=== PATIENT | male | born 1965 | race Caucasian/White ===

== ENCOUNTER 2024-06-08 09:42 | Inpatient (IN) | payer OTHER, SELFPAY ==
[2024-06-08] VITALS (12 sets, daily range): BP systolic 146–212; BP diastolic 75–99; BMI 28.8
--- NOTE | 2024-06-08 11:09 | W.CON.NEPH ---
Addendum entered and electronically signed by Roldan Morgan MD 06/08/24 11:19:
Should his creatinine remained stable, he could proceed with surgery.
We discussed the risks of LELAND as well as dialysis. He does understand.
Original Note:
Consultation
-
Date/Time Consultation Requested: 06/08/24 1100
Date/Time Consultation Performed: 06/08/24 1100
Requesting Provider: Dr. Sarabia
Performing Provider: Dr. Morgan
Reason for Consultation: CKD
Medical History
-
Chief Complaint: Transferred from [facility]
History of Present Illness:
This is a 50-year-old Tanzanian-speaking gentleman from [facility]. He has hypertension on a multidrug regimen typically has been well-controlled as well as diabetes on oral medications though this does not appear to have been well-controlled in the
past. He only follows with a family care physician. Dr. Rodriguez [phone]. He says that he gets blood work about every 6 months and the last set was back in October. He does not recall ever being asked for a urine specimen. He says that he
has never been told that he has chronic kidney disease. He went to [facility] on 05 June with hypertensive urgency as well as hyperglycemia. He was not felt to be in DKA based on blood work. His blood pressures were treated and his
sugars controlled. His creatinine at the time of admission was noted to be 1.88. Evaluation at that time because of elevated troponin values showed an otherwise unremarkable echocardiogram, chest x-ray. Renal ultrasound was also unremarkable. He
subsequently underwent cardiac catheterization which showed significant diffuse multivessel disease. He was sent to [facility] for evaluation of bypass grafting. At the time of discharge his creatinine was noted to be 2.05. We are asked
to assist with management of the potential of LELAND on CKD.
Past Medical History
Hypertension, hyperlipidemia, diabetes mellitus type 2
Social History
Tobacco: Non-Smoker
Alcohol: None
Family History
Family History: Not Pertinent
Allergies / Home Medications
Allergy/AdvReac Type Severity Reaction Status Date / Time
No Known Drug Allergies Allergy Unknown Verified 06/08/24 10:05
Review of Systems
-
Currently no chest pain or shortness of breath. No edema. No issues with urine output.
All other systems: Negative unless noted
Physical Exam
Vital Signs
Vital Signs
Pulse BP Pulse Ox
80 174/81 96
06/08/24 11:00 06/08/24 09:46 06/08/24 09:44
Lab Results
On June 08, 2024 WBC 13, hemoglobin 11.5, platelets 201, sodium 137, potassium 3.6, bicarbonate 20, BUN 28, creatinine is 2.05, glucose 93, calcium 8.1, magnesium 2.1, GFR 37
Records from [facility] reviewed
On June 05, 2024 creatinine 1.88, troponin 212, urinalysis with 1+ protein
Physical Exam
Patient is awake alert oriented and in no distress. Mood and affect were pleasant, insight and judgment were good. Pupils are equal round and reactive to light, extraocular movements are intact, sclera were anicteric. Hearing was normal, ears and
nose are intact. Oropharynx was clear. Neck was supple with trachea midline and no thyromegaly. Heart was regular rate and rhythm without rubs. Lower extremities without edema. Lungs were clear to auscultation bilaterally and with normal
excursion. Abdomen was soft, nontender, with normal active bowel sounds, and no hepatosplenomegaly. Skin was without rash and with normal turgor.
Data Reviewed
-
CT Scan: Report Reviewed by me (Chest x-ray on 06/05/2024 shows no acute disease)
Medical Tests (Nuc Med, Echo etc): Image Personally Visualized and interpreted (EKG on 06/05/2024 by reading shows first-degree block Nasiff T wave abnormalities sinus rhythm), Report Reviewed by me (Echocardiogram on 06/06/2024 shows ejection
fraction 55%, no valvular disease noted) and Other (Renal ultrasound on 06/05/2024 shows left kidney 10.3 cm, right kidney 10.9 cm, postvoid residual 15 cc only)
Labs: Other (Cardiac catheterization on 06/07/2024 shows diffuse disease LAD, diagonal, circumflex, right coronary)
Old Records: Requested
Assessment/Plan
-
Assessment
CKD 3B
Possible LELAND
Diabetes mellitus type 2
Hypertension
Hyperlipidemia
Diffuse CAD
Plan
CT surgical evaluation for probable bypass grafting
Follow creatinine and BMP I suspect that he is close to baseline
Will try and obtain old blood tests from either [facility] or his primary office
Check urine protein creatinine ratio
Holding ARB, SGLT2 inhibitors for now
Volume status appears euvolemic
Discussed with patient and family. Patient used [employer] feed[employer] driver on his phone
[2024-06-08 11:33] LABS: Glucose - Point of Care 200 mg/dl (70-99)
[2024-06-08 12:04] LABS: Hemoglobin 12.6 g/dL (13.0-18.0); Mean Corp Hgb Conc. 34.1 g/dL (33.0-37.0); Mean Corpuscular Hgb 28.6 pg (27.0-31.0); Mean Corpuscular Volume 83.9 fL (80.0-94.0); Mean Platelet Volume 11.5 fL (7.4-10.4); Platelet Count 215 10^3/uL (130-400); Red Blood Cell Count 4.41 10^6/uL (4.70-6.10); Red Cell Dist. Width 13.8 % (11.5-14.5); White Blood Cell Count 12.9 10^3/uL (4.8-10.8)
--- NOTE | 2024-06-08 12:07 | CON.CAR ---
Addendum entered and electronically signed by Niles Verdugo MD 06/08/24 14:59:
58 yo male with PMH HTN, DM, CKD3b presented to [facility] with chest pain. He was evaluated for HTN emergency and NSTEMI. Cath showed multivessel CAD and transferred here for CABG evaluation. He is chest pain free. Exam with RRR, no murmurs, no edema.
Cr 1.9. EKG: NSR, nonspecific T wave abnl.
#CAD/NSTEMI
-ASA, heparin drip, coreg, crestor
-CABG eval
# HTN emergency
-current regimen is coreg 6.25mg bid, amlodipine 10mg daily, hydralazine 50mg tid
-avoiding nephrotoxic agents with CKD3b and plans for CABG
Original Note:
Consultation
Consultation Request
Date/Time Consultation Requested: 06/08/2024 10:00
Date/Time Consultation Performed: 06/08/2024 12:00
Requesting Provider: Theron Calderon PA-C
Performing Provider: BEN Mir for Dr. Verdugo
Reason for Consultation: Coronary artery disease
Medical History
-
Chief Complaint: High blood sugar, chest pain, blurry vision
History of Present Illness:
Patient is a 58-year-old Ugandan-speaking male originally from [facility] with hypertension, type 2 diabetes mellitus, and chronic kidney disease who presented to [facility] on 06/05/2024 with hypertensive urgency. His BP on arrival was 174/85. He was
also found of hyperglycemia. He endorsed blurry vision and headache along with left-sided chest discomfort that would come and go. There was no radiation of his chest discomfort. He also endorsed urinary frequency. He was found to have an
elevated troponin. He underwent cardiac catheterization which showed difduse multivessel coronary artery disease. He was transferred to [facility] for CABG evaluation.
Past Medical History
Past Medical History: HTN, Hypercholesterolemia, NIDDM and Renal Failure (CKD)
Social History
Tobacco: Non-Smoker
Alcohol: None
Drug: None
Living: With Family
Family History
Family History: Reviewed & Not Pertinent (Denies premature CAD and SCD)
Allergies / Home Medications
Allergy/AdvReac Type Severity Reaction Status Date / Time
No Known Drug Allergies Allergy Unknown Verified 06/08/24 10:05
Review of Systems
-
History Source: Patient
All other systems: Negative unless noted
Constitutional: No Symptoms
EENT: No Symptoms
Respiratory: No Symptoms
Cardiac: No Symptoms
Abdomen/GI: No Symptoms
: No Symptoms
Musculoskeletal: No Symptoms
Skin: No Symptoms
Neurological: No Symptoms
Endocrine: No Symptoms
Hematologic/Lymphatic: No Symptoms
Physical Exam
Vital Signs
Pulse BP Pulse Ox
80 174/81 96
06/08/24 11:00 06/08/24 09:46 06/08/24 09:44
Lab Results
06/08/24 11:46
Physical Exam
General: Well Developed, Well Nourished, No Apparent Distress and Comfortable
HEENT: Normocephalic, Anicteric and Moist Mucous Membranes
Respiratory: Clear and Non Labored Respirations
Cardiac: S1/S2 and Regular Rhythm; Negative Peripheral Edema
Breast: Deferred by me
GI: Soft, Non Tender, Non Distended and Normal Bowel Sounds
Rectal: Deferred by Provider
Genito-urinary: No Costovertebral Tender
Musculoskeletal: No Clubbing and No Cyanosis
Skin: Warm and Dry
Neuro: AO x 3
Hematologic/Lymphatic: No Lymphadenopathy
Psych: Calm
Impression / Plan
-
NSTEMI
MVCAD
-High-sensitivity troponin peaked at 212 at [facility] (164, 212, 205, 170)
-Continue aspirin 81 mg daily and heparin drip
-CABG evaluation pending
Hypertensive urgency
-He is on amlodipine, carvedilol, and valsartan at home
-Hold ELIDA/ARB in the setting of CABG evaluation
-Resume carvedilol 6.25mg BID, start now & resume amlodipine 10mg, start now
-Hydralazine was added by primary service
Type 2 diabetes mellitus
-Initially, he presented with hypokalemia and hypoglycemia but DKA was not diagnosed
-SGLT2 on hold in the setting of CABG evaluation
-HgbA1c pending, consider diabetic FRAMING CONSULTANT consult
LELAND on CKD
-Presented with a creatinine of 1.89, received dye load 06/06/2024, creatinine 2.08 at [facility] yesterday
-Weight documented at 81.2 kg in ER at [facility]
-Per nephrology
Dyslipidemia
-Lipid panel 06/06/2024: TC 266, HDL 41, LDL 172, TG 267
-He was on atorvastatin 40 mg at home, escalate therapy to rosuvastatin 40 mg daily
Data:
Coronary angiography, 06/07/2004:
Moderate mid and severe distal LAD lesions.
D1 with severe proximal disease.
Severe ostial, proximal, proximal and mid junction and distal circumflex lesions.
Severe ostial and proximal OM 4 lesion.
Severe mid ramus lesions.
RPDA is occluded with collaterals.
RPL 3 with moderate to severe lesion.
Mild to moderate disease in all other areas.
Moderate to severely increased LVEDP.
TTE, 06/07/2024:
LVEF 55 to 60%. Grade II DD.
There is lipomatous hypertrophy of the interatrial septum.
Trace tricuspid regurgitation
Data Reviewed
-
Old Records: Reviewed (Transfer records)
[2024-06-08 12:10] LABS: APTT 48.9 Sec (23.4-35.0)
[2024-06-08 12:16] LABS: ALT (SGPT) 17 U/L (0-50); AST (SGOT) 19 U/L (17-59); Alkaline Phosphatase 98 U/L (38-126); Blood Urea Nitrogen 30 mg/dl (9-20); Calcium 8.5 mg/dl (8.4-10.2); Carbon Dioxide 19 mmol/L (22-30); Chloride 108 mmol/L (98-107); Glucose 206 mg/dl (70-99); Magnesium 2.2 mg/dl (1.6-2.3); NT-proBNP 1300 pg/ml; Sodium 137 mmol/L (135-145); Total Bilirubin 0.5 mg/dl (0.2-1.3); Total Protein 5.9 g/dl (6.3-8.2); eGFR 40.38
[2024-06-08] MEDS: HEPARIN 25000 UNITS/250 ML IV (12:43)
--- NOTE | 2024-06-08 12:45 | HPS.HSE ---
Family Physician
-
Family Physician: Dr. Rodriguez
Chief Complaint
-
NSTEMI
History of Present Illness
Patient is a 58-year-old [place]aguayan-speaking male with a past medical history significant for type 2 diabetes, hypertension, hyperlipidemia who presented to outside hospital with complaints of dyspnea on exertion as well as markedly elevated blood
pressure. His blood pressure on presentation was 214/97. Troponins were elevated and the patient was admitted for subsequent cardiac workup. His initial creatinine was 1.9 and there was some concern for acute kidney injury versus chronic kidney
disease. Given this finding cardiac cath was delayed for one day. The patient remained stable without chest pain. On cardiac cath multivessel coronary artery disease was noted and the patient was subsequently referred for CABG. This prompted
transfer to our facility for further workup and evaluation.
Currently the patient is resting comfortably and without complaints. There is a significant language barrier and the patient is family only speaks Paraguayan. iPad universal grinder tool was utilized.
Medical History
Past Medical History
Past Medical History: Reports HTN, Hypercholesterolemia and NIDDM
Past Surgical History: Reports None
Social History
Tobacco: Non-smoker
Alcohol: None
Drug: None
Personal:
Living: With Family
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
Family History
Family History: Not pertinent
Allergies / Home Medications
Allergies reflects when Allergies were last updated in [facility].
Home Medications with original date entered in [facility]
Allergy/Medication List:
Home medications include the following:
Norvasc 10 mg p.o. daily
Aspirin 81 mg p.o. daily
Coreg 6.25 mg p.o. twice daily
Farxiga 10 mg p.o. daily
Losartan 50 mg p.o. daily
Metformin 1000 mg p.o. twice daily
Crestor 20 mg p.o. nightly
Januvia 100 mg p.o. daily
Valsartan 320 mg p.o. daily
Review of Systems
-
History Source: Patient
A 12 point ROS was completed and negative except as noted: Yes
Physical Exam
Vital Signs
Vital Signs
Pulse BP Pulse Ox
76 196/87 90
06/08/24 12:15 06/08/24 11:48 06/08/24 12:15
Physical Exam
General: Well Developed and Well Nourished
HEENT: NormoCephalic and Anicteric
Respiratory: Clear
Cardiac: S1/S2 and Regular Rhythm
GI: Soft, Non Tender and Non Distended
Rectal: Deferred by Provider
Skin: Warm and Dry
Neuro: Awake, Alert and Oriented
Psych: Calm
Laboratory Results
-
06/08/24 11:46
06/08/24 11:46
Laboratory Results
PT 12.0 Sec (11.4-14.6) 06/08/24 11:46
INR 0.90 06/08/24 11:46
APTT 48.9 Sec (23.4-35.0) H 06/08/24 11:46
APTT Cancelled 06/08/24 11:46
Total Bilirubin 0.5 mg/dl (0.2-1.3) 06/08/24 11:46
AST 19 U/L (17-59) 06/08/24 11:46
ALT 17 U/L (0-50) 06/08/24 11:46
Alkaline Phosphatase 98 U/L (38-126) 06/08/24 11:46
Data Reviewed
-
Lab Data: Labs Reviewed by me
Impression/Plan
-
IMPRESSION:
NSTEMI
Multivessel coronary artery disease
Acute kidney injury (unknown historic baseline)
Hypoxia
Hypertension, uncontrolled
Hyperlipidemia
Type 2 diabetes
PLAN:
Given the patient's age, multivessel coronary artery disease, and diabetes CABG would be the preferred definitive revascularization strategy. I discussed the nature of coronary artery disease as well as CABG surgery with the patient and his family.
I answered their questions to their satisfaction. They are understandably emotional in regard to the diagnosis however they are interested in moving forward with CABG workup and ultimate surgery. I have ordered the typical preop risk
stratification including lab studies, carotid duplex, CT of the chest without contrast. Biventricular function was noted to be normal on echocardiogram. There was trace MR and TR but no aortic valve abnormalities.. The patient brought a disc with
the cardiac cath on it. We will review this as well as uploaded to our system. Dr. Renny Rasheed will evaluate and provide definitive recommendations regarding surgical candidacy/timing in the addendum.
Given his NSTEMI presentation and uncontrolled blood pressure we will consult cardiology to assist with management. Input is appreciated. I did discuss the case with their service. Holding ELIDA/ARB in the setting of LELAND and also preop CABG. ACS
protocol IV heparin and ASA 81. No DAPT in anticipation of surgery.
Given his acute kidney injury on questionable chronic kidney disease we will also consult nephrology given recent contrast exposure and preoperative status. Input is appreciated.
cosmetology educator was consulted. Continue Lantus, sliding scale insulin for now. Home Farxiga/Metformin on hold given LELAND and preop status.
Unknown why the patient's oxygen saturations are low. Nasal cannula as needed to maintain saturations greater than 90%. Will obtain noncontrast CT of the chest to evaluate this as well as to delineate anatomy for surgical planning. Patient does
not appear grossly volume overloaded on exam and his biventricular is normal based on echo report from outside hospital. Will obtain room air arterial blood gas.
UPDATE 1700: O2 sats remain poor on 4 L via NC. Non contrast chest CT shows pulm edema. 40 IV lasix given. 10 mg IV hydralazine given for uncontrolled HTN. RV normal on TTE at [facility]. I think saddle PE unlikely given hypertension and normal RV.
Subsegmental PE possible but danger giving IV contrast to get CTA and already on ACS heparin which would be the treatement for subsegmental PE. Will have pulmonary weigh in. Will hold off on D dimer for now after discussion with pulmonary. Again,
lifelong non smoker. At this point I think this is all related to pulmonary edema.
[2024-06-08] MEDS: COREG 6.25 MG PO ×2 (12:51→19:55)
[2024-06-08] MEDS: NORVASC 10 MG PO (12:52)
--- NOTE | 2024-06-08 13:00 | PTCARENOTE ---
Received pt from [facility] via stretcher. The pt was on a heparin drip at 15 ml/hr, per the lifter/driver. The EMS crew discontinued the heparin drip upon admission. The heparin drip was initiated per MD order at . The pt denies any chest
discomfort or SOB. Will monitor.
[2024-06-08 15:18] LABS: B.E. -1.4 mmol/L; HCO3 21.5 mmol/L (21-28); O2 Saturation % 81.6 % (94-98); PCO2 31 mmHg (35-48); pH 7.45 (7.35-7.45)
[2024-06-08 15:20] LABS: PO2 46 mmHg (83-108)
[2024-06-08] MEDS: NOVOLOG FLEXPEN-MODERATE RESISTANCE SC ×2 (16:22→18:22)
[2024-06-08] MEDS: APRESOLINE 50 MG PO ×2 (16:23→22:44)
[2024-06-08 16:29] LABS: Glucose - Point of Care 183 mg/dl (70-99)
[2024-06-08] MEDS: APRESOLINE 10 MG IV (16:51)
[2024-06-08] MEDS: LASIX 40 MG IV (16:51)
[2024-06-08] MEDS: CRESTOR 40 MG PO (18:19)
--- NOTE | 2024-06-08 18:45 | PTCARENOTE ---
The pt notified the RN of SOB that started 35 minutes prior. Pulse ox 88% on room air. Nasal cannula initiated at 3 liters and eventually titrated to midflow at 10 liters O2 to maintain saturation of >90%. Stat CT scan and lasix given. Pulse ox
96% on 10 liters of midflow. Will monitor.
[2024-06-08] MEDS: TYLENOL 650 MG PO (18:56)
[2024-06-08 20:02] LABS: APTT 47.6 Sec (23.4-35.0)
[2024-06-08 20:05] LABS: Urine Protein 86 mg/dl
[2024-06-08 20:20] LABS: Protein/creatinine Ratio 6.4
--- NOTE | 2024-06-08 22:22 | PTCARENOTE ---
received patient at the change of shift. denies any pain/sob. states doing much better. very appreciative. bedside and staying overnight. reviewed call capone with patient and importance of calling RN. SR 70s. elevated bp 172/90. scheduled coreg
given and bp improvement-151/76. 98% on 10L midflow. weaned patient to 8L-sp02 95%. lungs clear, diminished. urinating in the urinal-clear yellow urine. heparin gtt infusing per protocol. call capone within reach.
[2024-06-08 22:39] LABS: Glucose - Point of Care 192 mg/dl (70-99)
[2024-06-08] MEDS: LANTUS 0.1 UNITS SC (22:44)
[2024-06-09] VITALS (12 sets, daily range): BP systolic 154–187; BP diastolic 74–91; BMI 27.6
--- NOTE | 2024-06-09 00:56 | PTCARENOTE ---
patient rang for RN complaining of feeling hot. temp 98.4. blankets removed. patient appears anxious but states feeling good. more tachypneic-RR 30s. HR 70s. 95% on 8L midflow. elevated bp-171/84; 167/82. updated Hebert Nicholson [employer] MANAGER [employer]ENSIVE [employer]. hydralazine
PRN order for SBP>180 entered-not given at this time. patient made comfortable in bed. refusing a fan at this time. educated to call RN for any changes.
[2024-06-09] MEDS: APRESOLINE 10 MG IV (02:53)
[2024-06-09 02:59] LABS: Hemoglobin 11.5 g/dL (13.0-18.0); Mean Corp Hgb Conc. 34.8 g/dL (33.0-37.0); Mean Corpuscular Hgb 27.9 pg (27.0-31.0); Mean Corpuscular Volume 80.1 fL (80.0-94.0); Mean Platelet Volume 10.5 fL (7.4-10.4); Platelet Count 208 10^3/uL (130-400); Red Blood Cell Count 4.12 10^6/uL (4.70-6.10); White Blood Cell Count 13.2 10^3/uL (4.8-10.8)
--- NOTE | 2024-06-09 02:59 | PTCARENOTE ---
Addendum entered by lBake Chong RN 06/09/24 04:22:
improved BP- 154/79.
Original Note:
bp 187/89. HR 79. PRN IV hydralazine 10 mg given, see mar. no complaints at this time.
[2024-06-09 03:11] LABS: INR 1.06; PT 13.6 Sec (11.4-14.6)
[2024-06-09 03:21] LABS: ALT (SGPT) 16 U/L (0-50); AST (SGOT) 22 U/L (17-59); Albumin 2.8 g/dl (3.5-5.0); Alkaline Phosphatase 93 U/L (38-126); Blood Urea Nitrogen 28 mg/dl (9-20); Calcium 8.5 mg/dl (8.4-10.2); Carbon Dioxide 21 mmol/L (22-30); Chloride 107 mmol/L (98-107); Direct Bilirubin 0.1 mg/dl (0.0-0.4); Glucose 185 mg/dl (70-99); Potassium 4.1 mmol/L (3.5-5.1); Sodium 137 mmol/L (135-145); Total Bilirubin 0.8 mg/dl (0.2-1.3); Total Protein 5.6 g/dl (6.3-8.2); eGFR 40.38
--- NOTE | 2024-06-09 05:21 | W.PN.CT ---
Addendum entered and electronically signed by Renny Rasheed MD 06/09/24 10:02:
I saw and examined the patient.
The PA's note was reviewed and I agree with the note.
Comment:
Patient remains chest pain-free, denies feeling short of breath despite ongoing hypoxemia. In addition, patient with low-grade fever with Tmax of 100.6. In setting of slightly worsening leukocytosis.
Given these O2 requirements and a lifelong non-smoker without any occupational exposure history, coupled with his new fever/worsening leukocytosis I believe his radiographic imaging is more likely secondary to infectious process then pulmonary edema
Start antibiotic therapy, sputum culture, shafer culture, pulmonary consultation
Check echocardiogram
Timing of surgical intervention for his CAD to be determined, but will likely need to be delayed in the setting of current pulmonary status
Management for continued hypertension
Original Note:
Today's Communication / Plan
-
-No overnight events. Currently CP free, denies feeling SOB despite ongoing hypoxia (8L NC)
-CABG workup pending
-ASA/heparin gtt
-holding ELIDA/ARB for CABG
-currently on coreg 6.25 mg, amlodipine 10 mg, hydralazine 50 mg, rosuvastatin 40 mg
-Await A1c, continue lantus and SSI
-cards/nephro/DM educator consulted
Assessment / Plan
-
58-year-old [place] Lankan-speaking male originally from [facility] HTN, DM, CKD3b presented to [facility] on 06/05/2024 with hypertensive urgency and chest pain. Cath showed multivessel CAD and transferred here for CABG evaluation.
MVCAD
HTN Emergency
Acute hypoxic respiratory failure
Pulmonary edema
NSTEMI
HTN
DM2
CKD IIIb
Coronary angiography, 06/07/2004:
Moderate mid and severe distal LAD lesions.
D1 with severe proximal disease.
Severe ostial, proximal, proximal and mid junction and distal circumflex lesions.
Severe ostial and proximal OM 4 lesion.
Severe mid ramus lesions.
RPDA is occluded with collaterals.
RPL 3 with moderate to severe lesion.
Mild to moderate disease in all other areas.
Moderate to severely increased LVEDP.
TTE, 06/07/2024:
LVEF 55 to 60%. Grade II DD.
There is lipomatous hypertrophy of the interatrial septum.
Trace tricuspid regurgitation
Subjective
Procedure
CABG evaluation
-
Date of Service: June 09, 2024
Objective Data
-
Lab Results
06/09/24 02:51
06/09/24 02:51
PT 13.6 Sec (11.4-14.6) 06/09/24 02:51
INR 1.06 06/09/24 02:51
APTT 74.0 Sec (23.4-35.0) H 06/09/24 02:51
APTT Cancelled 06/09/24 02:51
Vital Signs
Vital Signs
Temp Pulse Resp BP Pulse Ox
99.1 F 74 28 154/79 95
06/09/24 02:57 06/09/24 04:15 06/09/24 02:57 06/09/24 04:14 06/09/24 02:57
CT Intake/Output/Weight
06/08/24 06/08/24 06/09/24
06:59 18:59 06:59
Intake Total 315 / 315
Output Total 550 / 1700 1150 / 1700
Balance -235 / -1385 -1150 / -1385
SaO2: 95
Physical Exam
-
General: Awake, Oriented and AOx3
Cardiovascular: Regular rate & rhythm, No Murmurs and No Rub
Respiratory: Clear, Equal and Decreased Breath Sounds
Extremities: No Edema and No Erythema
Data Reviewed
-
Lab Results: Results Reviewed
Medications: Active Meds Reviewed
[2024-06-09] MEDS: HEPARIN 25000 UNITS/250 ML IV ×2 (05:34→22:23)
[2024-06-09 07:14] LABS: Glucose - Point of Care 221 mg/dl (70-99)
--- NOTE | 2024-06-09 07:17 | CON.PUL ---
Consultation
Consultation Request
Date/Time Consultation Requested: 06/09/2024-7 AM
Date/Time Consultation Performed: 06/09/2024-7:30 AM
Requesting Provider: Cardiovascular surgery
Performing Provider: Dr. Chavira
Reason for Consultation: Shortness of breath
Medical History
-
Chief Complaint: Shortness of breath
History of Present Illness:
58-year-old [place] and this [place]ian and Farsi speaking gentleman with a history of hypertension, hyperlipidemia, diabetes who presented with hypertensive emergency with elevated troponins to an outlying hospital and was transferred for CABG
evaluation after multivessel coronary artery disease was noted-pulmonary was consulted for shortness of breath and hypoxemia 06/09/2024. History was obtained through the records but also through multiple family members that spoke more [place] Citizen than
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 Patient feels much improved with diuresis. He does not complain of any shortness of breath, chest pain, chest tightness, pleurisy, chest congestion, productive cough, abdominal pain weakness or swelling.
Past Medical History
Past Medical History: None (Hypertension. Hyperlipidemia. Diabetes.)
Social History
Tobacco: Non-smoker
Alcohol: None
Drug: None
Personal:
Living: With Family
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
Occupational Exposures: No known asbestos exposure
Environmental Exposures: No known tuberculosis exposure
Family History
Family History: Reviewed & Not Pertinent
Allergies / Home Medications
Allergies
Allergy/AdvReac Type Severity Reaction Status Date / Time
No Known Drug Allergies Allergy Unknown Verified 06/08/24 10:05
Home Medications
�Medication �Instructions �Recorded �Confirmed �Last Taken �Type
amlodipine 10 mg tablet 10 mg PO DAILY 06/08/24 06/08/24 Unknown History
aspirin 81 mg tablet 81 mg PO DAILY 06/08/24 06/08/24 Unknown History
carvedilol 6.25 mg tablet 6.25 mg PO Q12H 06/08/24 06/08/24 Unknown History
dapagliflozin propanediol 10 mg 10 mg PO DAILY 06/08/24 06/08/24 Unknown History
tablet
losartan 50 mg tablet 50 mg PO DAILY 06/08/24 06/08/24 Unknown History
metformin 1,000 mg tablet 1,000 mg PO BID 06/08/24 06/08/24 Unknown History
rosuvastatin 20 mg tablet 20 mg PO HS 06/08/24 06/08/24 Unknown History
sitagliptin phosphate 100 mg tablet 100 mg PO DAILY 06/08/24 06/08/24 Unknown History
valsartan 320 mg tablet 320 mg PO DAILY 06/08/24 06/08/24 Unknown History
Review of Systems
-
Unable to Obtain full review of systems at this time due to: Other (Per HPI)
Vitals / Labs / Diagnostic Testing
Vital Signs
Temp Pulse Resp BP Pulse Ox
100.6 F H 74 20 154/79 93
06/09/24 07:09 06/09/24 04:15 06/09/24 07:09 06/09/24 04:14 06/09/24 07:09
Lab Data
06/09/24 02:51
06/09/24 02:51
Laboratory Results
06/08/24 06/08/24 06/08/24
11:46 11:46 15:04
PT 12.0
INR 0.90
APTT 48.9 H Cancelled
pH 7.45
pCO2 31 L
pO2 46 L*
HCO3 21.5
O2 Delivery Level
06/08/24 06/09/24 06/09/24
19:39 02:51 02:51
PT 13.6
INR 1.06
APTT 47.6 H Cancelled 74.0 H
pH
pCO2
pO2
HCO3
O2 Delivery Level
Diagnostic Testing:
Physical Exam
-
Exam:
Well-nourished and well-developed in no apparent distress
HEENT-atraumatic, normocephalic
Neck-supple, no JVD, no bruit
Heart-regular rate and rhythm-no murmurs, rubs or gallops
Chest with rare basilar crackles but no wheezes
Abdomen-soft, nontender, nondistended, no hepatosplenomegaly
Extremities-no cyanosis, clubbing, edema and good peripheral pulses, no calf tenderness, negative Homans' sign
Integument-intact, no rashes, lesions or ecchymosis
Neurology-alert and oriented, nonfocal motor and sensory exam
Assessment
-
58-year-old [place] and this [place]ian and Farsi speaking gentleman with a history of hypertension, hyperlipidemia, diabetes who presented with hypertensive emergency with elevated troponins to an outlying hospital and was transferred for CABG
evaluation after multivessel coronary artery disease was noted-pulmonary was consulted for shortness of breath and hypoxemia 06/09/2024.
CAD/NSTEMI-multivessel CAD for CABG eval
Respiratory [id number] 46 on room air 06/08/2024
CHF-preserved EF
LELAND
Hypertension-recent hypertensive emergency
Mild leukocytosis-WBC 13.2
Mild vcszngmjoe-wknqjrbppx-29.5
Hyperglycemia
Elevated procalcitonin-0.45
Conditions present prior to admission:
Hypertension.
Hyperlipidemia.
Diabetes.
Chronic renal failure-diabetic nephropathy
Plan
Respiratory decompensation consistent with acute CHF with preserved EF and diastolic dysfunction and less likely pneumonia, venous thromboembolic disease, etc.
Supplemental oxygen as needed-have been able to rapidly wean as patient has been diuresed
Incentive spirometry
Nebulizers if needed-currently not bronchospastic
Aspiration precautions
Incentive spirometry/flutter
Follow-up chest x-ray
Very low suspicion for venous thromboembolic disease-suspect D-dimer would be unreliable in with renal failure would not risk CT with dye at this point
Will consider workup if patient remains hypoxemic or clinical picture dictates after appropriate diuresis-on heparin drip for now for ACS
Cardiology evaluation noted-correspondence reviewed
Diuresis as tolerated
Monitor renal function, electrolytes, intake/output, lower extremity edema and weight
Replace electrolytes as needed
Cardiac catheterization results reviewed
Echocardiogram results reviewed
Repeat echocardiogram
Cardiovascular surgery following-correspondence reviewed-reviewed personally with them over the phone-evaluating for potential CABG
Heparin drip continues
Continue aspirin
ELIDA/ARB on hold with acute renal failure
Resume carvedilol and resume amlodipine
Monitor renal function
Nephrology following-correspondence reviewed
Check cultures
Sputum culture if able to produce
Incentive's spirometry with basilar atelectasis versus pneumonia-suspect the former
Zosyn initiated empirically
Note procalcitonin elevated-patient does have renal failure
Follow leukocytosis and temperature curve
Monitor blood sugar
Insulin supplementation as needed
DVT prophylaxis-on heparin drip
Nutrition
Mobilization per cardiology
Reviewed with multiple family members, cardiovascular surgery, and nursing at the bedside
Diagnostic data:
Chest x-ray 06/08/2024-mild interstitial pulmonary edema
Chest x-ray 06/09/2024-interval improvement in bilateral interstitial pulm edema, focal area of hazy opacification inferior aspect right upper lobe, possible atelectasis both lower lungs
CT chest 06/08/2024-bilateral pulmonary opacifications consistent with CHF and small bilateral pleural effusions
Coronary angiography, 06/07/2004:
Moderate mid and severe distal LAD lesions.D1 with severe proximal disease.Severe ostial, proximal, proximal and mid junction and distal circumflex lesions. Severe ostial and proximal OM 4 lesion.Severe mid ramus lesions.RPDA is occluded with
collaterals.RPL 3 with moderate to severe lesion.Mild to moderate disease in all other areas.Moderate to severely increased LVEDP.
TTE, 06/07/2024:LVEF 55 to 60%. Grade II DD.There is lipomatous hypertrophy of the interatrial septum.Trace tricuspid regurgitation
Data Reviewed
-
EKG: Report reviewed by me
Radiology: Report reviewed by me
CT Scan: Report reviewed by me
Medical Tests (Nuc Med, Echo etc): Report reviewed by me
Labs: Labs reviewed by me
Old Records: Reviewed
Critical Care Time (in minutes): 55
--- NOTE | 2024-06-09 08:42 | W.PN.NEPH.PH ---
Today's Communication / Plan
-
lasix
Assessment/Plan
-
Assessment
CKD 3B
Possible LELAND
Diabetes mellitus type 2
Hypertension
Hyperlipidemia
Diffuse CAD
subnephrotic proteinuria
Plan
check cx
lasix again today
follow BMP
await OP lab records
no ARB/SGLT2i for now
he has subnephrotic range proteinuria likely on the basis of diabetic nephropathy. I suspect that his creatinine is near baseline.
-
-
Date of Service: June 09, 2024
CC / HPI / ROS
-
Chief Complaint:
LELAND/CKD
History of Present Illness:
Cr stable at 1.9
remains on supplemental O2
BP stable
WBC up to 13.2
Review of Systems:
low grade temp this am
no CP
Labs
-
Labs:
WBC 13.2 10^3/uL (4.8-10.8) H 06/09/24 02:51
RBC 4.12 10^6/uL (4.70-6.10) L 06/09/24 02:51
Hgb 11.5 g/dL (13.0-18.0) L 06/09/24 02:51
Hct 33.0 % (39.0-52.0) L 06/09/24 02:51
Plt Count 208 10^3/uL (130-400) 06/09/24 02:51
Sodium 137 mmol/L (135-145) 06/09/24 02:51
Potassium 4.1 mmol/L (3.5-5.1) 06/09/24 02:51
Chloride 107 mmol/L (98-107) 06/09/24 02:51
Carbon Dioxide 21 mmol/L (22-30) L 06/09/24 02:51
BUN 28 mg/dl (9-20) H 06/09/24 02:51
Creatinine 1.9 mg/dL (0.7-1.3) H 06/09/24 02:51
eGFR 40.38 06/09/24 02:51
Glucose 185 mg/dl (70-99) H 06/09/24 02:51
Calcium 8.5 mg/dl (8.4-10.2) 06/09/24 02:51
Uwr-W-Qqtywkonpbt Pept 1300 pg/ml 06/08/24 11:46
Albumin 2.8 g/dl (3.5-5.0) L 06/09/24 02:51
Physical Exam
-
Vital Signs:
Vital Signs
Temp Pulse Resp BP Pulse Ox
100.6 F H 74 20 154/79 93
06/09/24 07:09 06/09/24 04:15 06/09/24 07:09 06/09/24 04:14 06/09/24 07:09
Cardiovascular:: Regular rate and rhythm
Respiratory:: Bilateral: Coarse
Lung Excursion:: Normal
Abdomen:: Nontender and Soft
Bowel Sounds:: Normal
Extremity Edema:: +1: Bilateral:
[2024-06-09 09:06] LABS: Lactic Acid 0.9 mmol/L (0.7-2.0)
[2024-06-09 09:16] LABS: APTT 54.8 Sec (23.4-35.0)
[2024-06-09] MEDS: NOVOLOG FLEXPEN-MODERATE RESISTANCE 3 UNITS SC ×2 (09:20→12:10)
[2024-06-09] MEDS: APRESOLINE 50 MG PO (09:23)
[2024-06-09] MEDS: NORVASC 10 MG PO (09:23)
[2024-06-09] MEDS: COREG 12.5 MG PO ×2 (09:24→20:24)
[2024-06-09] MEDS: LOW STRENGTH ASPIRIN 81 MG PO (09:24)
[2024-06-09 09:29] LABS: Procalcitonin 0.45 ng/ml (0.0-0.25)
[2024-06-09] MEDS: LASIX 40 MG IV (09:38)
[2024-06-09] MEDS: ZOSYN 50 IV ×3 (10:35→22:34)
--- NOTE | 2024-06-09 11:30 | W.PN.CD ---
Today's Communication / Plan
-
ASA, heparin drip
empiric Abx
s/p IV lasix this AM
Impression / Plan
-
58 yo male with PMH HTN, DM, CKD3b presented to [facility] with chest pain. He was evaluated for HTN emergency and NSTEMI. Cath showed multivessel CAD and transferred here for CABG evaluation.
# Low grade fever, elevated WBC, abnl CXR
-CXR with pulm edema vs PNA: empiric Abx started
-concern for acute HFPEF: IV lasix given by nephrology in setting of CKD3b
-echo 06/07 reported as normal LVEF; will repeat echo here
# NSTEMI, MVCAD
-Continue aspirin 81 mg daily and heparin drip
-CABG evaluation
# Hypertensive emergency
-improved BP
-current regimen is coreg 12. 5mg bid, amlodipine 10mg daily, hydralazine 50mg tid
-avoiding nephrotoxic agents with CKD3b and plans for CABG
-can titrate hydralazine if BP remains elevated.
# Type 2 diabetes mellitus
-SGLT2 on hold in the setting of CABG evaluation
# CKD3b
-nephrology consulted and suspected to be at baseline
# Dyslipidemia
-Lipid panel 06/06/2024: TC 266, HDL 41, LDL 172, TG 267
-He was on atorvastatin 40 mg at home; escalated therapy to rosuvastatin 40 mg daily
Data:
Coronary angiography, 06/07/2004:
Moderate mid and severe distal LAD lesions.
D1 with severe proximal disease.
Severe ostial, proximal, proximal and mid junction and distal circumflex lesions.
Severe ostial and proximal OM 4 lesion.
Severe mid ramus lesions.
RPDA is occluded with collaterals.
RPL 3 with moderate to severe lesion.
Mild to moderate disease in all other areas.
Moderate to severely increased LVEDP.
TTE, 06/07/2024:
LVEF 55 to 60%. Grade II DD.
There is lipomatous hypertrophy of the interatrial septum.
Trace tricuspid regurgitation
Physical Exam
Vital Signs/Labs
Vital Signs
Temp Pulse Resp BP Pulse Ox
98.4 F 83 22 183/91 92
06/09/24 10:33 06/09/24 09:38 06/09/24 10:33 06/09/24 09:38 06/09/24 10:33
06/08/24 06/09/24 06/10/24
06:59 06:59 06:59
Actual Weight 83.1 kg 79.8 kg
06/09/24 02:51
06/09/24 02:51
PT 13.6 Sec (11.4-14.6) 06/09/24 02:51
INR 1.06 06/09/24 02:51
APTT 54.8 Sec (23.4-35.0) H 06/09/24 08:36
Magnesium 2.2 mg/dl (1.6-2.3) 06/08/24 11:46
06/08/24
11:46
Icp-Z-Oxmcrbvmlip Pept 1300
Physical Exam
Constitutional: No acute distress
EENT: Moist mucous membranes
Cardiovascular: Rhythm & rate is regular, Pedal edema is absent, JVD pressure is normal and Systolic murmur absent
Respiratory: Respiratory effort normal and Lungs clear to auscul.
Neuro/Psych: AO x 3
Data Reviewed
-
Date of Service: June 09, 2024
EKG: Other (Tele: SR 70s)
Labs: Labs Reviewed by me
[2024-06-09 12:09] LABS: Glucose - Point of Care 235 mg/dl (70-99)
[2024-06-09 12:59] LABS: Glycohemoglobin (HgbA1c) 11.5 % (4.0-5.6)
[2024-06-09 15:23] LABS: Urine Albumin 2+ (Neg - Trace); Urine Bilirubin Negative (Negative); Urine Character Clear (Clear); Urine Color Straw; Urine Glucose 3+ (Negative); Urine Ketone Negative (Negative); Urine Leukocyte Negative (Negative); Urine Nitrite Negative (Negative); Urine Occult Blood Negative (Negative); Urine Urobilinogen Negative (Neg - 1+)
[2024-06-09 15:37] LABS: Urine Granular Cast 0-2 /LPF (0); Urine Hyaline Cast 0-2 /LPF (0-2); Urine Red Blood Cell 0-2 /HPF (0-2); Urine White Cell 0-2 /HPF (0-5)
[2024-06-09 16:17] LABS: APTT 73.6 Sec (23.4-35.0)
[2024-06-09] MEDS: APRESOLINE 100 MG PO ×2 (16:29→22:32)
[2024-06-09] MEDS: TYLENOL 650 MG PO (16:58)
[2024-06-09] MEDS: CRESTOR 40 MG PO (17:41)
[2024-06-09] MEDS: NOVOLOG FLEXPEN-MODERATE RESISTANCE SC (17:41)
[2024-06-09 17:46] LABS: Glucose - Point of Care 200 mg/dl (70-99)
[2024-06-09 20:48] LABS: APTT 98.7 Sec (23.4-35.0)
[2024-06-09 21:28] LABS: Glucose - Point of Care 240 mg/dl (70-99)
--- NOTE | 2024-06-09 21:44 | PTCARENOTE ---
received patient at the change of shift. family at the bedside. patient states feeling 'good.' denies any pain/sob. 93% on 6L NC. tachypneic at times. SR on tele 70s-80s. bp elevated-179/81. scheduled coreg given, see mar. heparin gtt infusing per
protocol at 16.5 ml/hr. IV sites patent. urinating in the BSU-yellow urine. call capone within reach. makes needs known.
[2024-06-09] MEDS: LANTUS 0.15 UNITS SC (22:33)
--- NOTE | 2024-06-09 22:41 | PTCARENOTE ---
sp02 88-89% on 6L NC. switched patient to mid flow-10L to obtain 93%. patient denies any sob. appears comfortable. updated respiratory and [place] [employer].
[2024-06-10] VITALS (8 sets, daily range): BP systolic 140–186; BP diastolic 73–89; BMI 27.5
[2024-06-10 03:04] LABS: Hematocrit 31.7 % (39.0-52.0); Hemoglobin 10.8 g/dL (13.0-18.0); Mean Corp Hgb Conc. 34.1 g/dL (33.0-37.0); Mean Corpuscular Hgb 27.5 pg (27.0-31.0); Mean Corpuscular Volume 80.7 fL (80.0-94.0); Mean Platelet Volume 10.9 fL (7.4-10.4); Platelet Count 195 10^3/uL (130-400); Red Blood Cell Count 3.93 10^6/uL (4.70-6.10); Red Cell Dist. Width 13.6 % (11.5-14.5); White Blood Cell Count 12.5 10^3/uL (4.8-10.8)
[2024-06-10 03:11] LABS: APTT 115.7 Sec (23.4-35.0)
[2024-06-10 03:30] LABS: Blood Urea Nitrogen 32 mg/dl (9-20); Calcium 8.2 mg/dl (8.4-10.2); Carbon Dioxide 17 mmol/L (22-30); Chloride 108 mmol/L (98-107); Estimated Creatinine Clearance 30 ml/min; Glucose 178 mg/dl (70-99); Potassium 3.9 mmol/L (3.5-5.1); Sodium 138 mmol/L (135-145); eGFR 29.05
--- NOTE | 2024-06-10 04:59 | W.PN.CT ---
Today's Communication / Plan
-
-No overnight events. Currently CP free, denies feeling SOB despite ongoing hypoxia (midflow NC)
-Concern for PNA, Tmax 101*F in 24 hrs, now zosyn day 2.
-s/p 40 mg lasix x1 yesterday, Cr 1.9->2.5
-CABG workup pending
-ASA/heparin gtt
-holding ELIDA/ARB for CABG
-currently on coreg 12.5 mg, amlodipine 10 mg, hydralazine 100 mg, rosuvastatin 40 mg
-continue lantus and SSI
-cards/nephro/pulm/DM educator consulted
Assessment / Plan
-
58-year-old [place]-speaking male originally from [facility] HTN, DM, CKD3b presented to [facility] on 06/05/2024 with hypertensive urgency and chest pain. Cath showed multivessel CAD and transferred here for CABG evaluation 06/08/24.
MVCAD
HTN Emergency
Acute hypoxic respiratory failure
Pulmonary edema
NSTEMI
Multifocal PNA
HTN
DM2
CKD IIIb
Coronary angiography, 06/07/2004:
Moderate mid and severe distal LAD lesions.
D1 with severe proximal disease.
Severe ostial, proximal, proximal and mid junction and distal circumflex lesions.
Severe ostial and proximal OM 4 lesion.
Severe mid ramus lesions.
RPDA is occluded with collaterals.
RPL 3 with moderate to severe lesion.
Mild to moderate disease in all other areas.
Moderate to severely increased LVEDP.
TTE, 06/07/2024:
LVEF 55 to 60%. Grade II DD.
There is lipomatous hypertrophy of the interatrial septum.
Trace tricuspid regurgitation
Subjective
Procedure
CABG evaluation
-
Date of Service: June 10, 2024
Objective Data
-
Lab Results
06/10/24 02:42
06/10/24 02:42
PT 13.6 Sec (11.4-14.6) 06/09/24 02:51
INR 1.06 06/09/24 02:51
APTT 115.7 Sec (23.4-35.0) H 06/10/24 02:42
Vital Signs
Vital Signs
Temp Pulse Resp BP Pulse Ox
99.1 F 75 20 163/86 93
06/10/24 02:52 06/10/24 02:45 06/10/24 02:52 06/10/24 02:41 06/10/24 02:52
CT Intake/Output/Weight
06/09/24 06/09/24 06/10/24
06:59 18:59 06:59
Intake Total 1004 / 1254 250 / 1254
Output Total 1525 / 2075 1950 / 2550 600 / 2550
Balance -1525 / -1760 -946 / -1296 -350 / -1296
SaO2: 93
Physical Exam
-
General: Awake and Oriented
Cardiovascular: Regular rate & rhythm, No Murmurs and No Rub
Respiratory: Clear, Equal and Decreased Breath Sounds
Extremities: No Edema and No Erythema
Data Reviewed
-
Lab Results: Results Reviewed
Medications: Active Meds Reviewed
Chest X-Ray: Report Reviewed and Image Reviewed
ECG: Report Reviewed
[2024-06-10] MEDS: ZOSYN 50 IV ×4 (05:18→21:54)
--- NOTE | 2024-06-10 07:09 | W.PN.CD ---
Today's Communication / Plan
-
Continue ABX
Check COVID today
ASA/UFH
Impression / Plan
-
58 yo male with PMH HTN, DM, CKD3b presented to [facility] with chest pain. He was evaluated for HTN emergency and NSTEMI. Cath showed multivessel CAD and transferred here for CABG evaluation.
# Low grade fever, elevated WBC, abnl CXR
-CXR with pulm edema vs PNA: empiric Abx started-today is DAY 2 of ABX
-Tm 101.1, Tnow 99.1
- COVID test to be done
-concern for acute HFPEF: IV lasix given by nephrology in setting of CKD3b
-echo 06/07 reported as normal LVEF; will repeat echo here. Has short diastolic murmur LUSB (?AI)
# NSTEMI, MVCAD
-Continue aspirin 81 mg daily and heparin drip
-CABG evaluation
- I reviewed angiogram from -: clearly 3v CAD with suboptimal targets (distal LAD, ramus, OM3, small RPDA (appears to be culprit for nonSTEMI with appearance recent occlusion) are all less that ideal targets. CTS to evaluate. He is not
candidate for CABG now with active PNA likely. There is no appropriate target for PCI other than the occluded RPDA and no clear benefit to PCI here. CABG vs med Rx pending CTS evaluation
-If CTS does not feel he is an acceptable CABG candidate will stop UFH and treat with ASA/PLAVIX (nonSTEMI indication)
# Hypertensive emergency
-improved BP
-current regimen is coreg 12. 5mg bid, amlodipine 10mg daily, hydralazine 50mg tid
-avoiding nephrotoxic agents with CKD3b and plans for CABG
-Will titrate hydralazine to 75 tid today
- If SBP remains above goal we will change amlodipine 10mg to Nifedipine XL 90 for more pop
# Type 2 diabetes mellitus
-SGLT2 on hold in the setting of CABG evaluation
# CKD3b
-nephrology consulted- Cr rising now 2.5
# Dyslipidemia
-Lipid panel 06/06/2024: TC 266, HDL 41, LDL 172, TG 267
-He was on atorvastatin 40 mg at home; escalated therapy to rosuvastatin 40 mg daily
Data:
Coronary angiography, 06/07/2004:
Moderate mid and severe distal LAD lesions.
D1 with severe proximal disease.
Severe ostial, proximal, proximal and mid junction and distal circumflex lesions.
Severe ostial and proximal OM 4 lesion.
Severe mid ramus lesions.
RPDA is occluded with collaterals.
RPL 3 with moderate to severe lesion.
Mild to moderate disease in all other areas.
Moderate to severely increased LVEDP.
TTE, 06/07/2024:
LVEF 55 to 60%. Grade II DD.
There is lipomatous hypertrophy of the interatrial septum.
Trace tricuspid regurgitation
Physical Exam
Vital Signs/Labs
Vital Signs
Temp Pulse Resp BP Pulse Ox
99.1 F 75 20 163/86 93
06/10/24 02:52 06/10/24 02:45 06/10/24 02:52 06/10/24 02:41 06/10/24 05:02
06/09/24 06/10/24 06/11/24
06:59 06:59 06:59
Actual Weight 183 lb 3.266 oz 175 lb 14.862 oz
06/10/24 02:42
06/10/24 02:42
PT 13.6 Sec (11.4-14.6) 06/09/24 02:51
INR 1.06 06/09/24 02:51
APTT 115.7 Sec (23.4-35.0) H 06/10/24 02:42
Magnesium 2.2 mg/dl (1.6-2.3) 06/08/24 11:46
06/08/24
11:46
Tdj-K-Gkabdrbgbpc Pept 1300
Physical Exam
Constitutional: No acute distress and Comfortable
EENT: Anicteric
Cardiovascular: Rhythm & rate is regular, Systolic murmur absent and S1S2 is normal
Respiratory: Respiratory effort normal and Rhonchi Present (L base>R base)
GI: Soft and Non tender
Neuro/Psych: Alert and Motor deficits absent
Data Reviewed
-
Date of Service: June 10, 2024
[2024-06-10 07:46] LABS: COVID-19 Antigen Negative (Negative)
[2024-06-10 07:58] LABS: Glucose - Point of Care 156 mg/dl (70-99)
--- NOTE | 2024-06-10 09:03 | PTCARENOTE ---
Received patient this morning resting in bed, resting on sofa. Remains on 8L midflow with pulse ox 94%. Temp 100.1, covid swab sent to the lab which was negative. Patient sent via stretcher for ultrasound.
[2024-06-10] MEDS: NORVASC 10 MG PO (09:35)
[2024-06-10] MEDS: APRESOLINE 100 MG PO ×3 (09:35→21:53)
[2024-06-10] MEDS: LOW STRENGTH ASPIRIN 81 MG PO (09:35)
[2024-06-10] MEDS: COREG 12.5 MG PO ×2 (09:35→19:27)
[2024-06-10] MEDS: NOVOLOG FLEXPEN-MODERATE RESISTANCE 1 UNITS SC ×2 (09:36→11:27)
--- NOTE | 2024-06-10 09:37 | W.PN.UPDATE ---
Update Note
Progress Note Update
Cath reviewed
Suboptimal for cabg, unless angina unresponsive to medical therapy
Clearly needs aggressive medical therapy for pneumonia and progressive renal failure
At this point, following IV therapy for pneumonia, would discharge to home with outpt followup
Would not offer cabg on this admission
--- NOTE | 2024-06-10 09:37 | W.PN.PUL3 ---
Today's Communication / Plan
-
Nausea this AM, remains on supplemental o2
LELAND worsening, with met acidosis, bladder scan/rodriguez if needed, renal to see
Medical mngmt of ACS due to LELAND/PNA
On empiric abx, sputum culture unable to obtain
Eventual home o2 eval
Further management per team
Assessment
-
58-year-old Surinamese and this [place]ian and Farsi speaking gentleman with a history of hypertension, hyperlipidemia, diabetes who presented with hypertensive emergency with elevated troponins to an outlying hospital and was transferred for CABG
evaluation after multivessel coronary artery disease was noted-pulmonary was consulted for shortness of breath and hypoxemia 06/09/2024.
CAD/NSTEMI-multivessel CAD for CABG eval
Respiratory twftxrm-niblslphf-hO3 46 on room air 06/08/2024
CHF-preserved EF, acute on chronic, proBNP 1300
LELAND
Metabolic acidosis
Hypertension-recent hypertensive emergency
Mild leukocytosis-WBC 13.2
Mild sxvyhdhpee-ybgmadaqiy-14.5
Hyperglycemia
Elevated procalcitonin-0.45
Conditions present prior to admission:
Hypertension.
Hyperlipidemia.
Diabetes.
Chronic renal failure-diabetic nephropathy
Plan
Respiratory decompensation consistent with acute CHF with preserved EF and diastolic dysfunction and less likely pneumonia, venous thromboembolic disease, etc.
Supplemental oxygen as needed-slowly weaning as patient not able to be diuresed
Remains on 5L NC
Eventual home o2 eval
Incentive spirometry, OOB encouraged
Nebulizers if needed-currently not bronchospastic
Aspiration precautions
Incentive spirometry/flutter
Follow-up chest x-ray
Very low suspicion for venous thromboembolic disease-suspect D-dimer would be unreliable in with renal failure would not risk CT with dye at this point
Will consider workup if patient remains hypoxemic or clinical picture dictates after appropriate diuresis-on heparin drip for now for ACS
Cardiology evaluation noted-correspondence reviewed
Cath results/plan- 3v CAD noted with suboptimal targets; CTS to evaluate.
He is not candidate for CABG now with active PNA/LELAND
Diuresis as tolerated
Monitor renal function, electrolytes, intake/output, lower extremity edema and weight
Replace electrolytes as needed
Cardiac catheterization results reviewed
Echocardiogram pending
Heparin drip continues
Continue aspirin
ELIDA/ARB on hold with acute renal failure
Resume carvedilol and resume amlodipine
Monitor renal function, LELAND worsening
Now with new metabolic acidosis developing
Nephrology following-correspondence reviewed
Bladder scan, rodriguez if needed, follow I/Os
Possible PNA, procal 0.45 in setting of LELAND
On Zosyn IV
Check cultures
Blood negative
Sputum culture ordered, but not able to produce
Incentive's spirometry with basilar atelectasis versus pneumonia-suspect the former
Follow leukocytosis and temperature curve
Monitor blood sugar
Insulin supplementation as needed
DVT prophylaxis-on heparin drip
Nutrition
Mobilization per cardiology
Reviewed with multiple family members, cardiovascular surgery, and nursing at the bedside
Diagnostic data:
Chest x-ray 06/08/2024-mild interstitial pulmonary edema
Chest x-ray 06/09/2024-interval improvement in bilateral interstitial pulm edema, focal area of hazy opacification inferior aspect right upper lobe, possible atelectasis both lower lungs
CT chest 06/08/2024-bilateral pulmonary opacifications consistent with CHF and small bilateral pleural effusions
Coronary angiography, 06/07/2004: Moderate mid and severe distal LAD lesions.D1 with severe proximal disease.Severe ostial, proximal, proximal and mid junction and distal circumflex lesions. Severe ostial and proximal OM 4 lesion.Severe mid ramus
lesions.RPDA is occluded with collaterals.RPL 3 with moderate to severe lesion.Mild to moderate disease in all other areas.Moderate to severely increased LVEDP.
TTE, 06/07/2024:LVEF 55 to 60%. Grade II DD.There is lipomatous hypertrophy of the interatrial septum.Trace tricuspid regurgitation
Total time spent on this encounter __50__ includes review of history, physical exam, medications, laboratory data, personal review of imaging, extensive review of outpatient records, discussion with care team and respiratory therapy.
Subjective Data
-
Date of Service:
Date of Service: June 10, 2024
Chief Complaint: Pulmonary Follow Up
Subjective:
No new events ON, family at bedside
SOB improving
Remains on supplemental o2
Nausea this AM, but no vomiting
Objective Data
Data Reviewed
Vital Signs / I&O / Oxygen:
Vital Signs
Temp Pulse Resp BP Pulse Ox
100.1 F 70 20 168/81 94
06/10/24 08:01 06/10/24 08:00 06/10/24 08:01 06/10/24 07:54 06/10/24 08:01
Intake and Output
06/09/24 06/10/24 06/11/24
06:59 06:59 06:59
Intake Total 315 / 315 1504 / 1504
Output Total 5 / 5 2950 / 2950
Balance -1760 / -1760 -1446 / -1446
SaO2 94
Nasal Cannula flow liters per 8
minute
Physical Exam
General: Comfortable and Other (NAD)
HEENT: Normocephalic, Anicteric and Moist Mucous Membranes
Cardiovascular: S1-S2 and Regular Rhythm
Respiratory: Clear and Non-Labored Respirations
GI: Soft, Non Distended and Non Tender
Neurology: Awake, Alert, Oriented, AO x 3 and No Motor Deficits
Skin: Warm, Dry and Good Color
Labs/Micro/Reports
Lab Data
06/10/24 02:42
06/10/24 02:42
Laboratory Results
06/09/24 06/09/24 06/09/24
15:10 15:51 20:30
APTT Cancelled 73.6 H 98.7 H
06/10/24
02:42
APTT 115.7 H
Microbiology
06/09/24 08:36 Blood/Venous Blood Culture - Preliminary
No Growth in 24 hours- Final report to follow
--- NOTE | 2024-06-10 09:59 | W.PN.HOSP.TC ---
Today's Communication/Plan
-
Attempt to wean off oxygen.
Antibiotics
Diuresis
Monitor renal function.
Adjust insulin regimen with addition of Premeal NovoLog. Continue basal bolus
Assessment / Plan
Assessment / Plan
Impression:
58 years old male with past medical history of hypertension, diabetes, chronic kidney disease stage IIIb presents to [facility] with chest pain. Patient was evaluated for hypertensive emergency and non-STEMI. Urgent cardiac catheterization showed
multivessel CAD. Patient transferred to for CABG evaluation..
Acute hypoxic respiratory failure
Acute CHF preserved EF.
Multifocal infiltrate with fever, presumed pneumonia.
CAD, acute coronary syndrome non-STEMI.
Hypertensive emergency.
Acute kidney injury
Increased anion gap metabolic acidosis
Conditions prior to admission:
CKD stage IIIb.
Type 2 diabetes poorly controlled with hemoglobin A1c 11.5.
Dyslipidemia.
Plan:
Acute hypoxic respiratory failure.
Acute pulmonary edema
Remains with higher oxygen requirements, currently on 8 L mid flow.
Reported preserved LV function by outside echo on 06/07
Echocardiogram is pending.
Would continue IV diuresis with Lasix monitoring renal function closely.
Low-grade fever
COVID-[address] scan, follow-up chest x-ray with multifocal infiltrate.
? If nosocomial versus community-acquired pneumonia
Hypoxic, although with minimal cough and expectoration.
Continue antibiotics initiated on Zosyn. Add oral doxycycline.
Non-STEMI
Status post cath with multivessel CAD.
Transferred for CABG evaluation.
Continue aspirin
Remains on heparin drip
Hypertensive urgency
Improved blood pressure.
Continue current regimen including Coreg 12.5 mg twice daily, amlodipine 10 mg daily, hydralazine 50 mg 3 times daily. Adjust accordingly
Acute kidney injury
Acute metabolic acidosis.
CKD stage IIIb
Rising creatinine 2.5.
? If cardiorenal state, recent contrast exposure
Bladder scan
Hold nephrotoxic agents including ARB, metformin, SGLT2
Nephrology consulted
Poorly controlled diabetes.
Hemoglobin A1c 11.5.
Off metformin and SGLT2 given LELAND with metabolic acidosis.
Continue insulin basal bolus with serial Accu-Cheks. Currently on moderate dose
Initiated on Lantus 15 units at bedtime. Add AC NovoLog 3 units.
Dyslipidemia
Most current LDL 05/1900 and 7012
Continue escalated dose of rosuvastatin 40 mg daily.
Anticipated Discharge: > 48 hours
Subjective/Interval History
-
Date of Service: June 10, 2024
Objective Data
-
Labs:
Laboratory Results
06/10/24 06/10/24
02:42 09:55
WBC 12.5 H
Hgb 10.8 L
Hct 31.7 L
Plt Count 195
APTT 115.7 H Pending
Sodium 138
Potassium 3.9
Chloride 108 H
Carbon Dioxide 17 L
BUN 32 H
Creatinine 2.5 H
Glucose 178 H
Calcium 8.2 L
Vital Signs:
Vital Signs
Temp Pulse Resp BP Pulse Ox
100.1 F 70 20 168/81 94
06/10/24 08:01 06/10/24 08:00 06/10/24 08:01 06/10/24 07:54 06/10/24 08:01
I&O
06/09/24 06/10/24 06/11/24
06:59 06:59 06:59
Intake Total 315 / 315 1504 / 1504
Output Total 2074 2950 / 2950
Balance -1760 / -1760 -1446 / -1446
Physical Exam
-
General: Well Developed and No Apparent Distress
HEENT: Normocephalic, Atraumatic and Moist Mucous Membranes
Respiratory: Clear to Auscultation
Cardiac: Regular Rhythm and S1/S2; Negative Murmur, Rub or Gallop
GI: Soft, Nontender, Nondistended and Normal Bowel Sounds; Negative Organomegaly
Rectal: Deferred by Provider
Musculoskeletal: No Clubbing, No Cyanosis and No Edema
Skin: Negative Rash
Neuro: Nonfocal/Grossly Intact
--- NOTE | 2024-06-10 10:13 | PTCARENOTE ---
Dr. Morrison assuming care of the patient and was able to speak with him in his [place] language. Reinforced importance of using urinal for accurate output measurement and need to accept ordered novolog dosages. States he will comply. Patient having
echo done now at the bedside, family members present.
[2024-06-10 10:22] LABS: APTT 78.2 Sec (23.4-35.0)
[2024-06-10] MEDS: FLUSH (NSS) 2 FLUSH IV ×2 (10:35→11:24)
--- NOTE | 2024-06-10 10:46 | PN.DE ---
Diabetes Education
- -
06/10/2024: Diabetes Education Consult
58 year old male admitted for chest pain-->Urgent cardiac cath--> MVCAD.
PMH includes T2DM, current A1C 11.5%. Diabetes education requested for periop CABG.
Attempted to see pt this morning to review his overall diabetes care but he not available at the time. Pt was off the floor for procedure.
Chart review indicates pt was taking Farxiga 10mg daily, Metformin 1000mg BID and Januvia 100mg daily. Unclear if he was regularly testing his blood sugars at home. Will try again tomorrow.
[2024-06-10] MEDS: LASIX 40 MG IV (11:24)
[2024-06-10 11:28] LABS: Glucose - Point of Care 170 mg/dl (70-99)
[2024-06-10] MEDS: NOVOLOG FLEXPEN 3 UNITS SC ×2 (11:28→17:55)
--- NOTE | 2024-06-10 11:55 | PTCARENOTE ---
Patient complaining of a headache and concerned about his BP. BP 140/73, offered tylenol PO but became nauseated and declined tylenol. Bladder scanned as requested by Dr. Morrison, scan was 190ml. TT to Dr. Morrison re: scan and nausea. Prn zofran
ordered but patient is feeling better now and eating food his family brought in, states he no longer has a headache.
--- NOTE | 2024-06-10 11:57 | CM ---
spoke with pt, and son in room, his son translated. pt is prev indep, lives with his , son and daughter in an apt with 4 steps to enter. he denies any dme's or dc planning needs. plan is for dc to home when medically stable.
--- NOTE | 2024-06-10 12:13 | W.PN.NEPH.PH ---
Today's Communication / Plan
-
ok for lasix
Assessment/Plan
-
Assessment
CKD 3B
Possible LELAND
Diabetes mellitus type 2
Hypertension
Hyperlipidemia
Diffuse CAD
nephrotic proteinuria 6.4gm/gm of cr
Plan
LELAND-likely LAMIN, contrast 06/07
UA bland and nephrotic proteinuria highly suspect from DM , send serologies
noted resp status with PNA and concern of CHF too
ok to give lasix and wean O2 as possible
monitor met acidosis, follow bladder scan 190cc
await OP lab records
no ARB/SGLT2i for now
avoid nephrotoxins
BP improving, meds adjusted
we reviewed with pt and family in detail about severity of LELAND and high risk of HD needs if no improvement seen in renal function in 1-2days
no immediate surgical plan per surg
d/w nursing
d/w primary
-
-
Date of Service: June 10, 2024
CC / HPI / ROS
-
Chief Complaint:
LELAND/CKD
History of Present Illness:
Cr up at 2.5, non oliguric but UOP decreasing today
BP stable
WBC up 12.5
on mid flow O2 8lit
Review of Systems:
febrile last night
no CP or sob
no n/v
Labs
-
Labs:
WBC 12.5 10^3/uL (4.8-10.8) H 06/10/24 02:42
RBC 3.93 10^6/uL (4.70-6.10) L 06/10/24 02:42
Hgb 10.8 g/dL (13.0-18.0) L 06/10/24 02:42
Hct 31.7 % (39.0-52.0) L 06/10/24 02:42
Plt Count 195 10^3/uL (130-400) 06/10/24 02:42
Sodium 138 mmol/L (135-145) 06/10/24 02:42
Potassium 3.9 mmol/L (3.5-5.1) 06/10/24 02:42
Chloride 108 mmol/L (98-107) H 06/10/24 02:42
Carbon Dioxide 17 mmol/L (22-30) L 06/10/24 02:42
BUN 32 mg/dl (9-20) H 06/10/24 02:42
Creatinine 2.5 mg/dL (0.7-1.3) H 06/10/24 02:42
eGFR 29.05 06/10/24 02:42
Glucose 178 mg/dl (70-99) H 06/10/24 02:42
Calcium 8.2 mg/dl (8.4-10.2) L 06/10/24 02:42
Cvn-A-Ryszghsczvt Pept 1300 pg/ml 06/08/24 11:46
Albumin 2.8 g/dl (3.5-5.0) L 06/09/24 02:51
Physical Exam
-
Vital Signs:
Vital Signs
Temp Pulse Resp BP Pulse Ox
97.9 F 67 20 140/73 94
06/10/24 10:42 06/10/24 11:00 06/10/24 10:42 06/10/24 10:42 06/10/24 10:42
Cardiovascular:: Regular rate and rhythm
Respiratory:: Bilateral: Rales (at bases, decreased)
Lung Excursion:: Normal
Abdomen:: Nontender and Soft
Extremity Edema:: None: Bilateral:
Benedict Catheter: No
[2024-06-10] MEDS: HEPARIN 25000 UNITS/250 ML IV (14:17)
[2024-06-10] MEDS: CRESTOR 40 MG PO (16:48)
[2024-06-10 17:04] LABS: APTT 61.6 Sec (23.4-35.0)
[2024-06-10] MEDS: NOVOLOG FLEXPEN-MODERATE RESISTANCE 3 UNITS SC (17:54)
[2024-06-10 17:55] LABS: Glucose - Point of Care 235 mg/dl (70-99)
[2024-06-10 21:47] LABS: Glucose - Point of Care 198 mg/dl (70-99)
[2024-06-10] MEDS: LANTUS 0.15 UNITS SC (21:52)
[2024-06-10] MEDS: TYLENOL 650 MG PO (21:53)
--- NOTE | 2024-06-10 22:40 | PTCARENOTE ---
Heparin gtt infusing at 17.5 ml/hr. Temp 100.6 F. Tylenol administered as ordered and some blankets removed. Rechecked temp- 98.0 F. Pt currently on 9L midflow nasal cannula sating at 91%. Pt is currently in bed w/ call liborio w/in reach.
[2024-06-10 23:29] LABS: APTT 94.8 Sec (23.4-35.0)
[2024-06-11] VITALS (7 sets, daily range): BP systolic 147–170; BP diastolic 71–84; BMI 27.7
[2024-06-11] MEDS: HEPARIN 25000 UNITS/250 ML IV (03:39)
[2024-06-11] MEDS: ZOSYN 50 IV ×4 (03:46→22:33)
[2024-06-11 04:36] LABS: Hemoglobin 11.8 g/dL (13.0-18.0); Mean Corp Hgb Conc. 34.7 g/dL (33.0-37.0); Mean Corpuscular Hgb 28.9 pg (27.0-31.0); Mean Corpuscular Volume 83.1 fL (80.0-94.0); Platelet Count 219 10^3/uL (130-400); Red Blood Cell Count 4.09 10^6/uL (4.70-6.10); Red Cell Dist. Width 13.4 % (11.5-14.5); White Blood Cell Count 13.8 10^3/uL (4.8-10.8)
[2024-06-11 04:45] LABS: APTT 91.8 Sec (23.4-35.0)
[2024-06-11 05:02] LABS: Blood Urea Nitrogen 30 mg/dl (9-20); Calcium 8.3 mg/dl (8.4-10.2); Carbon Dioxide 23 mmol/L (22-30); Chloride 105 mmol/L (98-107); Estimated Creatinine Clearance 31 ml/min; Glucose 168 mg/dl (70-99); Potassium 3.7 mmol/L (3.5-5.1); Sodium 138 mmol/L (135-145); eGFR 30.51
[2024-06-11 05:09] LABS: Complement C3 123 mg/dl (88-165)
[2024-06-11 06:59] LABS: Glucose - Point of Care 158 mg/dl (70-99)
[2024-06-11] MEDS: LOW STRENGTH ASPIRIN 81 MG PO (08:16)
[2024-06-11] MEDS: APRESOLINE 100 MG PO ×3 (08:16→22:33)
[2024-06-11] MEDS: NORVASC 10 MG PO (08:16)
[2024-06-11] MEDS: COREG 12.5 MG PO ×2 (08:17→20:02)
[2024-06-11] MEDS: NOVOLOG FLEXPEN-MODERATE RESISTANCE 1 UNITS SC (08:23)
--- NOTE | 2024-06-11 09:37 | W.PN.CD ---
Addendum entered and electronically signed by Marlon Linder MD 06/11/24 13:43:
Surgery does not plan on offering CABG this admit.
I stopped Heparin.
I ordered Plavix with a loading dose.
Original Note:
Today's Communication / Plan
-
IV Diuresis, Lasix 60 mg IV BID
Follow BMP
High risk
Impression / Plan
-
58 yo male with PMH HTN, DM, CKD3b presented to [facility] with chest pain. He was evaluated for HTN emergency and NSTEMI. Cath showed multivessel CAD and transferred here for CABG evaluation.
Respiratory insuf
- Likely acute heart failure
- May have component of pneumonemia
Acute heart failure (HFpEF)
- Note we have invasive data confirming heart failure
- At cath 'Moderate to severely increased LVEDP'
- IV diuresis
- Later SGLT -I, MRA (may need Lokelma to permit), loop diuretic, ARB
Possible pneumonia
- Covid 19 negative
- WBC up, no cough
- Last fever was 06/10/2024 at 21:47 hrs at 100.6
NSTEMI, MV CAD
- Continue aspirin 81 mg daily and heparin drip
- If no CABG then stop heparin and go to Plavix (NSTEMI)
- CABG evaluation
- Dr. Camargo reviewed angiogram from 06/07/2024. His comments:
- clearly 3v CAD with suboptimal targets (distal LAD, ramus, OM3, small RPDA => are all less that ideal targets.
- rPDA appears to be culprit for nonSTEMI with appearance recent occlusion
- There is no appropriate target for PCI other than the occluded RPDA and no clear benefit to PCI here
- CABG vs med Rx pending CTS evaluation
HTN, improving
DM, type II
-SGLT2 on hold in the setting of CABG evaluation
LELAND on CKD3b
- Contrast nephropathy on top of likely diabetic/HTN kidney disease seems likely
- nephrology on board
Dyslipidemia
-Lipid panel 06/06/2024: TC 266, HDL 41, LDL 172, TG 267
-He was on atorvastatin 40 mg at home; escalated therapy to rosuvastatin 40 mg daily
Subjective:
No CP. Breathing OK
Data:
Coronary angiography, 06/07/2004:
Moderate mid and severe distal LAD lesions.
D1 with severe proximal disease.
Severe ostial, proximal, proximal and mid junction and distal circumflex lesions.
Severe ostial and proximal OM 4 lesion.
Severe mid ramus lesions.
RPDA is occluded with collaterals.
RPL 3 with moderate to severe lesion.
Mild to moderate disease in all other areas.
Moderate to severely increased LVEDP.
TTE, 06/07/2024:
LVEF 55 to 60%. Grade II DD.
There is lipomatous hypertrophy of the interatrial septum.
Trace tricuspid regurgitation
Physical Exam
Vital Signs/Labs
Vital Signs
Temp Pulse Resp BP Pulse Ox
99.4 F 73 18 163/84 90
06/11/24 06:51 06/11/24 04:15 06/11/24 06:51 06/11/24 03:44 06/11/24 06:51
06/10/24 06/11/24 06/12/24
06:59 06:59 06:59
Actual Weight 79.8 kg 79.6 kg
06/11/24 04:22
06/11/24 04:22
PT 13.6 Sec (11.4-14.6) 06/09/24 02:51
INR 1.06 06/09/24 02:51
APTT 91.8 Sec (23.4-35.0) H 06/11/24 04:22
Magnesium 2.2 mg/dl (1.6-2.3) 09/21/24 11:46
06/08/24
11:46
Dgg-Q-Qbafsexmvwa Pept 1300
Physical Exam
Constitutional: No acute distress
EENT: Anicteric
Cardiovascular: Rhythm & rate is regular and Pedal edema is absent
Respiratory: Respiratory effort normal and Lungs clear to auscul.
GI: Soft and Distention absent
Neuro/Psych: AO x 3
Data Reviewed
-
Date of Service: June 11, 2024
[2024-06-11] MEDS: NOVOLOG FLEXPEN 3 UNITS SC ×2 (09:41→13:23)
--- NOTE | 2024-06-11 10:02 | PN.DE ---
Diabetes Education
- -
06/11/2024 Diabetes Education follow up
Patient here [facility], elevated BP, n-STEMI, PMH HTN, HLD diabetes. Patient is Wallisian speaking, family at bedside who prefer to translate.
Patient is awake alert and oriented. States he does have a glucose monitor at home and tests his glucose. He is followed by his primary doctor for diabetes management. A1C on admission 11.5%.
Instructed patient on steps for self injection using prefilled pen. Provided printed instructions with pictures. Patient able to return demonstrate with verbal cues and did self inject. Nursing to reinforce and have patient self administer all
insulin. Will reinforce as needed.
[2024-06-11] MEDS: TYLENOL 650 MG PO (11:10)
[2024-06-11] MEDS: LASIX 60 MG PO ×2 (11:12→16:07)
[2024-06-11 12:03] LABS: Glucose - Point of Care 232 mg/dl (70-99)
--- NOTE | 2024-06-11 12:21 | W.PN.PUL3 ---
Today's Communication / Plan
-
Unclear cause for hypoxemia, which has worsened despite abx and lasix
Will add VQ scan and duplex to r/o VTE
Trial of PO prednisone as well, less likely vasculitis (no hemoptysis/cough)
Can repeat imaging in next 24-48 hours if not improving
Assessment
-
58-year-old [place] and this [place] and Farsi speaking gentleman with a history of hypertension, hyperlipidemia, diabetes who [facility]
evaluation after multivessel coronary artery disease was noted-pulmonary was consulted for shortness of breath and hypoxemia 06/09/2024.
CAD/NSTEMI-multivessel CAD for CABG eval
Respiratory hwxpwch-zrsecrcya-tF9 46 on room air 06/08/2024
CHF-preserved EF, acute on chronic, proBNP 1300
LELAND
Metabolic acidosis
Hypertension-recent hypertensive emergency
Mild leukocytosis-WBC 13.2
Mild movutpvesy-hraoopkpof-63.5
Hyperglycemia
Elevated procalcitonin-0.45
Conditions present prior to admission:
Hypertension.
Hyperlipidemia.
Diabetes.
Chronic renal failure-diabetic nephropathy
Plan
Respiratory decompensation consistent with acute CHF with preserved EF and diastolic dysfunction and less likely pneumonia, venous thromboembolic disease, etc.
Supplemental oxygen as needed-slowly weaning as patient not able to be diuresed
Initially on 5L NC, but this has been increasing to 8-9L
Eventual home o2 eval
Incentive spirometry, OOB encouraged
Nebulizers if needed-currently not bronchospastic
Aspiration precautions
Incentive spirometry/flutter
Follow-up chest x-ray
Cardiology evaluation noted-correspondence reviewed
Cath results/plan- 3v CAD noted with suboptimal targets; CTS to evaluate.
He is not candidate for CABG now with active PNA/LELAND
Diuresis as tolerated
Monitor renal function, electrolytes, intake/output, lower extremity edema and weight
Replace electrolytes as needed
Cardiac catheterization results reviewed
Echocardiogram reviewed with stable findings, no significant PH
Heparin drip continues
Continue aspirin
ELIDA/ARB on hold with acute renal failure
Resume carvedilol and resume amlodipine
Monitor renal function, LELAND worsening
Now with new metabolic acidosis developing
Nephrology following-correspondence reviewed
Bladder scan, rodriguez if needed, follow I/Os
If no contraindication to steroids, will add
Possible PNA, procal 0.45 in setting of LELAND
On Zosyn IV
Check cultures
Blood negative
Sputum culture ordered, but not able to produce
Incentive's spirometry with basilar atelectasis versus pneumonia-suspect the former
Follow leukocytosis and temperature curve
Monitor blood sugar
Insulin supplementation as needed
DVT prophylaxis-on heparin drip
Nutrition
Mobilization per cardiology
Reviewed with multiple family members, cardiovascular surgery, and nursing at the bedside
Diagnostic data:
Chest x-ray 06/08/2024-mild interstitial pulmonary edema
Chest x-ray 06/09/2024-interval improvement in bilateral interstitial pulm edema, focal area of hazy opacification inferior aspect right upper lobe, possible atelectasis both lower lungs
CT chest 06/08/2024-bilateral pulmonary opacifications consistent with CHF and small bilateral pleural effusions
Coronary angiography, 06/07/2004: Moderate mid and severe distal LAD lesions.D1 with severe proximal disease.Severe ostial, proximal, proximal and mid junction and distal circumflex lesions. Severe ostial and proximal OM 4 lesion.Severe mid ramus
lesions.RPDA is occluded with collaterals.RPL 3 with moderate to severe lesion.Mild to moderate disease in all other areas.Moderate to severely increased LVEDP.
TTE, 06/07/2024:LVEF 55 to 60%. Grade II DD.There is lipomatous hypertrophy of the interatrial septum.Trace tricuspid regurgitation
ECHO 06/10/24- Normal LV size and function with no regional wall motion abnormalities. LVEF is 55-60% by visual estimation. Moderate concentric LVH. Normal right ventricular size and function.
No significant valvular disease. Estimated pulmonary artery pressure of 38 mmHg. Assuming a right atrial pressure of 3 mmHg. No prior study available for comparison.
-----
Total time spent on this encounter __50__ includes review of history, physical exam, medications, laboratory data, personal review of imaging, extensive review of outpatient records, discussion with care team and respiratory therapy.
Subjective Data
-
Date of Service:
Date of Service: June 11, 2024
Chief Complaint: Pulmonary Follow Up
Subjective:
Doing well today, no new complaints of cough/SOB
He is now on 8-9L NC
No other complaints
Family at bedside
Objective Data
Data Reviewed
Vital Signs / I&O / Oxygen:
Vital Signs
Temp Pulse Resp BP Pulse Ox
98.7 F 78 16 163/84 92
06/11/24 11:25 06/11/24 11:25 06/11/24 11:25 06/11/24 03:44 06/11/24 11:25
Intake and Output
06/10/24 06/11/24 06/12/24
06:59 06:59 06:59
Intake Total 1504 / 1504 435 / 435
Output Total 2950 / 2950 1700 / 1700
Balance -1446 / -1446 -1265 / -1265
SaO2 92
Nasal Cannula flow liters per 9
minute
Physical Exam
General: Comfortable and Other (NAD)
HEENT: Normocephalic, Anicteric and Moist Mucous Membranes
Cardiovascular: S1-S2 and Regular Rhythm
Respiratory: Crackles (minimal bases) and Non-Labored Respirations
GI: Soft, Non Distended and Non Tender
Neurology: Awake, Alert, Oriented, AO x 3 and No Motor Deficits
Skin: Warm, Dry and Good Color
Labs/Micro/Reports
Lab Data
06/11/24 04:22
06/11/24 04:22
Laboratory Results
06/10/24 06/10/24 06/11/24
16:39 23:11 04:22
APTT 61.6 H 94.8 H 91.8 H
Microbiology
06/09/24 10:21 Blood/Venous Blood Culture - Preliminary
No Growth in 48 hours- Final report to follow
06/09/24 08:36 Blood/Venous Blood Culture - Preliminary
No Growth in 48 hours- Final report to follow
06/09/24 08:25 Nose MRSA Screen - Final
No Methicillin Resistant Staphylococcus aureus isolated.
[2024-06-11] MEDS: NOVOLOG FLEXPEN-MODERATE RESISTANCE 3 UNITS SC ×2 (13:23→18:07)
--- NOTE | 2024-06-11 14:43 | W.PN.NEPH.PH ---
Today's Communication / Plan
-
uptitrate diuresis
follow lab s
Assessment/Plan
-
Assessment
CKD 3B
LELAND
Diabetes mellitus type 2
Hypertension
Hyperlipidemia
Diffuse CAD
nephrotic proteinuria 6.4gm/gm of cr
Plan
LELAND-likely LAMIN, contrast 06/07
UA bland and nephrotic proteinuria highly suspect from DM , sent serologies, no hydro on US
suspect resp failure majority from CHF , echo noted
recent cath shows mod to severely increased LVEDP
increased lasix per cards, wean O2 as tolerated
abx per primary for PNA, febrile last night
await OP lab records
no ARB/SGLT2i for now
avoid nephrotoxins
BP improving
we reviewed with pt and family in detail about severity of LELAND and risk of HD needs if worsening renal function
no immediate surgical plan for CAD, off heparin and started plavix
d/w nursing
d/w primary
-
-
Date of Service: June 11, 2024
CC / HPI / ROS
-
Chief Complaint:
LELAND/CKD
History of Present Illness:
Cr no Change at 2.4, non oliguric but UOP decreasing today
BP stable
WBC up 13.8
on mid flow O2 9lit
Review of Systems:
febrile last night
no CP or sob at rest
no n/v
Labs
-
Labs:
WBC 13.8 10^3/uL (4.8-10.8) H 06/11/24 04:22
RBC 4.09 10^6/uL (4.70-6.10) L 06/11/24 04:22
Hgb 11.8 g/dL (13.0-18.0) L 06/11/24 04:22
Hct 34.0 % (39.0-52.0) L 06/11/24 04:22
Plt Count 219 10^3/uL (130-400) 06/11/24 04:22
Sodium 138 mmol/L (135-145) 06/11/24 04:22
Potassium 3.7 mmol/L (3.5-5.1) 06/11/24 04:22
Chloride 105 mmol/L (98-107) 06/11/24 04:22
Carbon Dioxide 23 mmol/L (22-30) 06/11/24 04:22
BUN 30 mg/dl (9-20) H 06/11/24 04:22
Creatinine 2.4 mg/dL (0.7-1.3) H 06/11/24 04:22
eGFR 30.51 06/11/24 04:22
Glucose 168 mg/dl (70-99) H 06/11/24 04:22
Calcium 8.3 mg/dl (8.4-10.2) L 06/11/24 04:22
Ulm-U-Xtmfwmjotkv Pept 1300 pg/ml 06/08/24 11:46
Albumin 2.8 g/dl (3.5-5.0) L 06/09/24 02:51
Physical Exam
-
Vital Signs:
Vital Signs
Temp Pulse Resp BP Pulse Ox
98.7 F 68 16 148/76 92
06/11/24 11:25 06/11/24 12:15 06/11/24 11:25 06/11/24 11:26 06/11/24 11:26
Cardiovascular:: Regular rate and rhythm
Respiratory:: Bilateral: Rales (at bases)
Lung Excursion:: Normal
Abdomen:: Nontender and Soft
Extremity Edema:: None: Bilateral:
Benedict Catheter: No
[2024-06-11] MEDS: PLAVIX 600 MG PO (14:47)
--- NOTE | 2024-06-11 15:33 | PN.CDI ---
Addendum entered and electronically signed by Alan Morrison MD 06/27/24 17:29:
Sepsis was never clinical concern. Question is relevant.
Original Note:
CDI
- -
CDI:
Physician Documentation Request
Admit Date: 06/08/24 09:42
Dear Doctor Hema,
Please review the following and provide your response in the progress notes.
Clinical Indicators:
Pt admitted with NSTEMI/CAD/ LELAND on CKD 3b/ Acute Hypoxic Respiratory failure with presumed PNA
Progress note 06/10, ' Low-grade fever...? If nosocomial versus community-acquired pneumonia Hypoxic, although with minimal cough and expectoration..Continue antibiotics initiated on Zosyn. Add oral doxycycline....'
On admission WBC 12.9 , WBC ( 06/11) - 13.8, Tmax 101.1 ( 06/09 @ 1536), HR 101, Respirations 24
Please clarify which of the following most accurately describes the status of the patient's infection:
Sepsis _POA
- Systemic manifestations of infection, with 2 or more SIRS criteria which include:
- Fever >100.4 degrees F or hypothermia < 96.8 degrees F
- Leukocytosis - WBC > 12,000 or leukopenia - WBC < 4,000 or > 10% bands
- Tachycardia > 90 beats per minute
- Tachypnea - RR > 20 breaths per minute or PaCO2 , 32mmHg
Source: Merck Manual 2012
Sepsis- Evolved during hospitalization
Pneumonia only, Without Systemic Illness
Other
Use of terms such as suspected, likely, concern for, or probable (associated with a specific diagnosis that is being evaluated, monitored, or treated as if it exists) are acceptable and can be coded in the inpatient setting, when documented at the
time of discharge.
Thank you,
Janice Lo RN
CDI Specialist
[place] [facility]
Please use your independent medical judgment in providing your response.
--- NOTE | 2024-06-11 15:40 | PN.CDI ---
CDI
- -
CDI:
Physician Documentation Request
Admit Date: 06/08/24 09:42
Dear Doctor Tamiko,
Please review the following and provide your response in the progress notes.
Clinical Indicators:
Pt admitted with NSTEMI/CAD/ LELAND on CKD 3b/ Acute Hypoxic Respiratory failure with presumed PNA
CT surgery notes 06/09 &06/10 ,' HTN Emergency ...'
Cardiology notes 06/09 & 06/10, ' Hypertensive emergency improved BP current regimen is coreg 12. 5mg bid, amlodipine 10mg daily, hydralazine 50mg tid... -can titrate hydralazine if BP remains elevated.....'
Progress note 06/10, ' Hypertensive emergency.....Hypertensive urgency Improved blood pressure.Continue current regimen including Coreg 12.5 mg twice daily, amlodipine 10 mg daily, hydralazine 50 mg 3 times daily. Adjust accordingly....'
Clarify which, if any of the following, is a more accurate diagnosis reflecting the type and acuity of the documented hypertension:
Hypertensive Emergency - B/P is severely elevated (systolic > or = to 180 or diastolic > or = to 110) but can occur at lower levels especially in patients who did not previously have high B/P. There is usually associated organ damage. Symptoms may
include: memory loss, LOC, CVA, VT, angina, renal failure, pulmonary edema. Generally requires more aggressive treatment and a hospitalization.
Hypertensive Urgency - B/P is severely elevated (systolic > or = to 180 or diastolic > or = to 110) but there is no associated organ damage. Symptoms may include: headache, shortness of breath, nosebleeds, severe anxiety. Treatment usually consists
of addition to or adjusting of oral medications and does not generally necessitate hospitalization.
Other (please specify)
Use of terms such as suspected, likely, concern for, or probable (associated with a specific diagnosis that is being evaluated, monitored, or treated as if it exists) are acceptable and can be coded in the inpatient setting, when documented at the
time of discharge.
Thank you,
Janice Lo RN
CDI Specialist
[place] [facility]
Please use your independent medical judgment in providing your response.
--- NOTE | 2024-06-11 16:14 | W.PN.HOSP.TC ---
Today's Communication/Plan
-
Antibiotics
Prednisone taper
IV diuresis monitor renal function.
Adjust insulin dose with initiation of steroids
Assessment / Plan
Assessment / Plan
Impression:
58 years old male with past medical history of hypertension, diabetes, chronic kidney disease stage IIIb presents to [facility] with chest pain. Patient was evaluated for hypertensive emergency and non-STEMI. Urgent cardiac catheterization showed
multivessel CAD. Patient transferred to for CABG evaluation..
Acute hypoxic respiratory failure
Acute CHF preserved EF.
Multifocal infiltrate with fever, presumed pneumonia.
CAD, acute coronary syndrome non-STEMI.
Hypertensive emergency.
Acute kidney injury
Increased anion gap metabolic acidosis
Conditions prior to admission:
CKD stage IIIb.
Type 2 diabetes poorly controlled with hemoglobin A1c 11.5.
Dyslipidemia.
Plan:
Acute hypoxic respiratory failure.
Acute pulmonary edema
Remains with higher oxygen requirements, currently on 8 L mid flow.
Reported preserved LV function by outside echo on 06/07
Echocardiogram 06/10: Normal LV size and function with LVEF 55 to 60%. Regional wall motion abnormalities./LVH PAP 38 mmHg.
Recent cath with evidence of volume overload
Would continue IV diuresis with Lasix monitoring renal function closely.
Low-grade fever
COVID-[address] scan, follow-up chest x-ray with multifocal infiltrate.
? If nosocomial versus community-acquired pneumonia
Hypoxic, although with minimal cough and expectoration.
Continue antibiotics initiated on Zosyn. Add oral doxycycline.
Initiated on prednisone taper.
Lower extremity Doppler
Non-STEMI
Status post cath with multivessel CAD.
Transferred for CABG evaluation. Currently on hold given fever, pneumonia, LELAND.
Continue aspirin
Transition off heparin drip to Plavix.
Coreg/statin
Hypertensive urgency
Improved blood pressure.
Continue current regimen including Coreg 12.5 mg twice daily, amlodipine 10 mg daily, hydralazine 50 mg 3 times daily. Adjust accordingly
Acute kidney injury
Acute metabolic acidosis.
CKD stage IIIb
Rising creatinine 2.5.
? If cardiorenal state, recent contrast exposure
No evidence for retention
Renal sonogram with no abnormalities.
Hold nephrotoxic agents including ARB, metformin, SGLT2
Poorly controlled diabetes.
Hemoglobin A1c 11.5.
Off metformin and SGLT2 given LELAND with metabolic acidosis.
Continue insulin basal bolus with serial Accu-Cheks. Currently on moderate dose
Initiated on Lantus/NovoLog AC/basal bolus protocol. Adjust dosing with expected steroid-induced hyperglycemia.
Dyslipidemia
Most current LDL 05/1900 and 7012
Continue escalated dose of rosuvastatin 40 mg daily.
Anticipated Discharge: > 48 hours
Subjective/Interval History
-
Date of Service: June 11, 2024
Objective Data
-
Labs:
Laboratory Results
06/11/24
04:22
WBC 13.8 H
Hgb 11.8 L
Hct 34.0 L
Plt Count 219
APTT 91.8 H
Sodium 138
Potassium 3.7
Chloride 105
Carbon Dioxide 23
BUN 30 H
Creatinine 2.4 H
Glucose 168 H
Calcium 8.3 L
Vital Signs:
Vital Signs
Temp Pulse Resp BP Pulse Ox
97.5 F 69 16 148/76 90
06/11/24 16:01 06/11/24 16:01 06/11/24 16:01 06/11/24 11:26 06/11/24 16:01
I&O
06/10/24 06/11/24 06/12/24
06:59 06:59 06:59
Intake Total 1504 / 1504 435 / 435
Output Total 2950 / 2950 1700 / 1700 1510 / 1510
Balance -1446 / -1446 -1265 / -1265 -1510 / -1510
Physical Exam
-
General: Well Developed and No Apparent Distress
HEENT: Normocephalic, Atraumatic and Moist Mucous Membranes
Respiratory: Clear to Auscultation
Cardiac: Regular Rhythm and S1/S2; Negative Murmur, Rub or Gallop
GI: Soft, Nontender, Nondistended and Normal Bowel Sounds; Negative Organomegaly
Rectal: Deferred by Provider
Musculoskeletal: No Clubbing, No Cyanosis and No Edema
Skin: Negative Rash
Neuro: Nonfocal/Grossly Intact
[2024-06-11] MEDS: DELTASONE 50 MG PO (16:28)
[2024-06-11] MEDS: CRESTOR 40 MG PO (17:09)
[2024-06-11 18:06] LABS: Glucose - Point of Care 206 mg/dl (70-99)
[2024-06-11] MEDS: NOVOLOG FLEXPEN 5 UNITS SC (18:08)
--- NOTE | 2024-06-11 20:50 | PTCARENOTE ---
Pt OOB in chair. Pt states feeling much better today. Tele- SR. HR 70s. No c/o pain/discomfort at this time. Pt remains on 9L midflow NC at 91%. Currently in bed; call liborio w/in reach.
[2024-06-11 22:11] LABS: Glucose - Point of Care 237 mg/dl (70-99)
[2024-06-11] MEDS: LANTUS 0.17 UNITS SC (22:32)
[2024-06-12] VITALS (7 sets, daily range): BP systolic 151–163; BP diastolic 70–81; BMI 27.6
[2024-06-12] MEDS: ZOSYN 50 IV ×4 (03:31→22:21)
[2024-06-12 04:22] LABS: Blood Urea Nitrogen 37 mg/dl (9-20); Calcium 8.6 mg/dl (8.4-10.2); Carbon Dioxide 21 mmol/L (22-30); Chloride 102 mmol/L (98-107); Estimated Creatinine Clearance 30 ml/min; Glucose 382 mg/dl (70-99); Potassium 4.5 mmol/L (3.5-5.1); Sodium 137 mmol/L (135-145); eGFR 29.05
[2024-06-12 04:34] LABS: Hematocrit 31.8 % (39.0-52.0); Hemoglobin 11.2 g/dL (13.0-18.0); Mean Corp Hgb Conc. 35.2 g/dL (33.0-37.0); Mean Corpuscular Hgb 28.1 pg (27.0-31.0); Mean Corpuscular Volume 79.7 fL (80.0-94.0); Mean Platelet Volume 11.1 fL (7.4-10.4); Platelet Count 282 10^3/uL (130-400); Red Blood Cell Count 3.99 10^6/uL (4.70-6.10); Red Cell Dist. Width 13.2 % (11.5-14.5); White Blood Cell Count 7.9 10^3/uL (4.8-10.8)
[2024-06-12 05:28] LABS: Glucose - Point of Care 346 mg/dl (70-99)
[2024-06-12] MEDS: NOVOLOG FLEXPEN 7 UNITS SC ×3 (05:52→18:13)
--- NOTE | 2024-06-12 05:54 | PTCARENOTE ---
AM labs obtained. Glucose - 382. Accu-check performed- 346. Clarice STEVEN notified and orders placed. 7 units Novolog administered as ordered. See MAR.
[2024-06-12 08:15] LABS: Glucose - Point of Care 270 mg/dl (70-99)
[2024-06-12] MEDS: NOVOLOG FLEXPEN 5 UNITS SC ×2 (08:47→23:04)
[2024-06-12] MEDS: NORVASC 10 MG PO (08:51)
[2024-06-12] MEDS: COREG 12.5 MG PO (08:52)
[2024-06-12] MEDS: LASIX 60 MG PO (08:52)
[2024-06-12] MEDS: DELTASONE 50 MG PO (08:52)
[2024-06-12] MEDS: PLAVIX 75 MG PO (08:52)
[2024-06-12] MEDS: LOW STRENGTH ASPIRIN 81 MG PO (08:53)
[2024-06-12] MEDS: APRESOLINE 100 MG PO ×3 (08:54→22:20)
[2024-06-12] MEDS: NOVOLOG FLEXPEN-MODERATE RESISTANCE 5 UNITS SC ×2 (08:54→14:21)
--- NOTE | 2024-06-12 09:27 | W.PN.NEPH.PH ---
Today's Communication / Plan
-
follow BMP
Assessment/Plan
-
Assessment
CKD 3B
LELAND
Diabetes mellitus type 2
Hypertension
Hyperlipidemia
Diffuse CAD
nephrotic proteinuria 6.4gm/gm of cr
Plan
LELAND-likely CN, contrast 06/07
lasix prn
await OP lab records, also asked pt to call
no ARB/SGLT2i for now
on abx for PNA
wean prednisone
increase carvedilol
-
-
Date of Service: June 12, 2024
CC / HPI / ROS
-
Chief Complaint:
LELAND/CKD
History of Present Illness:
LELAND/Cr stable at 2.5
BP stable
WBC down to 7.9
on minimal supplemental O2
Review of Systems:
no fevers
c/o right sided headache, thinks it's related to drops in BP
no CP or sob at rest
no n/v
Labs
-
Labs:
WBC 7.9 10^3/uL (4.8-10.8) 06/12/24 03:46
RBC 3.99 10^6/uL (4.70-6.10) L 06/12/24 03:46
Hgb 11.2 g/dL (13.0-18.0) L 06/12/24 03:46
Hct 31.8 % (39.0-52.0) L 06/12/24 03:46
Plt Count 282 10^3/uL (130-400) D 06/12/24 03:46
Sodium 137 mmol/L (135-145) 06/12/24 03:46
Potassium 4.5 mmol/L (3.5-5.1) 06/12/24 03:46
Chloride 102 mmol/L (98-107) 06/12/24 03:46
Carbon Dioxide 21 mmol/L (22-30) L 06/12/24 03:46
BUN 37 mg/dl (9-20) H 06/12/24 03:46
Creatinine 2.5 mg/dL (0.7-1.3) H 06/12/24 03:46
eGFR 29.05 06/12/24 03:46
Glucose 382 mg/dl (70-99) H 06/12/24 03:46
Calcium 8.6 mg/dl (8.4-10.2) 06/12/24 03:46
Mci-H-Wvoetcgtfgg Pept 1300 pg/ml 06/08/24 11:46
Albumin 2.8 g/dl (3.5-5.0) L 06/09/24 02:51
Physical Exam
-
Vital Signs:
Vital Signs
Temp Pulse Resp BP Pulse Ox
98.2 F 71 18 155/81 95
06/12/24 07:12 06/12/24 08:30 06/12/24 07:12 06/12/24 07:15 06/12/24 08:30
Cardiovascular:: Regular rate and rhythm
Respiratory:: Bilateral: CTA
Lung Excursion:: Normal
Abdomen:: Nontender and Soft
Bowel Sounds:: Normal
Extremity Edema:: None: Bilateral:
[2024-06-12] MEDS: TYLENOL 650 MG PO (09:33)
--- NOTE | 2024-06-12 10:42 | W.PN.CD ---
Today's Communication / Plan
-
Severe Heart Failure
Has not diuresed yet. Reviewed with nephrology will hold on Zaroxolyn and will increase Lasix 60 => 80 IV BID
Impression / Plan
-
58 yo male with PMH HTN, DM, CKD3b presented to [facility] with chest pain. He was evaluated for HTN emergency and NSTEMI. Cath showed multivessel CAD and transferred here for CABG evaluation.
Respiratory insuf
- Likely acute heart failure => has not diuresed yet. Reviewed with nephrology will hold on Zaroxolyn and will increase Lasix 60 => 80 IV BID
- May have component of pneumonemia
Acute heart failure (HFpEF)
- Note we have invasive data confirming heart failure
- At cath 'Moderate to severely increased LVEDP'
- has not diuresed yet. Reviewed with nephrology will hold on Zaroxolyn and will increase Lasix 60 => 80 IV BID
- IV diuresis
- Later SGLT -I, MRA (may need Lokelma to permit), loop diuretic, ARB
Possible pneumonia
- Covid 19 negative
- WBC up, no cough
- Last fever was 06/10/2024 at 21:47 hrs at 100.6
NSTEMI, MV CAD
- Continue aspirin 81 mg daily and heparin drip
- If no CABG then stop heparin and go to Plavix (NSTEMI)
- CABG evaluation
- Dr. Camargo reviewed angiogram from 06/07/2024. His comments:
- clearly 3v CAD with suboptimal targets (distal LAD, ramus, OM3, small RPDA => are all less that ideal targets.
- rPDA appears to be culprit for nonSTEMI with appearance recent occlusion
- There is no appropriate target for PCI other than the occluded RPDA and no clear benefit to PCI here
- CABG vs med Rx pending CTS evaluation
HTN, improving
DM, type II
-SGLT2 on hold in the setting of CABG evaluation
LELAND on CKD3b
- Contrast nephropathy on top of likely diabetic/HTN kidney disease seems likely
- nephrology on board
Dyslipidemia
-Lipid panel 06/06/2024: TC 266, HDL 41, LDL 172, TG 267
-He was on atorvastatin 40 mg at home; escalated therapy to rosuvastatin 40 mg daily
Subjective:
No CP. Breathing OK but not much different than yesterday.
Weight is not lower
Data:
Coronary angiography, 06/07/2004:
Moderate mid and severe distal LAD lesions.
D1 with severe proximal disease.
Severe ostial, proximal, proximal and mid junction and distal circumflex lesions.
Severe ostial and proximal OM 4 lesion.
Severe mid ramus lesions.
RPDA is occluded with collaterals.
RPL 3 with moderate to severe lesion.
Mild to moderate disease in all other areas.
Moderate to severely increased LVEDP.
TTE, 06/07/2024:
LVEF 55 to 60%. Grade II DD.
There is lipomatous hypertrophy of the interatrial septum.
Trace tricuspid regurgitation
Physical Exam
Vital Signs/Labs
Vital Signs
Temp Pulse Resp BP Pulse Ox
98.2 F 71 18 155/81 95
06/12/24 07:12 06/12/24 08:30 06/12/24 07:12 06/12/24 07:15 06/12/24 08:30
06/11/24 06/12/24 06/13/24
06:59 06:59 06:59
Actual Weight 79.6 kg 80 kg 79.7 kg
06/12/24 03:46
06/12/24 03:46
PT 13.6 Sec (11.4-14.6) 06/09/24 02:51
INR 1.06 06/09/24 02:51
APTT 91.8 Sec (23.4-35.0) H 06/11/24 04:22
Magnesium 2.2 mg/dl (1.6-2.3) 06/08/24 11:46
06/08/24
11:46
Xhb-U-Ifodjfaxxsh Pept 1300
Physical Exam
Constitutional: No acute distress
Cardiovascular: Rhythm & rate is regular, Pedal edema is absent and JVD present
Respiratory: Respiratory effort normal and Crackles Present
GI: Soft, Distention absent and Normal bowel sounds
Neuro/Psych: AO x 3
Data Reviewed
-
Date of Service: June 12, 2024
[2024-06-12] MEDS: COREG 25 MG PO ×2 (11:02→19:40)
--- NOTE | 2024-06-12 11:46 | W.PN.PUL3 ---
Today's Communication / Plan
-
Doing well with added diuresis, O2 weaned down to 2L NC
Eventual home O2 eval
Stop prednisone now
Stop date added to IV abx for 5 days
Encouraged OOB/PT
Further management per cards team
We will sign off at this time, please call with questions
Assessment
-
58-year-old [place] and this [place] and Farsi speaking gentleman with a history of hypertension, hyperlipidemia, diabetes who presented with hypertensive emergency with elevated troponins to an outlying hospital and was transferred for CABG
evaluation after multivessel coronary artery disease was noted-pulmonary was consulted for shortness of breath and hypoxemia 06/09/2024.
CAD/NSTEMI-multivessel CAD for CABG eval
Respiratory tujhdqx-fyqrvgwmd-[id number] 46 on room air 06/08/2024
CHF-preserved EF, acute on chronic, proBNP 1300
LELAND
Metabolic acidosis
Hypertension-recent hypertensive emergency
Mild leukocytosis-WBC 13.2
Mild lzpuxwfhdy-troemuzpnw-19.5
Hyperglycemia
Elevated procalcitonin-0.45
Conditions present prior to admission:
Hypertension.
Hyperlipidemia.
Diabetes.
Chronic renal failure-diabetic nephropathy
Plan
Respiratory decompensation consistent with acute CHF with preserved EF and diastolic dysfunction and less likely pneumonia, venous thromboembolic disease, etc.
Supplemental oxygen as needed-slowly weaning as patient not able to be diuresed
Weaning down, now on 2L NC
Eventual home o2 eval
Incentive spirometry, OOB encouraged
Nebulizers if needed-currently not bronchospastic
Aspiration precautions
Incentive spirometry/flutter
Follow-up chest x-ray
Cardiology evaluation noted-correspondence reviewed
Cath results/plan- 3v CAD noted with suboptimal targets; CTS to evaluate.
He is not candidate for CABG now with active PNA/LELAND
Diuresis as tolerated
Monitor renal function, electrolytes, intake/output, lower extremity edema and weight
Replace electrolytes as needed
Cardiac catheterization results reviewed
Echocardiogram reviewed with stable findings, no significant PH
Heparin drip continues
Continue aspirin
ELIDA/ARB on hold with acute renal failure
Resume carvedilol and resume amlodipine
Monitor renal function, LELAND worsening
Now with new metabolic acidosis developing
Nephrology following-correspondence reviewed
Bladder scan, rodriguez if needed, follow I/Os
Possible PNA, procal 0.45 in setting of LELAND
On Zosyn IV, stop date added for 5 days
Check cultures
Blood negative
Sputum culture ordered, but not able to produce
Incentive's spirometry with basilar atelectasis versus pneumonia-suspect the former
Follow leukocytosis and temperature curve
Monitor blood sugar
Insulin supplementation as needed
DVT prophylaxis-on heparin drip
Nutrition
Mobilization per cardiology
Reviewed with multiple family members, cardiovascular surgery, and nursing at the bedside
Diagnostic data:
Chest x-ray 06/08/2024-mild interstitial pulmonary edema
Chest x-ray 06/09/2024-interval improvement in bilateral interstitial pulm edema, focal area of hazy opacification inferior aspect right upper lobe, possible atelectasis both lower lungs
CT chest 06/08/2024-bilateral pulmonary opacifications consistent with CHF and small bilateral pleural effusions
Coronary angiography, 06/07/2004: Moderate mid and severe distal LAD lesions.D1 with severe proximal disease.Severe ostial, proximal, proximal and mid junction and distal circumflex lesions. Severe ostial and proximal OM 4 lesion.Severe mid ramus
lesions.RPDA is occluded with collaterals.RPL 3 with moderate to severe lesion.Mild to moderate disease in all other areas.Moderate to severely increased LVEDP.
TTE, 06/07/2024:LVEF 55 to 60%. Grade II DD.There is lipomatous hypertrophy of the interatrial septum.Trace tricuspid regurgitation
ECHO 06/10/24- Normal LV size and function with no regional wall motion abnormalities. LVEF is 55-60% by visual estimation. Moderate concentric LVH. Normal right ventricular size and function.
No significant valvular disease. Estimated pulmonary artery pressure of 38 mmHg. Assuming a right atrial pressure of 3 mmHg. No prior study available for comparison.
-----
Total time spent on this encounter __50__ includes review of history, physical exam, medications, laboratory data, personal review of imaging, extensive review of outpatient records, discussion with care team and respiratory therapy.
Subjective Data
-
Date of Service:
Date of Service: June 12, 2024
Chief Complaint: Pulmonary Follow Up
Subjective:
No acute events ON, stable on O2
Weaning down, now on 2L
SOB better
Objective Data
Data Reviewed
Vital Signs / I&O / Oxygen:
Vital Signs
Temp Pulse Resp BP Pulse Ox
98.2 F 71 18 155/81 95
06/12/24 07:12 06/12/24 08:30 06/12/24 07:12 06/12/24 07:15 06/12/24 08:30
Intake and Output
06/11/24 06/12/24 06/13/24
06:59 06:59 06:59
Intake Total 435 / 435
Output Total 1700 / 1700 2110 / 2110 800 / 800
Balance -1265 / -1265 -2110 / -2110 -800 / -800
SaO2 95
Nasal Cannula flow liters per 9
minute
Physical Exam
General: Comfortable and Other (NAD)
HEENT: Normocephalic, Anicteric and Moist Mucous Membranes
Cardiovascular: S1-S2 and Regular Rhythm
Respiratory: Crackles (minimal bases) and Non-Labored Respirations
GI: Soft, Non Distended and Non Tender
Neurology: Awake, Alert, Oriented, AO x 3 and No Motor Deficits
Skin: Warm, Dry and Good Color
Labs/Micro/Reports
Lab Data
06/12/24 03:46
06/12/24 03:46
Microbiology
06/09/24 10:21 Blood/Venous Blood Culture - Preliminary
No Growth in 72 hours- Final report to follow
06/09/24 08:36 Blood/Venous Blood Culture - Preliminary
No Growth in 72 hours- Final report to follow
06/09/24 08:25 Nose MRSA Screen - Final
No Methicillin Resistant Staphylococcus aureus isolated.
--- NOTE | 2024-06-12 13:10 | PN.DE ---
Diabetes Education
- -
06/12/2024 Diabetes Education follow up
Patient here [facility], CHF, elevated BP, n-STEMI, PMH HTN, HLD diabetes. Patient is [place] speaking, family at bedside who prefer to translate.
Patient is awake alert and oriented. States he does have a glucose monitor at home and tests his glucose. He is followed by his primary doctor for diabetes management. A1C on admission 11.5%.
Instructed patient on steps for self injection using prefilled pen. Provided printed instructions with pictures. Patient able to return demonstrate with verbal cues and did self inject. Nursing has reinforced and supervised patient self injecting
and reports patient did well with injections.
Will follow
[2024-06-12 14:05] LABS: Glucose - Point of Care 283 mg/dl (70-99)
--- NOTE | 2024-06-12 14:48 | CM ---
Reviewed chart. Met with Mr. Johnson to review discharge plans. He states he is feeling okay. He states prior to admission he resides with his spouse, son and daughter in an apartment with four steps to enter. Prior to admission he was independent
with ambulation and adls. He does not have any DME. Will continue to follow to see if she will have nay home 02 needs. He may benefit from [facility] Services. Medical work-up in progress. The discharge plan is to return home with his family and VNA
Services if indicated.
[2024-06-12] MEDS: LASIX 80 MG PO (16:14)
--- NOTE | 2024-06-12 17:29 | W.PN.HOSP.TC ---
Today's Communication/Plan
-
Intensify diuresis per
Continue antibiotics
Wean off steroids per
Adjust insulin regimen for hyperglycemia
Mobilize out of the bed
Assessment / Plan
Assessment / Plan
Impression:
58 years old male with past medical history of hypertension, diabetes, chronic kidney disease stage IIIb presents to [facility] with chest pain. Patient was evaluated for hypertensive emergency and non-STEMI. Urgent cardiac catheterization showed
multivessel CAD. Patient transferred to for CABG evaluation..
Acute hypoxic respiratory failure
Acute CHF preserved EF.
Multifocal infiltrate with fever, presumed pneumonia.
CAD, acute coronary syndrome non-STEMI.
Hypertensive emergency.
Acute kidney injury
Increased anion gap metabolic acidosis
Conditions prior to admission:
CKD stage IIIb.
Type 2 diabetes poorly controlled with hemoglobin A1c 11.5.
Dyslipidemia.
Plan:
Acute hypoxic respiratory failure likely multifactorial with pulmonary edema and right lower lobe pneumonia.
Acute pulmonary edema
Oxygen requirements improved with IV diuresis and while on antibiotics and corticosteroids. Oxygen titrated from 8 L mid flow to 2 L nasal cannula.
Reported preserved LV function by outside echo on 06/07
Echocardiogram 06/10: Normal LV size and function with LVEF 55 to 60%. Regional wall motion abnormalities./LVH PAP 38 mmHg.
Recent cath with evidence of volume overload
Would continue IV diuresis with Lasix monitoring renal function closely.
Low-grade fever
COVID-[address] scan, follow-up chest x-ray with multifocal infiltrate.
? If nosocomial versus community-acquired pneumonia
Hypoxic, although with minimal cough and expectoration.
Continue antibiotics initiated on Zosyn. Add oral doxycycline. Plan is to complete 5-day course
Initiated on prednisone, discontinued after 24 hours on 06/12
Lower extremity Doppler negative for DVT
VQ scan low probability
Non-STEMI
Status post cath with multivessel CAD.
Transferred for CABG evaluation. Currently on hold given fever, pneumonia, LELAND.
Continue aspirin
Transition off heparin drip to Plavix.
Coreg/statin
Hypertensive urgency
Improved blood pressure.
Continue current regimen including Coreg 12.5 mg twice daily, amlodipine 10 mg daily, hydralazine 50 mg 3 times daily. Adjust accordingly
Acute kidney injury
Acute metabolic acidosis.
CKD stage IIIb
Rising creatinine 2.5.
? If cardiorenal state, recent contrast exposure
No evidence for retention
Renal sonogram with no abnormalities.
Hold nephrotoxic agents including ARB, metformin, SGLT2
Poorly controlled diabetes.
Hemoglobin A1c 11.5.
Off metformin and SGLT2 given LELAND with metabolic acidosis.
Continue insulin basal bolus with serial Accu-Cheks. Currently on moderate dose
Initiated on Lantus/NovoLog AC/basal bolus protocol. Adjust dosing with expected steroid-induced hyperglycemia.
Dyslipidemia
Most current LDL 05/1900 and 7012
Continue escalated dose of rosuvastatin 40 mg daily.
Anticipated Discharge: 24 - 48 hours
Subjective/Interval History
-
Date of Service: June 12, 2024
Objective Data
-
Vital Signs:
Vital Signs
Temp Pulse Resp BP Pulse Ox
97.7 F 73 16 159/75 94
06/12/24 15:36 06/12/24 16:15 06/12/24 15:36 06/12/24 16:10 06/12/24 15:36
I&O
06/11/24 06/12/24 06/13/24
06:59 06:59 06:59
Intake Total 435 / 435
Output Total 1700 / 1700 2109 / 2109 1225 / 1225
Balance -1265 / -1265 -2109 / -2109 -1225 / -1225
Physical Exam
-
General: Well Developed and No Apparent Distress
HEENT: Normocephalic, Atraumatic and Moist Mucous Membranes
Respiratory: Clear to Auscultation
Cardiac: Regular Rhythm and S1/S2; Negative Murmur, Rub or Gallop
GI: Soft, Nontender, Nondistended and Normal Bowel Sounds; Negative Organomegaly
Rectal: Deferred by Provider
Musculoskeletal: No Clubbing, No Cyanosis and No Edema
Skin: Negative Rash
Neuro: Nonfocal/Grossly Intact
[2024-06-12 17:32] LABS: Glucose - Point of Care 495 mg/dl (70-99)
[2024-06-12 18:07] LABS: Glucose 420 mg/dl (70-99)
[2024-06-12] MEDS: NOVOLOG FLEXPEN-MODERATE RESISTANCE 11 UNITS SC (18:12)
[2024-06-12] MEDS: CRESTOR 40 MG PO (18:15)
[2024-06-12 20:08] LABS: Glucose - Point of Care 401 mg/dl (70-99)
[2024-06-12 20:55] LABS: Glucose 394 mg/dl (70-99)
[2024-06-12] MEDS: NOVOLOG FLEXPEN 9 UNITS SC (21:08)
--- NOTE | 2024-06-12 21:11 | PTCARENOTE ---
Addendum entered by Ana Rene RN 06/13/24 01:02:
rechecked pt accucheck 2 hours post treatment- 270. Clarice STEVEN notified and no new orders.
Addendum entered by Ana Rene RN 06/12/24 23:08:
Rechecked accucheck- 301. 20 units Lantus administered as ordered. Clarice STEVEN notified and orders placed. 5 units Novolog ordered and administered. See MAR.
Original Note:
Accucheck RR high. Stat venous glucose obtained- 394. Clarice STEVEN notified and orders placed. 9 units Novolog ordered and administered. See MAR.
[2024-06-12] MEDS: LANTUS 0.2 UNITS SC (22:54)
[2024-06-12 22:56] LABS: Glucose - Point of Care 301 mg/dl (70-99)
[2024-06-13] VITALS (15 sets, daily range): BP systolic 138–175; BP diastolic 68–90; BMI 27.8
[2024-06-13 00:51] LABS: Glucose - Point of Care 270 mg/dl (70-99)
[2024-06-13] MEDS: ZOSYN 50 IV ×2 (03:24→10:25)
[2024-06-13 04:05] LABS: Hematocrit 32.6 % (39.0-52.0); Hemoglobin 11.3 g/dL (13.0-18.0); Mean Corp Hgb Conc. 34.7 g/dL (33.0-37.0); Mean Corpuscular Hgb 28.5 pg (27.0-31.0); Mean Corpuscular Volume 82.3 fL (80.0-94.0); Mean Platelet Volume 10.5 fL (7.4-10.4); Platelet Count 359 10^3/uL (130-400); Red Blood Cell Count 3.96 10^6/uL (4.70-6.10); White Blood Cell Count 14.2 10^3/uL (4.8-10.8)
[2024-06-13 04:31] LABS: Blood Urea Nitrogen 47 mg/dl (9-20); Calcium 8.9 mg/dl (8.4-10.2); Carbon Dioxide 22 mmol/L (22-30); Chloride 103 mmol/L (98-107); Estimated Creatinine Clearance 27 ml/min; Glucose 263 mg/dl (70-99); Potassium 4.1 mmol/L (3.5-5.1); Sodium 137 mmol/L (135-145); eGFR 25.36
--- NOTE | 2024-06-13 07:41 | W.PN.UPDATE ---
Update Note
Progress Note Update
Patient is currently not a surgical candidate until he recovers from his LELAND and PNA. He has an outpatient follow up with Dr. Rasheed 07/09 @ [id number]. Plan was reviewed with family.
--- NOTE | 2024-06-13 08:34 | W.PN.CD ---
Today's Communication / Plan
-
RHC to assess volume.
Await nephropathy workup.
No role for percutaneous or inpatient surgical revascularization.
Impression / Plan
-
Impression/Plan: 58 yo male with PMH HTN, DM, CKD3b admitted to [facility] with hypertensive emergency and NSTEMI, subsequently transferred for CABG evaluation after cath revealed severe multivessel disease. The patient has also developed respiratory
insufficiency likely a combination of HFpEF, possible PNA (given low grade fever, leukocytosis), less likely vasculitis in the setting of nephrotic range proteinuria.
#Hypoxic respiratory failure
-DDx includes volume overload, likely acute HFpEF vs. pneumonemia vs. vasculitis. Pulmonology is following.
-Continue ABX for possible PNA, steroids for potential vasculitis.
-PE less likely given negative VQ.
-RHC for volume assessment.
#HFpEF
-Acute.
-Invasive data suggested heart failure: At cath 'Moderate to severely increased LVEDP'.
-Likely due to a combination of CAD, long standing hypertension compounded by hypertensive emergency and renal failure.
-Weight has not really changed in spite of diuretics (escalating doses of furosemide).
-GDMT with carvedilol, hydralazine/isosorbide mononitrate (in place of ACEI/ARB/ARNi). Renal function prohibits SGLT2i/MRA use at this time.
-Furosemide held this morning. The patient's weight is up but so is creatinine. It is difficult to assess volume status.
-RHC for definitive volume assessment to guide diuretic therapy.
#Possible pneumonia
-Covid 19 negative.
-Leukocytosis + mildly elevated procalcitonin (0.45).
-Last fever was 06/10/2024 at 21:47 hrs at 38.1.
-Empiric antibiotics.
#NSTEMI/MV CAD
-Acute on chronic.
-I have personally reviewed the coronary angiograms. The culprit RPDA appears small. There are tandem ostial/proximal LCx lesions as well as proximal Ramus lesions that are approachable, but there is concern about outflow (particularly in the
LCx). The LAD is free from proximal disease. There is some distal LAD disease.
-No role for percutaneous intervention.
-The patient is scheduled for outpatient CABG evaluation. In the mean time, we will manage this disease medically.
-Continue carvedilol, aspirin, clopidogrel and rosuvastatin.
#LELAND
-Acute on Chronic (stage 3b).
-Nephrology following.
-Urine protein/creatinine ratio 6.4 (nephrotic range).
-UA otherwise bland, no evidence of UTI or nephritis.
-UOP is adequate.
-DDx includes minimal change disease, FSGS, membranous/membranoproliferative, diabetic nephropathy, amyloidosis, SLE.
-GILBERTO negative. C3 normal, C4 elevated.
-HbA1c = 11.3% making diabetic nephropathy very likely. Renal failure + LVH does raise the possibility of amyloid (AL, AA ATTR).
-SPEP/UPEP immunofixation, globulins pending. Low suspicion for Hep B/C.
-RHC as above.
#HTN
-Acute on chronic but improving.
-Continue carvedilol, amlodipine, hydralazine, isosorbide mononitrate.
#IDDM, type II
-Chronic, uncontrolled.
-HbA1c = 11.3%.
-SGLT2 on hold in the setting of LELAND.
#Dyslipidemia
-Chronic.
-Lipid panel 06/06/2024: TC 266, HDL 41, LDL 172, TG 267.
-He was on atorvastatin 40 mg at home; escalated therapy to rosuvastatin 40 mg daily.
Subjective/Interval History:
Weight is up 0.5 kg from yesterday (80.2 kg <-- 79.7 kg).
Afebrile.
BP still mild to moderately elevated.
SaO2 93% on 2 LNC.
LE Duplex r/o DVT.
VQ scan low probability for PE.
BCx show NGTD.
Furosemide held in light of creatinine rising.
Data:
VQ Scan, 06/12/2024:
CONCLUSION:
Normal perfusion and ventilation. Very low probability for pulmonary embolism.
LE Duplex, 06/12/2024:
IMPRESSION: No evidence of deep venous thrombosis of the lower extremities bilaterally
Renal US, 06/11/2024:
IMPRESSION: No evidence of renal collecting system dilatation bilaterally.
TTE, 06/10/2024:
CONCLUSIONS
Normal LV size and function with no regional wall motion abnormalities.
LVEF is 55-60% by visual estimation.
Moderate concentric LVH.
Normal right ventricular size and function.
No significant valvular disease.
Estimated pulmonary artery pressure of 38 mmHg. Assuming a right atrial
pressure of 3 mmHg.
No prior study available for comparison.
Coronary angiography, 06/07/2004:
Moderate mid and severe distal LAD lesions.
D1 with severe proximal disease.
Severe ostial, proximal, proximal and mid junction and distal circumflex lesions.
Severe ostial and proximal OM 4 lesion.
Severe mid ramus lesions.
RPDA is occluded with collaterals.
RPL 3 with moderate to severe lesion.
Mild to moderate disease in all other areas.
Moderate to severely increased LVEDP.
TTE, 06/07/2024:
LVEF 55 to 60%. Grade II DD.
There is lipomatous hypertrophy of the interatrial septum.
Trace tricuspid regurgitation.
Physical Exam
Vital Signs/Labs
Vital Signs
Temp Pulse Resp BP Pulse Ox
36.6 C 66 16 138/68 93
06/13/24 03:17 06/13/24 03:45 06/13/24 03:17 06/13/24 03:17 06/13/24 03:17
06/11/24 06/12/24 06/13/24
11:59 11:59 11:59
Actual Weight 79.7 kg 80.2 kg
06/13/24 03:35
06/13/24 03:35
PT 13.6 Sec (11.4-14.6) 06/09/24 02:51
INR 1.06 06/09/24 02:51
APTT 91.8 Sec (23.4-35.0) H 06/11/24 04:22
Magnesium 2.2 mg/dl (1.6-2.3) 06/08/24 11:46
06/08/24
11:46
Kzj-B-Simlavpyqow Pept 1300
Physical Exam
Constitutional: No acute distress and Comfortable
EENT: Anicteric and Moist mucous membranes
Cardiovascular: Rhythm & rate is regular, Pedal edema is absent, JVD pressure is normal, S1S2 is normal and Murmur/rub/gallop absent
Respiratory: Respiratory effort normal, Lungs clear to auscul., Wheeze Absent, Crackles Absent and Rhonchi Absent
GI: Soft, Distention absent, Flat, Non tender and Normal bowel sounds
Neuro/Psych: AO x 3
Data Reviewed
-
Date of Service: June 13, 2024
Medical Decision Making: Reviewed Test Results, Independent Historian Assessment and Test Interpretation
EKG: Tracing Personally Visualized and interpreted and Report Reviewed by me
Echo: Tracing Personally Visualized and interpreted and Report Reviewed by me
X-Ray/CT/US/MRI/NUC/PET: Image Personally Visualized and interpreted and Report Reviewed by me
Medical Tests (PFT, Pathology etc): Image Personally Visualized and interpreted and Report Reviewed by me
Labs: Labs Reviewed by me
Old Records: Reviewed
[2024-06-13] MEDS: APRESOLINE 100 MG PO ×3 (08:49→22:33)
[2024-06-13] MEDS: COREG 25 MG PO ×2 (08:49→19:56)
[2024-06-13] MEDS: NORVASC 10 MG PO (08:49)
[2024-06-13] MEDS: PLAVIX 75 MG PO (08:49)
[2024-06-13] MEDS: LOW STRENGTH ASPIRIN 81 MG PO (08:49)
[2024-06-13 08:55] LABS: Glucose - Point of Care 353 mg/dl (70-99)
[2024-06-13] MEDS: NOVOLOG FLEXPEN-MODERATE RESISTANCE 9 UNITS SC (08:57)
[2024-06-13] MEDS: NOVOLOG FLEXPEN 7 UNITS SC (08:58)
[2024-06-13 09:02] LABS: ANA, IgG Reflex to HEp-2 None Detected (None Detected)
[2024-06-13 10:54] LABS: Glucose - Point of Care 204 mg/dl (70-99)
[2024-06-13 12:05] LABS: Glucose - Point of Care 139 mg/dl (70-99)
[2024-06-13] MEDS: NOVOLOG FLEXPEN SC (12:05)
[2024-06-13] MEDS: NOVOLOG FLEXPEN-MODERATE RESISTANCE SC (12:06)
[2024-06-13] MEDS: LASIX PO (12:06)
--- NOTE | 2024-06-13 12:17 | W.PN.NEPH.PH ---
Today's Communication / Plan
-
Follow BMP
Assessment/Plan
-
Assessment
CKD 3B (.December 2023)
LELAND
Diabetes mellitus type 2
Hypertension
Hyperlipidemia
Diffuse CAD
nephrotic proteinuria 6.4gm/gm of cr
Plan
LELAND-likely CN, contrast 06/07
Check additional serologies for nephrotic range proteinuria
no ARB/SGLT2i for now
on abx for PNA
wean prednisone
Discussed with patient and family at length. Has a hard time believing that he has cardiac disease. This has been reiterated to him every day.
Hold additional Lasix. He is on 2 L and laying supine
Total time 40 minutes
-
-
Date of Service: June 13, 2024
CC / HPI / ROS
-
Chief Complaint:
LELAND/CKD
History of Present Illness:
LELAND/Cr up to 2.8
BP high
WBC up at 14.2
on minimal supplemental O2 2 L
Review of Systems:
no fevers
no CP or sob at rest
no n/v
Labs
-
Labs:
WBC 14.2 10^3/uL (4.8-10.8) H 06/13/24 03:35
RBC 3.96 10^6/uL (4.70-6.10) L 06/13/24 03:35
Hgb 11.3 g/dL (13.0-18.0) L 06/13/24 03:35
Hct 32.6 % (39.0-52.0) L 06/13/24 03:35
Plt Count 359 10^3/uL (130-400) D 06/13/24 03:35
Sodium 137 mmol/L (135-145) 06/13/24 03:35
Potassium 4.1 mmol/L (3.5-5.1) 06/13/24 03:35
Chloride 103 mmol/L (98-107) 06/13/24 03:35
Carbon Dioxide 22 mmol/L (22-30) 06/13/24 03:35
BUN 47 mg/dl (9-20) H 06/13/24 03:35
Creatinine 2.8 mg/dL (0.7-1.3) H 06/13/24 03:35
eGFR 25.36 06/13/24 03:35
Glucose 263 mg/dl (70-99) H 06/13/24 03:35
Calcium 8.9 mg/dl (8.4-10.2) 06/13/24 03:35
Inh-Q-Cntejbdkrwg Pept 1300 pg/ml 06/08/24 11:46
Albumin 2.8 g/dl (3.5-5.0) L 06/09/24 02:51
Physical Exam
-
Vital Signs:
Vital Signs
Temp Pulse Resp BP Pulse Ox
97.8 F 63 20 169/83 93
06/13/24 10:58 06/13/24 09:00 06/13/24 10:58 06/13/24 08:49 06/13/24 10:58
Cardiovascular:: Regular rate and rhythm
Respiratory:: Bilateral: Coarse
Lung Excursion:: Normal
Abdomen:: Nontender and Soft
Bowel Sounds:: Normal
Extremity Edema:: None: Bilateral:
--- NOTE | 2024-06-13 12:49 | PN.DE.MGMTRT ---
Insulin Management
- -
06/13/2024 Diabetes Management Consult
Patient admitted 06/08 from [facility] with c/o MORENO, elevated BP, n-stemi. PMH HTN, HLD, diabetes, CKD 3b. Prior to admission was taking Januvia 100 mg daily, Jardiance 10 mg daily and metformin 1000 BID A1C on admission 11.5%, cr 2.4, eGFR
30.51.
Patient has been seen daily since 06/10 for diabetes education for insulin instruction and has done well with self injection with nursing supervision.
Today patient is awake alert and oriented, now NPO for cardiac cath.
Oral meds being held due to elevated cr, 2.8. Lantus 15 units started 06/10, glucose fasting 158 to 346, now increased to 25 units tonight AC novolog started at 3 units, pre meal glucose range 283 to 495, novolog has been increased to 12 units.
Will follow increased doses and make further adjustments as needed.
Diabetes History
- -
Type of Diabetes: 2 requiring insulin
Pre-Admission Diabetes Regimen
06/13/24
03:35
Creatinine 2.8 H
Lab Results
Hemoglobin A1c 11.5 % (4.0-5.6) H 06/09/24 02:51
Insulin Pump Settings
IP Diabetes Regimen
06/12/24 06/12/24 06/12/24
14:04 17:30 17:43
Glucose 420 H
POC Glucose 283 H 495 H*
06/12/24 06/12/24 06/12/24
20:06 20:13 22:53
Glucose 394 H
POC Glucose 401 H 301 H
06/13/24 06/13/24 06/13/24
00:49 03:35 08:54
Glucose 263 H
POC Glucose 270 H 353 H
06/13/24 06/13/24
10:53 12:03
Glucose
POC Glucose 204 H 139 H
Meal type: Lunch
Amount consumed: 0
Patient Education
--- NOTE | 2024-06-13 13:54 | ITS.CL.CATH ---
Soil Technologist - Catheterization
Cardiac Catheterization
Procedure Report:
RIGHT HEART CATHETERIZATION
Date of Procedure: 06/13/2024
Referring: Alexandro Busch D.O.
INDICATION: Acute on chronic kidney failure, assessment of volume status.
ACCESS:
5 [place] right antecubital fossa.
CATHETERS:
5 [place] balloon wedge.
PROCEDURE:
An IV was placed by the nursing staff in the right antecubital fossa. The patient was prepped and draped in standard sterile fashion, including copious cleansing of the IV and IV site. The area around the IV was anesthetized with 1% lidocaine. A 5
[place] sheath was inserted into the basilic vein. A 5 [place] balloon wedge catheter was advanced through the sheath into the superior vena cava. An SVC oxygen saturation was drawn. The balloon wedge catheter was advanced into the pulmonary artery
and a pulmonary artery oxygen saturation was drawn. Arterial oxygen saturation was assumed from pulse oximetry. Cardiac output was calculated using the Magen equation. The PA, wedge, RV and RA pressures were measured on pullback. The balloon wedge
catheter was removed. The 5 [place] sheath was removed and manual pressure was held for hemostasis.
Weight (kg): 79.8
PA (s/d/x mmHg): 63/27/39
PCWP (a/v/x mmHg): 33/30/25
RV (s/x mmHg): 63/12
RA (a/v/x mmHg): 17//12
SVC SvO2 (%): 69.5
IVC SvO2 (%): Not obtained.
RA SvO2 (%): Not obtained.
RV SvO2 (%): Not obtained.
PA SvO2 (%): 65.1
SaO2 (%): 92.0 (assumed)
Hbg (g/dL): 12.2
Magen
CO (liters/minute): 5.13
CI (liters/minute/m2): 2.68
Thermodilution
CO (liters/minute): Not obtained.
CI (liters/minute/m2): Not obtained.
TPG (mmHg): 14
PVR (Connolly Units): 2.73
AVO2 Difference (Volume %): 4.46
Radiation (mGy): 5.26
DAP (cm2.Gy): 0.7265
Fluoroscopy time (minutes): 0.4
CONCLUSION:
1. Severely elevated filling pressures (PCWP = 25 mmHg at 79.8 kg).
2. Moderate postcapillary pulmonary hypertension (mean PA = 39 mmHg, PCWP = 25 mmHg, PVR = 2.73 Connolly units), WHO group 2.
3. Preserved cardiac function (cardiac index = 2.68 L/min/m�).
4. Renal dysfunction is not due to hypovolemia or due to poor forward flow.
RECOMMENDATIONS:
1. Expectant management after right heart catheterization via right antecubital approach.
2. Continue diuresis for severely elevated filling pressures.
Copy to: Alexandro Busch D.O.
Alexandro Busch D.O., FACC, FACP
--- NOTE | 2024-06-13 14:25 | PTCARENOTE ---
Rec'd pt at change of shift. Pt AAO*3 with VSS, and denied any pain or discomfort. Pt with elevated creatinine this morning at 2.8. Dr Morgan notified and ordered to hold Lasix. Pt evaluated for R heart cath by dr Busch and kept NPO since 1100 for
upcoming procedure. Pt Dominican speaking and used hospital cardiac technologist to communicate with hospital staff. Pt resting in bed with call capone in reach.
--- NOTE | 2024-06-13 15:06 | W.PN.HOSP.TC ---
Today's Communication/Plan
-
Attempt to wean off oxygen to room air.
Right heart cath with elevated filling pressure, although with bump in creatinine at 2.8.
With relatively stable respiratory status we will try to hold diuretics today reassessing renal function and volume status over the next 24 hours.
Completing course of antibiotics.
Remains hyperglycemic. Adjust insulin dose.
Assessment / Plan
Assessment / Plan
Impression:
58 years old male with past medical history of hypertension, diabetes, chronic kidney disease stage IIIb presents to [facility] with chest pain. Patient was evaluated for hypertensive emergency and non-STEMI. Urgent cardiac catheterization showed
multivessel CAD. Patient transferred to for CABG evaluation..
Acute hypoxic respiratory failure
Acute CHF preserved EF.
Multifocal infiltrate with fever, presumed pneumonia.
CAD, acute coronary syndrome non-STEMI.
Hypertensive emergency.
Acute kidney injury
Increased anion gap metabolic acidosis
Conditions prior to admission:
CKD stage IIIb.
Type 2 diabetes poorly controlled with hemoglobin A1c 11.5.
Dyslipidemia.
Plan:
Acute hypoxic respiratory failure likely multifactorial with CHF/pulmonary edema and right lower lobe pneumonia.
Acute pulmonary edema
Respiratory status is improving we will try to wean off supplemental oxygen on 06/13
Reported preserved LV function by outside echo on 06/07
Echocardiogram 06/10: Normal LV size and function with LVEF 55 to 60%. Regional wall motion abnormalities./LVH PAP 38 mmHg.
Recent cath with evidence of volume overload
RHC with severely elevated filling pressures (PCWP 25 mmHg).
Low-grade fever
COVID-[address] scan, follow-up chest x-ray with multifocal infiltrate.
? If nosocomial versus community-acquired pneumonia
Hypoxic, although with minimal cough and expectoration.
Completed total 5-day course of Zosyn 06/13
Initiated on prednisone, discontinued after 24 hours on 06/12
Lower extremity Doppler negative for DVT
VQ scan low probability
Non-STEMI
Status post cath with multivessel CAD.
Transferred for CABG evaluation. Currently on hold given fever, pneumonia, LELAND.
Continue aspirin
Transition off heparin drip to Plavix.
Coreg/statin
Hypertensive urgency
Improved blood pressure.
Continue current regimen including Coreg 12.5 mg twice daily, amlodipine 10 mg daily, hydralazine 50 mg 3 times daily. Adjust accordingly
Acute kidney injury
Acute metabolic acidosis.
CKD stage IIIb
Rising creatinine 2.5.
? If cardiorenal state, recent contrast exposure
No evidence for retention
Renal sonogram with no abnormalities.
Hold nephrotoxic agents including ARB, metformin, SGLT2
Poorly controlled diabetes.
Hemoglobin A1c 11.5.
Off metformin and SGLT2 given LELAND with metabolic acidosis.
Continue insulin basal bolus with serial Accu-Cheks. Currently on moderate dose
Initiated on Lantus/NovoLog AC/basal bolus protocol. Adjust dosing with expected steroid-induced hyperglycemia.
Dyslipidemia
Most current LDL 05/1900 and 7012
Continue escalated dose of rosuvastatin 40 mg daily.
Anticipated Discharge: > 48 hours
Subjective/Interval History
-
Date of Service: June 13, 2024
Objective Data
-
Labs:
Laboratory Results
06/13/24
03:35
WBC 14.2 H
Hgb 11.3 L
Hct 32.6 L
Plt Count 359 D
Sodium 137
Potassium 4.1
Chloride 103
Carbon Dioxide 22
BUN 47 H
Creatinine 2.8 H
Glucose 263 H
Calcium 8.9
Vital Signs:
Vital Signs
Temp Pulse Resp BP Pulse Ox
98 F 63 18 169/83 94
06/13/24 14:58 06/13/24 09:00 06/13/24 14:58 06/13/24 08:49 06/13/24 14:58
I&O
06/12/24 06/13/24 06/14/24
06:59 06:59 06:59
Intake Total 240 / 240
Output Total 2109 1225 / 1225
Balance -2109 / -2109 -985 / -985
Physical Exam
-
General: Well Developed and No Apparent Distress
HEENT: Normocephalic, Atraumatic and Moist Mucous Membranes
Respiratory: Clear to Auscultation
Cardiac: Regular Rhythm and S1/S2; Negative Murmur, Rub or Gallop
GI: Soft, Nontender, Nondistended and Normal Bowel Sounds; Negative Organomegaly
Rectal: Deferred by Provider
Musculoskeletal: No Clubbing, No Cyanosis and No Edema
Skin: Negative Rash
Neuro: Nonfocal/Grossly Intact
--- NOTE | 2024-06-13 15:26 | PTCARENOTE ---
Rec'd pt back from photo lab manager with right brachial site. Pt denies any pain or discomfort. Pt educated on limb restriction and verbalized understanding. Dressing CDI. Neovascular assessment in flowchart. Pt resting with call capone in reach with
family at bedside.
[2024-06-13 16:54] LABS: Glucose - Point of Care 263 mg/dl (70-99)
[2024-06-13] MEDS: NOVOLOG FLEXPEN-MODERATE RESISTANCE 5 UNITS SC (17:01)
[2024-06-13] MEDS: NOVOLOG FLEXPEN 12 UNITS SC (17:01)
[2024-06-13] MEDS: CRESTOR 40 MG PO (17:47)
--- NOTE | 2024-06-13 21:54 | PTCARENOTE ---
Pt rec'd at change of shift in bed with family at bedside. Pt reports no cp. Sinus on telemetry. Right brachial site with DDI.
[2024-06-13 22:07] LABS: 24 Hour Urine Total Volume Random mL; Urine Collection Length Random hr; Urine Free Kappa Light Chains 324.48 mg/L (0.00-32.90); Urine Free Lambda Light Chains 33.44 mg/L (0.00-3.79)
[2024-06-13 22:14] LABS: Glucose - Point of Care 389 mg/dl (70-99)
[2024-06-13] MEDS: LANTUS 0.25 UNITS SC (22:33)
[2024-06-14] VITALS (9 sets, daily range): BP systolic 146–177; BP diastolic 75–87; BMI 28.5
[2024-06-14 05:54] LABS: % Basophils 0.3 % (0-2); % Eosinophils 1.9 % (0-6); % Immature Granulocytes 0.9 % (0-0.5); % Lymphocytes 26.5 % (20.5-51.1); % Monocytes 9.8 % (1.7-9.3); % Neutrophils 60.6 % (42.2-75.2); Absolute Eosinophils 0.3 10^3/uL (0-0.7); Absolute Immature Granulocytes 0.1 10^3/uL (0-0.05); Absolute Lymphocytes 3.4 10^3/uL (1.2-3.4); Absolute Monocytes 1.3 10^3/uL (0.1-0.6); Absolute Neutrophils 7.8 10^3/uL (1.4-6.5); Hematocrit 31.9 % (39.0-52.0); Mean Corp Hgb Conc. 34.5 g/dL (33.0-37.0); Mean Corpuscular Volume 81.2 fL (80.0-94.0); Nucleated Red Blood Cells % 0 % (-); Platelet Count 375 10^3/uL (130-400); Red Blood Cell Count 3.93 10^6/uL (4.70-6.10); Red Cell Dist. Width 13.3 % (11.5-14.5); White Blood Cell Count 12.9 10^3/uL (4.8-10.8)
[2024-06-14 06:14] LABS: Blood Urea Nitrogen 48 mg/dl (9-20); Calcium 8.4 mg/dl (8.4-10.2); Carbon Dioxide 21 mmol/L (22-30); Chloride 104 mmol/L (98-107); Estimated Creatinine Clearance 28 ml/min; Glucose 297 mg/dl (70-99); Potassium 4.1 mmol/L (3.5-5.1); Sodium 137 mmol/L (135-145); eGFR 26.49
--- NOTE | 2024-06-14 07:30 | PN.DE.MGMTRT ---
Insulin Management
- -
06/14/2024 Diabetes Management Consult Follow up
Patient admitted 06/08 from [facility] with c/o MORENO, elevated BP, n-stemi. PMH HTN, HLD, diabetes, CKD 3b. Prior to admission was taking Januvia 100 mg daily, Jardiance 10 mg daily and metformin 1000 BID A1C on admission 11.5%, cr 2.4, eGFR
30.51.
Patient has been seen daily since 06/10 for diabetes education for insulin instruction and has done well with self injection with nursing supervision.
Today patient is awake alert and oriented, family at bedside.
Oral meds being held due to elevated cr, 2.7. Lantus 15 units started 06/10, glucose fasting 158 to 346, now increased to 25 units 06/13. AC novolog started at 3 units, pre meal glucose range 283 to 495, novolog has been increased to 12 units.
Glucose range 06/13, 263 to 389. Received 25 units lantus @ HS, fasting glucose 297. Will increase hs lantus to 30 units. Will increase AC novolog to 18 units and continue moderate corrective insulin.
Will follow pre lunch glucose to determine if addition insulin adjustments are needed.
Diabetes History
- -
Type of Diabetes: 2 requiring insulin
Pre-Admission Diabetes Regimen
06/14/24
05:29
Creatinine 2.7 H
Lab Results
Hemoglobin A1c 11.5 % (4.0-5.6) H 06/09/24 02:51
Insulin Pump Settings
IP Diabetes Regimen
06/13/24 06/13/24 06/13/24
08:54 10:53 12:03
Glucose
POC Glucose 353 H 204 H 139 H
06/13/24 06/13/24 06/14/24
16:53 22:12 05:29
Glucose 297 H
POC Glucose 263 H 389 H
Meal type: Dinner
Meal type: Lunch
Amount consumed: 65%
Amount consumed: 0
Patient Education
--- NOTE | 2024-06-14 07:41 | W.PN.CD ---
Today's Communication / Plan
-
Bumetanide 1 mg IV this morning and monitor.
Try doxazosin 1 mg PO this morning for BP control.
Impression / Plan
-
Impression/Plan: 58 yo male with PMH HTN, DM, CKD3b admitted to [facility] with hypertensive emergency and NSTEMI, subsequently transferred for CABG evaluation after cath revealed severe multivessel disease. The patient has also developed respiratory
insufficiency likely a combination of HFpEF, possible PNA (given low grade fever, leukocytosis), less likely vasculitis in the setting of nephrotic range proteinuria.
#Hypoxic respiratory failure
-DDx includes volume overload, likely acute HFpEF vs. pneumonemia vs. vasculitis. Pulmonology is following.
-Continue ABX for possible PNA, steroids for potential vasculitis.
-PE less likely given negative VQ.
-RHC shows severely elevated filling pressures.
-We will diurese while completing the ABX and steroids.
#HFpEF
-Acute.
-Invasive data suggested heart failure: At cath 'Moderate to severely increased LVEDP'.
-Likely due to a combination of CAD, long standing hypertension compounded by hypertensive emergency and renal failure.
-Weight has not really changed in spite of diuretics (escalating doses of furosemide).
-GDMT with carvedilol, hydralazine/isosorbide mononitrate (in place of ACEI/ARB/ARNi). Renal function prohibits SGLT2i/MRA use at this time.
-Start bumetanide 1 mg IV this morning and monitor response.
#Possible pneumonia
-Covid 19 negative.
-Leukocytosis + mildly elevated procalcitonin (0.45).
-Last fever was 06/10/2024 at 21:47 hrs at 38.1.
-Empiric antibiotics.
#NSTEMI/MV CAD
-Acute on chronic.
-I have personally reviewed the coronary angiograms. The culprit RPDA appears small. There are tandem ostial/proximal LCx lesions as well as proximal Ramus lesions that are approachable, but there is concern about outflow (particularly in the
LCx). The LAD is free from proximal disease. There is some distal LAD disease.
-No role for percutaneous intervention.
-The patient is scheduled for outpatient CABG evaluation. In the mean time, we will manage this disease medically.
-Continue carvedilol, aspirin, clopidogrel and rosuvastatin.
#LELAND
-Acute on Chronic (stage 3b).
-RHC shows that this is not hypovolemia and forward flow is adequate.
-Nephrology following.
-Urine protein/creatinine ratio 6.4 (nephrotic range).
-UA otherwise bland, no evidence of UTI or nephritis.
-UOP is adequate.
-DDx includes minimal change disease, FSGS, membranous/membranoproliferative, diabetic nephropathy, amyloidosis, SLE.
-GILBERTO negative. C3 normal, C4 elevated.
-HbA1c = 11.3% making diabetic nephropathy very likely. Renal failure + LVH does raise the possibility of amyloid (AL, AA ATTR).
-SPEP/UPEP immunofixation, globulins pending. Low suspicion for Hep B/C.
#HTN
-Acute on chronic but improving.
-Continue carvedilol, amlodipine, hydralazine, isosorbide mononitrate.
-She would benefit from MRA (spironolactone) bur renal function will not allow for it.
-We will try doxazosin 1 mg daily.
#IDDM, type II
-Chronic, uncontrolled.
-HbA1c = 11.3%.
-SGLT2 on hold in the setting of LELAND.
#Dyslipidemia
-Chronic.
-Lipid panel 06/06/2024: TC 266, HDL 41, LDL 172, TG 267.
-He was on atorvastatin 40 mg at home; escalated therapy to rosuvastatin 40 mg daily.
Subjective/Interval History:
Weight up 0.5 kg.
RHC shows severely elevated filling pressures (PCWP = 25 mmHg) and preserved cardiac index (2.2 L/min/m2).
Remains hypertensive.
SaO2 91% on 1LNC.
Renal function stable is 2.7.
Data:
Cardiac Catheterization, 06/13/2024:
CONCLUSION:
1. Severely elevated filling pressures (PCWP = 25 mmHg at 79.8 kg).
2. Moderate postcapillary pulmonary hypertension (mean PA = 39 mmHg, PCWP = 25 mmHg, PVR = 2.73 Connolly units), WHO group 2.
3. Preserved cardiac function (cardiac index = 2.68 L/min/m�).
4. Renal dysfunction is not due to hypovolemia or due to poor forward flow.
VQ Scan, 06/12/2024:
CONCLUSION:
Normal perfusion and ventilation. Very low probability for pulmonary embolism.
LE Duplex, 06/12/2024:
IMPRESSION: No evidence of deep venous thrombosis of the lower extremities bilaterally
Renal US, 06/11/2024:
IMPRESSION: No evidence of renal collecting system dilatation bilaterally.
TTE, 06/10/2024:
CONCLUSIONS
Normal LV size and function with no regional wall motion abnormalities.
LVEF is 55-60% by visual estimation.
Moderate concentric LVH.
Normal right ventricular size and function.
No significant valvular disease.
Estimated pulmonary artery pressure of 38 mmHg. Assuming a right atrial
pressure of 3 mmHg.
No prior study available for comparison.
Coronary angiography, 06/07/2004:
Moderate mid and severe distal LAD lesions.
D1 with severe proximal disease.
Severe ostial, proximal, proximal and mid junction and distal circumflex lesions.
Severe ostial and proximal OM 4 lesion.
Severe mid ramus lesions.
RPDA is occluded with collaterals.
RPL 3 with moderate to severe lesion.
Mild to moderate disease in all other areas.
Moderate to severely increased LVEDP.
TTE, 06/07/2024:
LVEF 55 to 60%. Grade II DD.
There is lipomatous hypertrophy of the interatrial septum.
Trace tricuspid regurgitation.
Physical Exam
Vital Signs/Labs
Vital Signs
Temp Pulse Resp BP Pulse Ox
36.8 C 68 20 175/86 91
06/13/24 22:31 06/13/24 22:31 06/13/24 22:31 06/13/24 22:31 06/13/24 22:31
06/12/24 06/13/24 06/14/24
11:59 11:59 11:59
Actual Weight 79.7 kg 80.2 kg
06/14/24 05:29
06/14/24 05:29
PT 13.6 Sec (11.4-14.6) 06/09/24 02:51
INR 1.06 06/09/24 02:51
APTT 91.8 Sec (23.4-35.0) H 06/11/24 04:22
Magnesium 2.2 mg/dl (1.6-2.3) 06/08/24 11:46
06/08/24
11:46
Ccp-P-Vpbhmftdvvw Pept 1300
Physical Exam
Constitutional: No acute distress and Comfortable
EENT: Anicteric and Moist mucous membranes
Cardiovascular: Rhythm & rate is regular, Pedal edema is absent, JVD pressure is normal, S1S2 is normal and Murmur/rub/gallop absent
Respiratory: Respiratory effort normal, Lungs clear to auscul., Wheeze Absent, Crackles Absent and Rhonchi Absent
GI: Soft, Distention absent, Flat, Non tender and Normal bowel sounds
Neuro/Psych: AO x 3
Other: Cath Site (Right antecubital access site is C/D/I.)
Data Reviewed
-
Date of Service: June 14, 2024
Medical Decision Making: Reviewed Test Results, Independent Historian Assessment and Test Interpretation
EKG: Tracing Personally Visualized and interpreted and Report Reviewed by me
Echo: Tracing Personally Visualized and interpreted and Report Reviewed by me
X-Ray/CT/US/MRI/NUC/PET: Image Personally Visualized and interpreted and Report Reviewed by me
Medical Tests (PFT, Pathology etc): Image Personally Visualized and interpreted and Report Reviewed by me
Labs: Labs Reviewed by me
[2024-06-14 07:53] LABS: Glucose - Point of Care 219 mg/dl (70-99)
[2024-06-14] MEDS: NOVOLOG FLEXPEN-MODERATE RESISTANCE 3 UNITS SC (08:01)
[2024-06-14] MEDS: NOVOLOG FLEXPEN 18 UNITS SC (08:01)
[2024-06-14] MEDS: COREG 25 MG PO ×2 (08:31→20:27)
[2024-06-14] MEDS: NORVASC 10 MG PO (08:31)
[2024-06-14] MEDS: LOW STRENGTH ASPIRIN 81 MG PO (08:31)
[2024-06-14] MEDS: APRESOLINE 100 MG PO ×3 (08:31→22:25)
[2024-06-14] MEDS: PLAVIX 75 MG PO (08:31)
[2024-06-14] MEDS: BUMEX 1 MG IV (09:31)
[2024-06-14] MEDS: CARDURA 1 MG PO (09:32)
--- NOTE | 2024-06-14 09:48 | W.PN.NEPH.PH ---
Today's Communication / Plan
-
observe
Assessment/Plan
-
Assessment
CKD 3B (.December 2023)
LELAND
Diabetes mellitus type 2
Hypertension
Hyperlipidemia
Diffuse CAD
nephrotic proteinuria 6.4gm/gm of cr
Plan
Creatinine down to 2.7 from 2.8 yesterday subjectively nonoliguric but of course no one's collecting the urine
Hopefully creatinine has plateaued from contrast mediated kidney injury
LELAND-likely CN, contrast 06/07
Checked additional serologies for nephrotic range proteinuria
no ARB/SGLT2i for now
on abx for PNA
wean prednisone
Previously Discussed with patient and family at length. Has a hard time believing that he has cardiac disease. This has been reiterated to him every day.
cardiology gave lasix today
-
-
Date of Service: June 14, 2024
CC / HPI / ROS
-
Chief Complaint:
LELAND/CKD
History of Present Illness:
LELAND/Cr down to 2.7
BP high
WBC up at 14.2
on minimal supplemental O2 2 L
Review of Systems:
no fevers
no CP or sob at rest
no n/v
Labs
-
Labs:
WBC 12.9 10^3/uL (4.8-10.8) H 06/14/24 05:29
RBC 3.93 10^6/uL (4.70-6.10) L 06/14/24 05:29
Hgb 11.0 g/dL (13.0-18.0) L 06/14/24 05:29
Hct 31.9 % (39.0-52.0) L 06/14/24 05:29
Plt Count 375 10^3/uL (130-400) 06/14/24 05:29
Sodium 137 mmol/L (135-145) 06/14/24 05:29
Potassium 4.1 mmol/L (3.5-5.1) 06/14/24 05:29
Chloride 104 mmol/L (98-107) 06/14/24 05:29
Carbon Dioxide 21 mmol/L (22-30) L 06/14/24 05:29
BUN 48 mg/dl (9-20) H 06/14/24 05:29
Creatinine 2.7 mg/dL (0.7-1.3) H 06/14/24 05:29
eGFR 26.49 06/14/24 05:29
Glucose 297 mg/dl (70-99) H 06/14/24 05:29
Calcium 8.4 mg/dl (8.4-10.2) 06/14/24 05:29
Xxq-B-Blknzfwrlhg Pept 1300 pg/ml 06/08/24 11:46
Albumin 2.8 g/dl (3.5-5.0) L 06/09/24 02:51
Physical Exam
-
Vital Signs:
Vital Signs
Temp Pulse Resp BP Pulse Ox
98.2 F 59 20 146/76 94
06/13/24 22:31 06/14/24 09:34 06/13/24 22:31 06/14/24 09:34 06/14/24 08:53
Cardiovascular:: Regular rate and rhythm
Respiratory:: Bilateral: Coarse
Lung Excursion:: Normal
Abdomen:: Nontender and Soft
Bowel Sounds:: Normal
Extremity Edema:: None: Bilateral:
--- NOTE | 2024-06-14 10:24 | PTCARENOTE ---
Rec'd pt at change of shift. Pt AAO*3, with VSS, and pt in NRS with bradycardic periods. Pt Ivorian speaking and using hospital finishing lab technician service to communicate with hospital staff. Pt with R brachial site CDI. Pt with elevated blood pressure
at 170/86. Rec'd order for bumex IV push and Cardura PO rec'd and administered. Pt denies any pain or discomfort. Pt provided with hospital education in Ivorian from [facility] patient education. Pt resting in bed with call capone in reach and
family at bedside.
[2024-06-14 11:55] LABS: Glucose - Point of Care 97 mg/dl (70-99)
[2024-06-14 11:57] LABS: Glucose - Point of Care 96 mg/dl (70-99)
[2024-06-14] MEDS: NOVOLOG FLEXPEN-MODERATE RESISTANCE SC ×2 (13:31→16:51)
[2024-06-14 13:37] LABS: Glucose - Point of Care 251 mg/dl (70-99)
[2024-06-14] MEDS: NOVOLOG FLEXPEN 15 UNITS SC ×2 (13:39→16:51)
[2024-06-14] MEDS: NOVOLOG FLEXPEN SC (13:40)
--- NOTE | 2024-06-14 14:59 | CM ---
Reviewed chart. Met with Mr. Johnson and his family to review discharge plans. Reviewed [facility] and he is agreeable to [facility]. Telephone call to [facility] to make the referral. Sent the referral. Prior to admission he resides
with his spouse, son and daughter in an apartment with four steps to enter. Prior to admission he was independent with ambulation and adls. He does not have any DME in the home. Medical work-up in progress. The discharge plan is to return home
with his family and [facility] when medically stable.
[2024-06-14 16:55] LABS: Glucose - Point of Care 148 mg/dl (70-99)
--- NOTE | 2024-06-14 17:06 | PN.DIAED10 ---
Update Note
- Diabetes Education Update Note
Notes:
Glucose improving, 96 @ lunch, reduced AC novolog from 18 to 15 units. Pre dinner glucose in range, 148.
--- NOTE | 2024-06-14 17:06 | W.PN.HOSP.TC ---
Today's Communication/Plan
-
Diuresis monitor renal function with Bumex
Attempt to wean off O2.
Off antibiotics per
Adjust insulin for hyperglycemia
Assessment / Plan
Assessment / Plan
Impression:
58 years old male with past medical history of hypertension, diabetes, chronic kidney disease stage IIIb presents to [facility] with chest pain. Patient was evaluated for hypertensive emergency and non-STEMI. Urgent cardiac catheterization showed
multivessel CAD. Patient transferred to for CABG evaluation..
Acute hypoxic respiratory failure
Acute CHF preserved EF.
Multifocal infiltrate with fever, presumed pneumonia.
CAD, acute coronary syndrome non-STEMI.
Hypertensive emergency.
Acute kidney injury
Increased anion gap metabolic acidosis
Conditions prior to admission:
CKD stage IIIb.
Type 2 diabetes poorly controlled with hemoglobin A1c 11.5.
Dyslipidemia.
Plan:
Acute hypoxic respiratory failure likely multifactorial with CHF/pulmonary edema and right lower lobe pneumonia.
Acute pulmonary edema
Respiratory status is improving we will try to wean off supplemental oxygen on 06/13
Reported preserved LV function by outside echo on 06/07
Echocardiogram 06/10: Normal LV size and function with LVEF 55 to 60%. Regional wall motion abnormalities./LVH PAP 38 mmHg.
Recent cath with evidence of volume overload
RHC with severely elevated filling pressures (PCWP 25 mmHg).
Gentle diuresis transition off Lasix with first dose of Bumex on 06/14
Low-grade fever
COVID-[address] scan, follow-up chest x-ray with multifocal infiltrate.
? If nosocomial versus community-acquired pneumonia
Hypoxic, although with minimal cough and expectoration.
Completed total 5-day course of Zosyn 06/13
Initiated on prednisone, discontinued after 24 hours on 06/12
Lower extremity Doppler negative for DVT
VQ scan low probability
Non-STEMI
Status post cath with multivessel CAD.
Transferred for CABG evaluation. Currently on hold given fever, pneumonia, LELAND.
Continue aspirin
Transition off heparin drip to Plavix.
Coreg/statin
Hypertensive urgency
Improved blood pressure.
Continue current regimen including Coreg 12.5 mg twice daily, amlodipine 10 mg daily, hydralazine 50 mg 3 times daily. Adjust accordingly
Acute kidney injury. Suspect contrast-induced nephropathy
Acute metabolic acidosis.
CKD stage IIIb?
Rising creatinine at 2.8 down to 2.7 hopefully plateau
? If cardiorenal state, recent contrast exposure
No evidence for retention
Renal sonogram with no abnormalities.
Hold nephrotoxic agents including ARB, metformin, SGLT2
Poorly controlled diabetes.
Hemoglobin A1c 11.5.
Off metformin and SGLT2 given LELAND with metabolic acidosis.
Continue insulin basal bolus with serial Accu-Cheks. Currently on moderate dose
Initiated on Lantus/NovoLog AC/basal bolus protocol. Adjust dosing with expected steroid-induced hyperglycemia.
Dyslipidemia
Most current LDL 05/1900 and 7012
Continue escalated dose of rosuvastatin 40 mg daily.
Anticipated Discharge: 24 - 48 hours
Subjective/Interval History
-
Date of Service: June 14, 2024
Objective Data
-
Labs:
Laboratory Results
06/14/24
05:29
WBC 12.9 H
Hgb 11.0 L
Hct 31.9 L
Plt Count 375
Sodium 137
Potassium 4.1
Chloride 104
Carbon Dioxide 21 L
BUN 48 H
Creatinine 2.7 H
Glucose 297 H
Calcium 8.4
Vital Signs:
Vital Signs
Temp Pulse Resp BP Pulse Ox
97.6 F 67 16 146/76 93
06/14/24 12:21 06/14/24 12:21 06/14/24 12:21 06/14/24 09:34 06/14/24 12:21
I&O
06/13/24 06/14/24 06/15/24
06:59 06:59 06:59
Intake Total 240 / 240 290 / 290 240 / 240
Output Total 1225 / 1225
Balance -985 / -985 290 / 290 240 / 240
Physical Exam
-
General: Well Developed and No Apparent Distress
HEENT: Normocephalic, Atraumatic and Moist Mucous Membranes
Respiratory: Clear to Auscultation
Cardiac: Regular Rhythm and S1/S2; Negative Murmur, Rub or Gallop
GI: Soft, Nontender, Nondistended and Normal Bowel Sounds; Negative Organomegaly
Rectal: Deferred by Provider
Musculoskeletal: No Clubbing, No Cyanosis and No Edema
Skin: Negative Rash
Neuro: Nonfocal/Grossly Intact
[2024-06-14] MEDS: CRESTOR 40 MG PO (17:09)
[2024-06-14 21:20] LABS: Glucose - Point of Care 259 mg/dl (70-99)
--- NOTE | 2024-06-14 21:45 | PTCARENOTE ---
Pt rec'd at change of shift resting in bed with spouse at bedside. right brachial drsg removed,area cleansed with nss and left rotary kiln operator. sinus on telemetry.
HS accu check 259.
[2024-06-14] MEDS: LANTUS 0.3 UNITS SC (22:25)
[2024-06-15] VITALS (29 sets, daily range): BP systolic 151–193; BP diastolic 60–91; BMI 28.5
[2024-06-15 01:35] LABS: Albumin 2.23 g/dL (3.75-5.01); Alpha 2 Globulin 1.22 g/dL (0.48-1.05); SPEP IFE Reflex Not Done; Total Protein-Electrophoresis 5.8 g/dL (6.3-8.2)
--- NOTE | 2024-06-15 04:19 | PTCARENOTE ---
Pt and reminded that we want pt to void in urinal so accurate I@O can be maintained
[2024-06-15 04:29] LABS: % Basophils 0.4 % (0-2); % Eosinophils 2.6 % (0-6); % Immature Granulocytes 1.1 % (0-0.5); % Lymphocytes 23.2 % (20.5-51.1); % Monocytes 11.5 % (1.7-9.3); % Neutrophils 61.2 % (42.2-75.2); Absolute Basophils 0.1 10^3/uL (0-0.2); Absolute Eosinophils 0.4 10^3/uL (0-0.7); Absolute Immature Granulocytes 0.2 10^3/uL (0-0.05); Absolute Lymphocytes 3.6 10^3/uL (1.2-3.4); Absolute Monocytes 1.8 10^3/uL (0.1-0.6); Absolute Neutrophils 9.4 10^3/uL (1.4-6.5); Hematocrit 32.4 % (39.0-52.0); Hemoglobin 11.1 g/dL (13.0-18.0); Mean Corp Hgb Conc. 34.3 g/dL (33.0-37.0); Mean Corpuscular Hgb 28.8 pg (27.0-31.0); Mean Corpuscular Volume 84.2 fL (80.0-94.0); Mean Platelet Volume 10.1 fL (7.4-10.4); Nucleated Red Blood Cells % 0 % (-); Platelet Count 369 10^3/uL (130-400); Red Blood Cell Count 3.85 10^6/uL (4.70-6.10); Red Cell Dist. Width 13.3 % (11.5-14.5); White Blood Cell Count 15.3 10^3/uL (4.8-10.8)
[2024-06-15 04:51] LABS: Blood Urea Nitrogen 38 mg/dl (9-20); Calcium 8.7 mg/dl (8.4-10.2); Carbon Dioxide 25 mmol/L (22-30); Chloride 105 mmol/L (98-107); Estimated Creatinine Clearance 34 ml/min; Glucose 261 mg/dl (70-99); Sodium 140 mmol/L (135-145); eGFR 33.87
[2024-06-15 07:06] LABS: Glucose - Point of Care 179 mg/dl (70-99)
--- NOTE | 2024-06-15 08:00 | PTCARENOTE ---
Resumed care of patient from previous RN. Walking rounds done. patient in bed at time of assessment. asking to take shower. SR on monitor. BP 180s sys. AM medications given. weaned to RA. pulse ox 92-93%. tylenol given for headache. at bedside.
will continue to monitor.
[2024-06-15] MEDS: NOVOLOG FLEXPEN 15 UNITS SC ×2 (09:32→18:51)
[2024-06-15] MEDS: COREG 25 MG PO ×2 (09:33→19:50)
[2024-06-15] MEDS: LOW STRENGTH ASPIRIN 81 MG PO (09:33)
[2024-06-15] MEDS: NOVOLOG FLEXPEN-MODERATE RESISTANCE 1 UNITS SC (09:33)
[2024-06-15] MEDS: APRESOLINE 100 MG PO ×3 (09:33→22:25)
[2024-06-15] MEDS: NORVASC 10 MG PO (09:34)
[2024-06-15] MEDS: CARDURA 1 MG PO (09:34)
[2024-06-15] MEDS: PLAVIX 75 MG PO (09:34)
[2024-06-15] MEDS: APRESOLINE 10 MG IV ×2 (11:17→16:28)
[2024-06-15] MEDS: TYLENOL 650 MG PO (11:17)
--- NOTE | 2024-06-15 11:29 | W.PN.CD ---
Addendum entered and electronically signed by Randall Diane MD 06/15/24 13:13:
Patient seen and evaluated personally. I agree with the note documentation and plan of care as below.
Briefly, 58-year-old gentleman with severe coronary disease, CKD 3B, with recent NSTEMI s/p CABG eval with severe multivessel disease identified with no role for percutaneous intervention due to small culprit vessels. Patient was also noted to have
low-grade fever and leukocytosis consistent with possible pneumonia. Patient is hypoxic respiratory failure has improved with steroids. Given his coronary disease, plan is to work it up as an outpatient for possible CABG at a later date.
On oxygen and renal failure being worked up. Corbin added.
Original Note:
Today's Communication / Plan
-
Tylenol for headache
Needs further antihypertensives
corbin was added 06/14
OP CAB work up.
Impression / Plan
-
Impression/Plan: 58 yo male with PMH HTN, DM, CKD3b admitted to [facility] with hypertensive emergency and NSTEMI, subsequently transferred for CABG evaluation after cath revealed severe multivessel disease. The patient has also developed respiratory
insufficiency likely a combination of HFpEF, possible PNA (given low grade fever, leukocytosis), less likely vasculitis in the setting of nephrotic range proteinuria.
#Hypoxic respiratory failure
-improved off steroids,
#HFpEF
-Acute.
-Invasive data suggested heart failure: At cath 'Moderate to severely increased LVEDP'.
-Likely due to a combination of CAD, long standing hypertension compounded by hypertensive emergency and renal failure.
-weights unchanged with lasix
-GDMT with carvedilol, hydralazine/isosorbide mononitrate (in place of ACEI/ARB/ARNi). Renal function prohibits SGLT2i/MRA use at this time.
#NSTEMI/MV CAD
-Acute on chronic.
- LHC: The culprit RPDA appears small. There are tandem ostial/proximal LCx lesions as well as proximal Ramus lesions that are approachable, but there is concern about outflow (particularly in the LCx). The LAD is free from proximal disease.
There is some distal LAD disease.
-No role for percutaneous intervention.
-The patient is scheduled for outpatient CABG evaluation. In the mean time, we will manage this disease medically.
-Continue carvedilol, aspirin, clopidogrel and rosuvastatin.
#LELAND
-Acute on Chronic (stage 3b).
-RHC shows that this is not hypovolemia and forward flow is adequate.
-Nephrology following. creat trending down
#HTN
- sub opt control
-cardura added yesterday
#IDDM, type II
-Chronic, uncontrolled.
-HbA1c = 11.3%.
-SGLT2 on hold in the setting of LELAND.
#Dyslipidemia
-Chronic.
-Lipid panel 06/06/2024: TC 266, HDL 41, LDL 172, TG 267.
-He was on atorvastatin 40 mg at home; escalated therapy to rosuvastatin 40 mg daily.
Subjective/Interval History:
Pt did not feel well this am, he became warm and anxious per nursing. He had just gone to the bathroom. BP hypertensive when he returned. Pt c/o headace as well this am.
Data:
Cardiac Catheterization, 06/13/2024:
CONCLUSION:
1. Severely elevated filling pressures (PCWP = 25 mmHg at 79.8 kg).
2. Moderate postcapillary pulmonary hypertension (mean PA = 39 mmHg, PCWP = 25 mmHg, PVR = 2.73 Connolly units), WHO group 2.
3. Preserved cardiac function (cardiac index = 2.68 L/min/m�).
4. Renal dysfunction is not due to hypovolemia or due to poor forward flow.
VQ Scan, 06/12/2024:
CONCLUSION:
Normal perfusion and ventilation. Very low probability for pulmonary embolism.
LE Duplex, 06/12/2024:
IMPRESSION: No evidence of deep venous thrombosis of the lower extremities bilaterally
Renal US, 06/11/2024:
IMPRESSION: No evidence of renal collecting system dilatation bilaterally.
TTE, 06/10/2024:
CONCLUSIONS
Normal LV size and function with no regional wall motion abnormalities.
LVEF is 55-60% by visual estimation.
Moderate concentric LVH.
Normal right ventricular size and function.
No significant valvular disease.
Estimated pulmonary artery pressure of 38 mmHg. Assuming a right atrial
pressure of 3 mmHg.
No prior study available for comparison.
Coronary angiography, 06/07/2004:
Moderate mid and severe distal LAD lesions.
D1 with severe proximal disease.
Severe ostial, proximal, proximal and mid junction and distal circumflex lesions.
Severe ostial and proximal OM 4 lesion.
Severe mid ramus lesions.
RPDA is occluded with collaterals.
RPL 3 with moderate to severe lesion.
Mild to moderate disease in all other areas.
Moderate to severely increased LVEDP.
TTE, 06/07/2024:
LVEF 55 to 60%. Grade II DD.
There is lipomatous hypertrophy of the interatrial septum.
Trace tricuspid regurgitation.
Physical Exam
Vital Signs/Labs
Vital Signs
Temp Pulse Resp BP Pulse Ox
98.8 F 67 20 190/88 93
06/15/24 07:00 06/15/24 11:17 06/15/24 07:00 06/15/24 11:17 06/15/24 11:00
06/14/24 06/15/24 06/16/24
06:59 06:59 06:59
Actual Weight 82.3 kg
06/15/24 04:13
06/15/24 04:13
PT 13.6 Sec (11.4-14.6) 06/09/24 02:51
INR 1.06 06/09/24 02:51
APTT 91.8 Sec (23.4-35.0) H 06/11/24 04:22
Magnesium 2.2 mg/dl (1.6-2.3) 06/08/24 11:46
06/08/24
11:46
Xab-A-Aaekbxojqnu Pept 1300
Physical Exam
Constitutional: No acute distress
Cardiovascular: Rhythm & rate is regular and Pedal edema is absent
Respiratory: Respiratory effort normal and Lungs clear to auscul.
Neuro/Psych: AO x 3
Data Reviewed
-
Date of Service: June 15, 2024
Medical Tests (PFT, Pathology etc): Other (tele : NSR )
Labs: Labs Reviewed by me
--- NOTE | 2024-06-15 11:37 | W.PN.NEPH.PH ---
Today's Communication / Plan
-
Follow BMP
Lasix 40 mg IV
Assessment/Plan
-
Assessment
CKD 3B (.December 2023)
LELAND
Diabetes mellitus type 2
Hypertension
Hyperlipidemia
Diffuse CAD
nephrotic proteinuria 6.4gm/gm of cr
Plan
Creatinine down to 2.2 from 27 yesterday subjectively nonoliguric , weights unchanged
Appears creatinine has plateaued from contrast mediated kidney injury
LELAND-likely CN, contrast 06/07
Checked additional serologies for nephrotic range proteinuria
no ARB/SGLT2i for now
on abx for PNA
wean prednisone
Previously Discussed with patient and family at length. Has a hard time believing that he has cardiac disease. This has been reiterated to him every day.
Weights up will provide 40 mg of IV Lasix as creatinine now improving
-
-
Date of Service: June 15, 2024
CC / HPI / ROS
-
Chief Complaint:
LELAND/CKD
History of Present Illness:
LELAND/Cr down to 2.2
BP high
on minimal supplemental O2 2 L
Review of Systems:
no fevers
no CP
Does note some shortness of breath
no n/v
Weights unchanged
Labs
-
Labs:
WBC 15.3 10^3/uL (4.8-10.8) H 06/15/24 04:13
RBC 3.85 10^6/uL (4.70-6.10) L 06/15/24 04:13
Hgb 11.1 g/dL (13.0-18.0) L 06/15/24 04:13
Hct 32.4 % (39.0-52.0) L 06/15/24 04:13
Plt Count 369 10^3/uL (130-400) 06/15/24 04:13
Sodium 140 mmol/L (135-145) 06/15/24 04:13
Potassium 4.0 mmol/L (3.5-5.1) 06/15/24 04:13
Chloride 105 mmol/L (98-107) 06/15/24 04:13
Carbon Dioxide 25 mmol/L (22-30) 06/15/24 04:13
BUN 38 mg/dl (9-20) H 06/15/24 04:13
Creatinine 2.2 mg/dL (0.7-1.3) H 06/15/24 04:13
eGFR 33.87 06/15/24 04:13
Glucose 261 mg/dl (70-99) H 06/15/24 04:13
Calcium 8.7 mg/dl (8.4-10.2) 06/15/24 04:13
Qak-M-Mepjjjumuhe Pept 1300 pg/ml 06/08/24 11:46
Albumin 2.8 g/dl (3.5-5.0) L 06/09/24 02:51
Physical Exam
-
Vital Signs:
Vital Signs
Temp Pulse Resp BP Pulse Ox
98.8 F 67 20 190/88 93
06/15/24 07:00 06/15/24 11:17 06/15/24 07:00 06/15/24 11:17 06/15/24 11:00
Cardiovascular:: Regular rate and rhythm
Respiratory:: Bilateral: Coarse
Lung Excursion:: Normal
Abdomen:: Nontender and Soft
Bowel Sounds:: Normal
Extremity Edema:: None: Bilateral:
--- NOTE | 2024-06-15 12:47 | W.PN.HOSP.TC ---
Today's Communication/Plan
-
monitor vitals
see plan
Increase Lantus
Continue with BP meds
Lasix today
Monitor volume status
Wean oxygen as tolerated
Assessment / Plan
Assessment / Plan
Impression:
58 years old male with past medical history of hypertension, diabetes, chronic kidney disease stage IIIb presents to [facility] with chest pain. Patient was evaluated for hypertensive emergency and non-STEMI. Urgent cardiac catheterization showed
multivessel CAD. Patient transferred to for CABG evaluation..
Acute hypoxic respiratory failure
Acute CHF preserved EF.
Multifocal infiltrate with fever, presumed pneumonia.
CAD, acute coronary syndrome non-STEMI.
Hypertensive emergency.
Acute kidney injury
Increased anion gap metabolic acidosis
Conditions prior to admission:
CKD stage IIIb.
Type 2 diabetes poorly controlled with hemoglobin A1c 11.5.
Dyslipidemia.
Plan:
Acute hypoxic respiratory failure likely multifactorial with CHF/pulmonary edema and right lower lobe pneumonia.
Acute pulmonary edema
Respiratory status is improving we will try to wean off supplemental oxygen on 06/13
Reported preserved LV function by outside echo on 06/07
Echocardiogram 06/10: Normal LV size and function with LVEF 55 to 60%. Regional wall motion abnormalities./LVH PAP 38 mmHg.
Recent cath with evidence of volume overload
RHC with severely elevated filling pressures (PCWP 25 mmHg).
Gentle diuresis; 1 dose IV lasix 06/15
Low-grade fever
COVID-[address] scan, follow-up chest x-ray with multifocal infiltrate.
? If nosocomial versus community-acquired pneumonia
Hypoxic, although with minimal cough and expectoration.
Completed total 5-day course of Zosyn 06/13
Initiated on prednisone, discontinued after 24 hours on 06/12
Lower extremity Doppler negative for DVT
VQ scan low probability
Non-STEMI
Status post cath with multivessel CAD.
Transferred for CABG evaluation. Currently on hold given fever, pneumonia, LELAND. OP CABG eval
Continue aspirin
Transition off heparin drip to Plavix.
Coreg/statin
Hypertensive urgency
Improved blood pressure.
Continue current regimen including Coreg 12.5 mg twice daily, amlodipine 10 mg daily, hydralazine 50 mg 3 times daily. Adjust accordingly. cw cadura
Acute kidney injury. Suspect contrast-induced nephropathy
Acute metabolic acidosis.
CKD stage IIIb?
Rising creatinine at 2.8 down to 2.7 hopefully plateau
? If cardiorenal state, recent contrast exposure
No evidence for retention
Renal sonogram with no abnormalities.
Hold nephrotoxic agents including ARB, metformin, SGLT2
cw now 2.2
Poorly controlled diabetes.
Hemoglobin A1c 11.5.
Off metformin and SGLT2 given LELAND with metabolic acidosis.
Continue insulin basal bolus with serial Accu-Cheks. Currently on moderate dose
Initiated on Lantus/NovoLog AC/basal bolus protocol. Adjust dosing with expected steroid-induced hyperglycemia. increase lantus to 32 units
Dyslipidemia
Most current LDL 05/1900 and 7012
Continue escalated dose of rosuvastatin 40 mg daily.
General: Well Developed and No Apparent Distress
HEENT: Normocephalic, Atraumatic and Moist Mucous Membranes
Respiratory: Clear to Auscultation
Cardiac: Regular Rhythm and S1/S2
GI: Soft, Nontender, Nondistended and Normal Bowel Sounds
Musculoskeletal: No Edema
Skin: Negative Rash
Neuro: Nonfocal/Grossly Intact
Anticipated Discharge: > 48 hours
Subjective/Interval History
-
Date of Service: June 15, 2024
denies nausea
Objective Data
-
Labs:
Laboratory Results
06/15/24
04:13
WBC 15.3 H
Hgb 11.1 L
Hct 32.4 L
Plt Count 369
Sodium 140
Potassium 4.0
Chloride 105
Carbon Dioxide 25
BUN 38 H
Creatinine 2.2 H
Glucose 261 H
Calcium 8.7
Vital Signs:
Vital Signs
Temp Pulse Resp BP Pulse Ox
98.8 F 67 20 190/88 93
06/15/24 07:00 06/15/24 11:17 06/15/24 07:00 06/15/24 11:17 06/15/24 11:00
I&O
06/14/24 06/15/24 06/16/24
06:59 06:59 06:59
Intake Total 290 / 290 340 / 340
Output Total 1250 / 1250
Balance 290 / 290 340 / 340 -1250 / -1250
[2024-06-15] MEDS: ROXICODONE 5 MG PO (13:22)
[2024-06-15] MEDS: LASIX 40 MG IV (13:23)
[2024-06-15] MEDS: NOVOLOG FLEXPEN-MODERATE RESISTANCE SC ×3 (15:27→18:53)
--- NOTE | 2024-06-15 16:00 | PTCARENOTE ---
required 2 doses hydralazine. BP increased systolic most of afternoon despite multiple medications given. MD aware. orders received.
[2024-06-15] MEDS: NOVOLOG FLEXPEN SC (16:30)
[2024-06-15] MEDS: CRESTOR 40 MG PO (18:46)
[2024-06-15 18:51] LABS: Glucose - Point of Care 372 mg/dl (70-99)
[2024-06-15 21:00] LABS: Glucose - Point of Care 302 mg/dl (70-99)
[2024-06-15] MEDS: LANTUS 0.32 UNITS SC (22:25)
--- NOTE | 2024-06-15 22:35 | PTCARENOTE ---
Spoke to pt and through young family member regarding pt's need to eat if given meal time insulin. Also accurate I@o's , aware to not dump urine without nursing accounting for amount. B/P remains high 175 systolic. PM Hydralazine given
[2024-06-16] VITALS (8 sets, daily range): BP systolic 148–187; BP diastolic 72–90; BMI 28.2
[2024-06-16 05:29] LABS: Blood Urea Nitrogen 30 mg/dl (9-20); Calcium 8.6 mg/dl (8.4-10.2); Carbon Dioxide 26 mmol/L (22-30); Chloride 102 mmol/L (98-107); Estimated Creatinine Clearance 36 ml/min; Glucose 259 mg/dl (70-99); Potassium 4.2 mmol/L (3.5-5.1); Sodium 137 mmol/L (135-145); eGFR 35.81
--- NOTE | 2024-06-16 08:53 | W.PN.NEPH.PH ---
Today's Communication / Plan
-
observe
Assessment/Plan
-
Assessment
CKD 3B (.December 2023)
LELAND
Diabetes mellitus type 2
Hypertension
Hyperlipidemia
Diffuse CAD
nephrotic proteinuria 6.4gm/gm of cr
Plan
Creatinine down to 2.1 , nonoliguric ~1.5liters with lasix
Appears creatinine has plateaued from contrast mediated kidney injury
LELAND-likely CN, contrast 06/07
Checked additional serologies for nephrotic range proteinuria
no ARB/SGLT2i for now
patient appears euvolemic on exam, will hold lasix today unless cardiology feels strongly otherwise
Previously Discussed with patient and family at length. Had a hard time believing that he has cardiac disease.
-
-
Date of Service: June 16, 2024
CC / HPI / ROS
-
Chief Complaint:
LELAND/CKD
History of Present Illness:
LELAND/Cr down to 2.1
BP high
on minimal supplemental O2 2 L
Review of Systems:
no fevers
no CP
grossly nonoliguric
no n/v
Weights unchanged
Labs
-
Labs:
WBC 15.3 10^3/uL (4.8-10.8) H 06/15/24 04:13
RBC 3.85 10^6/uL (4.70-6.10) L 06/15/24 04:13
Hgb 11.1 g/dL (13.0-18.0) L 06/15/24 04:13
Hct 32.4 % (39.0-52.0) L 06/15/24 04:13
Plt Count 369 10^3/uL (130-400) 06/15/24 04:13
Sodium 137 mmol/L (135-145) 06/16/24 04:38
Potassium 4.2 mmol/L (3.5-5.1) 06/16/24 04:38
Chloride 102 mmol/L (98-107) 06/16/24 04:38
Carbon Dioxide 26 mmol/L (22-30) 06/16/24 04:38
BUN 30 mg/dl (9-20) H 06/16/24 04:38
Creatinine 2.1 mg/dL (0.7-1.3) H 06/16/24 04:38
eGFR 35.81 06/16/24 04:38
Glucose 259 mg/dl (70-99) H 06/16/24 04:38
Calcium 8.6 mg/dl (8.4-10.2) 06/16/24 04:38
Jak-P-Lfqsretpkgl Pept 1300 pg/ml 06/08/24 11:46
Albumin 2.8 g/dl (3.5-5.0) L 06/09/24 02:51
Physical Exam
-
Vital Signs:
Vital Signs
Temp Pulse Resp BP Pulse Ox
98.6 F 87 18 167/83 91
06/16/24 04:45 06/16/24 08:00 06/16/24 04:45 06/16/24 04:36 06/16/24 04:45
Cardiovascular:: Regular rate and rhythm
Respiratory:: Bilateral: CTA
Lung Excursion:: Normal
Abdomen:: Nontender
Extremity Edema:: None: Bilateral:
Benedict Catheter: No
--- NOTE | 2024-06-16 08:58 | W.PN.CD ---
Today's Communication / Plan
-
-Continue aspirin, Plavix, Coreg, amlodipine, Crestor, Cardura and hydralazine
-Continue diuresis with Lasix 80 mg twice a day for now.
Impression / Plan
-
Impression/Plan: 58 yo male with PMH HTN, DM, CKD3b admitted to [facility] with hypertensive emergency and NSTEMI, subsequently transferred for CABG evaluation after cath revealed severe multivessel disease. The patient has also developed respiratory
insufficiency likely a combination of HFpEF, possible PNA (given low grade fever, leukocytosis), less likely vasculitis in the setting of nephrotic range proteinuria.
#Hypoxic respiratory failure
-improved off steroids,
-Breathing much better now.
#HFpEF
-Acute. -Improved
-Invasive data suggested heart failure: At cath 'Moderate to severely increased LVEDP'.
-Likely due to a combination of CAD, long standing hypertension compounded by hypertensive emergency and renal failure.
-weights unchanged with lasix
-GDMT with carvedilol, hydralazine/isosorbide mononitrate (in place of ACEI/ARB/ARNi). Renal function prohibits SGLT2i/MRA use at this time.
#NSTEMI/MV CAD
-Acute on chronic.
- LHC: The culprit RPDA appears small. There are tandem ostial/proximal LCx lesions as well as proximal Ramus lesions that are approachable, but there is concern about outflow (particularly in the LCx). The LAD is free from proximal disease.
There is some distal LAD disease.
-No role for percutaneous intervention.
-The patient is scheduled for outpatient CABG evaluation. In the mean time, we will manage this disease medically.
-Continue carvedilol, aspirin, clopidogrel and rosuvastatin.
#LELAND
-Acute on Chronic (stage 3b).
-RHC shows that this is not hypovolemia and forward flow is adequate.
-Nephrology following. creat trending down
#HTN
-sub opt control
-cardura added 06/14
#IDDM, type II
-Chronic, uncontrolled.
-HbA1c = 11.3%.
-SGLT2 on hold in the setting of LELAND.
#Dyslipidemia
-Chronic.
-Lipid panel 06/06/2024: TC 266, HDL 41, LDL 172, TG 267.
-He was on atorvastatin 40 mg at home; escalated therapy to rosuvastatin 40 mg daily.
Subjective/Interval History:
Patient feeling much better today. Pain is resolved. In good spirits.
Data:
Cardiac Catheterization, 06/13/2024:
CONCLUSION:
1. Severely elevated filling pressures (PCWP = 25 mmHg at 79.8 kg).
2. Moderate postcapillary pulmonary hypertension (mean PA = 39 mmHg, PCWP = 25 mmHg, PVR = 2.73 Connolly units), WHO group 2.
3. Preserved cardiac function (cardiac index = 2.68 L/min/m�).
4. Renal dysfunction is not due to hypovolemia or due to poor forward flow.
VQ Scan, 06/12/2024:
CONCLUSION:
Normal perfusion and ventilation. Very low probability for pulmonary embolism.
LE Duplex, 06/12/2024:
IMPRESSION: No evidence of deep venous thrombosis of the lower extremities bilaterally
Renal US, 06/11/2024:
IMPRESSION: No evidence of renal collecting system dilatation bilaterally.
TTE, 06/10/2024:
CONCLUSIONS
Normal LV size and function with no regional wall motion abnormalities.
LVEF is 55-60% by visual estimation.
Moderate concentric LVH.
Normal right ventricular size and function.
No significant valvular disease.
Estimated pulmonary artery pressure of 38 mmHg. Assuming a right atrial
pressure of 3 mmHg.
No prior study available for comparison.
Coronary angiography, 06/07/2004:
Moderate mid and severe distal LAD lesions.
D1 with severe proximal disease.
Severe ostial, proximal, proximal and mid junction and distal circumflex lesions.
Severe ostial and proximal OM 4 lesion.
Severe mid ramus lesions.
RPDA is occluded with collaterals.
RPL 3 with moderate to severe lesion.
Mild to moderate disease in all other areas.
Moderate to severely increased LVEDP.
TTE, 06/07/2024:
LVEF 55 to 60%. Grade II DD.
There is lipomatous hypertrophy of the interatrial septum.
Trace tricuspid regurgitation.
Physical Exam
Vital Signs/Labs
Vital Signs
Temp Pulse Resp BP Pulse Ox
98.6 F 87 18 167/83 91
06/16/24 04:45 06/16/24 08:00 06/16/24 04:45 06/16/24 04:36 06/16/24 04:45
06/15/24 06/16/24 06/17/24
06:59 06:59 06:59
Actual Weight 82.3 kg
06/15/24 04:13
06/16/24 04:38
PT 13.6 Sec (11.4-14.6) 06/09/24 02:51
INR 1.06 06/09/24 02:51
APTT 91.8 Sec (23.4-35.0) H 06/11/24 04:22
Magnesium 2.2 mg/dl (1.6-2.3) 06/08/24 11:46
06/08/24
11:46
Ewq-G-Kukagbgzgiy Pept 1300
Physical Exam
Constitutional: No acute distress and Comfortable
EENT: Anicteric and Moist mucous membranes
Cardiovascular: Rhythm & rate is regular, Pedal edema is absent, JVD pressure is normal and Systolic murmur absent
Respiratory: Respiratory effort normal, Lungs clear to auscul., Wheeze Absent and Crackles Absent
GI: Soft, Non tender and Normal bowel sounds
Neuro/Psych: Oriented and AO x 3
Other: Skin and Cath Site
Data Reviewed
-
Date of Service: June 16, 2024
Medical Decision Making: Reviewed Test Results, Independent Historian Assessment, Test Interpretation and Review of Case with other Provider
EKG: Tracing Personally Visualized and interpreted
Echo: Report Reviewed by me
Labs: Labs Reviewed by me
Old Records: Reviewed
[2024-06-16] MEDS: PLAVIX 75 MG PO (09:05)
[2024-06-16] MEDS: COREG 25 MG PO ×2 (09:06→19:54)
[2024-06-16] MEDS: LOW STRENGTH ASPIRIN 81 MG PO (09:06)
[2024-06-16] MEDS: CARDURA 1 MG PO (09:06)
[2024-06-16] MEDS: APRESOLINE 100 MG PO ×3 (09:06→22:05)
[2024-06-16] MEDS: NORVASC 10 MG PO (09:06)
[2024-06-16 09:13] LABS: Glucose - Point of Care 292 mg/dl (70-99)
[2024-06-16] MEDS: NOVOLOG FLEXPEN 15 UNITS SC (09:13)
[2024-06-16] MEDS: NOVOLOG FLEXPEN-MODERATE RESISTANCE 5 UNITS SC (09:13)
[2024-06-16 10:42] LABS: Glucose - Point of Care 225 mg/dl (70-99)
[2024-06-16 13:07] LABS: Glucose - Point of Care 190 mg/dl (70-99)
[2024-06-16] MEDS: NOVOLOG FLEXPEN-MODERATE RESISTANCE 1 UNITS SC ×2 (13:07→18:16)
[2024-06-16] MEDS: NOVOLOG FLEXPEN 17 UNITS SC ×2 (13:07→18:17)
--- NOTE | 2024-06-16 13:53 | PTCARENOTE ---
Pt instructed, using trap operator, to please call me prior to eating a meal so that we can check his blood glucose before he eats. Pt also encouraged to get OOB and sit in chair and ambuate in room
--- NOTE | 2024-06-16 13:59 | W.PN.HOSP.TC ---
Today's Communication/Plan
-
Monitor vital signs see plan
Increase insulin
Continue with aspirin and Plavix
Assessment / Plan
Assessment / Plan
Impression:
58 years old male with past medical history of hypertension, diabetes, chronic kidney disease stage IIIb presents to [facility] with chest pain. Patient was evaluated for hypertensive emergency and non-STEMI. Urgent cardiac catheterization showed
multivessel CAD. Patient transferred to for CABG evaluation..
Acute hypoxic respiratory failure
Acute CHF preserved EF.
Multifocal infiltrate with fever, presumed pneumonia.
CAD, acute coronary syndrome non-STEMI.
Hypertensive emergency.
Acute kidney injury
Increased anion gap metabolic acidosis
Conditions prior to admission:
CKD stage IIIb.
Type 2 diabetes poorly controlled with hemoglobin A1c 11.5.
Dyslipidemia.
Plan:
Acute hypoxic respiratory failure likely multifactorial with CHF/pulmonary edema and right lower lobe pneumonia.
Acute pulmonary edema
Respiratory status is improving we will try to wean off supplemental oxygen on 06/13
Reported preserved LV function by outside echo on 06/07
Echocardiogram 06/10: Normal LV size and function with LVEF 55 to 60%. Regional wall motion abnormalities./LVH PAP 38 mmHg.
Recent cath with evidence of volume overload
RHC with severely elevated filling pressures (PCWP 25 mmHg).
Gentle diuresis; 1 dose IV lasix 06/15
Low-grade fever
COVID-[address] scan, follow-up chest x-ray with multifocal infiltrate.
? If nosocomial versus community-acquired pneumonia
Hypoxic, although with minimal cough and expectoration.
Completed total 5-day course of Zosyn 06/13
Initiated on prednisone, discontinued after 24 hours on 06/12
Lower extremity Doppler negative for DVT
VQ scan low probability
Non-STEMI
Status post cath with multivessel CAD.
Transferred for CABG evaluation. Currently on hold given fever, pneumonia, LELAND. OP CABG eval
Continue aspirin
Transition off heparin drip to Plavix.
Coreg/statin
Hypertensive urgency
Improved blood pressure.
Continue current regimen including Coreg 12.5 mg twice daily, amlodipine 10 mg daily, hydralazine 50 mg 3 times daily. Adjust accordingly. cw cadura
Acute kidney injury. Suspect contrast-induced nephropathy
Acute metabolic acidosis.
CKD stage IIIb?
Rising creatinine at 2.8 down to 2.7 hopefully plateau
? If cardiorenal state, recent contrast exposure
No evidence for retention
Renal sonogram with no abnormalities.
Hold nephrotoxic agents including ARB, metformin, SGLT2
cw now 2.2
Poorly controlled diabetes.
Hemoglobin A1c 11.5.
Off metformin and SGLT2 given LELAND with metabolic acidosis.
Continue insulin basal bolus with serial Accu-Cheks. Currently on moderate dose
Initiated on Lantus/NovoLog AC/basal bolus protocol. Adjust dosing with expected steroid-induced hyperglycemia. increase lantus to 35 units, aspart 17 units AC
Dyslipidemia
Most current LDL 05/1900 and 7012
Continue escalated dose of rosuvastatin 40 mg daily.
General: Well Developed and No Apparent Distress
HEENT: Normocephalic, Atraumatic and Moist Mucous Membranes
Respiratory: Clear to Auscultation
Cardiac: Regular Rhythm and S1/S2
GI: Soft, Nontender, Nondistended and Normal Bowel Sounds
Musculoskeletal: No Edema
Skin: Negative Rash
Neuro: Nonfocal/Grossly Intact
Anticipated Discharge: 24 - 48 hours
Subjective/Interval History
-
Date of Service: June 16, 2024
denies pain
Objective Data
-
Labs:
Laboratory Results
06/16/24
04:38
Sodium 137
Potassium 4.2
Chloride 102
Carbon Dioxide 26
BUN 30 H
Creatinine 2.1 H
Glucose 259 H
Calcium 8.6
Vital Signs:
Vital Signs
Temp Pulse Resp BP Pulse Ox
99 F 72 20 148/80 92
06/16/24 11:23 06/16/24 13:00 06/16/24 11:23 06/16/24 11:24 06/16/24 11:24
I&O
06/15/24 06/16/24 06/17/24
06:59 06:59 06:59
Intake Total 340 / 340 240 / 240
Output Total 2750 / 2750
Balance 340 / 340 -2510 / -2510
[2024-06-16 17:22] LABS: Glucose - Point of Care 159 mg/dl (70-99)
[2024-06-16] MEDS: CRESTOR 40 MG PO (17:36)
--- NOTE | 2024-06-16 20:17 | PTCARENOTE ---
Pt. received at change of shift. Pt. seen and assessed in room. at the bedside. Pt. showing no signs of distress. BP elevated in the 170s, 8pm coreg dose given. Supplemental O2 placed back on patient at 2L satting at 90%, previously satting at
86% on RA. Pt. nods in understanding of plan of care. Call capone within reach. Continuing to monitor at this time.
[2024-06-16 21:03] LABS: Glucose - Point of Care 170 mg/dl (70-99)
[2024-06-16] MEDS: LANTUS 0.35 UNITS SC (22:05)
[2024-06-17] VITALS (8 sets, daily range): BP systolic 125–179; BP diastolic 61–90; BMI 28.7
[2024-06-17 03:37] LABS: Blood Urea Nitrogen 31 mg/dl (9-20); Calcium 8.4 mg/dl (8.4-10.2); Carbon Dioxide 27 mmol/L (22-30); Chloride 106 mmol/L (98-107); Estimated Creatinine Clearance 38 ml/min; Glucose 93 mg/dl (70-99); Sodium 139 mmol/L (135-145); eGFR 37.97
[2024-06-17 07:07] LABS: Glucose - Point of Care 207 mg/dl (70-99)
[2024-06-17] MEDS: COREG 25 MG PO ×2 (07:56→20:27)
[2024-06-17] MEDS: CARDURA 1 MG PO (07:56)
[2024-06-17] MEDS: APRESOLINE 100 MG PO ×3 (07:56→23:20)
[2024-06-17] MEDS: LOW STRENGTH ASPIRIN 81 MG PO (07:57)
[2024-06-17] MEDS: NORVASC 10 MG PO (07:57)
[2024-06-17] MEDS: PLAVIX 75 MG PO (07:57)
[2024-06-17] MEDS: NOVOLOG FLEXPEN-MODERATE RESISTANCE 3 UNITS SC (07:58)
[2024-06-17] MEDS: NOVOLOG FLEXPEN 17 UNITS SC (07:59)
--- NOTE | 2024-06-17 09:29 | PN.DE.MGMTRT ---
Insulin Management
- -
06/17/2024: Diabetes Management f/u:
58 year old male admitted 06/08 from [facility] with c/o MORENO, elevated BP, NSTEMI.
PMH: HTN, HLD, T2DM, CKD 3b. Prior to admission was taking Januvia 100 mg daily, Jardiance 10 mg daily and metformin 1000 BID A1C on admission 11.5%, cr 2.4, eGFR 30.51. Patient has been seen daily since 06/10 for diabetes education for insulin
instruction and has done well with self injection with nursing supervision.
Pt awake, A/O x3, sitting up in chair, family at bedside, able to discuss diabetes management.
Oral meds being held due to elevated cr, 2.7-->2.0 today. Lantus and AC NovoLog started 06/10.
06/16 Glucose range 159 to 225, requiring additional corrective insulin, fasting 93 this AM.
Will reduce Lantus to 33 units and increase AC NovoLog to 20 units and continue moderate corrective insulin.
Will make further insulin adjustments if needed.
Diabetes History
- -
Type of Diabetes: 2 requiring insulin
Pre-Admission Diabetes Regimen
06/17/24
03:16
Creatinine 2.0 H
Lab Results
Hemoglobin A1c 11.5 % (4.0-5.6) H 06/09/24 02:51
Insulin Pump Settings
IP Diabetes Regimen
06/16/24 06/16/24 06/16/24
10:40 13:05 17:20
Glucose
POC Glucose 225 H 190 H 159 H
06/16/24 06/17/24 06/17/24
21:01 03:16 07:06
Glucose 93
POC Glucose 170 H 207 H
Meal type: Breakfast
Patient Education
[2024-06-17] MEDS: TYLENOL 650 MG PO (10:25)
[2024-06-17] MEDS: MIRALAX 17 GRAMS PO (10:58)
--- NOTE | 2024-06-17 11:16 | PTCARENOTE ---
Pt c/o headache and dizziness, med with Tylenol 650 mg po as ordered. Dr Real aware. CT scan of the head done.
--- NOTE | 2024-06-17 11:59 | W.PN.CD ---
Today's Communication / Plan
-
Renal artery duplex.
Increase doxazosin to 2 mg daily.
Bumetanide 2 mg IV x1 and monitor response.
Impression / Plan
-
Impression/Plan: 58 yo male with PMH HTN, DM, CKD3b admitted to [facility] with hypertensive emergency and NSTEMI, subsequently transferred for CABG evaluation after cath revealed severe multivessel disease. The patient has also developed respiratory
insufficiency likely a combination of HFpEF, possible PNA (given low grade fever, leukocytosis), less likely vasculitis in the setting of nephrotic range proteinuria.
#Hypoxic respiratory failure
-Still requiring supplemental oxygen.
-Weight is rising.
-Has not received diuretics since 06/15/2024.
-Start bumetanide 2mg IV today.
#HFpEF
-Acute.
-Invasive data suggested heart failure: At cath 'Moderate to severely increased LVEDP'.
-Likely due to a combination of CAD, long standing hypertension compounded by hypertensive emergency and renal failure.
-GDMT with carvedilol, hydralazine/isosorbide mononitrate (in place of ACEI/ARB/ARNi). Renal function prohibits SGLT2i/MRA use at this time.
-Weight is now up 1.4 kg from yesterday, 3.4 kg from patric of 79.6 kg.
#NSTEMI/MV CAD
-Acute on chronic.
-LHC: The culprit RPDA appears small. There are tandem ostial/proximal LCx lesions as well as proximal Ramus lesions that are approachable, but there is concern about outflow (particularly in the LCx). The LAD is free from proximal disease.
There is some distal LAD disease.
-No role for percutaneous intervention.
-The patient is scheduled for outpatient CABG evaluation. In the mean time, we will manage this disease medically.
-Continue carvedilol, aspirin, clopidogrel and rosuvastatin.
#LELAND
-Acute on Chronic (stage 3b).
-RHC shows that this is not hypovolemia and forward flow is adequate.
-Nephrology following.
-Creatinine trending down, now 2.0.
-Check renal artery duplex to r/o renal artery stenosis.
#HTN
-Acute, uncontrolled.
-Currently on carvedilol 25 mg BID, hydralazine + isosorbide mononitrate and doxazosin.
-Increase doxazosin to 2 mg daily.
#IDDM, type II
-Chronic, uncontrolled.
-HbA1c = 11.3%.
-SGLT2 on hold in the setting of LELAND.
#Dyslipidemia
-Chronic.
-Lipid panel 06/06/2024: TC 266, HDL 41, LDL 172, TG 267.
-He was on atorvastatin 40 mg at home; escalated therapy to rosuvastatin 40 mg daily.
Subjective/Interval History:
Weight is up 1.4 kg from yesterday.
Creatinine trending down to 2.0.
Patient is sleeping when I arrived. I opted not to wake him given recent history of vomiting.
I spoke with the patient's family. They report he has been complaining of increasing shortness in breath.
Data:
Cardiac Catheterization, 06/13/2024:
CONCLUSION:
1. Severely elevated filling pressures (PCWP = 25 mmHg at 79.8 kg).
2. Moderate postcapillary pulmonary hypertension (mean PA = 39 mmHg, PCWP = 25 mmHg, PVR = 2.73 Connolly units), WHO group 2.
3. Preserved cardiac function (cardiac index = 2.68 L/min/m�).
4. Renal dysfunction is not due to hypovolemia or due to poor forward flow.
VQ Scan, 06/12/2024:
CONCLUSION:
Normal perfusion and ventilation. Very low probability for pulmonary embolism.
LE Duplex, 06/12/2024:
IMPRESSION: No evidence of deep venous thrombosis of the lower extremities bilaterally
Renal US, 06/11/2024:
IMPRESSION: No evidence of renal collecting system dilatation bilaterally.
TTE, 06/10/2024:
CONCLUSIONS
Normal LV size and function with no regional wall motion abnormalities.
LVEF is 55-60% by visual estimation.
Moderate concentric LVH.
Normal right ventricular size and function.
No significant valvular disease.
Estimated pulmonary artery pressure of 38 mmHg. Assuming a right atrial
pressure of 3 mmHg.
No prior study available for comparison.
Coronary angiography, 06/07/2004:
Moderate mid and severe distal LAD lesions.
D1 with severe proximal disease.
Severe ostial, proximal, proximal and mid junction and distal circumflex lesions.
Severe ostial and proximal OM 4 lesion.
Severe mid ramus lesions.
RPDA is occluded with collaterals.
RPL 3 with moderate to severe lesion.
Mild to moderate disease in all other areas.
Moderate to severely increased LVEDP.
TTE, 06/07/2024:
LVEF 55 to 60%. Grade II DD.
There is lipomatous hypertrophy of the interatrial septum.
Trace tricuspid regurgitation.
Physical Exam
Vital Signs/Labs
Vital Signs
Temp Pulse Resp BP Pulse Ox
36.6 C 73 18 160/77 91
06/17/24 11:34 06/17/24 07:00 06/17/24 11:34 06/17/24 06:59 06/17/24 11:34
06/15/24 06/16/24 06/17/24
11:59 11:59 11:59
Actual Weight 82.3 kg 81.6 kg 83 kg
06/15/24 04:13
06/17/24 03:16
PT 13.6 Sec (11.4-14.6) 06/09/24 02:51
INR 1.06 06/09/24 02:51
APTT 91.8 Sec (23.4-35.0) H 06/11/24 04:22
Magnesium 2.2 mg/dl (1.6-2.3) 06/08/24 11:46
06/08/24
11:46
Dep-X-Mgumbirfjnj Pept 1300
Physical Exam
Constitutional: No acute distress and Comfortable
EENT: Anicteric and Moist mucous membranes
Respiratory: Respiratory effort normal
Neuro/Psych: Other (Asleep, resting comfortably.)
Data Reviewed
-
Date of Service: June 17, 2024
Medical Decision Making: Reviewed Test Results, Independent Historian Assessment and Test Interpretation
EKG: Tracing Personally Visualized and interpreted and Report Reviewed by me
Echo: Report Reviewed by me
X-Ray/CT/US/MRI/NUC/PET: Image Personally Visualized and interpreted and Report Reviewed by me
Medical Tests (PFT, Pathology etc): Image Personally Visualized and interpreted and Report Reviewed by me
Labs: Labs Reviewed by me and Labs Ordered by me
Old Records: Reviewed
--- NOTE | 2024-06-17 12:54 | PTCARENOTE ---
Addendum entered by Yeny Baca RN 06/17/24 12:57:
He also said he was nauseous and dizzy but those feelings are now gone.
Original Note:
Pt is feeling better, his headache is gone. He did say thru [place] county court judge that he does not want to take all of that blood pressure medication tomorrow morning.
--- NOTE | 2024-06-17 13:09 | CM ---
Reviewed chart. Met with Mr. Johnson and his family to review discharge plans. using the language line. He states he has a headache today. Not feeling well. Reviewed with him if he had a PCP. PCP is Alison Rai. BEN. Telephone call to
[facility] to check on status of referral. [facility] checking on his insurance. Awaiting call back to see if they can accept. Prior to admission he resides with his spouse, son and daughter in an apartment. He has four steps to
enter. Prior to admission he was independent with ambulation and adls. He does not have any DME in the home. Medical work-up in progress. The discharge plan is to return home with his family and [facility] if approved by [facility] insurance
when medically stable.
[2024-06-17 13:48] LABS: Glucose - Point of Care 275 mg/dl (70-99)
[2024-06-17] MEDS: NOVOLOG FLEXPEN-MODERATE RESISTANCE 5 UNITS SC ×2 (13:48→17:40)
[2024-06-17] MEDS: NOVOLOG FLEXPEN 20 UNITS SC ×2 (13:49→17:41)
--- NOTE | 2024-06-17 14:03 | W.PN.NEPH.PH ---
Today's Communication / Plan
-
meds adjusted per cards
monitor labs
Assessment/Plan
-
Assessment
CKD 3B (.December 2023)
LELAND
Diabetes mellitus type 2
Hypertension
Hyperlipidemia
Diffuse CAD
nephrotic proteinuria 6.4gm/gm of cr
Plan
Creatinine down to 2 , nonoliguric ~1.7liters off lasix
Appears creatinine has plateaued from contrast mediated kidney injury
Checked additional serologies for nephrotic range proteinuria
no ARB/SGLT2i for now
net neg fluid balance but wt is up not sure, he is constipated too
diuretics adjusted per cards
BP are high, cardura added per cards, renal duplex ordered
labs in am
d/w primary and nusring
-
-
Date of Service: June 17, 2024
CC / HPI / ROS
-
Chief Complaint:
LELAND/CKD
History of Present Illness:
LELAND/Cr down to 2. wt is up today but net neg balance
BP high
on RA
Review of Systems:
no fevers
no CP
grossly nonoliguric
no n/v
c/o dizzy and AGUILAR specially after morning meds
Labs
-
Labs:
WBC 15.3 10^3/uL (4.8-10.8) H 06/15/24 04:13
RBC 3.85 10^6/uL (4.70-6.10) L 06/15/24 04:13
Hgb 11.1 g/dL (13.0-18.0) L 06/15/24 04:13
Hct 32.4 % (39.0-52.0) L 06/15/24 04:13
Plt Count 369 10^3/uL (130-400) 06/15/24 04:13
Sodium 139 mmol/L (135-145) 06/17/24 03:16
Potassium 4.0 mmol/L (3.5-5.1) 06/17/24 03:16
Chloride 106 mmol/L (98-107) 06/17/24 03:16
Carbon Dioxide 27 mmol/L (22-30) 06/17/24 03:16
BUN 31 mg/dl (9-20) H 06/17/24 03:16
Creatinine 2.0 mg/dL (0.7-1.3) H 06/17/24 03:16
eGFR 37.97 06/17/24 03:16
Glucose 93 mg/dl (70-99) 06/17/24 03:16
Calcium 8.4 mg/dl (8.4-10.2) 06/17/24 03:16
Crn-Y-Fiobbihuzus Pept 1300 pg/ml 06/08/24 11:46
Albumin 2.8 g/dl (3.5-5.0) L 06/09/24 02:51
Physical Exam
-
Vital Signs:
Vital Signs
Temp Pulse Resp BP Pulse Ox
97.9 F 73 18 160/77 91
06/17/24 11:34 06/17/24 07:00 06/17/24 11:34 06/17/24 06:59 06/17/24 11:34
Cardiovascular:: Regular rate and rhythm
Respiratory:: Bilateral: CTA
Lung Excursion:: Normal
Abdomen:: Nontender and Soft
Extremity Edema:: None: Bilateral:
Benedict Catheter: No
--- NOTE | 2024-06-17 14:37 | W.PN.HOSP.TC ---
Today's Communication/Plan
-
Attempt of further diuresis with monitor renal function
Adjusting antihypertensive regimen.
Renal artery duplex.
Adjust insulin dose for hyperglycemia.
Attempt to wean off oxygen.
Home O2 assessment
Assessment / Plan
Assessment / Plan
Impression:
58 years old male with past medical history of hypertension, diabetes, chronic kidney disease stage IIIb presents to [facility] with chest pain. Patient was evaluated for hypertensive emergency and non-STEMI. Urgent cardiac catheterization showed
multivessel CAD. Patient transferred to for CABG evaluation..
Acute hypoxic respiratory failure
Acute CHF preserved EF.
Multifocal infiltrate with fever, presumed pneumonia.
CAD, acute coronary syndrome non-STEMI.
Hypertensive emergency.
Acute kidney injury
Increased anion gap metabolic acidosis
Conditions prior to admission:
CKD stage IIIb.
Type 2 diabetes poorly controlled with hemoglobin A1c 11.5.
Dyslipidemia.
Plan:
Acute hypoxic respiratory failure likely multifactorial with CHF/pulmonary edema and right lower lobe pneumonia.
Acute pulmonary edema
Respiratory status is improving we will try to wean off supplemental oxygen on 06/13
Reported preserved LV function by outside echo on 06/07
Echocardiogram 06/10: Normal LV size and function with LVEF 55 to 60%. Regional wall motion abnormalities./LVH PAP 38 mmHg.
Recent cath with evidence of volume overload
RHC with severely elevated filling pressures (PCWP 25 mmHg).
Diuresis as per cardiology monitor renal function
Low-grade fever
COVID-[address] scan, follow-up chest x-ray with multifocal infiltrate.
? If nosocomial versus community-acquired pneumonia
Hypoxic, although with minimal cough and expectoration.
Completed total 5-day course of Zosyn 06/13
Initiated on prednisone, discontinued after 24 hours on 06/12
Lower extremity Doppler negative for DVT
VQ scan low probability
Non-STEMI
Status post cath with multivessel CAD.
Transferred for CABG evaluation. Currently on hold given fever, pneumonia, LELAND. OP CABG eval
Continue aspirin
Transition off heparin drip to Plavix.
Coreg/statin
Hypertensive urgency
Untreated hypertension
Remains with suboptimal blood pressure control
Continue current regimen including Coreg 25 mg twice daily, amlodipine 10 mg daily, hydralazine 100 mg 3 times daily, Cardura dose increased to 2 mg daily.
Agree with RA duplex. Could be a moot point with current renal function, will add renin/ARR activity
Acute kidney injury. Suspect contrast-induced nephropathy
Acute metabolic acidosis.
CKD stage IIIb?
Nephrotic range proteinuria
Rising creatinine at 2.8 improved down to 1.9
? If cardiorenal state, recent contrast exposure
No evidence for retention
Renal sonogram with no abnormalities.
Hold nephrotoxic agents including ARB, metformin, SGLT2
Poorly controlled diabetes.
Hemoglobin A1c 11.5.
Off metformin and SGLT2 given LELAND with metabolic acidosis.
Continue insulin basal bolus with serial Accu-Cheks. Currently on moderate dose
Initiated on Lantus/NovoLog AC/basal bolus protocol. Adjust dosing with expected steroid-induced hyperglycemia. increase lantus to 33 units, aspart 20 units AC
Dyslipidemia
Most current LDL 05/1900 and 7012
Continue escalated dose of rosuvastatin 40 mg daily.
Persistent headache.
Describes right-sided headache mostly shortly after taking blood pressure medications in the morning resolving with Tylenol
No focal findings on neurologic exam
CT scan of the head with no acute abnormalities
Recent carotid ultrasound with no hemodynamically significant stenosis
Anticipated Discharge: 24 - 48 hours
Subjective/Interval History
-
Date of Service: June 17, 2024
Objective Data
-
Labs:
Laboratory Results
06/17/24
03:16
Sodium 139
Potassium 4.0
Chloride 106
Carbon Dioxide 27
BUN 31 H
Creatinine 2.0 H
Glucose 93
Calcium 8.4
Vital Signs:
Vital Signs
Temp Pulse Resp BP Pulse Ox
97.9 F 75 18 155/77 91
06/17/24 11:34 06/17/24 14:00 06/17/24 11:34 06/17/24 12:42 06/17/24 11:34
I&O
06/16/24 06/17/24 06/18/24
06:59 06:59 06:59
Intake Total 240 / 240 630 / 630
Output Total 2750 / 2750 1100 / 1100 600 / 600
Balance -2510 / -2510 -470 / -470 -600 / -600
Physical Exam
-
General: Well Developed and No Apparent Distress
HEENT: Normocephalic, Atraumatic and Moist Mucous Membranes
Respiratory: Clear to Auscultation
Cardiac: Regular Rhythm and S1/S2; Negative Murmur, Rub or Gallop
GI: Soft, Nontender, Nondistended and Normal Bowel Sounds; Negative Organomegaly
Rectal: Deferred by Provider
Musculoskeletal: No Clubbing, No Cyanosis and No Edema
Skin: Negative Rash
Neuro: Nonfocal/Grossly Intact
[2024-06-17] MEDS: BUMEX 2 MG IV (14:57)
[2024-06-17 17:39] LABS: Glucose - Point of Care 292 mg/dl (70-99)
[2024-06-17] MEDS: CRESTOR 40 MG PO (17:39)
[2024-06-17 22:11] LABS: Glucose - Point of Care 320 mg/dl (70-99)
[2024-06-17] MEDS: LANTUS 0.33 UNITS SC (23:19)
[2024-06-18] VITALS (7 sets, daily range): BP systolic 140–188; BP diastolic 67–79; BMI 29.1
--- NOTE | 2024-06-18 00:30 | PTCARENOTE ---
Pt received at change of shift sitting up in chair. BP elevated at 179/90. Pt received BP medications and repeat pressure 162/72. BPs at pts. baseline, MDs aware and adjusting med regimen. NSR on tele with HR 70s-80s. [place] womens health nurse practitioner utilized
for assessment of pt. No complaints of CP or headache at this time. Plan of care discussed and pt. does not have any questions or concerns according to womens health nurse practitioner. At 2300, pts O2 saturation noted to be 84% on 2L. O2 gradually increased,
saturations still remained 88% on 5L. When increased to 6L O2 via NC, saturations up to 91%. Pt remained on 6L through the night while sleeping. Can make needs known. Call capone within reach.
--- NOTE | 2024-06-18 04:00 | PTCARENOTE ---
Pt weaned back down to 4L NC satting 94%. No complaints of SOB at this time.
[2024-06-18 05:31] LABS: Blood Urea Nitrogen 31 mg/dl (9-20); Calcium 8.3 mg/dl (8.4-10.2); Carbon Dioxide 26 mmol/L (22-30); Chloride 102 mmol/L (98-107); Estimated Creatinine Clearance 38 ml/min; Glucose 164 mg/dl (70-99); Potassium 4.2 mmol/L (3.5-5.1); Sodium 139 mmol/L (135-145); eGFR 37.97
[2024-06-18 07:22] LABS: Glucose - Point of Care 119 mg/dl (70-99)
[2024-06-18] MEDS: NORVASC 10 MG PO (08:11)
[2024-06-18] MEDS: PLAVIX 75 MG PO (08:11)
[2024-06-18] MEDS: NOVOLOG FLEXPEN-MODERATE RESISTANCE SC ×2 (08:11→13:42)
[2024-06-18] MEDS: APRESOLINE 100 MG PO ×3 (08:12→22:46)
[2024-06-18] MEDS: LOW STRENGTH ASPIRIN 81 MG PO (08:13)
[2024-06-18] MEDS: COREG 25 MG PO ×2 (08:13→20:00)
[2024-06-18] MEDS: MIRALAX 17 GRAMS PO (08:14)
[2024-06-18] MEDS: NOVOLOG FLEXPEN 20 UNITS SC ×3 (08:22→18:08)
--- NOTE | 2024-06-18 08:54 | PN.DE.MGMTRT ---
Insulin Management
- -
06/18/2024: Diabetes Management Follow up:
Patient admitted 06/08 from [facility] with c/o MORENO, elevated BP, NSTEMI.
PMH: HTN, HLD, T2DM, CKD 3b. Prior to admission was taking Januvia 100 mg daily, Jardiance 10 mg daily and metformin 1000 BID A1C on admission 11.5%, cr 2.4, eGFR 30.51. Patient has been seen daily since 06/10 for diabetes education for insulin
instruction and has done well with self injection with nursing supervision.
Pt awake, A/O x3, sitting up in chair, family at bedside, able to discuss diabetes management.
Oral meds being held due to elevated cr, 2.7-->2.0, eGFR 37.97 today. Lantus and AC NovoLog started 06/10.
06/17 Novolog increased to 20 units AC, first dose with lunch. Glucose range 207 to 320, requiring additional corrective insulin, fasting 164 venous, 119 POC this AM.
Will continue Lantus to 33 units with AC NovoLog 20 units and continue moderate corrective insulin.
In addition to meals ordered from [employer] food laboratory assistant Patient does have additional foods which he consumes making glucose control difficult. I did speak with his daughter and asked that from home food be limited, she stated he doesn't like the hospital
food.
Will make further insulin adjustments if needed.
Diabetes History
- -
Type of Diabetes: 2 requiring insulin
Pre-Admission Diabetes Regimen
06/18/24
04:59
Creatinine 2.0 H
Lab Results
Hemoglobin A1c 11.5 % (4.0-5.6) H 06/09/24 02:51
Insulin Pump Settings
IP Diabetes Regimen
06/17/24 06/17/24 06/17/24
13:47 17:38 22:10
Glucose
POC Glucose 275 H 292 H 320 H
06/18/24 06/18/24
04:59 07:20
Glucose 164 H
POC Glucose 119 H
Meal type: Lunch
Amount consumed: 100%
Patient Education
--- NOTE | 2024-06-18 09:48 | W.PN.CD ---
Today's Communication / Plan
-
-
-
One time dose of Bumex 2 mg IV today.
home diuretic regimen not determined
Dry weight not determined
Impression / Plan
-
Impression/Plan: 58 yo male with PMH HTN, DM, CKD3b (Cr 1.5, December 2023) admitted to [facility] with hypertensive emergency and NSTEMI, subsequently transferred for CABG evaluation after cath revealed severe multivessel disease. The patient has also
developed respiratory insufficiency likely a combination of HFpEF, possible PNA (given low grade fever, leukocytosis), less likely vasculitis in the setting of nephrotic range proteinuria.
HFpEF, dry weight not determined, home diuretic regimen not determined
- Acute
- Invasive and radiology studies most c/w heart failure:
- At cath Raji Metzmeghna 'Moderate to severely increased LVEDP'.
- Right heart cath here 06/13/2024: RA 12, PA 63/27, PCWP 25
- Likely due to a combination of CAD, long standing hypertension compounded by hypertensive emergency and LELAND on CKD
- GDMT with carvedilol, hydralazine/isosorbide mononitrate (in place of ACEI/ARB/ARNi).
- Later when renal function at baseline add SGLT2i/MRA
- Bumex one time 06/07/2024 and one time today 06/18/2024
Abnormal CXR
- Likely heart failure
- Has been treated as if also pneumonia
LELAND on CKD 3B
- Peak Cr 2.8 (06/13/2024)
- Acute on Chronic (stage 3b). CKD 3B (Cr 1.5, December 2023)
- Nephrology suspects contrast nephropathy
NSTEMI/Multivessel CAD
- Acute on chronic.
- LHC: The culprit RPDA appears small. There are tandem ostial/proximal LCx lesions as well as proximal Ramus lesions that are approachable, but there is concern about outflow (particularly in the LCx). The LAD is free from proximal disease.
There is some distal LAD disease.
- No role for percutaneous intervention.
- The patient is scheduled for outpatient CABG evaluation. In the mean time, we will manage this disease medically.
- Continue carvedilol, aspirin, clopidogrel and rosuvastatin
- CT Surgery eval as outpatient
HTN
-Acute, getting better
-Currently on carvedilol 25 mg BID, hydralazine + isosorbide mononitrate and doxazosin.
-Increase doxazosin to 2 mg daily.
- He felt poorly after all meds yesterday with SBP 120s. Will hold AM Cardura today (06/18/2024
DM, Probably type II, insulin requiring
-Chronic, uncontrolled.
-HbA1c = 11.3%.
-SGLT2 on hold in the setting of LELAND.
Mixed hyperlipidemia, Chronic
-Lipid panel 06/06/2024: TC 266, HDL 41, LDL 172, TG 267.
- atorvastatin 40 mg => rosuvastatin 40 mg daily.
Subjective/Interval History:
No CP, feeling better, better breathing
Data:
Right Heart Catheterization, 06/13/2024:
1. Severely elevated filling pressures (PCWP = 25 mmHg at 79.8 kg).
2. Moderate postcapillary pulmonary hypertension (mean PA = 39 mmHg, PCWP = 25 mmHg, PVR = 2.73 Connolly units), WHO group 2.
3. Preserved cardiac function (cardiac index = 2.68 L/min/m�).
VQ Scan, 06/12/2024: Normal perfusion and ventilation. Very low probability for pulmonary embolism.
LE Duplex, 06/12/2024: No evidence of deep venous thrombosis of the lower extremities bilaterally
Renal US, 06/11/2024: No evidence of renal collecting system dilatation bilaterally.
TTE, 06/10/2024:
Normal LV size and function with no regional wall motion abnormalities.
LVEF is 55-60% by visual estimation.
Moderate concentric LVH.
Normal right ventricular size and function.
No significant valvular disease.
Estimated pulmonary artery pressure of 38 mmHg. Assuming a right atrial
pressure of 3 mmHg.
No prior study available for comparison.
Coronary angiography, 06/07/2024:
Moderate mid and severe distal LAD lesions.
D1 with severe proximal disease.
Severe ostial, proximal, proximal and mid junction and distal circumflex lesions.
Severe ostial and proximal OM 4 lesion.
Severe mid ramus lesions.
RPDA is occluded with collaterals.
RPL 3 with moderate to severe lesion.
Mild to moderate disease in all other areas.
Moderate to severely increased LVEDP.
TTE, 06/07/2024:
LVEF 55 to 60%. Grade II DD.
There is lipomatous hypertrophy of the interatrial septum.
Trace tricuspid regurgitation.
Physical Exam
Vital Signs/Labs
Vital Signs
Temp Pulse Resp BP Pulse Ox
98.2 F 72 18 158/69 92
06/18/24 07:16 06/18/24 09:00 06/18/24 07:16 06/18/24 07:19 06/18/24 07:16
06/17/24 06/18/24 06/19/24
06:59 06:59 06:59
Actual Weight 83 kg 84.1 kg 84 kg
06/15/24 04:13
06/18/24 04:59
PT 13.6 Sec (11.4-14.6) 06/09/24 02:51
INR 1.06 06/09/24 02:51
APTT 91.8 Sec (23.4-35.0) H 06/11/24 04:22
Magnesium 2.2 mg/dl (1.6-2.3) 06/08/24 11:46
06/08/24
11:46
Xtz-I-Ceoijppspby Pept 1300
Physical Exam
Constitutional: No acute distress
EENT: Anicteric
Cardiovascular: Rhythm & rate is regular and Pedal edema is absent
Respiratory: Respiratory effort normal and Crackles Present (at bases)
GI: Soft and Distention absent
Neuro/Psych: AO x 3
Data Reviewed
-
Date of Service: June 18, 2024
[2024-06-18] MEDS: BUMEX 2 MG IV (11:07)
--- NOTE | 2024-06-18 11:43 | PTCARENOTE ---
Pt refused Andrew this AM. Yesterday after taking all his AM meds he felt dizzy, lightheaded and nauseous and also had a R sided headache. He was reluctant to take his am meds today but agreed to take all but Dr Kailash Morales aware.
--- NOTE | 2024-06-18 13:15 | W.PN.NEPH.PH ---
Today's Communication / Plan
-
cotn bumex
Assessment/Plan
-
Assessment
CKD 3B (December 2023)
LELAND
Diabetes mellitus type 2
Hypertension
Hyperlipidemia
Diffuse CAD
nephrotic proteinuria 6.4gm/gm of cr
Plan
Creatinine stable at 2 , nonoliguric
Appears creatinine has plateaued from contrast mediated kidney injury
Checked additional serologies for nephrotic range proteinuria
no ARB/SGLT2i for now
diuretics adjusted per cards , on bumex
BP are stable on current meds, off cardura for dizziness
labs in am
d/w nursing
d/w pt, family regarding CKD and need to control DM and HTN, cardiac
need nephro f/u out pt
-
-
Date of Service: June 18, 2024
CC / HPI / ROS
-
Chief Complaint:
LELAND/CKD
History of Present Illness:
LELAND/Cr stable at 2. wt no cahnge
BP stable
Review of Systems:
no fevers
no CP
grossly nonoliguric
no n/v
Labs
-
Labs:
WBC 15.3 10^3/uL (4.8-10.8) H 06/15/24 04:13
RBC 3.85 10^6/uL (4.70-6.10) L 06/15/24 04:13
Hgb 11.1 g/dL (13.0-18.0) L 06/15/24 04:13
Hct 32.4 % (39.0-52.0) L 06/15/24 04:13
Plt Count 369 10^3/uL (130-400) 06/15/24 04:13
Sodium 139 mmol/L (135-145) 06/18/24 04:59
Potassium 4.2 mmol/L (3.5-5.1) 06/18/24 04:59
Chloride 102 mmol/L (98-107) 06/18/24 04:59
Carbon Dioxide 26 mmol/L (22-30) 06/18/24 04:59
BUN 31 mg/dl (9-20) H 06/18/24 04:59
Creatinine 2.0 mg/dL (0.7-1.3) H 06/18/24 04:59
eGFR 37.97 06/18/24 04:59
Glucose 164 mg/dl (70-99) H 06/18/24 04:59
Calcium 8.3 mg/dl (8.4-10.2) L 06/18/24 04:59
Jyh-G-Yhskjrnfqoi Pept 1300 pg/ml 06/08/24 11:46
Albumin 2.8 g/dl (3.5-5.0) L 06/09/24 02:51
Physical Exam
-
Vital Signs:
Vital Signs
Temp Pulse Resp BP Pulse Ox
98.2 F 63 18 140/67 90
06/18/24 10:53 06/18/24 12:00 06/18/24 10:53 06/18/24 10:55 06/18/24 11:00
Cardiovascular:: Regular rate and rhythm
Respiratory:: Bilateral: CTA
Lung Excursion:: Normal
Abdomen:: Nontender and Soft
Extremity Edema:: None: Bilateral:
Benedict Catheter: No
[2024-06-18 13:30] LABS: Glucose - Point of Care 147 mg/dl (70-99)
--- NOTE | 2024-06-18 13:52 | PTCARENOTE ---
Pt denies dizziness, nausea and headache. He feels better today. He reported having BM's x3 yesterday.
--- NOTE | 2024-06-18 15:39 | PTCARENOTE ---
Pt's O2 sats are low when he is lying down, 80's %. When he is sitting up o2 sats 93-95% on RA. He denies SOB when his O2 sats are low. Pt walked in halls a few times today, vivek well. He denies dizziness with ambulation.
--- NOTE | 2024-06-18 15:43 | W.PN.HOSP.TC ---
Today's Communication/Plan
-
IV Bumex.
Follow creatinine.
Follow daily weights
No changes to insulin regimen today as fasting blood glucose improved down 08/18/1947
Attempt to wean off oxygen as tolerates.
Home O2 assessment within 24 hours to discharge
Assessment / Plan
Assessment / Plan
Impression:
58 years old male with past medical history of hypertension, diabetes, chronic kidney disease stage IIIb presents to [facility] with chest pain. Patient was evaluated for hypertensive emergency and non-STEMI. Urgent cardiac catheterization showed
multivessel CAD. Patient transferred to for CABG evaluation..
Acute hypoxic respiratory failure
Acute CHF preserved EF.
Multifocal infiltrate with fever, presumed pneumonia.
CAD, acute coronary syndrome non-STEMI.
Hypertensive emergency.
Acute kidney injury
Increased anion gap metabolic acidosis
Conditions prior to admission:
CKD stage IIIb.
Type 2 diabetes poorly controlled with hemoglobin A1c 11.5.
Dyslipidemia.
Plan:
Acute hypoxic respiratory failure likely multifactorial with CHF/pulmonary edema and right lower lobe pneumonia.
Acute pulmonary edema
Respiratory status is improving we will try to wean off supplemental oxygen on 06/13
Reported preserved LV function by outside echo on 06/07
Echocardiogram 06/10: Normal LV size and function with LVEF 55 to 60%. Regional wall motion abnormalities./LVH PAP 38 mmHg.
Recent cath with evidence of volume overload
RHC with severely elevated filling pressures (PCWP 25 mmHg).
Diuresis as per cardiology monitor renal function
Low-grade fever
COVID-[address] scan, follow-up chest x-ray with multifocal infiltrate.
? If nosocomial versus community-acquired pneumonia
Hypoxic, although with minimal cough and expectoration.
Completed total 5-day course of Zosyn 06/13
Initiated on prednisone, discontinued after 24 hours on 06/12
Lower extremity Doppler negative for DVT
VQ scan low probability
Non-STEMI
Status post cath with multivessel CAD.
Transferred for CABG evaluation. Currently on hold given fever, pneumonia, LELAND. OP CABG eval
Continue aspirin
Transition off heparin drip to Plavix.
Coreg/statin
Hypertensive urgency
Untreated hypertension
Remains with suboptimal blood pressure control
Continue current regimen including Coreg 25 mg twice daily, amlodipine 10 mg daily, hydralazine 100 mg 3 times daily, Cardura dose increased to 2 mg daily.
Agree with RA duplex. Could be a moot point with current renal function, will add renin/ARR activity
Acute kidney injury. Suspect contrast-induced nephropathy
Acute metabolic acidosis.
CKD stage IIIb?
Nephrotic range proteinuria
Rising creatinine at 2.8 improved down to 1.9-2.0
? If cardiorenal state, recent contrast exposure
No evidence for retention
Renal sonogram with no abnormalities.
Hold nephrotoxic agents including ARB, metformin, SGLT2
Poorly controlled diabetes.
Hemoglobin A1c 11.5.
Off metformin and SGLT2 given LELAND with metabolic acidosis.
Continue insulin basal bolus with serial Accu-Cheks. Currently on moderate dose
Initiated on Lantus/NovoLog AC/basal bolus protocol. Adjust dosing with expected steroid-induced hyperglycemia. increase lantus to 33 units, aspart 20 units AC
Dyslipidemia
Most current LDL 05/1900 and 7012
Continue escalated dose of rosuvastatin 40 mg daily.
Persistent headache. Improved with better blood pressure control.
Describes right-sided headache mostly shortly after taking blood pressure medications in the morning resolving with Tylenol
No focal findings on neurologic exam
CT scan of the head with no acute abnormalities
Recent carotid ultrasound with no hemodynamically significant stenosis
Anticipated Discharge: 24 - 48 hours
Subjective/Interval History
-
Date of Service: June 18, 2024
Objective Data
-
Labs:
Laboratory Results
06/18/24
04:59
Sodium 139
Potassium 4.2
Chloride 102
Carbon Dioxide 26
BUN 31 H
Creatinine 2.0 H
Glucose 164 H
Calcium 8.3 L
Vital Signs:
Vital Signs
Temp Pulse Resp BP Pulse Ox
98.4 F 63 18 140/67 92
06/18/24 15:01 06/18/24 12:00 06/18/24 15:01 06/18/24 10:55 06/18/24 15:01
I&O
06/17/24 06/18/24 06/19/24
06:59 06:59 06:59
Intake Total 630 / 630
Output Total 1100 / 1100 1999 / 1999 750 / 750
Balance -470 / -470 -2000 / -2000 -750 / -750
Physical Exam
-
General: Well Developed and No Apparent Distress
HEENT: Normocephalic, Atraumatic and Moist Mucous Membranes
Respiratory: Clear to Auscultation
Cardiac: Regular Rhythm and S1/S2; Negative Murmur, Rub or Gallop
GI: Soft, Nontender, Nondistended and Normal Bowel Sounds; Negative Organomegaly
Rectal: Deferred by Provider
Musculoskeletal: No Clubbing, No Cyanosis and No Edema
Skin: Negative Rash
Neuro: Nonfocal/Grossly Intact
[2024-06-18] MEDS: CRESTOR 40 MG PO (16:53)
[2024-06-18 17:33] LABS: Glucose - Point of Care 220 mg/dl (70-99)
[2024-06-18] MEDS: NOVOLOG FLEXPEN-MODERATE RESISTANCE 3 UNITS SC (18:08)
[2024-06-18 21:46] LABS: Glucose - Point of Care 182 mg/dl (70-99)
[2024-06-18] MEDS: LANTUS 0.33 UNITS SC (22:46)
[2024-06-19] VITALS (9 sets, daily range): BP systolic 147–183; BP diastolic 72–85; BMI 29.5
--- NOTE | 2024-06-19 01:12 | PTCARENOTE ---
Pt received change of shift, HR SR. At change of shift, pt O2 sat in 80s while pt sitting up in chair. 4L NC placed on pt, 94-96%. Pt denies any CP or SOB. Updated pt and pt's on plan of care, verbalizes understanding.
[2024-06-19 05:40] LABS: Blood Urea Nitrogen 34 mg/dl (9-20); Calcium 8.1 mg/dl (8.4-10.2); Carbon Dioxide 27 mmol/L (22-30); Chloride 101 mmol/L (98-107); Estimated Creatinine Clearance 38 ml/min; Glucose 307 mg/dl (70-99); Potassium 4.3 mmol/L (3.5-5.1); Sodium 138 mmol/L (135-145); eGFR 37.97
[2024-06-19 07:07] LABS: Glucose - Point of Care 373 mg/dl (70-99)
[2024-06-19] MEDS: NOVOLOG FLEXPEN-MODERATE RESISTANCE 9 UNITS SC (08:09)
[2024-06-19] MEDS: APRESOLINE 100 MG PO ×3 (08:10→22:26)
[2024-06-19] MEDS: NOVOLOG FLEXPEN 20 UNITS SC ×3 (08:10→17:10)
[2024-06-19] MEDS: NORVASC 10 MG PO (08:11)
[2024-06-19] MEDS: LOW STRENGTH ASPIRIN 81 MG PO (08:11)
[2024-06-19] MEDS: COREG 25 MG PO ×2 (08:11→19:54)
[2024-06-19] MEDS: PLAVIX 75 MG PO (08:11)
--- NOTE | 2024-06-19 08:22 | PN.DE.MGMTRT ---
Insulin Management
- -
06/19/2024: Diabetes Management Follow up:
Patient admitted 06/08 from [facility] with c/o MORENO, elevated BP, NSTEMI.
PMH: HTN, HLD, T2DM, CKD 3b. Prior to admission was taking Januvia 100 mg daily, Jardiance 10 mg daily and metformin 1000 BID A1C on admission 11.5%, cr 2.4, eGFR 30.51. Patient has been seen daily since 06/10 for diabetes education for insulin
instruction and has done well with self injection with nursing supervision.
Pt awake, A/O x3, sitting up in chair, family at bedside, able to discuss diabetes management.
Oral meds being held due to elevated cr, 2.7-->2.0, eGFR 37.97 today. Lantus and AC NovoLog started 06/10.
06/17 Novolog increased to 20 units AC. 06/18 Glucose range 19 to 220, requiring additional corrective insulin. HS glucose 182, per family patient ate two slices of bread with honey and a full large pear, fasting 307 venous, 373 POC this AM.
Advised family again to please limit home foods.
Will increase HS Lantus to 35 units with AC NovoLog 20 units and continue moderate corrective insulin.
Will make further insulin adjustments if needed.
Diabetes History
- -
Type of Diabetes: 2 requiring insulin
Pre-Admission Diabetes Regimen
06/19/24
05:00
Creatinine 2.0 H
Lab Results
Hemoglobin A1c 11.5 % (4.0-5.6) H 06/09/24 02:51
Insulin Pump Settings
IP Diabetes Regimen
06/18/24 06/18/24 06/18/24
13:28 17:31 21:45
Glucose
POC Glucose 147 H 220 H 182 H
06/19/24 06/19/24
05:00 07:07
Glucose 307 H
POC Glucose 373 H
Meal type: Dinner
Meal type: Dinner
Amount consumed: 100%
Amount consumed: 100%
Patient Education
[2024-06-19] MEDS: MIRALAX 17 GRAMS PO (08:23)
--- NOTE | 2024-06-19 08:33 | W.PN.HOSP.TC ---
Today's Communication/Plan
-
held cardura again
XR chest
follow WBC and fever curve
DIuresis as per Cardio
Assessment / Plan
Assessment / Plan
58yo M with PMHx of HTN, DM transferred from [facility] for hypertensive emergency and NSTEMI with cardiac cath done showing multivessel disease. He was planned for CABG eval. FOund CHF exacerbation and pneumonia with mild COPD, completed ABx and
Prednisone on 06/13/24, continued on diuresis. Also Initially had LELAND with subsequent Cr leveled at 2.0
A/P:
#CAD with recent NSTEMI
#Acute HFpEF
#Essential HTN, poorly controlled
Cardio follows: cont diuresis, CABG electively with CTS upon d/c
cont BB, DAPT, statin
Did not tolerate doxazosin, titrate meds to target normotension - avoid abrupt changes
#Recent multifocal pneumonia
#Recurrent leukocytosis
completed steroids and Zosyn on 06/13/24
Repeat XR on 06/19/24
Watch fever curve, currently no clear indication to restart Abx
#HLD
statin
#New DM, most likely type 2
Started insulin
Provide insulin teaching
SGLT2 started
Diabetic education consult placed on 06/08/24
Accuchecks, Insulin SS
Outpatient ophthalm, podiatry upon d/c
HgbA1c 11.5%
#LELAND on CKD stage 3b
05/11 - Cr 1.5
Avoid ARB as per Nephrology
DM and HTN control advised
Outpatient nephro follow up
#Acute hypoxic failure
multifactorial
Wean araceli O2
suspect KELSI - can have nocturnal O2 at hospital, advised outpatient sleep study
V/Q scan - low suspiscion for VTE
LE DVT neg
#HEadaches
Head CT WNL
Carotid US without significant stenosis
DVT ppx hep (BID since already on DAPT)
Full code
I have spent at least 57min reviewing chart, test results, communication with consultants and direct patient care
Anticipated Discharge: 24 - 48 hours
Subjective/Interval History
-
Date of Service: June 19, 2024
Objective Data
-
Labs:
Laboratory Results
06/19/24
05:00
Sodium 138
Potassium 4.3
Chloride 101
Carbon Dioxide 27
BUN 34 H
Creatinine 2.0 H
Glucose 307 H
Calcium 8.1 L
Vital Signs:
Vital Signs
Temp Pulse Resp BP Pulse Ox
99.2 F 63 20 169/83 97
06/19/24 07:03 06/19/24 08:10 06/19/24 07:03 06/19/24 08:10 06/19/24 08:30
I&O
06/18/24 06/19/24 06/20/24
06:59 06:59 06:59
Intake Total 240 / 240
Output Total 1999 750 / 750
Balance -1999 / 2000 -510 / -510
Review of Systems
-
History Source: Patient
All other systems: Reviewed and negative
Respiratory: Reports Trouble Breathing (when laying down)
Physical Exam
-
General: No Apparent Distress and Comfortable
HEENT: Normocephalic, Atraumatic and Moist Mucous Membranes
Respiratory: Clear to Auscultation
Cardiac: Regular Rhythm and S1/S2
GI: Soft, Nontender and Nondistended
Genito-urinary: No Costovertebral Tender
Musculoskeletal: No Clubbing, No Cyanosis, Edema, Right Lower Extrem and Edema, Left Lower Extrem
Skin: Warm; Negative Dry or Rash
Neuro: Awake, Alert, Oriented and AO x 3
Psych: Calm
--- NOTE | 2024-06-19 08:49 | PTCARENOTE ---
Addendum entered by Panfilo Milligan RN 06/19/24 18:34:
Assumed care. Patient in chair, Emirati speaking gentleman. Blood sugar 373, 29 units of NovoLog given. Weaned to room air, POX 97%, obtain POX on right ear, diminished breath sounds at his bases. Trace lower extremity edema BP 169/83, meds given
per MAR. Refusing Cardura this am, says it made him feel lightheaded, discussed with susan Chun to hold this morning. Low grade fever 99.2, WBC's 15.3, CXR ordered. Will continue to monitor, family at bedside
Original Note:
Assumed care. Patient in chair, Emirati speaking gentleman. Blood sugar 373, 29 units of NovoLog given. Weaned to room air, POX 97%, obtain POX on right ear, diminished breath sounds at his bases. Trace lower extremity edema BP 169/83, meds given
per MAR. Refusing Cardura this am, says it made him feel lightheaded, discussed with susan Sawyer to hold this morning. Low grade fever 99.2, WBC's 15.3, CXR ordered. Will continue to monitor, family at bedside
--- NOTE | 2024-06-19 08:59 | W.PN.CD ---
Today's Communication / Plan
-
-
I will give Bumex 2 mg IV BID today and tomorrow
Monitor BUN/Cr
Agree with checking CXR
Home diuretic regimen not determined
Dry weight not determined
-
-
Impression / Plan
-
Impression/Plan: 58 yo male with PMH HTN, DM, CKD3b (Cr 1.5, December 2023) admitted to [facility] with hypertensive emergency and NSTEMI, subsequently transferred for CABG evaluation after cath revealed severe multivessel disease. The patient has also
developed respiratory insufficiency likely a combination of HFpEF, possible PNA (given low grade fever, leukocytosis), less likely vasculitis in the setting of nephrotic range proteinuria.
HFpEF, dry weight not determined, home diuretic regimen not determined
- Acute
- Invasive and radiology studies most c/w heart failure:
- At cath Raji Askew 'Moderate to severely increased LVEDP'.
- Right heart cath here 06/13/2024: RA 12, PA 63/27, PCWP 25
- Likely due to a combination of CAD, long standing hypertension compounded by hypertensive emergency and LELAND on CKD
- GDMT with carvedilol, hydralazine/isosorbide mononitrate (in place of ACEI/ARB/ARNi).
- Later when renal function at baseline add SGLT2i/MRA
- Bumex BID for 48 hrs
- his current weight is his highest weight 80.1/80 Kg and we know PCWp at 80 kg was 25!!
Abnormal CXR
- Likely heart failure
- Has been treated as if also pneumonia
LELAND on CKD 3B
- Peak Cr 2.8 (06/13/2024)
- Acute on Chronic (stage 3b). CKD 3B (Cr 1.5, December 2023)
- Nephrology suspects contrast nephropathy
NSTEMI/Multivessel CAD
- Acute on chronic.
- LHC: The culprit RPDA appears small. There are tandem ostial/proximal LCx lesions as well as proximal Ramus lesions that are approachable, but there is concern about outflow (particularly in the LCx). The LAD is free from proximal disease.
There is some distal LAD disease.
- No role for percutaneous intervention.
- The patient is scheduled for outpatient CABG evaluation. In the mean time, we will manage this disease medically.
- Continue carvedilol, aspirin, clopidogrel and rosuvastatin
- CT Surgery eval as outpatient
HTN
-Acute, getting better
-Currently on carvedilol 25 mg BID, hydralazine + isosorbide mononitrate and doxazosin.
-Increase doxazosin to 2 mg daily.
- He felt poorly after all meds yesterday with SBP 120s. Will hold AM Cardura today (06/18/2024
DM, Probably type II, insulin requiring
-Chronic, uncontrolled.
-HbA1c = 11.3%.
-SGLT2 on hold in the setting of LELAND.
Mixed hyperlipidemia, Chronic
-Lipid panel 06/06/2024: TC 266, HDL 41, LDL 172, TG 267.
- atorvastatin 40 mg => rosuvastatin 40 mg daily.
Subjective/Interval History:
Did not have a good night last night
Data:
Right Heart Catheterization, 06/13/2024:
1. Severely elevated filling pressures (PCWP = 25 mmHg at 79.8 kg).
2. Moderate postcapillary pulmonary hypertension (mean PA = 39 mmHg, PCWP = 25 mmHg, PVR = 2.73 Connolly units), WHO group 2.
3. Preserved cardiac function (cardiac index = 2.68 L/min/m�).
VQ Scan, 06/12/2024: Normal perfusion and ventilation. Very low probability for pulmonary embolism.
LE Duplex, 06/12/2024: No evidence of deep venous thrombosis of the lower extremities bilaterally
Renal US, 06/11/2024: No evidence of renal collecting system dilatation bilaterally.
TTE, 06/10/2024:
Normal LV size and function with no regional wall motion abnormalities.
LVEF is 55-60% by visual estimation.
Moderate concentric LVH.
Normal right ventricular size and function.
No significant valvular disease.
Estimated pulmonary artery pressure of 38 mmHg. Assuming a right atrial
pressure of 3 mmHg.
No prior study available for comparison.
Coronary angiography, 06/07/2024:
Moderate mid and severe distal LAD lesions.
D1 with severe proximal disease.
Severe ostial, proximal, proximal and mid junction and distal circumflex lesions.
Severe ostial and proximal OM 4 lesion.
Severe mid ramus lesions.
RPDA is occluded with collaterals.
RPL 3 with moderate to severe lesion.
Mild to moderate disease in all other areas.
Moderate to severely increased LVEDP.
TTE, 06/07/2024:
LVEF 55 to 60%. Grade II DD.
There is lipomatous hypertrophy of the interatrial septum.
Trace tricuspid regurgitation.
Physical Exam
Vital Signs/Labs
Vital Signs
Temp Pulse Resp BP Pulse Ox
99.2 F 63 20 169/83 97
06/19/24 07:03 06/19/24 08:10 06/19/24 07:03 06/19/24 08:10 06/19/24 08:30
06/18/24 06/19/24 06/20/24
06:59 06:59 06:59
Actual Weight 84.1 kg 84 kg
06/15/24 04:13
06/19/24 05:00
PT 13.6 Sec (11.4-14.6) 06/09/24 02:51
INR 1.06 06/09/24 02:51
APTT 91.8 Sec (23.4-35.0) H 06/11/24 04:22
Magnesium 2.2 mg/dl (1.6-2.3) 06/08/24 11:46
06/08/24
11:46
Yps-A-Swhnammkmyi Pept 1300
Physical Exam
Constitutional: No acute distress
Cardiovascular: Rhythm & rate is regular and Pedal edema is absent (perhaps tr at ankle level at most)
Respiratory: Respiratory effort normal and Crackles Present (at bases)
GI: Soft and Distention absent
Neuro/Psych: Alert
Data Reviewed
-
Date of Service: June 19, 2024
[2024-06-19] MEDS: BUMEX 2 MG IV ×2 (09:36→19:53)
--- NOTE | 2024-06-19 10:55 | W.PN.NEPH.PH ---
Today's Communication / Plan
-
Maintain IV diuretic
Follow-up BMP
Assessment/Plan
-
Assessment
CKD 3B (.December 2023)
LELAND
Diabetes mellitus type 2
Hypertension
Hyperlipidemia
Diffuse CAD
nephrotic proteinuria 6.4gm/gm of cr
Plan
Creatinine stable at 2 , nonoliguric but weights unchanged
Appears creatinine has plateaued from contrast mediated kidney injury
Checked additional serologies for nephrotic range proteinuria
no ARB/SGLT2i for now
agree with cardiology to advance diuresis (bumex 2mg IV BID)
BP are elevated despite escalating antihypertensive regimen
labs in am
Previous d/w pt, family regarding CKD and need to control DM and HTN, cardiac
need nephro f/u out pt
-
-
Date of Service: June 19, 2024
CC / HPI / ROS
-
Chief Complaint:
LELAND/CKD
History of Present Illness:
LELAND/Cr stable at 2.
BP stable
Review of Systems:
no fevers
no CP
nonoliguric but weights unchanged
no n/v
Labs
-
Labs:
WBC 15.3 10^3/uL (4.8-10.8) H 06/15/24 04:13
RBC 3.85 10^6/uL (4.70-6.10) L 06/15/24 04:13
Hgb 11.1 g/dL (13.0-18.0) L 06/15/24 04:13
Hct 32.4 % (39.0-52.0) L 06/15/24 04:13
Plt Count 369 10^3/uL (130-400) 06/15/24 04:13
Sodium 138 mmol/L (135-145) 06/19/24 05:00
Potassium 4.3 mmol/L (3.5-5.1) 06/19/24 05:00
Chloride 101 mmol/L (98-107) 06/19/24 05:00
Carbon Dioxide 27 mmol/L (22-30) 06/19/24 05:00
BUN 34 mg/dl (9-20) H 06/19/24 05:00
Creatinine 2.0 mg/dL (0.7-1.3) H 06/19/24 05:00
eGFR 37.97 06/19/24 05:00
Glucose 307 mg/dl (70-99) H 06/19/24 05:00
Calcium 8.1 mg/dl (8.4-10.2) L 06/19/24 05:00
Bsh-L-Jvmzgkfvcig Pept 1300 pg/ml 06/08/24 11:46
Albumin 2.8 g/dl (3.5-5.0) L 06/09/24 02:51
Physical Exam
-
Vital Signs:
Vital Signs
Temp Pulse Resp BP Pulse Ox
99.2 F 63 20 169/83 97
06/19/24 07:03 06/19/24 08:10 06/19/24 07:03 06/19/24 08:10 06/19/24 08:30
Cardiovascular:: Regular rate and rhythm
Respiratory:: Bilateral: CTA
Lung Excursion:: Normal
Abdomen:: Nontender and Soft
Extremity Edema:: None: Bilateral:
Benedict Catheter: No
--- NOTE | 2024-06-19 11:48 | W.PN.UPDATE ---
Update Note
Progress Note Update
COncern for persistent multifocal pneumonia with effusions. Will order CT chest to eval if parapneumonic.
Sputum Cx, legionella and S.pneumonia urinary Ag ordered
[2024-06-19 12:47] LABS: Glucose - Point of Care 117 mg/dl (70-99)
--- NOTE | 2024-06-19 12:58 | CM ---
Chart reviewed. Patient is Bahraini speaking, lives with , son and daughter in a apartment, 4 ARASH, 0 DME. Plan is for the patient to return home with [facility]. CM to follow
[2024-06-19] MEDS: NOVOLOG FLEXPEN-MODERATE RESISTANCE SC ×2 (13:01→17:12)
--- NOTE | 2024-06-19 14:12 | PTCARENOTE ---
Patient discharge to [place]. Instructions explained to patient and daughter, they verbalized understanding. Report called to [place] earlier. Flu shot given upon discharge. Discharge papers sent with patient
--- NOTE | 2024-06-19 15:39 | PTCARENOTE ---
Call recvieved from the CT department. Patient unable to tolerated the CT and removeing the velcro strap during the scan. Dr. Hansen notified
[2024-06-19] MEDS: CRESTOR 40 MG PO (17:07)
[2024-06-19 17:15] LABS: Glucose - Point of Care 139 mg/dl (70-99)
--- NOTE | 2024-06-19 17:17 | PTCARENOTE ---
Patient up ambulating in hallway on room air with . Denies shortness of breath. Afebrile, in the chair. SR, BP elevated 183/85 PO hydralazine given as scheduled, +1 ankle and pedal edema, Blood sugar 139. Insulin per MAR
[2024-06-19] MEDS: HEPARIN 5000 UNITS SC (19:53)
[2024-06-19 22:24] LABS: Glucose - Point of Care 212 mg/dl (70-99)
[2024-06-19] MEDS: LANTUS 0.35 UNITS SC (22:26)
--- NOTE | 2024-06-19 23:27 | PTCARENOTE ---
Pt received start of shift, HR SR. On RA 92%. Pt states current bed is too uncomfortable to continue to sleep in, stated he would be sleeping in chair. Updated pt and on plan of care and need for sputum sample with assistance from bowling or skating front desk clerk
line. Pt and verbalize understanding. On return to room, sputum cup filled with urine. Reiterated need for sputum, not urine. Pt verbalizes understanding. Pt denies any SOB or CP, informed to notify RN if any changes. Call capone within reach.
[2024-06-20] VITALS (8 sets, daily range): BP systolic 128–178; BP diastolic 62–88; BMI 29.2
[2024-06-20 05:13] LABS: % Basophils 0.4 % (0-2); % Eosinophils 2.1 % (0-6); % Immature Granulocytes 0.7 % (0-0.5); % Lymphocytes 23.8 % (20.5-51.1); % Monocytes 11.5 % (1.7-9.3); % Neutrophils 61.5 % (42.2-75.2); Absolute Basophils 0.1 10^3/uL (0-0.2); Absolute Eosinophils 0.3 10^3/uL (0-0.7); Absolute Immature Granulocytes 0.1 10^3/uL (0-0.05); Absolute Lymphocytes 3.5 10^3/uL (1.2-3.4); Absolute Monocytes 1.7 10^3/uL (0.1-0.6); Absolute Neutrophils 9.1 10^3/uL (1.4-6.5); Hematocrit 31.1 % (39.0-52.0); Hemoglobin 10.4 g/dL (13.0-18.0); Mean Corp Hgb Conc. 33.4 g/dL (33.0-37.0); Mean Corpuscular Hgb 27.1 pg (27.0-31.0); Mean Platelet Volume 9.6 fL (7.4-10.4); Nucleated Red Blood Cells % 0 % (-); Platelet Count 461 10^3/uL (130-400); Red Blood Cell Count 3.84 10^6/uL (4.70-6.10); Red Cell Dist. Width 13.2 % (11.5-14.5); White Blood Cell Count 14.8 10^3/uL (4.8-10.8)
[2024-06-20 05:22] LABS: ALT (SGPT) 39 U/L (0-50); AST (SGOT) 27 U/L (17-59); Albumin 2.9 g/dl (3.5-5.0); Alkaline Phosphatase 71 U/L (38-126); Blood Urea Nitrogen 41 mg/dl (9-20); Calcium 8.7 mg/dl (8.4-10.2); Carbon Dioxide 27 mmol/L (22-30); Chloride 103 mmol/L (98-107); Estimated Creatinine Clearance 42 ml/min; Glucose 83 mg/dl (70-99); Magnesium 2.2 mg/dl (1.6-2.3); Potassium 3.7 mmol/L (3.5-5.1); Sodium 140 mmol/L (135-145); Total Bilirubin 0.5 mg/dl (0.2-1.3); eGFR 43.09
[2024-06-20 06:56] LABS: Glucose - Point of Care 160 mg/dl (70-99)
[2024-06-20] MEDS: PLAVIX 75 MG PO (07:35)
[2024-06-20] MEDS: COREG 25 MG PO ×2 (07:36→20:52)
[2024-06-20] MEDS: BUMEX 2 MG IV ×2 (07:36→20:52)
[2024-06-20] MEDS: NORVASC 10 MG PO (07:36)
[2024-06-20] MEDS: APRESOLINE 100 MG PO ×3 (07:36→21:44)
[2024-06-20] MEDS: HEPARIN 5000 UNITS SC ×2 (07:36→20:53)
[2024-06-20] MEDS: LOW STRENGTH ASPIRIN 81 MG PO (07:36)
[2024-06-20] MEDS: UNASYN IV ×3 (07:37→20:53)
[2024-06-20] MEDS: MIRALAX 17 GRAMS PO (07:37)
--- NOTE | 2024-06-20 07:54 | W.PN.CD ---
Today's Communication / Plan
-
- PCWP at 80 kg was elevated at 25; weight today is 84.5 kg, down from 85.2 EKG yesterday.
- Continue Bumex 2 mg IV BID.
- Peak Cr 2.8 (06/13/2024); 1.8 today, down from 2.8 yesterday.
- Blood pressure has been suboptimally controlled.
- Will add isosorbide mononitrate ER 30 mg daily.
Impression / Plan
-
Impression/Plan: 58 yo male with PMH HTN, DM, CKD3b (Cr 1.5, December 2023) admitted to [facility] with hypertensive emergency and NSTEMI, subsequently transferred for CABG evaluation after cath revealed severe multivessel disease. The patient has also
developed respiratory insufficiency likely a combination of HFpEF, possible PNA (given low grade fever, leukocytosis), less likely vasculitis in the setting of nephrotic range proteinuria.
HFpEF, dry weight not determined, home diuretic regimen not determined
- Acute
- Invasive and radiology studies most c/w heart failure:
- At cath Raji Ramosmaverick 'Moderate to severely increased LVEDP'.
- Right heart cath here 06/13/2024: RA 12, PA 63/27, PCWP 25
- Likely due to a combination of CAD, long standing hypertension compounded by hypertensive emergency and LELAND on CKD
- GDMT with carvedilol, hydralazine/isosorbide mononitrate (in place of ACEI/ARB/ARNi).
- Later when renal function at baseline add SGLT2i/MRA
- PCWP at 80 kg was elevated at 25; weight today is 84.5 kg, down from 85.2 EKG yesterday.
- Continue Bumex 2 mg IV BID.
Abnormal CXR
- Likely heart failure and possible pneumonia.
-Diuresis as above.
-Antibiotics as per primary team.
LELAND on CKD 3B
- Peak Cr 2.8 (06/13/2024); 1.8 today, down from 2.8 yesterday.
- Acute on Chronic (stage 3b). CKD 3B (Cr 1.5, December 2023)
- Nephrology suspects contrast nephropathy
NSTEMI/Multivessel CAD
- Acute on chronic.
- LHC: The culprit RPDA appears small. There are tandem ostial/proximal LCx lesions as well as proximal Ramus lesions that are approachable, but there is concern about outflow (particularly in the LCx). The LAD is free from proximal disease.
There is some distal LAD disease.
- No role for percutaneous intervention.
- The patient is scheduled for outpatient CABG evaluation. In the mean time, we will manage this disease medically.
- Continue carvedilol, aspirin, clopidogrel and rosuvastatin
- CT Surgery eval as outpatient
HTN
-Blood pressure has been suboptimally controlled.
-Currently on carvedilol 25 mg BID, hydralazine, and doxazosin.
-Will add isosorbide mononitrate ER 30 mg daily.
DM, Probably type II, insulin requiring
-Chronic, uncontrolled.
-HbA1c = 11.3%.
-SGLT2 on hold in the setting of LELAND.
Mixed hyperlipidemia, Chronic
-Lipid panel 06/06/2024: TC 266, HDL 41, LDL 172, TG 267.
- atorvastatin 40 mg => rosuvastatin 40 mg daily.
Subjective/Interval History:
No major events overnight. Shortness of breath improving.
Data:
Right Heart Catheterization, 06/13/2024:
1. Severely elevated filling pressures (PCWP = 25 mmHg at 79.8 kg).
2. Moderate postcapillary pulmonary hypertension (mean PA = 39 mmHg, PCWP = 25 mmHg, PVR = 2.73 Connolly units), WHO group 2.
3. Preserved cardiac function (cardiac index = 2.68 L/min/m�).
VQ Scan, 06/12/2024: Normal perfusion and ventilation. Very low probability for pulmonary embolism.
LE Duplex, 06/12/2024: No evidence of deep venous thrombosis of the lower extremities bilaterally
Renal US, 06/11/2024: No evidence of renal collecting system dilatation bilaterally.
TTE, 06/10/2024:
Normal LV size and function with no regional wall motion abnormalities.
LVEF is 55-60% by visual estimation.
Moderate concentric LVH.
Normal right ventricular size and function.
No significant valvular disease.
Estimated pulmonary artery pressure of 38 mmHg. Assuming a right atrial
pressure of 3 mmHg.
No prior study available for comparison.
Coronary angiography, 06/07/2024:
Moderate mid and severe distal LAD lesions.
D1 with severe proximal disease.
Severe ostial, proximal, proximal and mid junction and distal circumflex lesions.
Severe ostial and proximal OM 4 lesion.
Severe mid ramus lesions.
RPDA is occluded with collaterals.
RPL 3 with moderate to severe lesion.
Mild to moderate disease in all other areas.
Moderate to severely increased LVEDP.
TTE, 06/07/2024:
LVEF 55 to 60%. Grade II DD.
There is lipomatous hypertrophy of the interatrial septum.
Trace tricuspid regurgitation.
Physical Exam
Vital Signs/Labs
Vital Signs
Temp Pulse Resp BP Pulse Ox
99.5 F 71 20 176/85 94
06/20/24 06:49 06/20/24 05:00 06/20/24 06:49 06/20/24 04:33 06/20/24 04:33
06/19/24 06/20/24 06/21/24
06:59 06:59 06:59
Actual Weight 84 kg 84.5 kg
06/20/24 04:48
06/20/24 04:48
PT 13.6 Sec (11.4-14.6) 06/09/24 02:51
INR 1.06 06/09/24 02:51
APTT 91.8 Sec (23.4-35.0) H 06/11/24 04:22
Magnesium 2.2 mg/dl (1.6-2.3) 06/20/24 04:48
06/08/24
11:46
Rzq-W-Fambabukrdh Pept 1300
Physical Exam
Constitutional: No acute distress and Comfortable
EENT: Anicteric
Cardiovascular: Rhythm & rate is regular, Systolic murmur absent, Pedal edema present (trace to 1+) and S1S2 is normal
Respiratory: Respiratory effort normal and Rhonchi Present (Mild bibasilar)
GI: Soft
Neuro/Psych: AO x 3
Other: Skin (Warm, dry, intact)
Data Reviewed
-
Date of Service: June 20, 2024
EKG: Tracing Personally Visualized and interpreted (Telemetry: Sinus rhythm)
Labs: Labs Reviewed by me
[2024-06-20] MEDS: NOVOLOG FLEXPEN-MODERATE RESISTANCE 1 UNITS SC ×2 (08:02→11:31)
[2024-06-20 08:03] LABS: Glucose - Point of Care 172 mg/dl (70-99)
[2024-06-20] MEDS: NOVOLOG FLEXPEN 20 UNITS SC ×3 (08:03→17:00)
--- NOTE | 2024-06-20 08:17 | PN.DE.MGMTRT ---
Insulin Management
- -
06/20/2024: Diabetes Management Follow up:
Patient admitted 06/08 from [facility] with c/o MORENO, elevated BP, NSTEMI.
PMH: HTN, HLD, T2DM, CKD 3b. Prior to admission was taking Januvia 100 mg daily, Jardiance 10 mg daily and metformin 1000 BID A1C on admission 11.5%, cr 2.4, eGFR 30.51. Patient has been seen daily since 06/10 for diabetes education for insulin
instruction and has done well with self injection with nursing supervision.
Pt awake, A/O x3, sitting up in chair, family at bedside, able to discuss diabetes management.
Oral meds being held due to elevated cr, 1.8, eGFR 43.09 today. Lantus and AC NovoLog started 06/10. 06/18 per family patient ate two slices of bread with honey and a full large pear, fasting 307 venous, 373 06/19. Advised family again to please
limit home foods.
06/19 Glucose improved after breakfast range 117 to 212, requiring additional corrective insulin. HS glucose 212, received 35 units lantus, fasting this AM 83 venous, POC 172. Will make no change to HS Lantus 35 units with AC NovoLog 20 units and
continue moderate corrective insulin.
Will make further insulin adjustments if needed.
Diabetes History
- -
Type of Diabetes: 2 requiring insulin
Pre-Admission Diabetes Regimen
06/20/24
04:48
Creatinine 1.8 H
Lab Results
Hemoglobin A1c 11.5 % (4.0-5.6) H 06/09/24 02:51
Insulin Pump Settings
IP Diabetes Regimen
06/19/24 06/19/24 06/19/24
12:46 17:09 22:22
Glucose
POC Glucose 117 H 139 H 212 H
06/20/24 06/20/24 06/20/24
04:48 06:54 08:01
Glucose 83
POC Glucose 160 H 172 H
Meal type: Dinner
Meal type: Breakfast
Amount consumed: 100%
Amount consumed: 90%
Patient Education
[2024-06-20] MEDS: ATIVAN 0.5 MG IV (08:34)
[2024-06-20] MEDS: NSS (PRESERVATIVE FREE) 0.25 ML IV (08:35)
--- NOTE | 2024-06-20 08:54 | PTCARENOTE ---
Patient sent to CT scan on a stretcher. Ativan IV given
--- NOTE | 2024-06-20 09:56 | W.PN.HOSP.TC ---
Today's Communication/Plan
-
COntinue diuresis
lost 1kg overnight
neg balance 2L over 24h
start Unasyn, follow CBC
Assessment / Plan
Assessment / Plan
58yo M with PMHx of HTN, DM transferred from [facility] for hypertensive emergency and NSTEMI with cardiac cath done showing multivessel disease. He was planned for CABG eval. FOund CHF exacerbation and pneumonia with mild COPD, completed ABx and
Prednisone on 06/13/24, continued on diuresis. Also Initially had LELAND with subsequent Cr leveled at 2.0
A/P:
#CAD with recent NSTEMI
#Acute HFpEF
#Essential HTN, poorly controlled
#Moderate b/l pleural effusions
Not hypoxic
Cardio follows: cont diuresis, CABG electively with CTS upon d/c
cont BB, DAPT, statin
Did not tolerate doxazosin in AM 2/2 significant BP drop. Reatrt with lower dose @PM so separate in time from Norvasc. Titrate meds to target normotension - avoid abrupt changes
#multifocal pneumonia
#Recurrent leukocytosis
CT showed b/l Upper lobe pneumonia
Legionella and S.pneumonia neg, reasonable to reatrt Unasyn and monitor
Not producing any sputum
completed steroids and Zosyn on 06/13/24
#HLD
statin
#New DM, most likely type 2
Started insulin
Provide insulin teaching
SGLT2 started
Diabetic education consult placed on 06/08/24
Accuchecks, Insulin SS
Outpatient ophthalm, podiatry upon d/c
HgbA1c 11.5%
#LELAND on CKD stage 3b
05/11 - Cr 1.5
Avoid ARB as per Nephrology
DM and HTN control advised
Outpatient nephro follow up
#Acute hypoxic failure
multifactorial
Wean araceli O2
suspect KELSI - can have nocturnal O2 at hospital, advised outpatient sleep study
V/Q scan - low suspiscion for VTE
LE DVT neg
#HEadaches
Head CT WNL
Carotid US without significant stenosis
DVT ppx hep (BID since already on DAPT)
Full code
I have spent at least 57min reviewing chart, test results, communication with consultants and direct patient care
Anticipated Discharge: > 48 hours
Subjective/Interval History
-
Date of Service: June 20, 2024
Objective Data
-
Labs:
Laboratory Results
06/20/24
04:48
WBC 14.8 H
Hgb 10.4 L
Hct 31.1 L
Plt Count 461 H D
Sodium 140
Potassium 3.7
Chloride 103
Carbon Dioxide 27
BUN 41 H
Creatinine 1.8 H
Glucose 83
Calcium 8.7
Total Bilirubin 0.5
AST 27
ALT 39
Alkaline Phosphatase 71
Vital Signs:
Vital Signs
Temp Pulse Resp BP Pulse Ox
99.5 F 73 20 161/69 86
06/20/24 06:49 06/20/24 08:00 06/20/24 06:49 06/20/24 06:50 06/20/24 06:50
I&O
06/19/24 06/20/24 06/21/24
06:59 06:59 06:59
Intake Total 240 / 240
Output Total 750 / 750 5 / 2275
Balance -510 / -510 -2275 / -2275
Review of Systems
-
History Source: Patient
All other systems: Reviewed and negative
Physical Exam
-
General: No Apparent Distress
HEENT: Normocephalic
Respiratory: Clear to Auscultation
Cardiac: Regular Rhythm
GI: Soft, Nontender and Nondistended
Musculoskeletal: No Clubbing, No Cyanosis, Edema, Right Lower Extrem and Edema, Left Lower Extrem
Neuro: Awake, Alert, Oriented and AO x 3
Psych: Calm
--- NOTE | 2024-06-20 09:59 | W.PN.NEPH.PH ---
Today's Communication / Plan
-
Creatinine approaching baseline
Blood pressure elevating, we will add back ARB once creatinine reaches baseline
Maintain current diuretics for decompensated congestive heart
Assessment/Plan
-
Assessment
CKD 3B (.December 2023)
LELAND
Diabetes mellitus type 2
Hypertension
Hyperlipidemia
Diffuse CAD
nephrotic proteinuria 6.4gm/gm of cr
Plan
Creatinine stable at 1.8 (baseline) , nonoliguric but weights down
Appears creatinine has reocovered from contrast mediated kidney injury
Checked additional serologies for nephrotic range proteinuria
no ARB/SGLT2i for now
Can reattempt to add back ARB once creatinine reaches baseline as blood pressures escalate
agree with cardiology to advance diuresis (bumex 2mg IV BID): uop ~ 2liters
BP are elevated despite escalating antihypertensive regimen
labs in am
Previous d/w pt, family regarding CKD and need to control DM and HTN, cardiac
need nephro f/u out pt
-
-
Date of Service: June 20, 2024
CC / HPI / ROS
-
Chief Complaint:
LELAND/CKD
History of Present Illness:
LELAND/Cr stable at 1.8
BP stable
Review of Systems:
no fevers
no CP
nonoliguric and weights down
no n/v
patient remains sob and orthoneic
Labs
-
Labs:
WBC 14.8 10^3/uL (4.8-10.8) H 06/20/24 04:48
RBC 3.84 10^6/uL (4.70-6.10) L 06/20/24 04:48
Hgb 10.4 g/dL (13.0-18.0) L 06/20/24 04:48
Hct 31.1 % (39.0-52.0) L 06/20/24 04:48
Plt Count 461 10^3/uL (130-400) H D 06/20/24 04:48
Sodium 140 mmol/L (135-145) 06/20/24 04:48
Potassium 3.7 mmol/L (3.5-5.1) 06/20/24 04:48
Chloride 103 mmol/L (98-107) 06/20/24 04:48
Carbon Dioxide 27 mmol/L (22-30) 06/20/24 04:48
BUN 41 mg/dl (9-20) H 06/20/24 04:48
Creatinine 1.8 mg/dL (0.7-1.3) H 06/20/24 04:48
eGFR 43.09 06/20/24 04:48
Glucose 83 mg/dl (70-99) 06/20/24 04:48
Calcium 8.7 mg/dl (8.4-10.2) 06/20/24 04:48
Qit-U-Yhfxicvlmha Pept 1300 pg/ml 06/08/24 11:46
Albumin 2.9 g/dl (3.5-5.0) L 06/20/24 04:48
Physical Exam
-
Vital Signs:
Vital Signs
Temp Pulse Resp BP Pulse Ox
99.5 F 73 20 161/69 86
06/20/24 06:49 06/20/24 08:00 06/20/24 06:49 06/20/24 06:50 06/20/24 06:50
Cardiovascular:: Regular rate and rhythm
Respiratory:: Bilateral: CTA
Lung Excursion:: Normal
Abdomen:: Nontender and Soft
Extremity Edema:: None: Bilateral:
Benedict Catheter: No
[2024-06-20] MEDS: IMDUR (EXTENDED RELEASE) 30 MG PO (10:09)
[2024-06-20 11:07] LABS: Glucose - Point of Care 177 mg/dl (70-99)
--- NOTE | 2024-06-20 11:07 | CM ---
Chart reviewed. Patient's at bedside. Patient and Indian speaking. 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 Patient is independent of ADLS, lives with his , son and daughter in a apartment, 4 ARASH, 0 DME. Plan is for the
patient to return home with [facility]. CM to follow
[2024-06-20 16:41] LABS: Glucose - Point of Care 356 mg/dl (70-99)
[2024-06-20] MEDS: NOVOLOG FLEXPEN-MODERATE RESISTANCE 9 UNITS SC (16:43)
[2024-06-20] MEDS: CRESTOR 40 MG PO (16:45)
--- NOTE | 2024-06-20 17:26 | PTCARENOTE ---
Patient up walking in the hallway today with . Afebrile, POX 98% on room air. Blood sugar 356 this evening, insulin given per MAR
[2024-06-20] MEDS: MELATONIN 5 MG PO (21:42)
[2024-06-20] MEDS: LANTUS 0.35 UNITS SC (21:43)
[2024-06-20] MEDS: CARDURA 1 MG PO (21:44)
[2024-06-20 21:51] LABS: Glucose - Point of Care 215 mg/dl (70-99)
[2024-06-21] VITALS (7 sets, daily range): BP systolic 127–170; BP diastolic 59–86; BMI 29.8
[2024-06-21] MEDS: UNASYN IV ×4 (02:48→19:37)
[2024-06-21 03:47] LABS: % Basophils 0.3 % (0-2); % Eosinophils 1.6 % (0-6); % Immature Granulocytes 0.9 % (0-0.5); % Lymphocytes 20.7 % (20.5-51.1); % Monocytes 10.1 % (1.7-9.3); % Neutrophils 66.4 % (42.2-75.2); Absolute Eosinophils 0.2 10^3/uL (0-0.7); Absolute Immature Granulocytes 0.1 10^3/uL (0-0.05); Absolute Lymphocytes 2.9 10^3/uL (1.2-3.4); Absolute Monocytes 1.4 10^3/uL (0.1-0.6); Absolute Neutrophils 9.3 10^3/uL (1.4-6.5); Hematocrit 29.7 % (39.0-52.0); Hemoglobin 9.9 g/dL (13.0-18.0); Mean Corp Hgb Conc. 33.3 g/dL (33.0-37.0); Mean Corpuscular Hgb 27.2 pg (27.0-31.0); Mean Corpuscular Volume 81.6 fL (80.0-94.0); Mean Platelet Volume 9.6 fL (7.4-10.4); Nucleated Red Blood Cells % 0 % (-); Platelet Count 428 10^3/uL (130-400); Red Blood Cell Count 3.64 10^6/uL (4.70-6.10); Red Cell Dist. Width 13.2 % (11.5-14.5); White Blood Cell Count 13.9 10^3/uL (4.8-10.8)
[2024-06-21 04:19] LABS: Blood Urea Nitrogen 42 mg/dl (9-20); Calcium 8.6 mg/dl (8.4-10.2); Carbon Dioxide 28 mmol/L (22-30); Chloride 102 mmol/L (98-107); Estimated Creatinine Clearance 36 ml/min; Glucose 136 mg/dl (70-99); Magnesium 2.3 mg/dl (1.6-2.3); Potassium 3.8 mmol/L (3.5-5.1); Sodium 140 mmol/L (135-145); eGFR 35.81
[2024-06-21 07:55] LABS: Glucose - Point of Care 112 mg/dl (70-99)
[2024-06-21] MEDS: NOVOLOG FLEXPEN-MODERATE RESISTANCE SC (08:25)
[2024-06-21] MEDS: NOVOLOG FLEXPEN 20 UNITS SC ×3 (08:25→17:08)
--- NOTE | 2024-06-21 08:29 | PN.DE.MGMTRT ---
Insulin Management
- -
06/21/2024: Diabetes Management F/U:
Patient admitted 06/08 from [facility] with c/o MORENO, elevated BP, NSTEMI.
PMH: HTN, HLD, T2DM, CKD 3b. Prior to admission was taking Januvia 100 mg daily, Jardiance 10 mg daily and metformin 1000 BID A1C on admission 11.5%, cr 2.4, eGFR 30.51. Patient has been seen daily since 06/10 for diabetes education for insulin
instruction and has done well with self injection with nursing supervision.
Pt awake, A/O x3, sitting up in chair, at bedside, able to discuss diabetes management.
Oral meds being held due to elevated cr, 2.1, eGFR 35.81 today.
Lantus and AC NovoLog started 06/10. Pt was noted to consume food from outside, brought in by family which was contributing to his hyperglycemia.
Advised family again to please limit home foods. 06/19 Glucose improved to range of 117 to 212, requiring additional corrective insulin.
06/20 HS glucose 215, received 35 units Lantus, fasting this AM 136 (V), POC 112.
Will make no changes to current regimen. Cont HS Lantus 35 units with AC NovoLog 20 units and moderate corrective insulin with meals
Will make further insulin adjustments if needed.
Diabetes History
- -
Type of Diabetes: 2 requiring insulin
Pre-Admission Diabetes Regimen
06/21/24
03:25
Creatinine 2.1 H
Lab Results
Hemoglobin A1c 11.5 % (4.0-5.6) H 06/09/24 02:51
Insulin Pump Settings
IP Diabetes Regimen
06/20/24 06/20/24 06/20/24
11:06 16:40 21:40
Glucose
POC Glucose 177 H 356 H 215 H
06/21/24 06/21/24
03:25 07:54
Glucose 136 H
POC Glucose 112 H
Meal type: Dinner
Amount consumed: 100%
Patient Education
[2024-06-21] MEDS: FLUSH (NSS) 3 FLUSH IV (08:40)
[2024-06-21] MEDS: LOW STRENGTH ASPIRIN 81 MG PO (08:41)
[2024-06-21] MEDS: COREG 25 MG PO ×2 (08:41→19:37)
[2024-06-21] MEDS: HEPARIN 5000 UNITS SC ×2 (08:41→19:37)
[2024-06-21] MEDS: BUMEX 2 MG IV ×2 (08:41→19:37)
[2024-06-21] MEDS: IMDUR (EXTENDED RELEASE) 30 MG PO (08:42)
[2024-06-21] MEDS: NORVASC 10 MG PO (08:42)
[2024-06-21] MEDS: PLAVIX 75 MG PO (08:42)
[2024-06-21] MEDS: APRESOLINE 100 MG PO ×3 (08:42→21:54)
[2024-06-21] MEDS: MIRALAX 17 GRAMS PO (08:42)
[2024-06-21] MEDS: ZAROXOLYN 5 MG PO (08:44)
--- NOTE | 2024-06-21 09:39 | PTCARENOTE ---
The patient is aaox3, however Panamanian speaking. NSR is noted on the monitor. He has no complaints of pain or sob. His weight is up by 4lbs since yesterday. His lungs were diminished throughout. I reviewed the incentive spirometer usage with him and
it purpose. I had a long discussion with him and his on the importance on adhering to his fluid restriction for HF. They both stated that they understood. I asked him to use the urinal so we can track his output. He agreed. I went over all His
medications with him.
--- NOTE | 2024-06-21 10:00 | W.PN.CD ---
Today's Communication / Plan
-
- PCWP at 80 kg was elevated at 25; weight today is up from 84.5 kg to 86 kg today.
- Will place orders for a standing dose of Bumex 2 mg IV BID.
- Will add metolazone 5 mg daily.
- Must push aggressive diuresis; trend creatinine (will likely go up transiently)--Nephrology following.
- Peak Cr 2.8 (06/13/2024); 1.8 yesterday, 2.1 today.
- Blood pressure elevated today, but did improve some yesterday with the addition of isosorbide mononitrate.
- Continue current dose of isosorbide mononitrate ER 30 mg daily for now; increase to 60 mg daily (or 30 mg BID) if needed.
Impression / Plan
-
Impression/Plan: 58 yo male with PMH HTN, DM, CKD3b (Cr 1.5, December 2023) admitted to [facility] with hypertensive emergency and NSTEMI, subsequently transferred for CABG evaluation after cath revealed severe multivessel disease. The patient has also
developed respiratory insufficiency likely a combination of HFpEF, possible PNA (given low grade fever, leukocytosis), less likely vasculitis in the setting of nephrotic range proteinuria.
HFpEF, dry weight not determined, home diuretic regimen not determined
- Acute
- Invasive and radiology studies most c/w heart failure:
- At cath Raji Askew 'Moderate to severely increased LVEDP'.
- Right heart cath here 06/13/2024: RA 12, PA 63/27, PCWP 25
- Likely due to a combination of CAD, long standing hypertension compounded by hypertensive emergency and LELAND on CKD
- GDMT with carvedilol, hydralazine/isosorbide mononitrate (in place of ACEI/ARB/ARNi).
- Later when renal function at baseline add SGLT2i/MRA
- PCWP at 80 kg was elevated at 25; weight today is up from 84.5 kg to 86 kg today.
- Will place orders for a standing dose of Bumex 2 mg IV BID.
- Will add metolazone 5 mg daily.
- Must push aggressive diuresis; trend creatinine (will likely go up transiently)--Nephrology following.
Abnormal CXR
- Likely heart failure and possible pneumonia.
-Diuresis as above.
-Antibiotics as per primary team.
LELAND on CKD 3B
- Peak Cr 2.8 (06/13/2024); 1.8 yesterday, 2.1 today.
- Acute on Chronic (stage 3b). CKD 3B (Cr 1.5, December 2023)
- Nephrology suspects contrast nephropathy
NSTEMI/Multivessel CAD
- Acute on chronic.
- LHC: The culprit RPDA appears small. There are tandem ostial/proximal LCx lesions as well as proximal Ramus lesions that are approachable, but there is concern about outflow (particularly in the LCx). The LAD is free from proximal disease.
There is some distal LAD disease.
- No role for percutaneous intervention.
- The patient is scheduled for outpatient CABG evaluation. In the mean time, we will manage this disease medically.
- Continue carvedilol, aspirin, clopidogrel and rosuvastatin
- CT Surgery eval as outpatient
HTN
-Blood pressure elevated today, but did improve some yesterday with the addition of isosorbide mononitrate.
-Currently on carvedilol 25 mg BID, hydralazine, and doxazosin.
-Continue current dose of isosorbide mononitrate ER 30 mg daily for now; increase to 60 mg daily (or 30 mg BID) if needed.
DM, Probably type II, insulin requiring
-Chronic, uncontrolled.
-HbA1c = 11.3%.
-SGLT2 on hold in the setting of LELAND.
Mixed hyperlipidemia, Chronic
-Lipid panel 06/06/2024: TC 266, HDL 41, LDL 172, TG 267.
- atorvastatin 40 mg => rosuvastatin 40 mg daily.
Subjective/Interval History:
No major cardiac events overnight. Denies any shortness of breath this morning.
Data:
Right Heart Catheterization, 06/13/2024:
1. Severely elevated filling pressures (PCWP = 25 mmHg at 79.8 kg).
2. Moderate postcapillary pulmonary hypertension (mean PA = 39 mmHg, PCWP = 25 mmHg, PVR = 2.73 Connolly units), WHO group 2.
3. Preserved cardiac function (cardiac index = 2.68 L/min/m�).
VQ Scan, 06/12/2024: Normal perfusion and ventilation. Very low probability for pulmonary embolism.
LE Duplex, 06/12/2024: No evidence of deep venous thrombosis of the lower extremities bilaterally
Renal US, 06/11/2024: No evidence of renal collecting system dilatation bilaterally.
TTE, 06/10/2024:
Normal LV size and function with no regional wall motion abnormalities.
LVEF is 55-60% by visual estimation.
Moderate concentric LVH.
Normal right ventricular size and function.
No significant valvular disease.
Estimated pulmonary artery pressure of 38 mmHg. Assuming a right atrial
pressure of 3 mmHg.
No prior study available for comparison.
Coronary angiography, 06/07/2024:
Moderate mid and severe distal LAD lesions.
D1 with severe proximal disease.
Severe ostial, proximal, proximal and mid junction and distal circumflex lesions.
Severe ostial and proximal OM 4 lesion.
Severe mid ramus lesions.
RPDA is occluded with collaterals.
RPL 3 with moderate to severe lesion.
Mild to moderate disease in all other areas.
Moderate to severely increased LVEDP.
TTE, 06/07/2024:
LVEF 55 to 60%. Grade II DD.
There is lipomatous hypertrophy of the interatrial septum.
Trace tricuspid regurgitation.
Physical Exam
Vital Signs/Labs
Vital Signs
Temp Pulse Resp BP Pulse Ox
98.8 F 79 18 169/86 88
06/21/24 07:11 06/21/24 07:14 06/21/24 07:11 06/21/24 07:14 06/21/24 07:14
06/20/24 06/21/24 06/22/24
06:59 06:59 06:59
Actual Weight 84.5 kg 86 kg
06/21/24 03:25
06/21/24 03:25
PT 13.6 Sec (11.4-14.6) 06/09/24 02:51
INR 1.06 06/09/24 02:51
APTT 91.8 Sec (23.4-35.0) H 06/11/24 04:22
Magnesium 2.3 mg/dl (1.6-2.3) 06/21/24 03:25
06/08/24
11:46
Rdv-B-Nfoepdgvcge Pept 1300
Physical Exam
Constitutional: No acute distress and Comfortable
EENT: Anicteric
Cardiovascular: Rhythm & rate is regular, Systolic murmur absent, Pedal edema present (1+) and S1S2 is normal
Respiratory: Respiratory effort normal and Rhonchi Present (Bibasilar)
GI: Soft
Neuro/Psych: AO x 3
Other: Skin (Warm, dry, intact)
Data Reviewed
-
Date of Service: June 21, 2024
EKG: Tracing Personally Visualized and interpreted (Telemetry: Sinus rhythm)
Labs: Labs Reviewed by me
--- NOTE | 2024-06-21 10:32 | W.PN.PUL3 ---
Today's Communication / Plan
-
Continue IV diuretics
Continue antibiotics, low threshold to discontinue
Check proBNP
Incentive spirometer
Oxygen supplementation to maintain pulse ox above 90%
Sputum culture if able
Assessment
-
58-year-old [place] and this [place]bek[place]ian and Farsi speaking gentleman with a history of hypertension, hyperlipidemia, diabetes who presented with hypertensive emergency with elevated troponins to an outlying hospital and was transferred for CABG
evaluation after multivessel coronary artery disease was noted-pulmonary was consulted for shortness of breath and hypoxemia 06/09/2024.
Hypoxemic respiratory sufficiency
Abnormal CT chest 06/20/2024-bilateral effusions/groundglass opacity/compressive atelectasis-suspect mostly related to decompensated heart failure.
Persistent
CAD/NSTEMI-multivessel CAD for CABG eval
Respiratory [id number] 46 on room air 06/08/2024
CHF-preserved EF, acute on chronic, proBNP 1300
LELAND
Hypertension-recent hypertensive emergency
DM type 2
Conditions present prior to admission:
Hypertension.
Hyperlipidemia.
Diabetes.
Chronic renal failure-diabetic nephropathy
Plan:
Pulmonary reconsulted 06/21/2024 for abnormal CAT scan and persistent leukocytosis.
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
-
Hypoxemic respiratory failure: Currently 90% room air.
Chest x-ray 05/21/2024: Demonstrated mild bibasilar pleural effusion with patchy subtle infiltrates.
CT chest 06/20/2024: Reviewed, showed small to moderate bilateral pleural effusions with associated compressive atelectasis. Patchy groundglass densities bilaterally in the upper lobes. Scattered mildly prominent mid mediastinal lymph nodes.
Likely reactive. No pericardial effusion.
Afebrile but persistent leukocytosis.
Completed antibiotic with Zosyn and also a course of steroids on 06/13/2024.
Suspect findings are more consistent with heart failure given bilateral pleural effusions.
Hypoalbuminemia also contributing to bilateral effusions.
Patient appears nontoxic, afebrile. Not producing phlegm.
Empirically started on antibiotic Unasyn on 06/20/2024-low threshold please continue antibiotic X.
Try to obtain a sputum culture if possible
Trend leukocytosis, follow fever curve.
Obtain proBNP
-
Incentive spirometry, OOB encouraged
Nebulizers if needed-currently not bronchospastic
Aspiration precautions
-
Continue with cardiac management:
Cardiology evaluation noted-correspondence reviewed
Difficult to control hypertension.
Cath results/plan- 3v CAD noted with suboptimal targets;
Recent right heart cath consistent with volume overload.
Outpatient CT surgery evaluation for CAB
Patient nonoliguric but weight has not declined despite diuresis.
Creatinine IV diuretics- Bumetanide.
Follow creatinine
Nephrology following as well. Creatinine has plateaued
Continue with cardiac management.
-
?s/p PNA on admission, status post Zosyn IV, stop date added for 5 days 06/13/2024
Completed also course of the steroids.
Cultures negative.Legionella antibody negative.
Blood negative
Sputum culture ordered, but not able to produce
Follow leukocytosis and temperature curve
Restart antibiotics, Unasyn 06/20/2024 for persistent leukocytosis and abnormal chest x-ray/CAT scan.
DVT prophylaxis-heparin subcu
Increase activity as able

Diagnostic data:
Chest x-ray 06/08/2024-mild interstitial pulmonary edema
Chest x-ray 06/09/2024-interval improvement in bilateral interstitial pulm edema, focal area of hazy opacification inferior aspect right upper lobe, possible atelectasis both lower lungs
CT chest 06/08/2024-bilateral pulmonary opacifications consistent with CHF and small bilateral pleural effusions
Right Heart Catheterization, 06/13/2024:
1. Severely elevated filling pressures (PCWP = 25 mmHg at 79.8 kg).
2. Moderate postcapillary pulmonary hypertension (mean PA = 39 mmHg, PCWP = 25 mmHg, PVR = 2.73 Connolly units), WHO group 2.
3. Preserved cardiac function (cardiac index = 2.68 L/min/m�).
VQ Scan, 06/12/2024: Normal perfusion and ventilation. Very low probability for pulmonary embolism.
LE Duplex, 06/12/2024: No evidence of deep venous thrombosis of the lower extremities bilaterally
Renal US, 06/11/2024: No evidence of renal collecting system dilatation bilaterally.
Coronary angiography, 06/07/2004: Moderate mid and severe distal LAD lesions.D1 with severe proximal disease.Severe ostial, proximal, proximal and mid junction and distal circumflex lesions. Severe ostial and proximal OM 4 lesion.Severe mid ramus
lesions.RPDA is occluded with collaterals.RPL 3 with moderate to severe lesion.Mild to moderate disease in all other areas.Moderate to severely increased LVEDP.
TTE, 06/07/2024:LVEF 55 to 60%. Grade II DD.There is lipomatous hypertrophy of the interatrial septum.Trace tricuspid regurgitation
ECHO 06/10/24- Normal LV size and function with no regional wall motion abnormalities. LVEF is 55-60% by visual estimation. Moderate concentric LVH. Normal right ventricular size and function.
No significant valvular disease. Estimated pulmonary artery pressure of 38 mmHg. Assuming a right atrial pressure of 3 mmHg. No prior study available for comparison.
-----
Total time spent on this encounter __51__ includes review of history, physical exam, medications, laboratory data, personal review of imaging, extensive review of outpatient records, discussion with care team and respiratory therapy.
Subjective Data
-
Date of Service:
Date of Service: June 21, 2024
Chief Complaint: Pulmonary Follow Up (Abnormal chest x-ray/hypoxemic respiratory failure)
Objective Data
Data Reviewed
Vital Signs / I&O / Oxygen:
Vital Signs
Temp Pulse Resp BP Pulse Ox
98.8 F 79 18 169/86 88
06/21/24 07:11 06/21/24 07:14 06/21/24 07:11 06/21/24 07:14 06/21/24 07:14
Intake and Output
06/20/24 06/21/24 06/22/24
06:59 06:59 06:59
Intake Total 440 / 440 120 / 120
Output Total 2275 / 2275 1225 / 1225 575 / 575
Balance -2275 / -2275 -785 / -785 -455 / -455
SaO2 88
Nasal Cannula flow liters per 1
minute
Physical Exam
General: Comfortable and Other (NAD)
HEENT: Normocephalic, Anicteric and Moist Mucous Membranes
Cardiovascular: S1-S2 and Regular Rhythm
Respiratory: Crackles (minimal bases) and Non-Labored Respirations
GI: Soft, Non Distended and Non Tender
Neurology: Awake, Alert, Oriented, AO x 3 and No Motor Deficits
Skin: Warm, Dry and Good Color
Labs/Micro/Reports
Lab Data
06/21/24 03:25
06/21/24 03:25
Microbiology
06/19/24 13:21 Urine Legionella Urinary Antigen - Final
Negative for Legionella pneumophila Serogroup 1 antigen.
A negative result does not rule out the possiblity of
Legionella infection due to other serogroups or species of
Legionella. Clinical correlation is recommended.
06/19/24 13:21 Urine Streptococcus pneumoniae Antigen (M - Final
Negative for Streptococcus pneumoniae antigen.
A negative result does not exclude infection with
Streptococcus pneumoniae. Clinical correlation is
recommended.
[2024-06-21 10:44] LABS: Glucose - Point of Care 161 mg/dl (70-99)
[2024-06-21] MEDS: NOVOLOG FLEXPEN-MODERATE RESISTANCE 1 UNITS SC (10:47)
--- NOTE | 2024-06-21 11:11 | CM ---
Chart reviewed. Patient is independent of ADLS, lives in a apartment with his , son and daughter, 4 ARASH, 0 DME. Plan is for the patient to return home with [facility]. CM to follow
--- NOTE | 2024-06-21 11:44 | W.PN.HOSP.TC ---
Today's Communication/Plan
-
worsening LE swelling, urination decreased weight is up - BUMEX plus metolazone
Pulm eval for pulmonary effusions
Melatonin nightly
Emphasized fluid and salt restriction
Assessment / Plan
Assessment / Plan
58yo M with PMHx of HTN, DM transferred from [facility] for hypertensive emergency and NSTEMI with cardiac cath done showing multivessel disease. He was planned for CABG eval. FOund CHF exacerbation and pneumonia with mild COPD, completed ABx and
Prednisone on 06/13/24, continued on diuresis. Also Initially had LELAND with subsequent Cr leveled at 2.0
A/P:
#CAD with recent NSTEMI
#Acute HFpEF
#Essential HTN, poorly controlled
#Moderate b/l pleural effusions
Not hypoxic
Cardio follows: cont diuresis Bumex BID with metolazone as of 06/21/24, CABG electively with CTS upon d/c
cont BB, DAPT, statin
Did not tolerate doxazosin in AM 2/2 significant BP drop. Restart[facility] with lower dose @[facility]. Titrate meds to target normotension - avoid abrupt changes
Pulm eval for need in thoracentesis
#multifocal pneumonia
#Recurrent leukocytosis
CT showed b/l Upper lobe pneumonia
Legionella and S.pneumonia neg, reasonable to start Unasyn and monitor
Not producing any sputum
completed steroids and Zosyn on 06/13/24
#HLD
statin
#New DM, most likely type 2
Started insulin
Provide insulin teaching
SGLT2 started
Diabetic education consult placed on 06/08/24
Accuchecks, Insulin SS
Outpatient ophthalm, podiatry upon d/c
HgbA1c 11.5%
#LELAND on CKD stage 3b
05/11 - Cr 1.5
Avoid ARB as per Nephrology
DM and HTN control advised
Outpatient nephro follow up
#Acute hypoxic failure
multifactorial
Wean araceli O2
suspect KELSI - can have nocturnal O2 at hospital, advised outpatient sleep study
V/Q scan - low suspiscion for VTE
LE DVT neg
#HEadaches
Head CT WNL
Carotid US without significant stenosis
DVT ppx hep (BID since already on DAPT)
Full code
I have spent at least 57min reviewing chart, test results, communication with consultants and direct patient care
Anticipated Discharge: > 48 hours
Subjective/Interval History
-
Date of Service: June 21, 2024
Objective Data
-
Labs:
Laboratory Results
06/21/24
03:25
WBC 13.9 H
Hgb 9.9 L
Hct 29.7 L
Plt Count 428 H
Sodium 140
Potassium 3.8
Chloride 102
Carbon Dioxide 28
BUN 42 H
Creatinine 2.1 H
Glucose 136 H
Calcium 8.6
Vital Signs:
Vital Signs
Temp Pulse Resp BP Pulse Ox
98.8 F 69 18 169/86 90
06/21/24 07:11 06/21/24 11:00 06/21/24 07:11 06/21/24 07:14 06/21/24 08:40
I&O
06/20/24 06/21/24 06/22/24
06:59 06:59 06:59
Intake Total 440 / 440 120 / 120
Output Total 2275 / 2275 1225 / 1225 575 / 575
Balance -2275 / -2275 -785 / -785 -455 / -455
Review of Systems
-
History Source: Patient
All other systems: Reviewed and negative
Physical Exam
-
General: No Apparent Distress
HEENT: Normocephalic
Respiratory: Clear to Auscultation
Cardiac: Regular Rhythm
GI: Soft, Nontender and Nondistended
Musculoskeletal: No Clubbing, No Cyanosis, Edema, Right Lower Extrem and Edema, Left Lower Extrem
Neuro: Awake, Alert, Oriented and AO x 3
Psych: Calm
[2024-06-21 12:18] LABS: NT-proBNP 1130 pg/ml
[2024-06-21 12:50] LABS: Glucose - Point of Care 94 mg/dl (70-99)
[2024-06-21] MEDS: FLUSH (NSS) 2 FLUSH IV (14:09)
[2024-06-21 14:28] LABS: Aldosterone, Serum 30.9 ng/dL; Aldosterone/Renin Activ Ratio 154.5 ratio (<=25.0); Renin Activity Results 0.2 ng/mL/hr
--- NOTE | 2024-06-21 16:17 | PTCARENOTE ---
The patient has not been ordering his meals through [employer] all shift. His family brings him in food that is not diabetic or heart healthy. Also he tends to eat between meals. I spoke with him and his and educated them on his diet.
[2024-06-21 17:08] LABS: Glucose - Point of Care 151 mg/dl (70-99)
[2024-06-21] MEDS: NOVOLOG FLEXPEN-MODERATE RESISTANCE 300 UNITS SC (17:08)
--- NOTE | 2024-06-21 17:32 | W.PN.NEPH.PH ---
Today's Communication / Plan
-
follow labs with diuresis
Assessment/Plan
-
Assessment
CKD 3B (December 2023)
LELAND
Diabetes mellitus type 2
Hypertension
Hyperlipidemia
Diffuse CAD
nephrotic proteinuria 6.4gm/gm of cr
Plan
Creatinine relatively stable at 2.1 (suspect new baseline) , nonoliguric but weights up
Checked additional serologies for nephrotic range proteinuria
no ARB/SGLT2i for now
Can reattempt to add back ARB once creatinine reaches baseline as blood pressures escalate
agree with cardiology to advance diuresis (bumex 2mg IV BID and metolazone): uop ~ 2.4liters
BP are elevated despite escalating antihypertensive regimen, meds adjustment per cards
abx per primary, CT results noted and currently on RA
labs in am
d/w pt, family regarding CKD and need to control DM and HTN, cardiac
need nephro f/u out pt
-
-
Date of Service: June 21, 2024
CC / HPI / ROS
-
Chief Complaint:
LELAND/CKD
History of Present Illness:
LELAND/Cr up at 2.1 but over all stable in last few days
BP stable,in 150 range
wt is up today
Review of Systems:
no fevers
no CP
no n/v
patient remains sob and orthoneic per family
Labs
-
Labs:
WBC 13.9 10^3/uL (4.8-10.8) H 06/21/24 03:25
RBC 3.64 10^6/uL (4.70-6.10) L 06/21/24 03:25
Hgb 9.9 g/dL (13.0-18.0) L 06/21/24 03:25
Hct 29.7 % (39.0-52.0) L 06/21/24 03:25
Plt Count 428 10^3/uL (130-400) H 06/21/24 03:25
Sodium 140 mmol/L (135-145) 06/21/24 03:25
Potassium 3.8 mmol/L (3.5-5.1) 06/21/24 03:25
Chloride 102 mmol/L (98-107) 06/21/24 03:25
Carbon Dioxide 28 mmol/L (22-30) 06/21/24 03:25
BUN 42 mg/dl (9-20) H 06/21/24 03:25
Creatinine 2.1 mg/dL (0.7-1.3) H 06/21/24 03:25
eGFR 35.81 06/21/24 03:25
Glucose 136 mg/dl (70-99) H 06/21/24 03:25
Calcium 8.6 mg/dl (8.4-10.2) 06/21/24 03:25
Evj-B-Fvozmhnjxnr Pept 1130 pg/ml 06/21/24 11:47
Albumin 2.9 g/dl (3.5-5.0) L 06/20/24 04:48
Physical Exam
-
Vital Signs:
Vital Signs
Temp Pulse Resp BP Pulse Ox
98.2 F 73 18 154/76 98
06/21/24 15:32 06/21/24 15:31 06/21/24 15:32 06/21/24 15:31 06/21/24 15:32
Cardiovascular:: Regular rate and rhythm
Respiratory:: Bilateral: CTA (decreaed)
Lung Excursion:: Normal
Abdomen:: Nontender and Soft
Extremity Edema:: +2: Bilateral:
Benedict Catheter: No
[2024-06-21] MEDS: CRESTOR 40 MG PO (17:37)
--- NOTE | 2024-06-21 18:19 | PTCARENOTE ---
The patient has been oob and frequently walking the halls all shift. His gait is steady.
[2024-06-21 20:51] LABS: Glucose - Point of Care 127 mg/dl (70-99)
[2024-06-21] MEDS: LANTUS 0.35 UNITS SC (21:50)
[2024-06-21] MEDS: CARDURA 1 MG PO (21:54)
[2024-06-21] MEDS: MELATONIN 5 MG PO (21:54)
[2024-06-22] MEDS: UNASYN IV ×2 (02:50→08:12)
[2024-06-22 03:26] VITALS: BP 158/80
[2024-06-22 03:38] VITALS: BMI 29.9
[2024-06-22 04:06] LABS: % Basophils 0.4 % (0-2); % Immature Granulocytes 0.6 % (0-0.5); % Lymphocytes 25.4 % (20.5-51.1); % Monocytes 10.5 % (1.7-9.3); % Neutrophils 61.1 % (42.2-75.2); Absolute Basophils 0.1 10^3/uL (0-0.2); Absolute Eosinophils 0.3 10^3/uL (0-0.7); Absolute Immature Granulocytes 0.1 10^3/uL (0-0.05); Absolute Lymphocytes 3.6 10^3/uL (1.2-3.4); Absolute Monocytes 1.5 10^3/uL (0.1-0.6); Absolute Neutrophils 8.6 10^3/uL (1.4-6.5); Hematocrit 29.3 % (39.0-52.0); Hemoglobin 9.8 g/dL (13.0-18.0); Mean Corp Hgb Conc. 33.4 g/dL (33.0-37.0); Mean Corpuscular Volume 83.7 fL (80.0-94.0); Nucleated Red Blood Cells % 0 % (-); Platelet Count 418 10^3/uL (130-400); Red Cell Dist. Width 13.2 % (11.5-14.5)
[2024-06-22 04:30] LABS: Blood Urea Nitrogen 49 mg/dl (9-20); Calcium 8.7 mg/dl (8.4-10.2); Carbon Dioxide 30 mmol/L (22-30); Chloride 99 mmol/L (98-107); Estimated Creatinine Clearance 35 ml/min; Glucose 92 mg/dl (70-99); Magnesium 2.3 mg/dl (1.6-2.3); Potassium 3.3 mmol/L (3.5-5.1); Sodium 140 mmol/L (135-145); eGFR 30.51
[2024-06-22 05:01] LABS: TSH 1.47 uIU/ml (0.47-4.68)
[2024-06-22] MEDS: KCL 40 MEQ PO ×3 (05:43→20:03)
[2024-06-22 07:20] VITALS: BP 164/75
[2024-06-22 07:40] LABS: Glucose - Point of Care 78 mg/dl (70-99)
[2024-06-22] MEDS: IMDUR (EXTENDED RELEASE) 30 MG PO ×2 (08:11→09:47)
[2024-06-22] MEDS: LOW STRENGTH ASPIRIN 81 MG PO (08:11)
[2024-06-22] MEDS: NORVASC 10 MG PO (08:11)
[2024-06-22] MEDS: PLAVIX 75 MG PO (08:11)
[2024-06-22] MEDS: HEPARIN 5000 UNITS SC ×2 (08:12→20:03)
[2024-06-22] MEDS: COREG 25 MG PO ×2 (08:12→20:03)
[2024-06-22] MEDS: APRESOLINE 100 MG PO ×3 (08:12→22:24)
[2024-06-22] MEDS: ZAROXOLYN 5 MG PO (08:12)
[2024-06-22] MEDS: BUMEX 2 MG IV ×2 (08:12→20:04)
[2024-06-22] MEDS: FLUSH (NSS) 3 FLUSH IV (08:13)
[2024-06-22] MEDS: NOVOLOG FLEXPEN-MODERATE RESISTANCE SC (08:17)
[2024-06-22] MEDS: MIRALAX PO (08:18)
[2024-06-22] MEDS: NOVOLOG FLEXPEN 20 UNITS SC ×3 (08:18→17:55)
--- NOTE | 2024-06-22 08:45 | W.PN.CD ---
Today's Communication / Plan
-
continue IV bumex and metolazone
titrate imdur and doxazosin
Impression / Plan
-
Impression/Plan: 58 yo male with PMH HTN, DM, CKD3b (Cr 1.5, December 2023) admitted to [facility] with hypertensive emergency and NSTEMI, subsequently transferred for CABG evaluation after cath revealed severe multivessel disease. The patient has also
developed respiratory insufficiency likely a combination of HFpEF, possible PNA (given low grade fever, leukocytosis), less likely vasculitis in the setting of nephrotic range proteinuria.
HFpEF, dry weight not determined, home diuretic regimen not determined
- Acute, severe, with cardiorenal syndrome
- Invasive and radiology studies most c/w heart failure:
- At cath Raji Askew 'Moderate to severely increased LVEDP'.
- Right heart cath here 06/13/2024: RA 12, PA 63/27, PCWP 25
- Likely due to a combination of CAD, long standing hypertension compounded by hypertensive emergency and LELAND on CKD
- continue carvedilol, hydralazine/isosorbide mononitrate (in place of ACEI/ARB/ARNi).
- Later when renal function at baseline. assess to add SGLT2i/MRA
- PCWP at 80 kg was elevated at 25; weight today 86 kg today.
- continue Bumex 2 mg IV BID.
- continue metolazone 5 mg daily.
- Must push aggressive diuresis; trend creatinine (will likely go up transiently)--Nephrology consulting as well
Abnormal CXR
- Likely heart failure and possible pneumonia.
-Diuresis as above.
-Antibiotics as per primary team.
LELAND on CKD 3B
- Peak Cr 2.8 (06/13/2024); 2.4 today
- Nephrology suspects contrast nephropathy
NSTEMI/Multivessel CAD
- Acute on chronic.
- LHC: The culprit RPDA appears small. There are tandem ostial/proximal LCx lesions as well as proximal Ramus lesions that are approachable, but there is concern about outflow (particularly in the LCx). The LAD is free from proximal disease.
There is some distal LAD disease.
- No role for percutaneous intervention.
- The patient is scheduled for outpatient CABG evaluation. In the mean time, we will manage this disease medically.
- Continue carvedilol, aspirin, clopidogrel and rosuvastatin
- CT Surgery eval as outpatient
HTN
-Currently on carvedilol 25 mg BID, hydralazine 100mg tid, and doxazosin, imdur
-increase imdur (now 60mg daily) and doxasozin (now 2mg qHS)
DM, Probably type II, insulin requiring
-Chronic, uncontrolled.
-HbA1c = 11.3%.
-SGLT2 on hold in the setting of LELAND.
Mixed hyperlipidemia, Chronic
-Lipid panel 06/06/2024: TC 266, HDL 41, LDL 172, TG 267.
- atorvastatin 40 mg => rosuvastatin 40 mg daily.
Subjective/Interval History:
Denies CP or SOB. Edema persists.
Data:
Right Heart Catheterization, 06/13/2024:
1. Severely elevated filling pressures (PCWP = 25 mmHg at 79.8 kg).
2. Moderate postcapillary pulmonary hypertension (mean PA = 39 mmHg, PCWP = 25 mmHg, PVR = 2.73 Connolly units), WHO group 2.
3. Preserved cardiac function (cardiac index = 2.68 L/min/m�).
VQ Scan, 06/12/2024: Normal perfusion and ventilation. Very low probability for pulmonary embolism.
LE Duplex, 06/12/2024: No evidence of deep venous thrombosis of the lower extremities bilaterally
Renal US, 06/11/2024: No evidence of renal collecting system dilatation bilaterally.
TTE, 06/10/2024:
Normal LV size and function with no regional wall motion abnormalities.
LVEF is 55-60% by visual estimation.
Moderate concentric LVH.
Normal right ventricular size and function.
No significant valvular disease.
Estimated pulmonary artery pressure of 38 mmHg. Assuming a right atrial
pressure of 3 mmHg.
No prior study available for comparison.
Coronary angiography, 06/07/2024:
Moderate mid and severe distal LAD lesions.
D1 with severe proximal disease.
Severe ostial, proximal, proximal and mid junction and distal circumflex lesions.
Severe ostial and proximal OM 4 lesion.
Severe mid ramus lesions.
RPDA is occluded with collaterals.
RPL 3 with moderate to severe lesion.
Mild to moderate disease in all other areas.
Moderate to severely increased LVEDP.
TTE, 06/07/2024:
LVEF 55 to 60%. Grade II DD.
There is lipomatous hypertrophy of the interatrial septum.
Trace tricuspid regurgitation.
Physical Exam
Vital Signs/Labs
Vital Signs
Temp Pulse Resp BP Pulse Ox
98.6 F 74 22 164/75 98
06/22/24 07:19 06/22/24 07:20 06/22/24 07:19 06/22/24 07:20 06/22/24 07:20
06/21/24 06/22/24 06/23/24
06:59 06:59 06:59
Actual Weight 86 kg 86.3 kg
06/22/24 03:33
06/22/24 03:33
PT 13.6 Sec (11.4-14.6) 06/09/24 02:51
INR 1.06 06/09/24 02:51
APTT 91.8 Sec (23.4-35.0) H 06/11/24 04:22
Magnesium 2.3 mg/dl (1.6-2.3) 06/22/24 03:33
TSH 1.47 uIU/ml (0.47-4.68) 10/05/24 03:33
06/08/24 06/21/24
11:46 11:47
Eef-H-Taqjupdqmup Pept 1300 1130
Physical Exam
Constitutional: No acute distress
EENT: Moist mucous membranes
Cardiovascular: Rhythm & rate is regular, Systolic murmur absent, Pedal edema present and JVD present
Respiratory: Respiratory effort normal and Lungs clear to auscul.
Neuro/Psych: Alert and Oriented
Data Reviewed
-
Date of Service: June 22, 2024
EKG: Other (Tele: SR 80s)
Labs: Labs Reviewed by me
--- NOTE | 2024-06-22 10:11 | W.PN.PUL3 ---
Today's Communication / Plan
-
Has remained stable on RA, CT imaging reviewed
More consistent with CHF, less so infection. Would stop abx and repeat cultures
Weight increasing despite diuresis, renal/cards following
Could try thoracentesis but this may not prevent recurrence
Check chest US today
Assessment
-
58-year-old [place] Citizen and this [place] and [place]arsi speaking gentleman with a history of hypertension, hyperlipidemia, diabetes who [facility] and was [facility] for [facility]
evaluation after multivessel coronary artery disease was noted-pulmonary was consulted for shortness of breath and hypoxemia 06/09/2024.
Hypoxemic respiratory sufficiency
Abnormal CT chest 06/20/2024-bilateral effusions/groundglass opacity/compressive atelectasis-suspect mostly related to decompensated heart failure.
Persistent
CAD/NSTEMI-multivessel CAD for CABG eval
Respiratory [id number] 46 on room air 06/08/2024
CHF-preserved EF, acute on chronic, proBNP 1300
LELAND
Hypertension-recent hypertensive emergency
DM type 2
Conditions present prior to admission:
Hypertension.
Hyperlipidemia.
Diabetes.
Chronic renal failure-diabetic nephropathy
Plan:
Pulmonary reconsulted 06/21/2024 for abnormal CAT scan and persistent leukocytosis.
Hypoxemic respiratory failure resolved, he is currently 98% room air.
Repeat imaging showing bilateral pleural effusions, there is increased weight in the last few days
83kg to 86kg, despite diuresis
Afebrile but persistent leukocytosis.
Completed antibiotic with Zosyn and also a course of steroids on 06/13/2024.
Suspect findings are more consistent with heart failure given bilateral pleural effusions.
I do not think there is infection present
Empirically started on antibiotic Unasyn on 06/20/2024 by primary team-low threshold please continue antibiotic
Try to obtain a sputum culture if possible
Trend leukocytosis, follow fever curve.
Repeat proBNP remains high, PCWP shows persistent volume overload
This seems refractory to treatment
We discussed fluid intake restriction
Continue with cardiac management: on IV bumex BID
Cardiology evaluation noted-correspondence reviewed
Difficult to control hypertension.
Cath results/plan- 3v CAD noted with suboptimal targets;
Recent right heart cath consistent with volume overload.
Outpatient CT surgery evaluation for CAB
Patient nonoliguric but weight has not declined despite diuresis.
Creatinine IV diuretics- Bumetanide.
Follow creatinine
Nephrology following as well. Creatinine has plateaued
May consider thoracentesis but this would not prevent recurrent fluid
DVT prophylaxis-heparin subcu
Increase activity as able

Diagnostic Data
Chest x-ray 06/08/2024-mild interstitial pulmonary edema
Chest x-ray 06/09/2024-interval improvement in bilateral interstitial pulm edema, focal area of hazy opacification inferior aspect right upper lobe, possible atelectasis both lower lungs
CT chest 06/08/2024-bilateral pulmonary opacifications consistent with CHF and small bilateral pleural effusions
Right Heart Catheterization, 06/13/2024:
1. Severely elevated filling pressures (PCWP = 25 mmHg at 79.8 kg).
2. Moderate postcapillary pulmonary hypertension (mean PA = 39 mmHg, PCWP = 25 mmHg, PVR = 2.73 Connolly units), WHO group 2.
3. Preserved cardiac function (cardiac index = 2.68 L/min/m�).
VQ Scan, 06/12/2024: Normal perfusion and ventilation. Very low probability for pulmonary embolism.
LE Duplex, 06/12/2024: No evidence of deep venous thrombosis of the lower extremities bilaterally
Renal US, 06/11/2024: No evidence of renal collecting system dilatation bilaterally.
Coronary angiography, 06/07/2004: Moderate mid and severe distal LAD lesions.D1 with severe proximal disease.Severe ostial, proximal, proximal and mid junction and distal circumflex lesions. Severe ostial and proximal OM 4 lesion.Severe mid ramus
lesions.RPDA is occluded with collaterals.RPL 3 with moderate to severe lesion.Mild to moderate disease in all other areas.Moderate to severely increased LVEDP.
TTE, 06/07/2024:LVEF 55 to 60%. Grade II DD.There is lipomatous hypertrophy of the interatrial septum.Trace tricuspid regurgitation
ECHO 06/10/24- Normal LV size and function with no regional wall motion abnormalities. LVEF is 55-60% by visual estimation. Moderate concentric LVH. Normal right ventricular size and function.
No significant valvular disease. Estimated pulmonary artery pressure of 38 mmHg. Assuming a right atrial pressure of 3 mmHg. No prior study available for comparison.
-----
Total time spent on this encounter __51__ includes review of history, physical exam, medications, laboratory data, personal review of imaging, extensive review of outpatient records, discussion with care team and respiratory therapy.
Subjective Data
-
Date of Service:
Date of Service: June 22, 2024
Chief Complaint: Pulmonary Follow Up (Abnormal chest x-ray/hypoxemic respiratory failure)
Subjective:
No new complaints, remains stable on RA
Family at bedside
Objective Data
Data Reviewed
Vital Signs / I&O / Oxygen:
Vital Signs
Temp Pulse Resp BP Pulse Ox
98.6 F 74 22 164/75 98
06/22/24 07:19 06/22/24 07:20 06/22/24 07:19 06/22/24 07:20 06/22/24 07:20
Intake and Output
06/21/24 06/22/24 06/23/24
06:59 06:59 06:59
Intake Total 440 / 440 1920 / 1920 360 / 360
Output Total 1225 / 1225 3500 / 3500 1175 / 1175
Balance -785 / -785 -1580 / -1580 -815 / -815
SaO2 98
Nasal Cannula flow liters per 1
minute
Physical Exam
General: Comfortable and Other (NAD)
HEENT: Normocephalic, Anicteric and Moist Mucous Membranes
Cardiovascular: S1-S2 and Regular Rhythm
Respiratory: Clear (minimal at bases) and Non-Labored Respirations
GI: Soft, Non Distended and Non Tender
Neurology: Awake, Alert, Oriented, AO x 3 and No Motor Deficits
Skin: Warm, Dry and Good Color
Labs/Micro/Reports
Lab Data
06/22/24 03:33
06/22/24 03:33
Microbiology
06/19/24 13:21 Urine Legionella Urinary Antigen - Final
Negative for Legionella pneumophila Serogroup 1 antigen.
A negative result does not rule out the possiblity of
Legionella infection due to other serogroups or species of
Legionella. Clinical correlation is recommended.
06/19/24 13:21 Urine Streptococcus pneumoniae Antigen (M - Final
Negative for Streptococcus pneumoniae antigen.
A negative result does not exclude infection with
Streptococcus pneumoniae. Clinical correlation is
recommended.
[2024-06-22 11:54] VITALS: BP 133/65
--- NOTE | 2024-06-22 12:37 | W.PN.HOSP.TC ---
Today's Communication/Plan
-
stressed out fluid restriction and no added salt diet - patient and family verbalized understanding
cont diuresis as per cardio
cont Unasyn
Assessment / Plan
Assessment / Plan
58yo M with PMHx of HTN, DM transferred from [facility] for hypertensive emergency and NSTEMI with cardiac cath done showing multivessel disease. He was planned for CABG eval. FOund CHF exacerbation and pneumonia with mild COPD, completed ABx and
Prednisone on 06/13/24, continued on diuresis. Also Initially had LELAND with subsequent Cr leveled at 2.0
A/P:
#CAD with recent NSTEMI
#Acute HFpEF
#Essential HTN, poorly controlled
#Moderate b/l pleural effusions
Not hypoxic
Cardio follows: cont diuresis Bumex BID with metolazone as of 06/21/24, CABG electively with CTS upon d/c
cont BB, DAPT, statin
Did not tolerate doxazosin in AM 2/2 significant BP drop. Restarted with lower dose @PM so separate in time from Norvasc. Imdur added. Titrate meds to target normotension - avoid abrupt changes
Pulm eval for need in thoracentesis
#multifocal pneumonia
#Recurrent leukocytosis
CT showed b/l Upper lobe pneumonia
Legionella and S.pneumonia neg, reasonable to start Unasyn and monitor
Not producing any sputum
completed steroids and Zosyn on 06/13/24
#HLD
statin
#New DM, most likely type 2
Started insulin
Provide insulin teaching
SGLT2 started
Diabetic education consult placed on 06/08/24
Accuchecks, Insulin SS
Outpatient ophthalm, podiatry upon d/c
HgbA1c 11.5%
#LELAND on CKD stage 3b
05/11 - Cr 1.5
Avoid ARB as per Nephrology
DM and HTN control advised
Outpatient nephro follow up
#Acute hypoxic failure
multifactorial
Wean araceli O2
suspect KELSI - can have nocturnal O2 at hospital, advised outpatient sleep study
V/Q scan - low suspiscion for VTE
LE DVT neg
#HEadaches
Head CT WNL
Carotid US without significant stenosis
DVT ppx hep (BID since already on DAPT)
Full code
I have spent at least 57min reviewing chart, test results, communication with consultants and direct patient care
Anticipated Discharge: > 48 hours
Subjective/Interval History
-
Date of Service: June 22, 2024
Objective Data
-
Labs:
Laboratory Results
06/22/24
03:33
WBC 14.0 H
Hgb 9.8 L
Hct 29.3 L
Plt Count 418 H
Sodium 140
Potassium 3.3 L
Chloride 99
Carbon Dioxide 30
BUN 49 H
Creatinine 2.4 H
Glucose 92
Calcium 8.7
Vital Signs:
Vital Signs
Temp Pulse Resp BP Pulse Ox
98.2 F 66 20 133/65 96
06/22/24 11:53 06/22/24 11:54 06/22/24 11:53 06/22/24 11:54 06/22/24 11:53
I&O
06/21/24 06/22/24 06/23/24
06:59 06:59 06:59
Intake Total 440 / 440 1920 / 1920 360 / 360
Output Total 1225 / 1225 3500 / 3500 1175 / 1175
Balance -785 / -785 -1580 / -1580 -815 / -815
Review of Systems
-
History Source: Patient
All other systems: Reviewed and negative
Physical Exam
-
General: No Apparent Distress
HEENT: Normocephalic
Respiratory: Clear to Auscultation
Cardiac: Regular Rhythm
GI: Soft, Nontender and Nondistended
Musculoskeletal: Edema, Right Lower Extrem and Edema, Left Lower Extrem
Neuro: Awake, Alert, Oriented and AO x 3
Psych: Calm
--- NOTE | 2024-06-22 12:43 | W.PN.NEPH.PH ---
Today's Communication / Plan
-
cont diuresis
labs later today
replace k
Assessment/Plan
-
Assessment
CKD 3B (.December 2023)
LELAND
Diabetes mellitus type 2
Hypertension
Hyperlipidemia
Diffuse CAD
nephrotic proteinuria 6.4gm/gm of cr
Plan
Creatinine is increasing to 2.4 with aggressive diuresis as expected
wt still no change despite net neg balance, reviewed FR
neg serologies for nephrotic range proteinuria
no ARB/SGLT2i for now
diuresis per cardiology bumex 2mg IV BID and metolazone
replace k, recheck labs later today
BP are improving with meds
on abx but resp issues felt to be more from volume related
labs in am
d/w pt, family regarding CKD and risk of [employer] in future
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
-
-
Date of Service: June 22, 2024
CC / HPI / ROS
-
Chief Complaint:
LELAND/CKD
History of Present Illness:
LELAND/Cr up at 2.4
BP stable,
wt no change today despite net neg balance
Review of Systems:
no fevers
no CP
no n/v
denies sob, on RA
Labs
-
Labs:
WBC 14.0 10^3/uL (4.8-10.8) H 06/22/24 03:33
RBC 3.50 10^6/uL (4.70-6.10) L 06/22/24 03:33
Hgb 9.8 g/dL (13.0-18.0) L 06/22/24 03:33
Hct 29.3 % (39.0-52.0) L 06/22/24 03:33
Plt Count 418 10^3/uL (130-400) H 06/22/24 03:33
Sodium 140 mmol/L (135-145) 06/22/24 03:33
Potassium 3.3 mmol/L (3.5-5.1) L 06/22/24 03:33
Chloride 99 mmol/L (98-107) 06/22/24 03:33
Carbon Dioxide 30 mmol/L (22-30) 06/22/24 03:33
BUN 49 mg/dl (9-20) H 06/22/24 03:33
Creatinine 2.4 mg/dL (0.7-1.3) H 06/22/24 03:33
eGFR 30.51 06/22/24 03:33
Glucose 92 mg/dl (70-99) 06/22/24 03:33
Calcium 8.7 mg/dl (8.4-10.2) 06/22/24 03:33
Jqc-C-Yeumkcdtxoc Pept 1130 pg/ml 06/21/24 11:47
Albumin 2.9 g/dl (3.5-5.0) L 06/20/24 04:48
Physical Exam
-
Vital Signs:
Vital Signs
Temp Pulse Resp BP Pulse Ox
98.2 F 66 20 133/65 96
06/22/24 11:53 06/22/24 11:54 06/22/24 11:53 06/22/24 11:54 06/22/24 11:53
Cardiovascular:: Regular rate and rhythm
Respiratory:: Bilateral: Rales (bases)
Lung Excursion:: Normal
Abdomen:: Nontender and Soft
Extremity Edema:: +1: Bilateral:
Benedict Catheter: No
[2024-06-22 12:47] LABS: Glucose - Point of Care 192 mg/dl (70-99)
[2024-06-22] MEDS: NOVOLOG FLEXPEN-MODERATE RESISTANCE 1 UNITS SC (13:27)
[2024-06-22 15:19] VITALS: BP 155/76
[2024-06-22 16:35] LABS: Blood Urea Nitrogen 46 mg/dl (9-20); Calcium 8.6 mg/dl (8.4-10.2); Carbon Dioxide 27 mmol/L (22-30); Chloride 100 mmol/L (98-107); Estimated Creatinine Clearance 34 ml/min; Glucose 181 mg/dl (70-99); Potassium 3.6 mmol/L (3.5-5.1); Sodium 138 mmol/L (135-145); eGFR 29.05
[2024-06-22 17:55] LABS: Glucose - Point of Care 219 mg/dl (70-99)
[2024-06-22] MEDS: CRESTOR 40 MG PO (17:55)
[2024-06-22] MEDS: NOVOLOG FLEXPEN-MODERATE RESISTANCE 3 UNITS SC (17:56)
--- NOTE | 2024-06-22 19:01 | PTCARENOTE ---
The patient has been oob and ambulating in the halls all shift. His vitals remain stable. NSR is noted on the monitor. His urine output for the shift is 2250ml. he has had no complaints of SOB or chest pain. He is cough free.
[2024-06-22] MEDS: AUGMENTIN 875 MG/125 MG 1 TABLET PO (20:03)
[2024-06-22 20:06] VITALS: BP 173/75
[2024-06-22 22:22] LABS: Glucose - Point of Care 158 mg/dl (70-99)
[2024-06-22 22:23] VITALS: BP 153/80
[2024-06-22] MEDS: LANTUS 0.35 UNITS SC (22:23)
[2024-06-22] MEDS: MELATONIN 5 MG PO (22:24)
[2024-06-22] MEDS: CARDURA 2 MG PO (22:24)
[2024-06-23 04:37] VITALS: BP 147/75
[2024-06-23 04:59] LABS: % Basophils 0.4 % (0-2); % Eosinophils 2.7 % (0-6); % Immature Granulocytes 0.4 % (0-0.5); % Monocytes 10.4 % (1.7-9.3); % Neutrophils 61.1 % (42.2-75.2); Absolute Basophils 0.1 10^3/uL (0-0.2); Absolute Eosinophils 0.3 10^3/uL (0-0.7); Absolute Immature Granulocytes 0.1 10^3/uL (0-0.05); Absolute Monocytes 1.3 10^3/uL (0.1-0.6); Absolute Neutrophils 7.3 10^3/uL (1.4-6.5); Hematocrit 27.4 % (39.0-52.0); Hemoglobin 9.3 g/dL (13.0-18.0); Mean Corp Hgb Conc. 33.9 g/dL (33.0-37.0); Mean Corpuscular Hgb 28.6 pg (27.0-31.0); Mean Corpuscular Volume 84.3 fL (80.0-94.0); Mean Platelet Volume 9.7 fL (7.4-10.4); Nucleated Red Blood Cells % 0 % (-); Platelet Count 396 10^3/uL (130-400); Red Blood Cell Count 3.25 10^6/uL (4.70-6.10); Red Cell Dist. Width 13.2 % (11.5-14.5)
[2024-06-23 05:25] LABS: Blood Urea Nitrogen 55 mg/dl (9-20); Calcium 8.7 mg/dl (8.4-10.2); Carbon Dioxide 29 mmol/L (22-30); Chloride 101 mmol/L (98-107); Estimated Creatinine Clearance 32 ml/min; Glucose 93 mg/dl (70-99); Magnesium 2.3 mg/dl (1.6-2.3); Potassium 3.5 mmol/L (3.5-5.1); Sodium 140 mmol/L (135-145); eGFR 27.72
[2024-06-23 06:00] VITALS: BMI 29.6
[2024-06-23 07:11] VITALS: BP 163/75
[2024-06-23 07:15] LABS: Glucose - Point of Care 240 mg/dl (70-99)
[2024-06-23] MEDS: PLAVIX 75 MG PO (08:24)
[2024-06-23] MEDS: LOW STRENGTH ASPIRIN 81 MG PO (08:24)
[2024-06-23] MEDS: COREG 25 MG PO ×2 (08:24→20:04)
[2024-06-23] MEDS: IMDUR (EXTENDED RELEASE) 60 MG PO (08:24)
[2024-06-23] MEDS: APRESOLINE 100 MG PO ×3 (08:24→23:09)
[2024-06-23] MEDS: BUMEX 2 MG IV ×2 (08:25→20:04)
[2024-06-23] MEDS: HEPARIN 5000 UNITS SC ×2 (08:25→20:13)
[2024-06-23] MEDS: NORVASC 10 MG PO (08:25)
[2024-06-23] MEDS: AUGMENTIN 875 MG/125 MG 1 TABLET PO ×2 (08:25→20:04)
[2024-06-23] MEDS: FLUSH (NSS) 2 FLUSH IV (08:26)
[2024-06-23] MEDS: MIRALAX PO (08:30)
[2024-06-23] MEDS: ZAROXOLYN 5 MG PO (08:31)
[2024-06-23] MEDS: NOVOLOG FLEXPEN 20 UNITS SC ×3 (08:32→15:46)
[2024-06-23] MEDS: NOVOLOG FLEXPEN-MODERATE RESISTANCE 3 UNITS SC ×2 (08:33→15:47)
[2024-06-23 11:19] VITALS: BP 122/66
--- NOTE | 2024-06-23 11:26 | W.PN.NEPH.PH ---
Addendum entered and electronically signed by Xochitl Ross MD 06/23/24 11:47:
ARR noted severely elevated 154, aldosterone 30 and renin low at 0.2
will start low dose aldactone
will send metanephrins and catecholamines
UPEP shows faint kappa band, but SPEP neg. check serum FLC
Chest US noted mod pleural effusion
Original Note:
Today's Communication / Plan
-
cont diuresis
labs later and replace k
Assessment/Plan
-
Assessment
CKD 3B (December 2023)
LELAND
Diabetes mellitus type 2
Hypertension
Hyperlipidemia
Diffuse CAD
nephrotic proteinuria 6.4gm/gm of cr
Plan
Creatinine is increasing to 2.6 with aggressive diuresis as expected
wt decreasing slowly
neg serologies for nephrotic range proteinuria
no ARB/SGLT2i for now
diuresis per cardiology bumex 2mg IV BID and metolazone for another day
plan to get to dry wt
replace k, recheck labs later today
BP remains high on multiple meds-adjustment per cards, check ARR
on abx but resp issues mainly felt to be from volume related
d/w pt, family regarding CKD and risk of [employer] in future
also reviewed about multiorgan dysfunction
d/w nursing and cards
-
-
Date of Service: June 23, 2024
CC / HPI / ROS
-
Chief Complaint:
LELAND/CKD
History of Present Illness:
LELAND/Cr up at 2.6, k 3.5
BP stable,
wt slow to decrease, net neg balance
Review of Systems:
no fevers
no CP
no n/v
c/o less air when breaths, on RA
able to walk in halways with out difficulty
c/o leg weakness in gen
Labs
-
Labs:
WBC 12.0 10^3/uL (4.8-10.8) H 06/23/24 04:44
RBC 3.25 10^6/uL (4.70-6.10) L 06/23/24 04:44
Hgb 9.3 g/dL (13.0-18.0) L 06/23/24 04:44
Hct 27.4 % (39.0-52.0) L 06/23/24 04:44
Plt Count 396 10^3/uL (130-400) 06/23/24 04:44
Sodium 140 mmol/L (135-145) 06/23/24 04:44
Potassium 3.5 mmol/L (3.5-5.1) 06/23/24 04:44
Chloride 101 mmol/L (98-107) 06/23/24 04:44
Carbon Dioxide 29 mmol/L (22-30) 06/23/24 04:44
BUN 55 mg/dl (9-20) H 06/23/24 04:44
Creatinine 2.6 mg/dL (0.7-1.3) H 06/23/24 04:44
eGFR 27.72 06/23/24 04:44
Glucose 93 mg/dl (70-99) 06/23/24 04:44
Calcium 8.7 mg/dl (8.4-10.2) 06/23/24 04:44
Atm-R-Zhqnoeisacm Pept 1130 pg/ml 06/21/24 11:47
Albumin 2.9 g/dl (3.5-5.0) L 06/20/24 04:48
Physical Exam
-
Vital Signs:
Vital Signs
Temp Pulse Resp BP Pulse Ox
97.7 F 84 20 163/75 95
06/23/24 11:17 06/23/24 07:11 06/23/24 11:17 06/23/24 07:11 06/23/24 11:17
Cardiovascular:: Regular rate and rhythm
Respiratory:: Bilateral: Rales (bases)
Lung Excursion:: Normal
Abdomen:: Nontender and Soft
Extremity Edema:: +2: Bilateral:
Benedict Catheter: No
--- NOTE | 2024-06-23 11:33 | W.PN.PUL3 ---
Today's Communication / Plan
-
Stable on RA, no new complaints
Moderate effusion noted on chest US despite diuresis
IR consult for thora, will send for culture/cyto/cell count
Discussed with family/patient using text clod puller
Assessment
-
58-year-old [place]i and this [place]ian and Farsi speaking gentleman with a history of hypertension, hyperlipidemia, diabetes who presented with hypertensive emergency with elevated troponins to an outlying hospital and was transferred for CABG
evaluation after multivessel coronary artery disease was noted-pulmonary was consulted for shortness of breath and hypoxemia 06/09/2024.
Hypoxemic respiratory sufficiency
Abnormal CT chest 06/20/2024-bilateral effusions/groundglass opacity/compressive atelectasis-suspect mostly related to decompensated heart failure.
Persistent
CAD/NSTEMI-multivessel CAD for CABG eval
Respiratory uxtfhdw-[id number]-nH0 46 on room air 06/08/2024
CHF-preserved EF, acute on chronic, proBNP 1300
LELAND
Hypertension-recent hypertensive emergency
DM type 2
Conditions present prior to admission:
Hypertension.
Hyperlipidemia.
Diabetes.
Chronic renal failure-diabetic nephropathy
Plan:
Pulmonary reconsulted 06/21/2024 for abnormal CAT scan and persistent leukocytosis.
Hypoxemic respiratory failure resolved, he is currently 98% room air.
Repeat imaging showing bilateral pleural effusions, there is increased weight in the last few days
83kg to 86kg, despite diuresis
Afebrile but persistent leukocytosis.
Completed antibiotic with Zosyn and also a course of steroids on 06/13/2024.
Suspect findings are more consistent with heart failure given bilateral pleural effusions.
I do not think there is infection present
Empirically started on antibiotic Unasyn on 06/20/2024 by primary team-low threshold please continue antibiotic
Try to obtain a sputum culture if possible
Trend leukocytosis, follow fever curve.
Repeat proBNP remains high, PCWP shows persistent volume overload
This seems refractory to treatment
We discussed fluid intake restriction
Chest US showing moderate fluid/persistent
IR consult for thora
Will send for culture/cell count, rule out infection
Continue with cardiac management: on IV bumex BID
Cardiology evaluation noted-correspondence reviewed
Difficult to control hypertension.
Cath results/plan- 3v CAD noted with suboptimal targets;
Recent right heart cath consistent with volume overload.
Outpatient CT surgery evaluation for CAB
Patient nonoliguric but weight has not declined despite diuresis.
Creatinine IV diuretics- Bumetanide.
Follow creatinine
Nephrology following as well. Creatinine has plateaued
DVT prophylaxis-heparin subcu
Increase activity as able

Diagnostic Data
Chest x-ray 06/08/2024-mild interstitial pulmonary edema
Chest x-ray 06/09/2024-interval improvement in bilateral interstitial pulm edema, focal area of hazy opacification inferior aspect right upper lobe, possible atelectasis both lower lungs
CT chest 06/08/2024-bilateral pulmonary opacifications consistent with CHF and small bilateral pleural effusions
Right Heart Catheterization, 06/13/2024:
1. Severely elevated filling pressures (PCWP = 25 mmHg at 79.8 kg).
2. Moderate postcapillary pulmonary hypertension (mean PA = 39 mmHg, PCWP = 25 mmHg, PVR = 2.73 Connolly units), WHO group 2.
3. Preserved cardiac function (cardiac index = 2.68 L/min/m�).
VQ Scan, 06/12/2024: Normal perfusion and ventilation. Very low probability for pulmonary embolism.
LE Duplex, 06/12/2024: No evidence of deep venous thrombosis of the lower extremities bilaterally
Renal US, 06/11/2024: No evidence of renal collecting system dilatation bilaterally.
Coronary angiography, 06/07/2004: Moderate mid and severe distal LAD lesions.D1 with severe proximal disease.Severe ostial, proximal, proximal and mid junction and distal circumflex lesions. Severe ostial and proximal OM 4 lesion.Severe mid ramus
lesions.RPDA is occluded with collaterals.RPL 3 with moderate to severe lesion.Mild to moderate disease in all other areas.Moderate to severely increased LVEDP.
TTE, 06/07/2024:LVEF 55 to 60%. Grade II DD.There is lipomatous hypertrophy of the interatrial septum.Trace tricuspid regurgitation
ECHO 06/10/24- Normal LV size and function with no regional wall motion abnormalities. LVEF is 55-60% by visual estimation. Moderate concentric LVH. Normal right ventricular size and function.
No significant valvular disease. Estimated pulmonary artery pressure of 38 mmHg. Assuming a right atrial pressure of 3 mmHg. No prior study available for comparison.
-----
Total time spent on this encounter __51__ includes review of history, physical exam, medications, laboratory data, personal review of imaging, extensive review of outpatient records, discussion with care team and respiratory therapy.
Subjective Data
-
Date of Service:
Date of Service: June 23, 2024
Chief Complaint: Pulmonary Follow Up (Abnormal chest x-ray/hypoxemic respiratory failure)
Subjective:
Sleeping, stable on RA
No new complaints
Family at bedside
Objective Data
Data Reviewed
Vital Signs / I&O / Oxygen:
Vital Signs
Temp Pulse Resp BP Pulse Ox
97.7 F 84 20 163/75 95
06/23/24 11:17 06/23/24 07:11 06/23/24 11:17 06/23/24 07:11 06/23/24 11:17
Intake and Output
06/22/24 06/23/24 06/24/24
06:59 06:59 06:59
Intake Total 1920 / 1920 600 / 600 240 / 240
Output Total 3500 / 3500 4125 / 4125 650 / 650
Balance -1580 / -1580 -3525 / -3525 -410 / -410
SaO2 95
Nasal Cannula flow liters per 1
minute
Physical Exam
General: Comfortable and Other (NAD)
HEENT: Normocephalic, Anicteric and Moist Mucous Membranes
Cardiovascular: S1-S2 and Regular Rhythm
Respiratory: Clear (minimal at bases) and Non-Labored Respirations
GI: Soft, Non Distended and Non Tender
Neurology: Awake, Alert, Oriented, AO x 3 and No Motor Deficits
Skin: Warm, Dry and Good Color
Labs/Micro/Reports
Lab Data
06/23/24 04:44
--- NOTE | 2024-06-23 11:33 | W.PN.CD ---
Today's Communication / Plan
-
discussed with nephrology. neg 3L. continue to push diuresis
Impression / Plan
-
Impression/Plan: 58 yo male with PMH HTN, DM, CKD3b (Cr 1.5, December 2023) admitted to [facility] with hypertensive emergency and NSTEMI, subsequently transferred for CABG evaluation after cath revealed severe multivessel disease. The patient has also
developed respiratory insufficiency likely a combination of HFpEF, possible PNA (given low grade fever, leukocytosis), less likely vasculitis in the setting of nephrotic range proteinuria.
HFpEF, dry weight not determined, home diuretic regimen not determined
- Acute, severe, with cardiorenal syndrome
- Invasive and radiology studies most c/w heart failure:
- At cath Raji Metzmeghna 'Moderate to severely increased LVEDP'.
- Right heart cath here 06/13/2024: RA 12, PA 63/27, PCWP 25
- Likely due to a combination of CAD, long standing hypertension compounded by hypertensive emergency and LELAND on CKD
- continue carvedilol, hydralazine/isosorbide mononitrate (in place of ACEI/ARB/ARNi).
- Later when renal function at baseline. assess to add SGLT2i/MRA
- PCWP at 80 kg was elevated at 25; weight today 85.6 kg today.
- continue Bumex 2 mg IV BID.
- continue metolazone 5 mg daily.
- Must push aggressive diuresis; trend creatinine (will likely go up transiently)--Nephrology consulting as well
Abnormal CXR
- Likely heart failure and possible pneumonia.
-Diuresis as above.
-Antibiotics as per primary team.
LELAND on CKD 3B
- Peak Cr 2.8 (06/13/2024); 2.4 today
- Nephrology suspects contrast nephropathy
NSTEMI/Multivessel CAD
- Acute on chronic.
- LHC: The culprit RPDA appears small. There are tandem ostial/proximal LCx lesions as well as proximal Ramus lesions that are approachable, but there is concern about outflow (particularly in the LCx). The LAD is free from proximal disease.
There is some distal LAD disease.
- No role for percutaneous intervention.
- The patient is scheduled for outpatient CABG evaluation. In the mean time, we will manage this disease medically.
- Continue carvedilol, aspirin, clopidogrel and rosuvastatin
- CT Surgery eval as outpatient
HTN
-Currently on carvedilol 25 mg BID, hydralazine 100mg tid, and doxazosin, imdur
-increased imdur (now 60mg daily) and doxasozin (now 2mg qHS) on 06/22
DM, Probably type II, insulin requiring
-Chronic, uncontrolled.
-HbA1c = 11.3%.
-SGLT2 on hold in the setting of LELAND.
Mixed hyperlipidemia, Chronic
-Lipid panel 06/06/2024: TC 266, HDL 41, LDL 172, TG 267.
- atorvastatin 40 mg => rosuvastatin 40 mg daily.
Subjective/Interval History:
Denies CP or SOB. Edema persists. +fatigue
Data:
Right Heart Catheterization, 06/13/2024:
1. Severely elevated filling pressures (PCWP = 25 mmHg at 79.8 kg).
2. Moderate postcapillary pulmonary hypertension (mean PA = 39 mmHg, PCWP = 25 mmHg, PVR = 2.73 Connolly units), WHO group 2.
3. Preserved cardiac function (cardiac index = 2.68 L/min/m�).
VQ Scan, 06/12/2024: Normal perfusion and ventilation. Very low probability for pulmonary embolism.
LE Duplex, 06/12/2024: No evidence of deep venous thrombosis of the lower extremities bilaterally
Renal US, 06/11/2024: No evidence of renal collecting system dilatation bilaterally.
TTE, 06/10/2024:
Normal LV size and function with no regional wall motion abnormalities.
LVEF is 55-60% by visual estimation.
Moderate concentric LVH.
Normal right ventricular size and function.
No significant valvular disease.
Estimated pulmonary artery pressure of 38 mmHg. Assuming a right atrial
pressure of 3 mmHg.
No prior study available for comparison.
Coronary angiography, 06/07/2024:
Moderate mid and severe distal LAD lesions.
D1 with severe proximal disease.
Severe ostial, proximal, proximal and mid junction and distal circumflex lesions.
Severe ostial and proximal OM 4 lesion.
Severe mid ramus lesions.
RPDA is occluded with collaterals.
RPL 3 with moderate to severe lesion.
Mild to moderate disease in all other areas.
Moderate to severely increased LVEDP.
TTE, 06/07/2024:
LVEF 55 to 60%. Grade II DD.
There is lipomatous hypertrophy of the interatrial septum.
Trace tricuspid regurgitation.
Physical Exam
Vital Signs/Labs
Vital Signs
Temp Pulse Resp BP Pulse Ox
97.7 F 84 20 163/75 95
06/23/24 11:17 06/23/24 07:11 06/23/24 11:17 06/23/24 07:11 06/23/24 11:17
06/22/24 06/23/24 06/24/24
06:59 06:59 06:59
Actual Weight 86.3 kg 85.6 kg
06/23/24 04:44
PT 13.6 Sec (11.4-14.6) 06/09/24 02:51
INR 1.06 06/09/24 02:51
APTT 91.8 Sec (23.4-35.0) H 06/11/24 04:22
Magnesium 2.3 mg/dl (1.6-2.3) 06/23/24 04:44
TSH 1.47 uIU/ml (0.47-4.68) 06/22/24 03:33
06/08/24 06/21/24
11:46 11:47
Iar-K-Nwdiztxjvbp Pept 1300 1130
Physical Exam
Constitutional: No acute distress and Comfortable
EENT: Moist mucous membranes
Cardiovascular: Rhythm & rate is regular, Systolic murmur absent, Pedal edema present and JVD present
Respiratory: Respiratory effort normal and Lungs clear to auscul.
Data Reviewed
-
Date of Service: June 23, 2024
EKG: Other (Tele: SR 80s)
Labs: Labs Reviewed by me
[2024-06-23 11:48] LABS: Glucose - Point of Care 367 mg/dl (70-99)
[2024-06-23] MEDS: NOVOLOG FLEXPEN-MODERATE RESISTANCE 9 UNITS SC (11:48)
[2024-06-23] MEDS: KCL 40 MEQ PO (11:48)
--- NOTE | 2024-06-23 12:10 | W.PN.HOSP.TC ---
Today's Communication/Plan
-
Cardiology and nephrology cont diuresis, added Aldactone
Pending thoracentesis
Augmentin started instead of Unasyn
Assessment / Plan
Assessment / Plan
58yo M with PMHx of HTN, DM transferred from [facility] for hypertensive emergency and NSTEMI with cardiac cath done showing multivessel disease. He was planned for CABG eval. FOund CHF exacerbation and pneumonia with mild COPD, completed ABx and
Prednisone on 06/13/24, continued on diuresis. Also with LELAND and elevated ARR. B/L moderate pleural effusions planned for thoracentesis by pulm
A/P:
#CAD with recent NSTEMI
#Acute HFpEF
#Essential HTN, poorly controlled
#Moderate b/l pleural effusions
Not hypoxic
Cardio follows: cont diuresis Bumex BID with metolazone as of 06/21/24, CABG electively with CTS upon d/c
cont BB, DAPT, statin
Did not tolerate doxazosin in AM 2/2 significant BP drop. Restarted with lower dose @PM so separate in time from Norvasc. Imdur added. Titrate meds to target normotension - avoid abrupt changes
Pulm eval for need in thoracentesis
Low sodium diet
Fluid restriction to 48Oz per day
#multifocal pneumonia
#Recurrent leukocytosis - improving
CT showed b/l Upper lobe pneumonia
Legionella and S.pneumonia neg, reasonable to started Unasyn and switched to Augmentin on 06/23/24
Not producing any sputum
completed steroids and Zosyn on 06/13/24
#HLD
statin
#New DM, most likely type 2
Started insulin
Provide insulin teaching
SGLT2 started
Diabetic education consult placed on 06/08/24
Accuchecks, Insulin SS
Outpatient ophthalm, podiatry upon d/c
HgbA1c 11.5%
#LELAND on CKD stage 3b
#Hyperaldosteronism
05/11 - Cr 1.5
Avoid ARB as per Nephrology
Due to elevated ARR - started Aldactone, checking catecholamines and metanephrines and eventually will need adreanl CT with contrast to eval for adenoma
DM and HTN control advised
Outpatient nephro follow up
#Acute hypoxic failure
multifactorial
Wean araceli O2
suspect KELSI - can have nocturnal O2 at hospital, advised outpatient sleep study
V/Q scan - low suspiscion for VTE
LE DVT neg
#HEadaches
Head CT WNL
Carotid US without significant stenosis
DVT ppx hep (BID since already on DAPT)
Full code
I have spent at least 57min reviewing chart, test results, communication with consultants and direct patient care
Anticipated Discharge: > 48 hours
Subjective/Interval History
-
Date of Service: June 23, 2024
Objective Data
-
Labs:
Laboratory Results
06/23/24 06/23/24
04:44 16:00
WBC 12.0 H
Hgb 9.3 L
Hct 27.4 L
Plt Count 396
Sodium 140 Pending
Potassium 3.5 Pending
Chloride 101 Pending
Carbon Dioxide 29 Pending
BUN 55 H Pending
Creatinine 2.6 H Pending
Glucose 93 Pending
Calcium 8.7 Pending
Vital Signs:
Vital Signs
Temp Pulse Resp BP Pulse Ox
97.7 F 76 20 122/66 95
06/23/24 11:17 06/23/24 11:19 06/23/24 11:17 06/23/24 11:19 06/23/24 11:17
I&O
06/22/24 06/23/24 06/24/24
06:59 06:59 06:59
Intake Total 1920 / 1920 600 / 600 240 / 240
Output Total 3500 / 3500 4125 / 4125 650 / 650
Balance -1580 / -1580 -3525 / -3525 -410 / -410
Review of Systems
-
History Source: Patient
All other systems: Reviewed and negative
Constitutional: Reports Fatigue
Physical Exam
-
General: Comfortable
HEENT: Normocephalic and Atraumatic
Respiratory: Crackles
Cardiac: Regular Rhythm
GI: Soft, Nontender and Nondistended
Musculoskeletal: No Clubbing, No Cyanosis, Edema, Right Lower Extrem and Edema, Left Lower Extrem
Skin: Warm
Neuro: Awake, Alert, Oriented and AO x 3
Psych: Calm
[2024-06-23] MEDS: ALDACTONE 12.5 MG PO (12:26)
--- NOTE | 2024-06-23 12:46 | PTCARENOTE ---
The patient ate breakfast and lunch before having his BSG checked. I asked the patient to please ring the call capone before eating. He stated that he would.
[2024-06-23 15:37] VITALS: BP 156/77
[2024-06-23 15:46] LABS: Glucose - Point of Care 226 mg/dl (70-99)
[2024-06-23] MEDS: CRESTOR 40 MG PO (16:58)
[2024-06-23 17:19] LABS: Blood Urea Nitrogen 57 mg/dl (9-20); Calcium 9.1 mg/dl (8.4-10.2); Carbon Dioxide 28 mmol/L (22-30); Chloride 98 mmol/L (98-107); Estimated Creatinine Clearance 29 ml/min; Glucose 214 mg/dl (70-99); Sodium 138 mmol/L (135-145); eGFR 27.72
--- NOTE | 2024-06-23 19:05 | PTCARENOTE ---
The patient's vital signs have been stable all shift. NSR has been noted on the monitor. He has had no complaints of pain or SOB. He has been oob to the chair and ambulatory in his room and the halls all shift.
[2024-06-23 20:02] VITALS: BP 170/76
[2024-06-23] MEDS: MELATONIN 5 MG PO (23:09)
[2024-06-23] MEDS: CARDURA 2 MG PO (23:09)
[2024-06-23] MEDS: LANTUS 0.35 UNITS SC (23:09)
[2024-06-23 23:13] LABS: Glucose - Point of Care 295 mg/dl (70-99)
[2024-06-23 23:14] VITALS: BP 166/80
[2024-06-24] VITALS (8 sets, daily range): BP systolic 65–171; BP diastolic 67–76; BMI 29.1
--- NOTE | 2024-06-24 02:33 | PTCARENOTE ---
Pt received start of shift, HR SR. Pt OOB ambulating halls with . Once back in room, pt and educated on thoracentesis procedure. Pt states understanding. Pt also seen to be eating large meal that family had brought in. Spoke to pt and
about trying to control blood sugar. Pt denies any pain.
[2024-06-24 04:45] LABS: % Basophils 0.3 % (0-2); % Eosinophils 1.5 % (0-6); % Immature Granulocytes 0.4 % (0-0.5); % Monocytes 7.5 % (1.7-9.3); % Neutrophils 74.3 % (42.2-75.2); Absolute Basophils 0.1 10^3/uL (0-0.2); Absolute Eosinophils 0.2 10^3/uL (0-0.7); Absolute Immature Granulocytes 0.1 10^3/uL (0-0.05); Absolute Lymphocytes 2.5 10^3/uL (1.2-3.4); Absolute Monocytes 1.2 10^3/uL (0.1-0.6); Absolute Neutrophils 11.7 10^3/uL (1.4-6.5); Hematocrit 26.9 % (39.0-52.0); Hemoglobin 9.1 g/dL (13.0-18.0); Mean Corp Hgb Conc. 33.8 g/dL (33.0-37.0); Mean Corpuscular Hgb 27.5 pg (27.0-31.0); Mean Corpuscular Volume 81.3 fL (80.0-94.0); Mean Platelet Volume 9.7 fL (7.4-10.4); Nucleated Red Blood Cells % 0 % (-); Platelet Count 397 10^3/uL (130-400); Red Blood Cell Count 3.31 10^6/uL (4.70-6.10); Red Cell Dist. Width 13.2 % (11.5-14.5); White Blood Cell Count 15.8 10^3/uL (4.8-10.8)
[2024-06-24 05:07] LABS: Blood Urea Nitrogen 58 mg/dl (9-20); Calcium 8.8 mg/dl (8.4-10.2); Carbon Dioxide 28 mmol/L (22-30); Chloride 98 mmol/L (98-107); Estimated Creatinine Clearance 30 ml/min; Glucose 190 mg/dl (70-99); Magnesium 2.3 mg/dl (1.6-2.3); Potassium 3.6 mmol/L (3.5-5.1); Sodium 137 mmol/L (135-145); eGFR 29.05
--- NOTE | 2024-06-24 07:36 | PN.DE.MGMTRT ---
Insulin Management
- -
06/24/2024: Diabetes Management F/U:
Patient admitted 06/08 from [facility] with c/o MORENO, elevated BP, NSTEMI.
PMH: HTN, HLD, T2DM, CKD 3b. Prior to admission was taking Januvia 100 mg daily, Jardiance 10 mg daily and metformin 1000 BID A1C on admission 11.5%, cr 2.4, eGFR 30.51. Patient has been seen daily since 06/10 for diabetes education for insulin
instruction and has done well with self injection with nursing supervision.
Pt awake, A/O x3, sitting up in chair, at bedside, able to discuss diabetes management.
Oral meds being held due to elevated cr, 2.5, eGFR 29.05 today.
Noted for persistent Hyperglycemia due to outside food consumption brought in by family. There is a table to the side of the room full of fruits and all kids of food from home.
Advised family again to please limit home foods as this is contributing to hyperglycemia making it difficult to get glucose under control.
06/23 Glucose range 226 to 367, requiring additional corrective insulin with meals. HS glucose 295, received 35 units Lantus, fasting this AM 190.
Will increase AC NovoLog to 25 units and Lantus to 37 units. Cont moderate corrective insulin with meals.
Will make further insulin adjustments if needed.
Diabetes History
- -
Type of Diabetes: 2 requiring insulin
Pre-Admission Diabetes Regimen
06/23/24 06/24/24
16:56 04:33
Creatinine 2.6 H 2.5 H
Lab Results
Hemoglobin A1c 11.5 % (4.0-5.6) H 06/09/24 02:51
Insulin Pump Settings
IP Diabetes Regimen
06/23/24 06/23/24 06/23/24
11:46 15:45 16:56
Glucose 214 H
POC Glucose 367 H 226 H
06/23/24 06/24/24
23:11 04:33
Glucose 190 H
POC Glucose 295 H
Meal type: Dinner
Meal type: Breakfast
Amount consumed: 100%
Amount consumed: 100%
Patient Education
[2024-06-24 08:22] LABS: Glucose - Point of Care 154 mg/dl (70-99)
[2024-06-24] MEDS: NOVOLOG FLEXPEN-MODERATE RESISTANCE 1 UNITS SC ×2 (08:22→12:52)
[2024-06-24] MEDS: NOVOLOG FLEXPEN 20 UNITS SC (08:23)
[2024-06-24] MEDS: APRESOLINE 100 MG PO ×3 (08:55→22:52)
[2024-06-24] MEDS: PLAVIX 75 MG PO (08:55)
[2024-06-24] MEDS: IMDUR (EXTENDED RELEASE) 60 MG PO (08:55)
[2024-06-24] MEDS: ZAROXOLYN 5 MG PO (08:56)
[2024-06-24] MEDS: NORVASC 10 MG PO (08:57)
[2024-06-24] MEDS: LOW STRENGTH ASPIRIN 81 MG PO (08:57)
[2024-06-24] MEDS: COREG 25 MG PO ×2 (08:58→20:18)
[2024-06-24] MEDS: AUGMENTIN 875 MG/125 MG 1 TABLET PO ×2 (08:58→20:18)
[2024-06-24] MEDS: MIRALAX PO (08:58)
--- NOTE | 2024-06-24 08:58 | W.PN.HOSP.TC ---
Today's Communication/Plan
-
cont Abx - watch for WBC
cont diuresis as per Cardio
Thoracentesis
Stopped Cardure 2/2 persistent nighttime and AM fatigue that resolving later in the day - might be intolerance
Add additional Imdur @HS
Assessment / Plan
Assessment / Plan
58yo M with PMHx of HTN, DM transferred from [facility] for hypertensive emergency and NSTEMI with cardiac cath done showing multivessel disease. He was planned for CABG eval. FOund CHF exacerbation and pneumonia with mild COPD, completed ABx and
Prednisone on 06/13/24, continued on diuresis. Also with LELAND and elevated ARR so Spironolactone added. B/L moderate pleural effusions planned for thoracentesis by pulm
A/P:
#CAD with recent NSTEMI
#Acute HFpEF
#Essential HTN, poorly controlled
#Moderate b/l pleural effusions
Not hypoxic
Cardio follows: cont diuresis Bumex BID with metolazone as of 06/21/24, CABG electively with CTS upon d/c
cont BB, DAPT, statin
Did not tolerate doxazosin. Imdur, Spironolactone added. Titrate meds to target normotension - avoid abrupt changes
Pulm eval for need in thoracentesis
Low sodium diet
Fluid restriction to 48Oz per day
#multifocal pneumonia
#Recurrent leukocytosis - improving
CT showed b/l Upper lobe pneumonia
Legionella and S.pneumonia neg, reasonable to started Unasyn and switched to Augmentin on 06/23/24
Not producing any sputum
completed steroids and Zosyn on 06/13/24
#HLD
statin
#New DM, most likely type 2
Started insulin
Provide insulin teaching
SGLT2 started
Diabetic education consult placed on 06/08/24
Accuchecks, Insulin SS
Outpatient ophthalm, podiatry upon d/c
HgbA1c 11.5%
#LELAND on CKD stage 3b
#Hyperaldosteronism
05/11 - Cr 1.5
Avoid ARB as per Nephrology
Due to elevated ARR - started Aldactone, checking catecholamines and metanephrines and eventually will need adreanl CT with contrast to eval for adenoma
DM and HTN control advised
Outpatient nephro follow up
#Acute hypoxic failure
multifactorial
Wean araceli O2
suspect KELSI - can have nocturnal O2 at hospital, advised outpatient sleep study
V/Q scan - low suspiscion for VTE
LE DVT neg
#HEadaches
Head CT WNL
Carotid US without significant stenosis
DVT ppx hep (BID since already on DAPT)
Full code
I have spent at least 57min reviewing chart, test results, communication with consultants and direct patient care
Anticipated Discharge: > 48 hours
Subjective/Interval History
-
Date of Service: June 24, 2024
Objective Data
-
Labs:
Laboratory Results
06/24/24
04:33
WBC 15.8 H
Hgb 9.1 L
Hct 26.9 L
Plt Count 397
Sodium 137
Potassium 3.6
Chloride 98
Carbon Dioxide 28
BUN 58 H
Creatinine 2.5 H
Glucose 190 H
Calcium 8.8
Vital Signs:
Vital Signs
Temp Pulse Resp BP Pulse Ox
98 F 70 18 154/73 98
06/24/24 04:21 06/24/24 07:00 06/24/24 04:21 06/24/24 04:21 06/24/24 04:21
I&O
06/23/24 06/24/24 06/25/24
06:59 06:59 06:59
Intake Total 600 / 600 600 / 600
Output Total 4125 / 4125 4350 / 4350
Balance -3525 / -3525 -3750 / -3750
Review of Systems
-
History Source: Patient
All other systems: Reviewed and negative
Constitutional: Reports Fatigue
Physical Exam
-
General: No Apparent Distress
Respiratory: Crackles
Cardiac: Regular Rhythm
Musculoskeletal: No Clubbing, No Cyanosis, Edema, Right Lower Extrem and Edema, Left Lower Extrem
Skin: Other (b/l LE dermatosclerosis)
Neuro: Awake, Alert, Oriented and AO x 3
Psych: Calm
[2024-06-24] MEDS: ALDACTONE 12.5 MG PO ×2 (08:59→16:12)
[2024-06-24] MEDS: HEPARIN 5000 UNITS SC ×2 (08:59→20:18)
[2024-06-24] MEDS: BUMEX 2 MG IV ×3 (08:59→20:18)
--- NOTE | 2024-06-24 09:45 | W.PN.PUL.V3 ---
Today's Communication / Plan
-
Diuresis
Thoracentesis
Assessment
-
58-year-old [place]ian and this [place]ian and Farsi speaking gentleman with a history of hypertension, hyperlipidemia, diabetes who presented with hypertensive emergency with elevated troponins to an outlying hospital and was transferred for CABG
evaluation after multivessel coronary artery disease was noted-pulmonary was consulted for shortness of breath and hypoxemia 06/09/2024.
Hypoxemic respiratory sufficiency
Abnormal CT chest 06/20/2024-bilateral effusions/groundglass opacity/compressive atelectasis-suspect mostly related to decompensated heart failure.
Persistent
CAD/NSTEMI-multivessel CAD for CABG eval
Respiratory [id number] 46 on room air 06/08/2024
CHF-preserved EF, acute on chronic, proBNP 1300
LELAND
Hypertension-recent hypertensive emergency
DM type 2
Conditions present prior to admission:
Hypertension.
Hyperlipidemia.
Diabetes.
Chronic renal failure-diabetic nephropathy
Plan:
Pulmonary reconsulted 06/21/2024 for abnormal CAT scan and persistent leukocytosis.
Hypoxemic respiratory failure resolved, he is currently 98% room air.
Repeat imaging showing bilateral pleural effusions, there is increased weight in the last few days
83kg to 86kg, despite diuresis
Afebrile but persistent leukocytosis.
Completed antibiotic with Zosyn and also a course of steroids on 06/13/2024.
Suspect findings are more consistent with heart failure given bilateral pleural effusions.
I do not think there is infection present
Empirically started on antibiotic Unasyn on 06/20/2024 by primary team-low threshold to discontinue antibiotic
Try to obtain a sputum culture if possible
Continue to trend leukocytosis and temperature curve
Repeat proBNP remains high, PCWP shows persistent volume overload
This seems refractory to treatment
We discussed fluid intake restriction
Chest US showing moderate fluid/persistent
IR consult for rosenda-06/24/2024 pending
Will send for culture/cell count, rule out infection
Continue with cardiac management: on IV bumex BID
Cardiology evaluation noted-correspondence reviewed-push diuresis
Difficult to control hypertension.
Cath results/plan- 3v CAD noted with suboptimal targets;
Recent right heart cath consistent with volume overload.
Outpatient CT surgery evaluation for CAB
Nephrology following as well-creatinine has plateaued
Spironolactone increased
DVT prophylaxis-heparin subcu
Increase activity as able
Reviewed with nursing as well as family at the bedside

Diagnostic Data
Chest x-ray 06/08/2024-mild interstitial pulmonary edema
Chest x-ray 06/09/2024-interval improvement in bilateral interstitial pulm edema, focal area of hazy opacification inferior aspect right upper lobe, possible atelectasis both lower lungs
CT chest 06/08/2024-bilateral pulmonary opacifications consistent with CHF and small bilateral pleural effusions
Right Heart Catheterization, 06/13/2024:
1. Severely elevated filling pressures (PCWP = 25 mmHg at 79.8 kg).
2. Moderate postcapillary pulmonary hypertension (mean PA = 39 mmHg, PCWP = 25 mmHg, PVR = 2.73 Connolly units), WHO group 2.
3. Preserved cardiac function (cardiac index = 2.68 L/min/m�).
VQ Scan, 06/12/2024: Normal perfusion and ventilation. Very low probability for pulmonary embolism.
LE Duplex, 06/12/2024: No evidence of deep venous thrombosis of the lower extremities bilaterally
Renal US, 06/11/2024: No evidence of renal collecting system dilatation bilaterally.
Coronary angiography, 06/07/2004: Moderate mid and severe distal LAD lesions.D1 with severe proximal disease.Severe ostial, proximal, proximal and mid junction and distal circumflex lesions. Severe ostial and proximal OM 4 lesion.Severe mid ramus
lesions.RPDA is occluded with collaterals.RPL 3 with moderate to severe lesion.Mild to moderate disease in all other areas.Moderate to severely increased LVEDP.
TTE, 06/07/2024:LVEF 55 to 60%. Grade II DD.There is lipomatous hypertrophy of the interatrial septum.Trace tricuspid regurgitation
ECHO 06/10/24- Normal LV size and function with no regional wall motion abnormalities. LVEF is 55-60% by visual estimation. Moderate concentric LVH. Normal right ventricular size and function.
No significant valvular disease. Estimated pulmonary artery pressure of 38 mmHg. Assuming a right atrial pressure of 3 mmHg. No prior study available for comparison.
.
Subjective Data
-
Date of Service:
Date of Service: June 24, 2024
Chief Complaint: Pulmonary Follow Up (Abnormal chest x-ray/hypoxemic respiratory failure) and Dyspnea Follow Up
Subjective:
No complaints of worsening shortness of breath, no chest pain, productive cough
Review of Systems
General: Other (Per HPI)
Objective Data
Data Reviewed
Vital Signs / I&O:
Vital Signs
Temp Pulse Resp BP Pulse Ox
98 F 70 18 154/73 98
06/24/24 04:21 06/24/24 07:00 06/24/24 04:21 06/24/24 04:21 06/24/24 04:21
Intake and Output
06/23/24 06/24/24 06/25/24
06:59 06:59 06:59
Intake Total 600 / 600 600 / 600
Output Total 4125 / 4125 4350 / 4350
Balance -3525 / -3525 -3750 / -3750
SaO2: 98
Nasal Cannula flow liters per minute: 1
Physical Exam
General: Respiratory Distress (n), Comfortable and Other (NAD)
HEENT: Normocephalic, Anicteric and Moist Mucous Membranes
Cardiovascular: Regular Rhythm
Respiratory: Clear (Diminished at bases), Wheeze (n), Non-Labored Respirations, Accessory Resp Muscle Use (n) and Stridor (n)
GI: Soft, Non Distended and Non Tender
Neurology: Awake, Alert, Oriented, AO x 3 and No Motor Deficits
Skin: Warm, Good Color, Cyanosis (n) and Jaundice (n)
Labs/Micro/Reports
Lab Data
06/24/24 04:33
06/24/24 04:33
--- NOTE | 2024-06-24 09:49 | W.PN.CD ---
Addendum entered and electronically signed by Marlon Linder MD 06/24/24 10:32:
Reviewed with nephrology. Will increase Bumex. I have asked nursing to review fluid restriction with patient and family.
Original Note:
Today's Communication / Plan
-
Weight is not really falling
Do we need more diuretics, will review with nephrology
Impression / Plan
-
Impression/Plan: 58 yo male with PMH HTN, DM, CKD3b (Cr 1.5, December 2023) admitted to [facility] with hypertensive emergency and NSTEMI, subsequently transferred for CABG evaluation after cath revealed severe multivessel disease. The patient has also
developed respiratory insufficiency likely a combination of HFpEF, possible PNA (given low grade fever, leukocytosis), less likely vasculitis in the setting of nephrotic range proteinuria.
HFpEF, dry weight not determined, home diuretic regimen not determined
- Acute, severe, with cardiorenal syndrome
- Invasive and radiology studies most c/w heart failure:
- At cath Raji Askew 'Moderate to severely increased LVEDP'.
- Right heart cath here 06/13/2024: RA 12, PA 63/27, PCWP 25
- Likely due to a combination of CAD, long standing hypertension compounded by hypertensive emergency and LELAND on CKD
- continue carvedilol, hydralazine/isosorbide mononitrate (in place of ACEI/ARB/ARNi).
- Aldactone started by nephrology, (NOTE: Ethan to renin ratio is very elevated)
- Later when renal function at baseline. assess to add SGLT2i/MRA
- PCWP at 80 kg was elevated at 25; weight today 85.6 kg today.
- continue Bumex 2 mg IV BID.
- continue metolazone 5 mg daily.
- Must push aggressive diuresis; trend creatinine (will likely go up transiently)--Nephrology consulting as well
Abnormal CXR
- Likely heart failure and possible pneumonia.
- Diuresis as above.
- Antibiotics as per primary team.
LELAND on CKD 3B
- Peak Cr 2.8 (06/13/2024); 2.4 today
- Nephrology suspects contrast nephropathy
Abnormal light chains => per nephrology
Elevated Ethan:Renin Ratio
- Per nephrology
NSTEMI/Multivessel CAD
- Acute on chronic.
- LHC: The culprit RPDA appears small. There are tandem ostial/proximal LCx lesions as well as proximal Ramus lesions that are approachable, but there is concern about outflow (particularly in the LCx). The LAD is free from proximal disease.
There is some distal LAD disease.
- No role for percutaneous intervention.
- The patient is scheduled for outpatient CABG evaluation. In the mean time, we will manage this disease medically.
- Continue carvedilol, aspirin, clopidogrel and rosuvastatin
- CT Surgery eval as outpatient
HTN
- Currently on carvedilol 25 mg BID, hydralazine 100mg tid, and doxazosin, Imdur
-increased Imdur (now 60mg daily) and doxazosin (now 2mg qHS) on 06/22
- Elevated Ethan to renin ratio => nephrology started Aldactone
DM, Probably type II, insulin requiring
-Chronic, uncontrolled.
-HbA1c = 11.3%.
-SGLT2 on hold in the setting of LELAND.
Mixed hyperlipidemia, Chronic
- Lipid panel 06/06/2024: TC 266, HDL 41, LDL 172, TG 267.
- atorvastatin 40 mg => rosuvastatin 40 mg daily.
Subjective/Interval History:
Off O2 now and feeling better
Data:
Right Heart Catheterization, 06/13/2024:
1. Severely elevated filling pressures (PCWP = 25 mmHg at 79.8 kg).
2. Moderate postcapillary pulmonary hypertension (mean PA = 39 mmHg, PCWP = 25 mmHg, PVR = 2.73 Connolly units), WHO group 2.
3. Preserved cardiac function (cardiac index = 2.68 L/min/m�).
VQ Scan, 06/12/2024: Normal perfusion and ventilation. Very low probability for pulmonary embolism.
LE Duplex, 06/12/2024: No evidence of deep venous thrombosis of the lower extremities bilaterally
Renal US, 06/11/2024: No evidence of renal collecting system dilatation bilaterally.
TTE, 06/10/2024:
Normal LV size and function with no regional wall motion abnormalities.
LVEF is 55-60% by visual estimation.
Moderate concentric LVH.
Normal right ventricular size and function.
No significant valvular disease.
Estimated pulmonary artery pressure of 38 mmHg. Assuming a right atrial
pressure of 3 mmHg.
No prior study available for comparison.
Coronary angiography, 06/07/2024:
Moderate mid and severe distal LAD lesions.
D1 with severe proximal disease.
Severe ostial, proximal, proximal and mid junction and distal circumflex lesions.
Severe ostial and proximal OM 4 lesion.
Severe mid ramus lesions.
RPDA is occluded with collaterals.
RPL 3 with moderate to severe lesion.
Mild to moderate disease in all other areas.
Moderate to severely increased LVEDP.
TTE, 06/07/2024:
LVEF 55 to 60%. Grade II DD.
There is lipomatous hypertrophy of the interatrial septum.
Trace tricuspid regurgitation.
Physical Exam
Vital Signs/Labs
Vital Signs
Temp Pulse Resp BP Pulse Ox
98 F 70 18 154/73 98
06/24/24 04:21 06/24/24 07:00 06/24/24 04:21 06/24/24 04:21 06/24/24 09:45
06/23/24 06/24/24 06/25/24
06:59 06:59 06:59
Actual Weight 85.6 kg
06/24/24 04:33
06/24/24 04:33
PT 13.6 Sec (11.4-14.6) 06/09/24 02:51
INR 1.06 06/09/24 02:51
APTT 91.8 Sec (23.4-35.0) H 06/11/24 04:22
Magnesium 2.3 mg/dl (1.6-2.3) 06/24/24 04:33
TSH 1.47 uIU/ml (0.47-4.68) 06/22/24 03:33
06/08/24 06/21/24
11:46 11:47
Bpd-D-Mdkjmjnhbel Pept 1300 1130
Physical Exam
Constitutional: No acute distress
EENT: Anicteric
Cardiovascular: Rhythm & rate is regular and Pedal edema present (tr to 1+)
Respiratory: Respiratory effort normal, Lungs clear to auscul. (decreased at bases) and Crackles Absent
GI: Soft and Distention absent
Neuro/Psych: AO x 3
Data Reviewed
-
Date of Service: June 24, 2024
--- NOTE | 2024-06-24 09:53 | W.PN.NEPH.PH ---
Today's Communication / Plan
-
increase spironolactone
Assessment/Plan
-
Assessment
CKD 3B (December 2023)
LELAND
Diabetes mellitus type 2
Hypertension
Hyperlipidemia
Diffuse CAD
nephrotic proteinuria 6.4gm/gm of cr
Plan
follow BMP
diureses continues
increase aldactone
-
-
Date of Service: June 24, 2024
CC / HPI / ROS
-
Chief Complaint:
LELAND/CKD
History of Present Illness:
LELAND/Cr stable at 2.5
K stable 3.6
BP high stable
diuresing slowly for decomepnsated HF
Review of Systems:
no fevers
no CP
no n/v
Labs
-
Labs:
WBC 15.8 10^3/uL (4.8-10.8) H 06/24/24 04:33
RBC 3.31 10^6/uL (4.70-6.10) L 06/24/24 04:33
Hgb 9.1 g/dL (13.0-18.0) L 06/24/24 04:33
Hct 26.9 % (39.0-52.0) L 06/24/24 04:33
Plt Count 397 10^3/uL (130-400) 06/24/24 04:33
Sodium 137 mmol/L (135-145) 06/24/24 04:33
Potassium 3.6 mmol/L (3.5-5.1) 06/24/24 04:33
Chloride 98 mmol/L (98-107) 06/24/24 04:33
Carbon Dioxide 28 mmol/L (22-30) 06/24/24 04:33
BUN 58 mg/dl (9-20) H 06/24/24 04:33
Creatinine 2.5 mg/dL (0.7-1.3) H 06/24/24 04:33
eGFR 29.05 06/24/24 04:33
Glucose 190 mg/dl (70-99) H 06/24/24 04:33
Calcium 8.8 mg/dl (8.4-10.2) 06/24/24 04:33
Ljo-O-Bjjfnkgqfze Pept 1130 pg/ml 06/21/24 11:47
Albumin 2.9 g/dl (3.5-5.0) L 06/20/24 04:48
Physical Exam
-
Vital Signs:
Vital Signs
Temp Pulse Resp BP Pulse Ox
98 F 70 18 154/73 98
06/24/24 04:21 06/24/24 07:00 06/24/24 04:21 06/24/24 04:21 06/24/24 09:45
Cardiovascular:: Regular rate and rhythm
Respiratory:: Bilateral: Coarse
Lung Excursion:: Normal
Abdomen:: Nontender and Soft
Bowel Sounds:: Normal
Extremity Edema:: None: Bilateral:
--- NOTE | 2024-06-24 11:00 | PTCARENOTE ---
IRAD note: Patient had Right Thoracentesis. Patient is Romanian speaking. used ball maker for teaching, consent and instructions through out the procedure. Tolerated Procedure well.
[2024-06-24 11:18] LABS: Body Fluid pH 7.53
[2024-06-24 11:31] LABS: Body Fluid Mononuclear 97.6 %; Body Fluid Polymorphonuclear 2.4 %; Body Fluid WBC 496 /CUMM
[2024-06-24 11:32] LABS: Body Fluid Second Tech EM
[2024-06-24 11:41] LABS: Body Fluid Glucose 187 mg/dl; Body Fluid LDH 109 U/L; Body Fluid Protein < 2.0 g/dl
--- NOTE | 2024-06-24 11:48 | PTCARENOTE ---
Pt returned from IR, s/p R thoracentesis, bandaid to R back dry and intact. A,A+O, offers no complaints.
[2024-06-24 12:23] LABS: Glucose - Point of Care 191 mg/dl (70-99)
[2024-06-24] MEDS: NOVOLOG FLEXPEN 25 UNITS SC ×2 (12:52→18:18)
--- NOTE | 2024-06-24 13:27 | CM ---
Chart reviewed. Patient still be diuresed. Patient is independent of ADLS, lives with his in a apartment, 4 ARASH, 0 DME. Plan is for the patient to return home with Immediate VN. CM to follow
[2024-06-24 18:10] LABS: Glucose - Point of Care 290 mg/dl (70-99)
[2024-06-24] MEDS: CRESTOR 40 MG PO (18:17)
[2024-06-24] MEDS: NOVOLOG FLEXPEN-MODERATE RESISTANCE 5 UNITS SC (18:17)
--- NOTE | 2024-06-24 20:52 | PTCARENOTE ---
assessment as documented, VSS no complaints. Family/friends at bedside to interpret. Reinforced Fluid restriction
[2024-06-24] MEDS: IMDUR (EXTENDED RELEASE) 30 MG PO (22:52)
[2024-06-24] MEDS: MELATONIN 5 MG PO (22:52)
[2024-06-24] MEDS: LANTUS 0.37 UNITS SC (22:53)
[2024-06-24 22:58] LABS: Glucose - Point of Care 341 mg/dl (70-99)
[2024-06-24] MEDS: MIRALAX 17 GRAMS PO (23:07)
[2024-06-25] VITALS (8 sets, daily range): BP systolic 137–167; BP diastolic 67–81; BMI 29.1
--- NOTE | 2024-06-25 01:25 | PTCARENOTE ---
Assumed care of pt at 2245. Reinforced fluid restriction and restricted salt intake and stressed importance w/ pt and significant other. Further reinforcement will be needed. Pt denies any CP or SOB.
[2024-06-25 04:41] LABS: % Basophils 0.3 % (0-2); % Eosinophils 1.4 % (0-6); % Immature Granulocytes 0.7 % (0-0.5); % Lymphocytes 16.6 % (20.5-51.1); % Monocytes 8.1 % (1.7-9.3); % Neutrophils 72.9 % (42.2-75.2); Absolute Basophils 0.1 10^3/uL (0-0.2); Absolute Eosinophils 0.2 10^3/uL (0-0.7); Absolute Immature Granulocytes 0.1 10^3/uL (0-0.05); Absolute Lymphocytes 2.5 10^3/uL (1.2-3.4); Absolute Monocytes 1.2 10^3/uL (0.1-0.6); Hematocrit 28.2 % (39.0-52.0); Hemoglobin 9.6 g/dL (13.0-18.0); Mean Corpuscular Hgb 27.7 pg (27.0-31.0); Mean Corpuscular Volume 81.3 fL (80.0-94.0); Mean Platelet Volume 10.3 fL (7.4-10.4); Nucleated Red Blood Cells % 0 % (-); Platelet Count 414 10^3/uL (130-400); Red Blood Cell Count 3.47 10^6/uL (4.70-6.10); Red Cell Dist. Width 13.2 % (11.5-14.5); White Blood Cell Count 15.1 10^3/uL (4.8-10.8)
[2024-06-25 04:59] LABS: ALT (SGPT) 25 U/L (0-50); AST (SGOT) 19 U/L (17-59); Alkaline Phosphatase 96 U/L (38-126); Blood Urea Nitrogen 65 mg/dl (9-20); Calcium 9.1 mg/dl (8.4-10.2); Carbon Dioxide 29 mmol/L (22-30); Chloride 95 mmol/L (98-107); Estimated Creatinine Clearance 25 ml/min; Glucose 260 mg/dl (70-99); Sodium 135 mmol/L (135-145); Total Bilirubin 0.3 mg/dl (0.2-1.3); Total Protein 5.9 g/dl (6.3-8.2); eGFR 23.34
[2024-06-25 08:00] LABS: Glucose - Point of Care 173 mg/dl (70-99)
--- NOTE | 2024-06-25 08:33 | W.PN.CD ---
Today's Communication / Plan
-
One more day of TID IV Bumex
Check room air and ambulatory O2 sats
If O2 sats good we may have achieved enough diuresis
Impression / Plan
-
Impression/Plan: 58 yo male with PMH HTN, DM, CKD3b (Cr 1.5, December 2023) admitted to [facility] with hypertensive emergency and NSTEMI, subsequently transferred for CABG evaluation after cath revealed severe multivessel disease. The patient has also
developed respiratory insufficiency likely a combination of HFpEF, possible PNA (given low grade fever, leukocytosis), less likely vasculitis in the setting of nephrotic range proteinuria.
HFpEF, dry weight not determined, home diuretic regimen not determined
- Acute, severe, with cardiorenal syndrome
- Invasive and radiology studies most c/w heart failure:
- At cath Raji Askew 'Moderate to severely increased LVEDP'.
- Right heart cath here 06/13/2024: RA 12, PA 63/27, PCWP 25
- Likely due to a combination of CAD, long standing hypertension compounded by hypertensive emergency and LELAND on CKD
- continue carvedilol, hydralazine/isosorbide mononitrate (in place of ACEI/ARB/ARNi).
- Aldactone started by nephrology, (NOTE: Ethan to renin ratio is very elevated)
- Later when renal function at baseline. assess to add SGLT2i/MRA
- PCWP at 80 kg was elevated at 25; weight today 84.1 kg today.
- continue Bumex 2 mg IV TID one more day
- continue metolazone 5 mg daily.
- Must push aggressive diuresis; trend creatinine (will likely go up transiently)--Nephrology consulting as well
Abnormal CXR
- Likely heart failure and possible pneumonia.
- Diuresis as above.
- Antibiotics as per primary team.
- Right thoracentesis 06/24/2024 => now looks like just small bilateral effusions
LELAND on CKD 3B
- Peak Cr 2.8 (06/13/2024); lowest was 1.8 on 06/20/2024. Today (06/25/2024: 3)
Abnormal light chains => per nephrology
Elevated Ethan:Renin Ratio
- Per nephrology
NSTEMI/Multivessel CAD
- Acute on chronic.
- LHC: The culprit RPDA appears small. There are tandem ostial/proximal LCx lesions as well as proximal Ramus lesions that are approachable, but there is concern about outflow (particularly in the LCx). The LAD is free from proximal disease.
There is some distal LAD disease.
- No role for percutaneous intervention.
- The patient is scheduled for outpatient CABG evaluation. In the mean time, we will manage this disease medically.
- Continue carvedilol, aspirin, clopidogrel and rosuvastatin
- CT Surgery eval as outpatient
HTN
- Currently on carvedilol 25 mg BID, hydralazine 100mg tid, and doxazosin, Imdur
-increased Imdur (now 60mg daily) and doxazosin (now 2mg qHS) on 06/22
- Elevated Ethan to renin ratio => nephrology started Aldactone
DM, Probably type II, insulin requiring
-Chronic, uncontrolled.
-HbA1c = 11.3%.
-SGLT2 on hold in the setting of LELAND.
Mixed hyperlipidemia, Chronic
- Lipid panel 06/06/2024: TC 266, HDL 41, LDL 172, TG 267.
- atorvastatin 40 mg => rosuvastatin 40 mg daily.
Subjective/Interval History:
Off O2 now and feeling better
Data:
Right Heart Catheterization, 06/13/2024:
1. Severely elevated filling pressures (PCWP = 25 mmHg at 79.8 kg).
2. Moderate postcapillary pulmonary hypertension (mean PA = 39 mmHg, PCWP = 25 mmHg, PVR = 2.73 Connolly units), WHO group 2.
3. Preserved cardiac function (cardiac index = 2.68 L/min/m�).
VQ Scan, 06/12/2024: Normal perfusion and ventilation. Very low probability for pulmonary embolism.
LE Duplex, 06/12/2024: No evidence of deep venous thrombosis of the lower extremities bilaterally
Renal US, 06/11/2024: No evidence of renal collecting system dilatation bilaterally.
TTE, 06/10/2024:
Normal LV size and function with no regional wall motion abnormalities.
LVEF is 55-60% by visual estimation.
Moderate concentric LVH.
Normal right ventricular size and function.
No significant valvular disease.
Estimated pulmonary artery pressure of 38 mmHg. Assuming a right atrial
pressure of 3 mmHg.
No prior study available for comparison.
Coronary angiography, 06/07/2024:
Moderate mid and severe distal LAD lesions.
D1 with severe proximal disease.
Severe ostial, proximal, proximal and mid junction and distal circumflex lesions.
Severe ostial and proximal OM 4 lesion.
Severe mid ramus lesions.
RPDA is occluded with collaterals.
RPL 3 with moderate to severe lesion.
Mild to moderate disease in all other areas.
Moderate to severely increased LVEDP.
TTE, 06/07/2024:
LVEF 55 to 60%. Grade II DD.
There is lipomatous hypertrophy of the interatrial septum.
Trace tricuspid regurgitation.
Physical Exam
Vital Signs/Labs
Vital Signs
Temp Pulse Resp BP Pulse Ox
96.8 F L 61 14 157/73 97
06/25/24 08:02 06/25/24 08:00 06/25/24 08:02 06/25/24 07:58 06/25/24 08:02
06/24/24 06/25/24 06/26/24
06:59 06:59 06:59
Actual Weight 84.1 kg
06/25/24 04:05
06/25/24 04:05
PT 13.6 Sec (11.4-14.6) 06/09/24 02:51
INR 1.06 06/09/24 02:51
APTT 91.8 Sec (23.4-35.0) H 06/11/24 04:22
Magnesium 2.3 mg/dl (1.6-2.3) 06/24/24 04:33
TSH 1.47 uIU/ml (0.47-4.68) 06/22/24 03:33
06/08/24 06/21/24
11:46 11:47
Qoq-E-Dofrwwsxxdp Pept 1300 1130
Physical Exam
Constitutional: No acute distress
EENT: Anicteric
Cardiovascular: Rhythm & rate is regular and Pedal edema present (improved )
Respiratory: Respiratory effort normal and Crackles Present
GI: Soft and Distention absent
Neuro/Psych: Alert
Data Reviewed
-
Date of Service: June 25, 2024
--- NOTE | 2024-06-25 08:50 | PN.DE.MGMTRT ---
Insulin Management
- -
06/25/2024: Diabetes Management Follow up:
Patient admitted 06/08 from [facility] with c/o MORENO, elevated BP, NSTEMI.
PMH: HTN, HLD, T2DM, CKD 3b. Prior to admission was taking Januvia 100 mg daily, Jardiance 10 mg daily and metformin 1000 BID A1C on admission 11.5%, cr 2.4, eGFR 30.51. Patient has been seen daily since 06/10 for diabetes education for insulin
instruction and has done well with self injection with nursing supervision.
Pt awake, A/O x3, sitting up in chair, at bedside, able to discuss diabetes management.
Oral meds being held due to elevated cr, 3.0, eGFR 23.34 today.
Noted for persistent Hyperglycemia due to outside food consumption brought in by family. There is a table to the side of the room full of fruits and all kinds of food from home.
Advised family again to please limit home foods as this is contributing to hyperglycemia making it difficult to get glucose under control.
06/24 Glucose range 154 to 341, requiring additional corrective insulin with meals. HS glucose 341, received 37 units Lantus, fasting this AM 173.
Will continue AC NovoLog to 25 units and increase HS Lantus to 40 units. Cont moderate corrective insulin with meals.
Will make further insulin adjustments if needed.
Diabetes History
- -
Type of Diabetes: 2 requiring insulin
Pre-Admission Diabetes Regimen
06/25/24
04:05
Creatinine 3.0 H
Lab Results
Hemoglobin A1c 11.5 % (4.0-5.6) H 06/09/24 02:51
Insulin Pump Settings
IP Diabetes Regimen
06/24/24 06/24/24 06/24/24
12:21 18:09 22:57
Glucose
POC Glucose 191 H 290 H 341 H
06/25/24 06/25/24
04:05 07:59
Glucose 260 H
POC Glucose 173 H
Patient Education
[2024-06-25] MEDS: LOW STRENGTH ASPIRIN 81 MG PO (09:33)
[2024-06-25] MEDS: IMDUR (EXTENDED RELEASE) 60 MG PO (09:33)
[2024-06-25] MEDS: AUGMENTIN 875 MG/125 MG 1 TABLET PO (09:34)
[2024-06-25] MEDS: APRESOLINE 100 MG PO ×3 (09:34→21:24)
[2024-06-25] MEDS: NORVASC 10 MG PO (09:35)
[2024-06-25] MEDS: ALDACTONE 12.5 MG PO ×2 (09:36→16:13)
[2024-06-25] MEDS: PLAVIX 75 MG PO (09:36)
[2024-06-25] MEDS: COREG 25 MG PO ×2 (09:37→19:32)
[2024-06-25] MEDS: BUMEX 2 MG IV ×3 (09:38→21:23)
[2024-06-25] MEDS: HEPARIN 5000 UNITS SC ×2 (09:38→19:32)
[2024-06-25] MEDS: NOVOLOG FLEXPEN-MODERATE RESISTANCE 1 UNITS SC (09:40)
[2024-06-25] MEDS: NOVOLOG FLEXPEN 25 UNITS SC ×3 (09:40→17:42)
[2024-06-25] MEDS: ZAROXOLYN 5 MG PO (09:49)
--- NOTE | 2024-06-25 10:17 | W.PN.PUL.V3 ---
Today's Communication / Plan
-
Wean oxygen
Increase activity
Increase diuresis
Thoracentesis consistent with transudate
Assessment
-
58-year-old Citizen Of [place] and this [place] and Farsi speaking gentleman with a history of hypertension, hyperlipidemia, diabetes who presented with hypertensive emergency with elevated troponins to an outlying hospital and was transferred for CABG
evaluation after multivessel coronary artery disease was noted-pulmonary was consulted for shortness of breath and hypoxemia 06/09/2024.
Hypoxemic respiratory sufficiency
Abnormal CT chest 06/20/2024-bilateral effusions/groundglass opacity/compressive atelectasis-suspect mostly related to decompensated heart failure.
Persistent
CAD/NSTEMI-multivessel CAD for CABG eval
Respiratory [id number] 46 on room air 06/08/2024
CHF-preserved EF, acute on chronic, proBNP 1300
Pleural effusions-bilateral
Status post right thoracentesis 06/24/24--1200 mL clear fluid
LELAND
Hypertension-recent hypertensive emergency
DM type 2
Conditions present prior to admission:
Hypertension.
Hyperlipidemia.
Diabetes.
Chronic renal failure-diabetic nephropathy
Plan:
Pulmonary reconsulted 06/21/2024 for abnormal CAT scan and persistent leukocytosis.
Hypoxemic respiratory failure resolved, he is currently 98% room air.
Repeat imaging showing bilateral pleural effusions, there is increased weight in the last few days
83kg to 86kg, despite diuresis
Afebrile but persistent leukocytosis.
Completed antibiotic with Zosyn and also a course of steroids on 06/13/2024.
Suspect findings are more consistent with heart failure given bilateral pleural effusions.
I do not think there is infection present
Empirically started on antibiotic Unasyn on 06/20/2024 by primary team-low threshold to discontinue antibiotic
Try to obtain a sputum culture if possible
Continue to trend leukocytosis and temperature curve
Chest US showing moderate fluid/persistent
Right thoracentesis 06/24/24--1200 mL-clear fluid, pH 7.5, WBC 496, glucose 187, total protein less than 2, LDH 109-transudate, cultures negative, cytology pending
Continue with cardiac management: on IV bumex
Cardiology evaluation noted-correspondence reviewed-push diuresis some more
Difficult to control hypertension.
Cath results/plan- 3v CAD noted with suboptimal targets;
Recent right heart cath consistent with volume overload.
Outpatient CT surgery evaluation for CAB
Nephrology following as well-creatinine has plateaued
Spironolactone increased yesterday
DVT prophylaxis-heparin subcu
Increase activity as able
Reviewed with nursing as well as family at the bedside

Diagnostic Data
Chest x-ray 06/08/2024-mild interstitial pulmonary edema
Chest x-ray 06/09/2024-interval improvement in bilateral interstitial pulm edema, focal area of hazy opacification inferior aspect right upper lobe, possible atelectasis both lower lungs
CT chest 06/08/2024-bilateral pulmonary opacifications consistent with CHF and small bilateral pleural effusions
Right Heart Catheterization, 06/13/2024:
1. Severely elevated filling pressures (PCWP = 25 mmHg at 79.8 kg).
2. Moderate postcapillary pulmonary hypertension (mean PA = 39 mmHg, PCWP = 25 mmHg, PVR = 2.73 Connolly units), WHO group 2.
3. Preserved cardiac function (cardiac index = 2.68 L/min/m�).
VQ Scan, 06/12/2024: Normal perfusion and ventilation. Very low probability for pulmonary embolism.
LE Duplex, 06/12/2024: No evidence of deep venous thrombosis of the lower extremities bilaterally
Renal US, 06/11/2024: No evidence of renal collecting system dilatation bilaterally.
Coronary angiography, 06/07/2004: Moderate mid and severe distal LAD lesions.D1 with severe proximal disease.Severe ostial, proximal, proximal and mid junction and distal circumflex lesions. Severe ostial and proximal OM 4 lesion.Severe mid ramus
lesions.RPDA is occluded with collaterals.RPL 3 with moderate to severe lesion.Mild to moderate disease in all other areas.Moderate to severely increased LVEDP.
TTE, 06/07/2024:LVEF 55 to 60%. Grade II DD.There is lipomatous hypertrophy of the interatrial septum.Trace tricuspid regurgitation
ECHO 06/10/24- Normal LV size and function with no regional wall motion abnormalities. LVEF is 55-60% by visual estimation. Moderate concentric LVH. Normal right ventricular size and function.
No significant valvular disease. Estimated pulmonary artery pressure of 38 mmHg. Assuming a right atrial pressure of 3 mmHg. No prior study available for comparison.
.
Subjective Data
-
Date of Service:
Date of Service: June 25, 2024
Chief Complaint: Pulmonary Follow Up (Abnormal chest x-ray/hypoxemic respiratory failure) and Dyspnea Follow Up
Subjective:
Feels better, less short of breath, no chest pain or abdominal pain
Review of Systems
General: Other (Per HPI)
Objective Data
Data Reviewed
Vital Signs / I&O:
Vital Signs
Temp Pulse Resp BP Pulse Ox
96.8 F L 61 14 157/73 97
06/25/24 08:02 06/25/24 08:00 06/25/24 08:02 06/25/24 07:58 06/25/24 08:02
Intake and Output
06/24/24 06/25/24 06/26/24
06:59 06:59 06:59
Intake Total 600 / 600
Output Total 4350 / 4350 2650 / 2650
Balance -3750 / -3750 -2650 / -2650
SaO2: 97
Nasal Cannula flow liters per minute: 1
Physical Exam
General: Respiratory Distress (n), Comfortable and Other (NAD)
HEENT: Normocephalic, Anicteric and Moist Mucous Membranes
Cardiovascular: Regular Rhythm
Respiratory: Clear (Diminished at bases), Wheeze (n), Non-Labored Respirations, Accessory Resp Muscle Use (n) and Stridor (n)
GI: Soft, Non Distended and Non Tender
Neurology: Awake, Alert, Oriented, AO x 3 and No Motor Deficits
Skin: Warm, Good Color, Cyanosis (n) and Jaundice (n)
Labs/Micro/Reports
Lab Data
06/25/24 04:05
06/25/24 04:05
Microbiology
06/24/24 10:53 Pleural Fluid Body Fluid Culture - Preliminary
No Growth After 18-24 Hours
06/24/24 10:53 Pleural Fluid Gram Stain - Preliminary
--- NOTE | 2024-06-25 10:18 | W.PN.NEPH.PH ---
Today's Communication / Plan
-
follow BMP
Assessment/Plan
-
Assessment
CKD 3B (December 2023)
LELAND
Diabetes mellitus type 2
Hypertension
Hyperlipidemia
Diffuse CAD
nephrotic proteinuria 6.4gm/gm of cr
Plan
follow BMP
diureses continues
If Cr rises further will need to slow diuresis
-
-
Date of Service: June 25, 2024
CC / HPI / ROS
-
Chief Complaint:
LELAND/CKD
History of Present Illness:
LELAND/Cr worse to 3
K stable 4
BP high stable
diuresing slowly for decompensated HF
Review of Systems:
no fevers
no CP
no n/v
Labs
-
Labs:
WBC 15.1 10^3/uL (4.8-10.8) H 06/25/24 04:05
RBC 3.47 10^6/uL (4.70-6.10) L 06/25/24 04:05
Hgb 9.6 g/dL (13.0-18.0) L 06/25/24 04:05
Hct 28.2 % (39.0-52.0) L 06/25/24 04:05
Plt Count 414 10^3/uL (130-400) H 06/25/24 04:05
Sodium 135 mmol/L (135-145) 06/25/24 04:05
Potassium 4.0 mmol/L (3.5-5.1) 06/25/24 04:05
Chloride 95 mmol/L (98-107) L 06/25/24 04:05
Carbon Dioxide 29 mmol/L (22-30) 06/25/24 04:05
BUN 65 mg/dl (9-20) H 06/25/24 04:05
Creatinine 3.0 mg/dL (0.7-1.3) H 06/25/24 04:05
eGFR 23.34 06/25/24 04:05
Glucose 260 mg/dl (70-99) H 06/25/24 04:05
Calcium 9.1 mg/dl (8.4-10.2) 06/25/24 04:05
Fen-P-Dvvbiyhnbzm Pept 1130 pg/ml 06/21/24 11:47
Albumin 3.0 g/dl (3.5-5.0) L 06/25/24 04:05
Physical Exam
-
Vital Signs:
Vital Signs
Temp Pulse Resp BP Pulse Ox
96.8 F L 61 14 157/73 97
06/25/24 08:02 06/25/24 08:00 06/25/24 08:02 06/25/24 07:58 06/25/24 10:17
Cardiovascular:: Regular rate and rhythm
Respiratory:: Bilateral: CTA
Lung Excursion:: Normal
Abdomen:: Nontender and Soft
Bowel Sounds:: Normal
Extremity Edema:: +1: Bilateral:
--- NOTE | 2024-06-25 10:57 | CM ---
Chart reviewed. Patient is independent of ADLS, lives with his and son and daughter in a apartment, 4 [address]ASH, 0 DME. Plan is for the patient to return home with Immediate VN. CM to follow
[2024-06-25 12:45] LABS: Glucose - Point of Care 294 mg/dl (70-99)
[2024-06-25] MEDS: NOVOLOG FLEXPEN-MODERATE RESISTANCE 5 UNITS SC ×2 (12:48→17:43)
--- NOTE | 2024-06-25 13:01 | W.PN.HOSP.TC ---
Today's Communication/Plan
-
Respiratory status improved with thoracentesis.
Has been off oxygen
Home O2 assessment
Continue IV diuresis with Bumex in addition to Zaroxolyn.
Monitor BP. Send adjust insulin regimen
Discharge planing
Assessment / Plan
Assessment / Plan
Impression
58yo M with PMHx of HTN, DM transferred from [facility] for hypertensive emergency and NSTEMI with cardiac cath done showing multivessel disease. He was planned for CABG eval. FOund CHF exacerbation and pneumonia with mild COPD, completed ABx and
Prednisone on 06/13/24, continued on diuresis. Also with LELAND and elevated ARR so Spironolactone added. B/L moderate pleural effusions planned for thoracentesis by pulm
Acute hypoxic respiratory failure
Acute CHF preserved EF.
I had pleural effusion baseline�status post thoracentesis on 06/24 400 mL transudate.
Multifocal infiltrate with fever, presumed pneumonia.
CAD, acute coronary syndrome non-STEMI.
Hypertensive emergency.
Acute kidney injury
Increased anion gap metabolic acidosis
Conditions prior to admission:
CKD stage IIIb.
Type 2 diabetes poorly controlled with hemoglobin A1c 11.5.
Dyslipidemia.
Plan:
Acute hypoxic respiratory failure likely multifactorial with CHF/pulmonary edema and right lower lobe pneumonia.
Acute pulmonary edema
Respiratory status is improving we will try to wean off supplemental oxygen on 06/13
Reported preserved LV function by outside echo on 06/07
Echocardiogram 06/10: Normal LV size and function with LVEF 55 to 60%. Regional wall motion abnormalities./LVH PAP 38 mmHg.
Recent cath with evidence of volume overload
RHC with severely elevated filling pressures (PCWP 25 mmHg).
Diuresis as per cardiology monitor renal function
Right pleural effusion.
Status post thoracentesis 06/24 1200 mL transudate
Low-grade fever
COVID-[address] scan, follow-up chest x-ray with multifocal infiltrate.
? If nosocomial versus community-acquired pneumonia
Hypoxic, although with minimal cough and expectoration.
Completed total 5-day course of Zosyn 06/13
Initiated on prednisone, discontinued after 24 hours on 06/12
Lower extremity Doppler negative for DVT
VQ scan low probability
Follow-up chest x-ray postthoracentesis with no focal infiltrate.
Okay to stop antibiotics
Non-STEMI
Status post cath with multivessel CAD.
Transferred for CABG evaluation. Currently on hold given fever, pneumonia, LELAND. OP CABG eval
Continue aspirin
Transition off heparin drip to Plavix.
Coreg/Imdur/statin
Hypertensive urgency
Untreated hypertension
Hyperaldosteronism
Current antihypertensive regimen including Norvasc, Coreg, hydralazine, Imdur, spironolactone
Acute kidney injury. Suspect contrast-induced nephropathy
Acute metabolic acidosis.
CKD stage IIIb?
Nephrotic range proteinuria
Rising creatinine at 2.8 improved down to 1.9-2.0-3.0
? If cardiorenal state, recent contrast exposure
No evidence for retention
Renal sonogram with no abnormalities.
Hold nephrotoxic agents including ARB, metformin, SGLT2
Poorly controlled diabetes.
Hemoglobin A1c 11.5.
Off metformin and SGLT2 given LELAND with metabolic acidosis.
Continue insulin basal bolus with serial Accu-Cheks. Currently on moderate dose
Initiated on Lantus/NovoLog AC/basal bolus protocol. Adjust dosing with expected steroid-induced hyperglycemia. increase lantus to 33 units, aspart 20 units AC
Dyslipidemia
Most current LDL 05/1900 and 7012
Continue escalated dose of rosuvastatin 40 mg daily.
Persistent headache. Improved with better blood pressure control.
Describes right-sided headache mostly shortly after taking blood pressure medications in the morning resolving with Tylenol
No focal findings on neurologic exam
CT scan of the head with no acute abnormalities
Recent carotid ultrasound with no hemodynamically significant stenosis
Anticipated Discharge: 24 - 48 hours
Subjective/Interval History
-
Date of Service: June 25, 2024
Objective Data
-
Labs:
Laboratory Results
06/25/24
04:05
WBC 15.1 H
Hgb 9.6 L
Hct 28.2 L
Plt Count 414 H
Sodium 135
Potassium 4.0
Chloride 95 L
Carbon Dioxide 29
BUN 65 H
Creatinine 3.0 H
Glucose 260 H
Calcium 9.1
Total Bilirubin 0.3
AST 19
ALT 25
Alkaline Phosphatase 96
Vital Signs:
Vital Signs
Temp Pulse Resp BP Pulse Ox
97.7 F 64 16 157/73 92
06/25/24 11:44 06/25/24 11:44 06/25/24 11:44 06/25/24 07:58 06/25/24 11:44
I&O
06/24/24 06/25/24 06/26/24
06:59 06:59 06:59
Intake Total 600 / 600
Output Total 4350 / 4350 2650 / 2650
Balance -3750 / -3750 -2650 / -2650
Physical Exam
-
General: Well Developed and No Apparent Distress
HEENT: Normocephalic, Atraumatic and Moist Mucous Membranes
Respiratory: Clear to Auscultation
Cardiac: Regular Rhythm and S1/S2; Negative Murmur, Rub or Gallop
GI: Soft, Nontender, Nondistended and Normal Bowel Sounds; Negative Organomegaly
Rectal: Deferred by Provider
Musculoskeletal: No Clubbing, No Cyanosis and No Edema
Skin: Negative Rash
Neuro: Nonfocal/Grossly Intact
--- NOTE | 2024-06-25 13:57 | PTCARENOTE ---
O2 sat at rest 93-94% on room air. O2 sat with ambulation 91-93% on room air.
[2024-06-25 15:26] LABS: Free Kappa Light Chains,Quant 133.04 mg/L (3.30-19.40); Free Lambda Light Chains,Quant 45.66 mg/L (5.71-26.30); Kappa/Lambda Fr Light Ratio 2.91 (0.26-1.65)
[2024-06-25 17:42] LABS: Glucose - Point of Care 251 mg/dl (70-99)
[2024-06-25] MEDS: CRESTOR 40 MG PO (17:42)
--- NOTE | 2024-06-25 18:16 | PTCARENOTE ---
Pt has been off O2 all day, O2 sat 92-94% RA. Pt states his breathing is feeling much better.
[2024-06-25 21:20] LABS: Glucose - Point of Care 96 mg/dl (70-99)
[2024-06-25] MEDS: MELATONIN PO (21:24)
[2024-06-25] MEDS: IMDUR (EXTENDED RELEASE) 30 MG PO (21:24)
--- NOTE | 2024-06-25 22:42 | PTCARENOTE ---
Pt glucose was 96 and NEWSPAPER MANAGER [employer] functional analyst notified. Supervisor Telephone Answering Service order 15 unit Lantan and pt refuse HS Lantas. He been having problems swallowing since AM. He has a bitter/ acidic taste from eating apples earlier, like there is something stuck in his throat. Pt was
informed if he continues to have swallowing issues to let RN know.
[2024-06-26 04:34] VITALS: BP 143/71
[2024-06-26 04:41] VITALS: BMI 28.2
[2024-06-26 05:59] LABS: Blood Urea Nitrogen 75 mg/dl (9-20); Calcium 9.3 mg/dl (8.4-10.2); Carbon Dioxide 29 mmol/L (22-30); Chloride 94 mmol/L (98-107); Estimated Creatinine Clearance 25 ml/min; Glucose 134 mg/dl (70-99); Potassium 4.2 mmol/L (3.5-5.1); Sodium 137 mmol/L (135-145); eGFR 23.34
--- NOTE | 2024-06-26 07:09 | PN.DE.MGMTRT ---
Insulin Management
- -
06/26/2024: Diabetes Management Follow up:
Patient admitted 06/08 from [facility] with c/o MORENO, elevated BP, NSTEMI.
PMH: HTN, HLD, T2DM, CKD 3b. Prior to admission was taking Januvia 100 mg daily, Jardiance 10 mg daily and metformin 1000 BID A1C on admission 11.5%, cr 2.4, eGFR 30.51. Patient has been seen daily since 06/10 for diabetes education for insulin
instruction and has done well with self injection with nursing supervision.
Pt awake, A/O x3, sitting up in chair, at bedside, able to discuss diabetes management.
Oral meds being held due to elevated cr, 3.0, eGFR 23.34 today.
Noted for persistent Hyperglycemia due to outside food consumption brought in by family. There is a table to the side of the room full of fruits and all kinds of food from home.
Advised family again to please limit home foods as this is contributing to hyperglycemia making it difficult to get glucose under control.
06/25 Glucose range 173 to 294, requiring additional corrective insulin with meals. HS glucose 96, patient refused 37 units Lantus, fasting this AM 134.
Will increase AC NovoLog to 30 units and continue HS Lantus to 37 units. Cont moderate corrective insulin with meals. Expect glucose to range high as he has no lantus (refused HS dose).
Will make further insulin adjustments if needed.
Diabetes History
- -
Type of Diabetes: 2 requiring insulin
Pre-Admission Diabetes Regimen
06/26/24
04:39
Creatinine 3.0 H
Lab Results
Hemoglobin A1c 11.5 % (4.0-5.6) H 06/09/24 02:51
Insulin Pump Settings
IP Diabetes Regimen
06/25/24 06/25/24 06/25/24
07:59 12:43 17:41
Glucose
POC Glucose 173 H 294 H 251 H
06/25/24 06/26/24
21:19 04:39
Glucose 134 H
POC Glucose 96
Meal type: Breakfast
Amount consumed: 90%
Patient Education
[2024-06-26 07:14] VITALS: BP 158/70
[2024-06-26 07:27] LABS: Glucose - Point of Care 147 mg/dl (70-99)
[2024-06-26] MEDS: NOVOLOG FLEXPEN-MODERATE RESISTANCE SC (07:28)
--- NOTE | 2024-06-26 07:55 | PTCARENOTE ---
Assumed care of pt from prev nsg shift; Pt AAOx3 w/no c/o CP or SOB. Pt [place] speaking but able to communicate effectively & makes needs known uses [employer] shuttler. Pt visibly dyspneic on exertion w/good recovery once resting. Pt's O2 sats 94% on
RA. Pt's VS stable w/HR in the 60's BP this AM 158/70. Pt is SR on telemetry monitoring. Pt w/call capone within reach & no addtl needs at this time.
[2024-06-26] MEDS: NOVOLOG FLEXPEN 30 UNITS SC ×3 (08:21→17:03)
[2024-06-26] MEDS: MIRALAX 17 GRAMS PO (08:23)
[2024-06-26] MEDS: FLUSH (NSS) 2 FLUSH IV (08:23)
[2024-06-26] MEDS: HEPARIN 5000 UNITS SC ×2 (08:23→19:55)
[2024-06-26] MEDS: IMDUR (EXTENDED RELEASE) 60 MG PO (08:24)
[2024-06-26] MEDS: COREG 25 MG PO ×2 (08:24→20:07)
[2024-06-26] MEDS: ALDACTONE 12.5 MG PO ×2 (08:24→17:04)
[2024-06-26] MEDS: LOW STRENGTH ASPIRIN 81 MG PO (08:24)
[2024-06-26] MEDS: APRESOLINE 100 MG PO ×3 (08:24→22:22)
[2024-06-26] MEDS: PLAVIX 75 MG PO (08:24)
[2024-06-26] MEDS: NORVASC 10 MG PO (08:24)
[2024-06-26] MEDS: ZAROXOLYN 5 MG PO (08:25)
[2024-06-26] MEDS: BUMEX 2 MG IV (08:25)
--- NOTE | 2024-06-26 09:06 | W.PN.PUL.V3 ---
Today's Communication / Plan
-
Continue diuresis
Wean oxygen
Increase activity
Pulmonary will sign off-please call with questions
Assessment
-
58-year-old [place] Islander and this [place] and Farsi speaking gentleman with a history of hypertension, hyperlipidemia, diabetes who presented with hypertensive emergency with elevated troponins to an outlying hospital and was transferred for CABG
evaluation after multivessel coronary artery disease was noted-pulmonary was consulted for shortness of breath and hypoxemia 06/09/2024.
Hypoxemic respiratory sufficiency
Abnormal CT chest 06/20/2024-bilateral effusions/groundglass opacity/compressive atelectasis-suspect mostly related to decompensated heart failure.
Persistent
CAD/NSTEMI-multivessel CAD for CABG eval
Respiratory [id number] 46 on room air 06/08/2024
CHF-preserved EF, acute on chronic, proBNP 1300
Pleural effusions-bilateral
Status post right thoracentesis 06/24/24--1200 mL clear fluid
LE[place]
Hypertension-recent hypertensive emergency
DM type 2
Conditions present prior to admission:
Hypertension.
Hyperlipidemia.
Diabetes.
Chronic renal failure-diabetic nephropathy
Plan:
Pulmonary reconsulted 06/21/2024 for abnormal CAT scan and persistent leukocytosis.
Hypoxemic respiratory failure resolved, he is currently 98% room air.
Repeat imaging showing bilateral pleural effusions, there is increased weight in the last few days
83kg to 86kg, despite diuresis
Afebrile but persistent leukocytosis.
Completed antibiotic with Zosyn and also a course of steroids on 06/13/2024.
Suspect findings are more consistent with heart failure given bilateral pleural effusions.
I do not think there is infection present
Empirically started on antibiotic Unasyn on 06/20/2024 by primary team--subsequently discontinued
Trend leukocytosis and temperature curve
Chest US showing moderate fluid/persistent
Right thoracentesis 06/24/24--1200 mL-clear fluid, pH 7.5, WBC 496, glucose 187, total protein less than 2, LDH 109-transudate, cultures negative, cytology pending
Continue with cardiac management: on IV bumex
Cardiology evaluation noted-correspondence reviewed-push diuresis some more
Continue diuresis as tolerated-Down 6 pounds since yesterday
Monitor renal function, electrolytes, intake/output, lower extremity edema and weight
Replace electrolytes as needed
Difficult to control hypertension.
Cath results/plan- 3v CAD noted with suboptimal targets;
Recent right heart cath consistent with volume overload.
Outpatient CT surgery evaluation for CAB
Nephrology following as well-creatinine has plateaued
Spironolactone also increased
DVT prophylaxis-heparin subcu
Increase activity as able
Pulmonary will sign off-please call with questions
Reviewed with nursing as well as family at the bedside

Diagnostic Data
Chest x-ray 06/08/2024-mild interstitial pulmonary edema
Chest x-ray 06/09/2024-interval improvement in bilateral interstitial pulm edema, focal area of hazy opacification inferior aspect right upper lobe, possible atelectasis both lower lungs
CT chest 06/08/2024-bilateral pulmonary opacifications consistent with CHF and small bilateral pleural effusions
Right Heart Catheterization, 06/13/2024:
1. Severely elevated filling pressures (PCWP = 25 mmHg at 79.8 kg).
2. Moderate postcapillary pulmonary hypertension (mean PA = 39 mmHg, PCWP = 25 mmHg, PVR = 2.73 Connolly units), WHO group 2.
3. Preserved cardiac function (cardiac index = 2.68 L/min/m�).
VQ Scan, 06/12/2024: Normal perfusion and ventilation. Very low probability for pulmonary embolism.
LE Duplex, 06/12/2024: No evidence of deep venous thrombosis of the lower extremities bilaterally
Renal US, 06/11/2024: No evidence of renal collecting system dilatation bilaterally.
Coronary angiography, 06/07/2004: Moderate mid and severe distal LAD lesions.D1 with severe proximal disease.Severe ostial, proximal, proximal and mid junction and distal circumflex lesions. Severe ostial and proximal OM 4 lesion.Severe mid ramus
lesions.RPDA is occluded with collaterals.RPL 3 with moderate to severe lesion.Mild to moderate disease in all other areas.Moderate to severely increased LVEDP.
TTE, 06/07/2024:LVEF 55 to 60%. Grade II DD.There is lipomatous hypertrophy of the interatrial septum.Trace tricuspid regurgitation
ECHO 06/10/24- Normal LV size and function with no regional wall motion abnormalities. LVEF is 55-60% by visual estimation. Moderate concentric LVH. Normal right ventricular size and function.
No significant valvular disease. Estimated pulmonary artery pressure of 38 mmHg. Assuming a right atrial pressure of 3 mmHg. No prior study available for comparison.
.
Subjective Data
-
Date of Service:
Date of Service: June 26, 2024
Chief Complaint: Pulmonary Follow Up (Abnormal chest x-ray/hypoxemic respiratory failure) and Dyspnea Follow Up
Subjective:
Feels better, no complaints of shortness of breath, chest pain
Review of Systems
General: Other (Per HPI)
Objective Data
Data Reviewed
Vital Signs / I&O:
Vital Signs
Temp Pulse Resp BP Pulse Ox
98.5 F 73 18 158/70 93
06/26/24 07:11 06/26/24 07:14 06/26/24 07:11 06/26/24 07:14 06/26/24 07:11
Intake and Output
06/25/24 06/26/24 06/27/24
06:59 06:59 06:59
Intake Total 640 / 640
Output Total 2650 / 2650 1500 / 1500
Balance -2650 / -2650 -860 / -860
SaO2: 93
Nasal Cannula flow liters per minute: 1
Physical Exam
General: Respiratory Distress (n), Comfortable and Other (NAD)
HEENT: Normocephalic, Anicteric and Moist Mucous Membranes
Cardiovascular: Regular Rhythm
Respiratory: Clear (Diminished at bases), Wheeze (n), Non-Labored Respirations, Accessory Resp Muscle Use (n) and Stridor (n)
GI: Soft, Non Distended and Non Tender
Neurology: Awake, Alert, Oriented, AO x 3 and No Motor Deficits
Skin: Warm, Good Color, Cyanosis (n) and Jaundice (n)
Labs/Micro/Reports
Lab Data
06/25/24 04:05
06/26/24 04:39
Microbiology
06/24/24 10:53 Pleural Fluid Body Fluid Culture - Preliminary
No Growth After 18-24 Hours
06/24/24 10:53 Pleural Fluid Gram Stain - Preliminary
--- NOTE | 2024-06-26 11:00 | W.PN.CD ---
Addendum entered and electronically signed by Marlon Linder MD 06/26/24 16:28:
-
-
Nephrology suggests: Bumex 2mg BID and off metolazone. I like that plan.
-
-
Original Note:
Today's Communication / Plan
-
I think we are done with IV diuresis
I will reach out to nephrology to help decide on a home diuretic regimen, perhaps Lasix 80 mg one time a day??
Hard to know goal weight, I am guessing 82-84 kg at current nutritional status
We will let his referring finance professor at [facility] => Dr. Delano Cole ([place]) => I spoke to the office and they will call pt with an appointment
Impression / Plan
-
Impression/Plan: 58 yo male with PMH HTN, DM, CKD3b (Cr 1.5, December 2023) admitted to [facility] with hypertensive emergency and NSTEMI, subsequently transferred for CABG evaluation after cath revealed severe multivessel disease. The patient has also
developed respiratory insufficiency likely a combination of HFpEF, possible PNA (given low grade fever, leukocytosis), less likely vasculitis in the setting of nephrotic range proteinuria.
HFpEF, dry weight not determined, home diuretic regimen not determined
- Acute, severe, with cardiorenal syndrome
- Invasive and radiology studies most c/w heart failure:
- At cath [facility] 'Moderate to severely increased LVEDP'.
- Right heart cath here 06/13/2024: RA 12, PA 63/27, PCWP 25 at 80 kg
- Hard to know goal weight, I am guessing 82-84 kg at current nutritional status
Abnormal CXR
- Likely heart failure and possible pneumonia.
- Diuresis as above.
- Antibiotics as per primary team.
- Right thoracentesis 06/24/2024 => now looks like just small bilateral effusions
LELAND on CKD 3B
- lowest was 1.8 on 06/20/2024. Today (06/26/2024: 3)
Abnormal light chains => per nephrology
Elevated Ethan:Renin Ratio
- Per nephrology
NSTEMI/Multivessel CAD
- Acute on chronic.
- LHC: The culprit RPDA appears small. There are tandem ostial/proximal LCx lesions as well as proximal Ramus lesions that are approachable, but there is concern about outflow (particularly in the LCx). The LAD is free from proximal disease.
There is some distal LAD disease.
- No role for percutaneous intervention.
- The patient is scheduled for outpatient CABG evaluation. In the mean time, we will manage this disease medically.
- Continue carvedilol, aspirin, clopidogrel and rosuvastatin
- CT Surgery eval as outpatient
HTN
- Currently on carvedilol 25 mg BID, hydralazine 100mg tid, and doxazosin, Imdur
-increased Imdur (now 60mg daily) and doxazosin (now 2mg qHS) on 06/22
- Elevated Ethan to renin ratio => nephrology started Aldactone
DM, Probably type II, insulin requiring
-Chronic, uncontrolled.
-HbA1c = 11.3%.
-SGLT2 on hold in the setting of LELAND.
Mixed hyperlipidemia, Chronic
- Lipid panel 06/06/2024: TC 266, HDL 41, LDL 172, TG 267.
- atorvastatin 40 mg => rosuvastatin 40 mg daily.
Subjective/Interval History:
Off O2 now and feeling better
Data:
Right Heart Catheterization, 06/13/2024:
1. Severely elevated filling pressures (PCWP = 25 mmHg at 79.8 kg).
2. Moderate postcapillary pulmonary hypertension (mean PA = 39 mmHg, PCWP = 25 mmHg, PVR = 2.73 Connolly units), WHO group 2.
3. Preserved cardiac function (cardiac index = 2.68 L/min/m�).
VQ Scan, 06/12/2024: Normal perfusion and ventilation. Very low probability for pulmonary embolism.
LE Duplex, 06/12/2024: No evidence of deep venous thrombosis of the lower extremities bilaterally
Renal US, 06/11/2024: No evidence of renal collecting system dilatation bilaterally.
TTE, 06/10/2024:
Normal LV size and function with no regional wall motion abnormalities.
LVEF is 55-60% by visual estimation.
Moderate concentric LVH.
Normal right ventricular size and function.
No significant valvular disease.
Estimated pulmonary artery pressure of 38 mmHg. Assuming a right atrial
pressure of 3 mmHg.
No prior study available for comparison.
Coronary angiography, 06/07/2024:
Moderate mid and severe distal LAD lesions.
D1 with severe proximal disease.
Severe ostial, proximal, proximal and mid junction and distal circumflex lesions.
Severe ostial and proximal OM 4 lesion.
Severe mid ramus lesions.
RPDA is occluded with collaterals.
RPL 3 with moderate to severe lesion.
Mild to moderate disease in all other areas.
Moderate to severely increased LVEDP.
TTE, 06/07/2024:
LVEF 55 to 60%. Grade II DD.
There is lipomatous hypertrophy of the interatrial septum.
Trace tricuspid regurgitation.
Physical Exam
Vital Signs/Labs
Vital Signs
Temp Pulse Resp BP Pulse Ox
98.5 F 73 18 158/70 93
06/26/24 07:11 06/26/24 07:14 06/26/24 07:11 06/26/24 07:14 06/26/24 09:06
06/25/24 06/26/24 06/27/24
06:59 06:59 06:59
Actual Weight 84.1 kg 81.5 kg
06/25/24 04:05
06/26/24 04:39
PT 13.6 Sec (11.4-14.6) 06/09/24 02:51
INR 1.06 06/09/24 02:51
APTT 91.8 Sec (23.4-35.0) H 06/11/24 04:22
Magnesium 2.3 mg/dl (1.6-2.3) 06/24/24 04:33
TSH 1.47 uIU/ml (0.47-4.68) 06/22/24 03:33
06/08/24 06/21/24
11:46 11:47
Nlt-K-Jqmdowyayzi Pept 1300 1130
Physical Exam
Constitutional: No acute distress
EENT: Anicteric
Cardiovascular: Rhythm & rate is regular and Pedal edema is absent
Respiratory: Respiratory effort normal and Lungs clear to auscul.
GI: Soft and Distention absent
Neuro/Psych: AO x 3
Data Reviewed
-
Date of Service: June 26, 2024
[2024-06-26 11:13] VITALS: BP 132/58
--- NOTE | 2024-06-26 11:21 | CM ---
Chart reviewed. Patient is independent of ADLS, lives with his son and daughter in a apartment, 4 ARASH, 0 DME. Plan is for the patient to return home. CM to follow
--- NOTE | 2024-06-26 12:27 | W.PN.NEPH.PH ---
Today's Communication / Plan
-
see plan
Assessment/Plan
-
Assessment
CKD 3B (.December 2023)
LELAND
Diabetes mellitus type 2
Hypertension
Hyperaldosteronism
Hyperlipidemia
Diffuse CAD
DCHF
nephrotic proteinuria 6.4gm/gm of cr
Plan
cr higher but stable at 3
advanced CKD suspect from DM nephropathy and HTN nephrosclerosis
nephrotic range proteinuria 6.4gm/gm of cr, neg serologies
symmetric kidney with out hydro on US , bland UA
Sig elevation of ARR 150, melina 30, pending other functional hormone testing
may need imaging possible MRI abd -can be done out pt
eventually can uptirate Spironolactone
vol status much better now, on RA and improved LE edema
agree to change to po diuresis, Bumex 2mg BID and off metolazone
strict FR and renal diet
BP are relatively stable on multiple meds
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
until then he can follow with us if needed
he still needs more optimization per renal to be done as out pt, holding ARB and SGLT2I still
follow BMP and wts
He is likely ready for d/c tomorrow
d/w pt and family
-
-
Date of Service: June 26, 2024
CC / HPI / ROS
-
Chief Complaint:
LELAND/CKD
History of Present Illness:
LELAND/Cr no cahnge at 3
K stable 4.2
BP labile somewhat
wt is down
Review of Systems:
no fevers
no CP
no n/v
no sob
Labs
-
Labs:
WBC 15.1 10^3/uL (4.8-10.8) H 06/25/24 04:05
RBC 3.47 10^6/uL (4.70-6.10) L 06/25/24 04:05
Hgb 9.6 g/dL (13.0-18.0) L 06/25/24 04:05
Hct 28.2 % (39.0-52.0) L 06/25/24 04:05
Plt Count 414 10^3/uL (130-400) H 06/25/24 04:05
Sodium 137 mmol/L (135-145) 06/26/24 04:39
Potassium 4.2 mmol/L (3.5-5.1) 06/26/24 04:39
Chloride 94 mmol/L (98-107) L 06/26/24 04:39
Carbon Dioxide 29 mmol/L (22-30) 06/26/24 04:39
BUN 75 mg/dl (9-20) H 06/26/24 04:39
Creatinine 3.0 mg/dL (0.7-1.3) H 06/26/24 04:39
eGFR 23.34 06/26/24 04:39
Glucose 134 mg/dl (70-99) H 06/26/24 04:39
Calcium 9.3 mg/dl (8.4-10.2) 06/26/24 04:39
Vni-M-Flxgyuuiobe Pept 1130 pg/ml 06/21/24 11:47
Albumin 3.0 g/dl (3.5-5.0) L 06/25/24 04:05
Physical Exam
-
Vital Signs:
Vital Signs
Temp Pulse Resp BP Pulse Ox
98.0 F 66 14 132/58 92
06/26/24 11:11 06/26/24 11:13 06/26/24 11:11 06/26/24 11:13 06/26/24 11:11
Cardiovascular:: Regular rate and rhythm
Respiratory:: Bilateral: CTA (decreased)
Lung Excursion:: Normal
Abdomen:: Nontender and Soft
Extremity Edema:: None: Bilateral:
Benedict Catheter: No
[2024-06-26 13:19] LABS: Glucose - Point of Care 272 mg/dl (70-99)
[2024-06-26] MEDS: NOVOLOG FLEXPEN-MODERATE RESISTANCE 5 UNITS SC (13:31)
--- NOTE | 2024-06-26 13:47 | W.PN.HOSP.TC ---
Today's Communication/Plan
-
Transition to oral diuretic regimen with Bumex.
Continue current insulin dose monitoring for hypoglycemia.
Has been off oxygen.
Discharge planing
Assessment / Plan
Assessment / Plan
Impression
58yo M with PMHx of HTN, DM transferred from [facility] for hypertensive emergency and NSTEMI with cardiac cath done showing multivessel disease. He was planned for CABG eval. FOund CHF exacerbation and pneumonia with mild COPD, completed ABx and
Prednisone on 06/13/24, continued on diuresis. Also with LELAND and elevated ARR so Spironolactone added. B/L moderate pleural effusions planned for thoracentesis by pulm
Acute hypoxic respiratory failure
Acute CHF preserved EF.
I had pleural effusion baseline�status post thoracentesis on 06/24 400 mL transudate.
Multifocal infiltrate with fever, presumed pneumonia.
CAD, acute coronary syndrome non-STEMI.
Hypertensive emergency.
Acute kidney injury
Increased anion gap metabolic acidosis
Conditions prior to admission:
CKD stage IIIb.
Type 2 diabetes poorly controlled with hemoglobin A1c 11.5.
Dyslipidemia.
Plan:
Acute hypoxic respiratory failure likely multifactorial with CHF/pulmonary edema and right lower lobe pneumonia.
Acute pulmonary edema
Respiratory status is improving we will try to wean off supplemental oxygen on 06/13
Reported preserved LV function by outside echo on 06/07
Echocardiogram 06/10: Normal LV size and function with LVEF 55 to 60%. Regional wall motion abnormalities./LVH PAP 38 mmHg.
Recent cath with evidence of volume overload
RHC with severely elevated filling pressures (PCWP 25 mmHg).
Transition to oral diuretic regimen with Bumex.
Right pleural effusion.
Status post thoracentesis 06/24 1200 mL transudate
Low-grade fever
COVID-[address] scan, follow-up chest x-ray with multifocal infiltrate.
? If nosocomial versus community-acquired pneumonia
Hypoxic, although with minimal cough and expectoration.
Completed total 5-day course of Zosyn 06/13
Initiated on prednisone, discontinued after 24 hours on 06/12
Lower extremity Doppler negative for DVT
VQ scan low probability
Follow-up chest x-ray postthoracentesis with no focal infiltrate.
Okay to stop antibiotics
Non-STEMI
Status post cath with multivessel CAD.
Transferred for CABG evaluation. Currently on hold given fever, pneumonia, LELAND. OP CABG eval
Continue aspirin
Transition off heparin drip to Plavix.
Coreg/Imdur/statin
Hypertensive urgency
Untreated hypertension
Hyperaldosteronism
Current antihypertensive regimen including Norvasc, Coreg, hydralazine, Imdur, spironolactone
Acute kidney injury. Suspect contrast-induced nephropathy
Acute metabolic acidosis.
CKD stage IIIb?
Nephrotic range proteinuria
Rising creatinine at 2.8 improved down to 1.9-2.0-3.0
? If cardiorenal state, recent contrast exposure
No evidence for retention
Renal sonogram with no abnormalities.
Hold nephrotoxic agents including ARB, metformin, SGLT2
Poorly controlled diabetes.
Hemoglobin A1c 11.5.
Off metformin and SGLT2 given LELAND with metabolic acidosis.
Continue insulin basal bolus with serial Accu-Cheks. Currently on moderate dose
Initiated on Lantus/NovoLog AC/basal bolus protocol. Adjust dosing with expected steroid-induced hyperglycemia. increase lantus to 33 units, aspart 20 units AC
Dyslipidemia
Most current LDL 05/1900 and 7012
Continue escalated dose of rosuvastatin 40 mg daily.
Persistent headache. Improved with better blood pressure control.
Describes right-sided headache mostly shortly after taking blood pressure medications in the morning resolving with Tylenol
No focal findings on neurologic exam
CT scan of the head with no acute abnormalities
Recent carotid ultrasound with no hemodynamically significant stenosis
Anticipated Discharge: 24 - 48 hours
Subjective/Interval History
-
Date of Service: June 26, 2024
Objective Data
-
Labs:
Laboratory Results
06/26/24
04:39
Sodium 137
Potassium 4.2
Chloride 94 L
Carbon Dioxide 29
BUN 75 H
Creatinine 3.0 H
Glucose 134 H
Calcium 9.3
Vital Signs:
Vital Signs
Temp Pulse Resp BP Pulse Ox
98.0 F 66 14 132/58 92
06/26/24 11:11 06/26/24 11:13 06/26/24 11:11 06/26/24 11:13 06/26/24 11:11
I&O
06/25/24 06/26/24 06/27/24
06:59 06:59 06:59
Intake Total 640 / 640 480 / 480
Output Total 2650 / 2650 1500 / 1500
Balance -2650 / -2650 -860 / -860 480 / 480
Physical Exam
-
General: Well Developed and No Apparent Distress
HEENT: Normocephalic, Atraumatic and Moist Mucous Membranes
Respiratory: Clear to Auscultation
Cardiac: Regular Rhythm and S1/S2; Negative Murmur, Rub or Gallop
GI: Soft, Nontender, Nondistended and Normal Bowel Sounds; Negative Organomegaly
Rectal: Deferred by Provider
Musculoskeletal: No Clubbing, No Cyanosis and No Edema
Skin: Negative Rash
Neuro: Nonfocal/Grossly Intact
[2024-06-26 15:33] VITALS: BP 154/76
[2024-06-26 16:29] LABS: Glucose - Point of Care 190 mg/dl (70-99)
[2024-06-26] MEDS: NOVOLOG FLEXPEN-MODERATE RESISTANCE 1 UNITS SC (17:03)
[2024-06-26] MEDS: BUMEX 2 MG PO (17:04)
[2024-06-26] MEDS: CRESTOR 40 MG PO (17:04)
[2024-06-26 20:05] VITALS: BP 150/64
--- NOTE | 2024-06-26 21:32 | PTCARENOTE ---
Addendum entered by Nila Hernandez RN 06/26/24 21:33:
Pt ambulating in room with . No complaints from pt at this time, call capone within reach.
Original Note:
Received patient at shift change. SR on the monitor, HR in the 60.
[2024-06-26 22:18] VITALS: BP 148/71
[2024-06-26] MEDS: MELATONIN 5 MG PO (22:22)
[2024-06-26] MEDS: IMDUR (EXTENDED RELEASE) 30 MG PO (22:22)
[2024-06-26] MEDS: LANTUS 0.37 UNITS SC (22:22)
[2024-06-26 22:24] LABS: Glucose - Point of Care 267 mg/dl (70-99)
[2024-06-27 03:58] VITALS: BP 153/69
[2024-06-27 04:01] VITALS: BMI 27.9
[2024-06-27 05:03] LABS: Blood Urea Nitrogen 83 mg/dl (9-20); Calcium 9.7 mg/dl (8.4-10.2); Carbon Dioxide 31 mmol/L (22-30); Chloride 94 mmol/L (98-107); Estimated Creatinine Clearance 21 ml/min; Glucose 254 mg/dl (70-99); Potassium 4.1 mmol/L (3.5-5.1); Sodium 138 mmol/L (135-145)
[2024-06-27 07:06] VITALS: BP 148/71
[2024-06-27 08:08] LABS: Glucose - Point of Care 152 mg/dl (70-99)
[2024-06-27] MEDS: NOVOLOG FLEXPEN-MODERATE RESISTANCE 1 UNITS SC (08:08)
[2024-06-27] MEDS: NOVOLOG FLEXPEN 30 UNITS SC ×3 (08:09→17:40)
--- NOTE | 2024-06-27 08:25 | PN.DE.MGMTRT ---
Insulin Management
- -
06/27/2024: Diabetes Management Follow up:
Patient admitted 06/08 from [facility] with c/o MORENO, elevated BP, NSTEMI.
PMH: HTN, HLD, T2DM, CKD 3b. Prior to admission was taking Januvia 100 mg daily, Jardiance 10 mg daily and metformin 1000 BID A1C on admission 11.5%, cr 2.4, eGFR 30.51. Patient has been seen daily since 06/10 for diabetes education for insulin
instruction and has done well with self injection with nursing supervision.
Pt awake, A/O x3, sitting up in chair, at bedside, able to discuss diabetes management.
Oral meds being held due to elevated cr, 3.0, eGFR 23.34 today.
Noted for persistent Hyperglycemia due to outside food consumption brought in by family. There is a table to the side of the room full of fruits and all kinds of food from home.
Advised family again to please limit home foods as this is contributing to hyperglycemia making it difficult to get glucose under control.
06/27 cr 3.5, eGFR 19.40. Glucose range 143 to 272, requiring additional corrective insulin with meals.
AC NovoLog increased to 30 units 06/26 will make no change and continue HS Lantus to 37 units. Cont moderate corrective insulin with meals.
Will make further insulin adjustments if needed.
Diabetes History
- -
Type of Diabetes: 2 requiring insulin
Pre-Admission Diabetes Regimen
06/27/24
04:04
Creatinine 3.5 H
Lab Results
Hemoglobin A1c 11.5 % (4.0-5.6) H 06/09/24 02:51
Insulin Pump Settings
IP Diabetes Regimen
06/26/24 06/26/24 06/26/24
13:17 16:27 22:20
Glucose
POC Glucose 272 H 190 H 267 H
06/27/24 06/27/24
04:04 08:06
Glucose 254 H
POC Glucose 152 H
Meal type: Dinner
Meal type: Breakfast
Amount consumed: 100%
Amount consumed: 100%
Patient Education
--- NOTE | 2024-06-27 08:42 | PTCARENOTE ---
Assumed care of pt from prev nsg shift; Pt AAOx3 w/no c/o CP or SOB. 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 Pt visibly dyspneic on exertion w/good recovery once resting. Pt's O2 sats 95% on
RA. Pt's VS stable w/HR in the 60's BP this AM 148/71. Pt is SR on telemetry monitoring. Pt w/call capone within reach & no addtl needs at this time.
[2024-06-27] MEDS: BUMEX PO (09:27)
[2024-06-27] MEDS: HEPARIN 5000 UNITS SC ×2 (09:53→20:45)
[2024-06-27] MEDS: LOW STRENGTH ASPIRIN 81 MG PO (09:53)
[2024-06-27] MEDS: PLAVIX 75 MG PO (09:53)
[2024-06-27] MEDS: IMDUR (EXTENDED RELEASE) 60 MG PO (09:53)
[2024-06-27] MEDS: ALDACTONE 12.5 MG PO ×2 (09:53→17:39)
[2024-06-27] MEDS: APRESOLINE 100 MG PO ×3 (09:53→23:00)
[2024-06-27] MEDS: MIRALAX 17 GRAMS PO (09:53)
[2024-06-27] MEDS: COREG 25 MG PO ×2 (09:53→20:45)
[2024-06-27] MEDS: NORVASC 10 MG PO (09:53)
--- NOTE | 2024-06-27 10:01 | CM ---
Chart reviewed. Patient is independent of ADLS, lives with his , son and daughter in a apartment [address], 0 DME. Plan is for the patient to return home with [facility]. CM to follow
--- NOTE | 2024-06-27 10:36 | W.PN.CD ---
Today's Communication / Plan
-
Worsening LELAND, likely hold diuretics differ to nephrology
Weight today is 80kg
Impression / Plan
-
Impression/Plan: 58 yo male with PMH HTN, DM, CKD3b (Cr 1.5, December 2023) admitted to [facility] with hypertensive emergency and NSTEMI, subsequently transferred for CABG evaluation after cath revealed severe multivessel disease. The patient has also
developed respiratory insufficiency likely a combination of HFpEF, possible PNA (given low grade fever, leukocytosis), less likely vasculitis in the setting of nephrotic range proteinuria.
HFpEF, dry weight not determined, home diuretic regimen not determined
- Acute, severe, with cardiorenal syndrome
- Invasive and radiology studies most c/w heart failure:
- At cath [facility] 'Moderate to severely increased LVEDP'.
- Right heart cath here 06/13/2024: RA 12, PA 63/27, PCWP 25 at 80 kg
- Hard to know goal weight, I am guessing 82-84 kg at current nutritional status
Abnormal CXR
- Likely heart failure and possible pneumonia.
- Diuresis as above.
- Antibiotics as per primary team.
- Right thoracentesis 06/24/2024 => now looks like just small bilateral effusions
LELAND on CKD 3B worsening
- lowest was 1.8 on 06/20/2024.
- 06/27 3.5 nephro following
Abnormal light chains => per nephrology
Elevated Ethan:Renin Ratio
- Per nephrology
NSTEMI/Multivessel CAD
- Acute on chronic.
- LHC: The culprit RPDA appears small. There are tandem ostial/proximal LCx lesions as well as proximal Ramus lesions that are approachable, but there is concern about outflow (particularly in the LCx). The LAD is free from proximal disease.
There is some distal LAD disease.
- No role for percutaneous intervention.
- The patient is scheduled for outpatient CABG evaluation. In the mean time, we will manage this disease medically.
- Continue carvedilol, aspirin, clopidogrel and rosuvastatin
- CT Surgery eval as outpatient
HTN
- Currently on carvedilol 25 mg BID, hydralazine 100mg tid, and doxazosin, Imdur
-increased Imdur (now 60mg daily) and doxazosin (now 2mg qHS) on 06/22
- Elevated Ethan to renin ratio => nephrology started Aldactone
DM, Probably type II, insulin requiring
-Chronic, uncontrolled.
-HbA1c = 11.3%.
-SGLT2 on hold in the setting of LELAND.
Mixed hyperlipidemia, Chronic
- Lipid panel 06/06/2024: TC 266, HDL 41, LDL 172, TG 267.
- atorvastatin 40 mg => rosuvastatin 40 mg daily.
Subjective/Interval History:
Off O2 now and feeling better
Data:
Right Heart Catheterization, 06/13/2024:
1. Severely elevated filling pressures (PCWP = 25 mmHg at 79.8 kg).
2. Moderate postcapillary pulmonary hypertension (mean PA = 39 mmHg, PCWP = 25 mmHg, PVR = 2.73 Connolly units), WHO group 2.
3. Preserved cardiac function (cardiac index = 2.68 L/min/m�).
VQ Scan, 06/12/2024: Normal perfusion and ventilation. Very low probability for pulmonary embolism.
LE Duplex, 06/12/2024: No evidence of deep venous thrombosis of the lower extremities bilaterally
Renal US, 06/11/2024: No evidence of renal collecting system dilatation bilaterally.
TTE, 06/10/2024:
Normal LV size and function with no regional wall motion abnormalities.
LVEF is 55-60% by visual estimation.
Moderate concentric LVH.
Normal right ventricular size and function.
No significant valvular disease.
Estimated pulmonary artery pressure of 38 mmHg. Assuming a right atrial
pressure of 3 mmHg.
No prior study available for comparison.
Coronary angiography, 06/07/2024:
Moderate mid and severe distal LAD lesions.
D1 with severe proximal disease.
Severe ostial, proximal, proximal and mid junction and distal circumflex lesions.
Severe ostial and proximal OM 4 lesion.
Severe mid ramus lesions.
RPDA is occluded with collaterals.
RPL 3 with moderate to severe lesion.
Mild to moderate disease in all other areas.
Moderate to severely increased LVEDP.
TTE, 06/07/2024:
LVEF 55 to 60%. Grade II DD.
There is lipomatous hypertrophy of the interatrial septum.
Trace tricuspid regurgitation.
Physical Exam
Vital Signs/Labs
Vital Signs
Temp Pulse Resp BP Pulse Ox
98.6 F 63 18 148/71 95
06/27/24 07:08 06/27/24 07:06 06/27/24 07:08 06/27/24 07:06 06/27/24 07:08
06/26/24 06/27/24 06/28/24
06:59 06:59 06:59
Actual Weight 179 lb 10.828 oz 177 lb 7.554 oz
06/25/24 04:05
06/27/24 04:04
PT 13.6 Sec (11.4-14.6) 06/09/24 02:51
INR 1.06 06/09/24 02:51
APTT 91.8 Sec (23.4-35.0) H 06/11/24 04:22
Magnesium 2.3 mg/dl (1.6-2.3) 06/24/24 04:33
TSH 1.47 uIU/ml (0.47-4.68) 06/22/24 03:33
06/08/24 06/21/24
11:46 11:47
Qxa-Y-Rcbbytkqsry Pept 1300 1130
Physical Exam
Constitutional: No acute distress and Comfortable
Cardiovascular: Rhythm & rate is regular and Pedal edema is absent
Respiratory: Respiratory effort normal and Lungs clear to auscul.
GI: Soft
Neuro/Psych: AO x 3
Data Reviewed
-
Date of Service: June 27, 2024
EKG: Tracing Personally Visualized and interpreted (sr)
Echo: Report Reviewed by me
Labs: Labs Reviewed by me
--- NOTE | 2024-06-27 11:00 | W.PN.NEPH.PH ---
Today's Communication / Plan
-
see plan
Assessment/Plan
-
Assessment
CKD 3B (December 2023)
LELAND
Diabetes mellitus type 2
Hypertension
Hyperaldosteronism
Hyperlipidemia
Diffuse CAD
DCHF
nephrotic proteinuria 6.4gm/gm of cr
Plan
cr higher 3.5 possible diuretic effect
advanced CKD suspect from DM nephropathy and HTN nephrosclerosis
nephrotic range proteinuria 6.4gm/gm of cr, neg serologies
symmetric kidney with out hydro on US , bland UA
Sig elevation of ARR 150, melina 30, pending other functional hormone testing
may need imaging possible MRI abd -can be done out pt
eventually can uptirate Spironolactone
vol status much better now, on RA and improved LE edema
hold diuresis with high cr
strict FR and renal diet
BP are relatively stable on multiple meds , holding ARB and SGLT2I still
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
until then he can follow with us if needed
follow BMP and wts
d/w pt and family
-
-
Date of Service: June 27, 2024
CC / HPI / ROS
-
Chief Complaint:
LELAND/CKD
History of Present Illness:
LELAND/Cr up at 3.5
K stable 4.1
BP stable
wt is down
Review of Systems:
no fevers
no CP
no n/v
no sob
Labs
-
Labs:
WBC 15.1 10^3/uL (4.8-10.8) H 06/25/24 04:05
RBC 3.47 10^6/uL (4.70-6.10) L 06/25/24 04:05
Hgb 9.6 g/dL (13.0-18.0) L 06/25/24 04:05
Hct 28.2 % (39.0-52.0) L 06/25/24 04:05
Plt Count 414 10^3/uL (130-400) H 06/25/24 04:05
Sodium 138 mmol/L (135-145) 06/27/24 04:04
Potassium 4.1 mmol/L (3.5-5.1) 06/27/24 04:04
Chloride 94 mmol/L (98-107) L 06/27/24 04:04
Carbon Dioxide 31 mmol/L (22-30) H 06/27/24 04:04
BUN 83 mg/dl (9-20) H 06/27/24 04:04
Creatinine 3.5 mg/dL (0.7-1.3) H 06/27/24 04:04
eGFR 19.40 06/27/24 04:04
Glucose 254 mg/dl (70-99) H 06/27/24 04:04
Calcium 9.7 mg/dl (8.4-10.2) 06/27/24 04:04
Aql-Y-Zpjleymsiga Pept 1130 pg/ml 06/21/24 11:47
Albumin 3.0 g/dl (3.5-5.0) L 06/25/24 04:05
Physical Exam
-
Vital Signs:
Vital Signs
Temp Pulse Resp BP Pulse Ox
98.5 F 70 18 118/66 94
06/27/24 11:22 06/27/24 11:21 06/27/24 11:22 06/27/24 11:21 06/27/24 11:22
Cardiovascular:: Regular rate and rhythm
Respiratory:: Bilateral: CTA
Lung Excursion:: Normal
Abdomen:: Nontender and Soft
Extremity Edema:: None: Bilateral:
Benedict Catheter: No
[2024-06-27 11:21] VITALS: BP 118/66
--- NOTE | 2024-06-27 11:30 | W.PN.HOSP.TC ---
Today's Communication/Plan
-
Bump in creatinine at 3.5
Hold Bumex.
Continue Aldactone
Follow BMP in a.m.
No changes to insulin regimen.
Assessment / Plan
Assessment / Plan
Impression
58yo M with PMHx of HTN, DM transferred from [facility] for hypertensive emergency and NSTEMI with cardiac cath done showing multivessel disease. He was planned for CABG eval. FOund CHF exacerbation and pneumonia with mild COPD, completed ABx and
Prednisone on 06/13/24, continued on diuresis. Also with LELAND and elevated ARR so Spironolactone added. B/L moderate pleural effusions planned for thoracentesis by pulm
Acute hypoxic respiratory failure
Acute CHF preserved EF.
I had pleural effusion baseline�status post thoracentesis on 06/24 400 mL transudate.
Multifocal infiltrate with fever, presumed pneumonia.
CAD, acute coronary syndrome non-STEMI.
Hypertensive emergency.
Acute kidney injury
Increased anion gap metabolic acidosis
Conditions prior to admission:
CKD stage IIIb.
Type 2 diabetes poorly controlled with hemoglobin A1c 11.5.
Dyslipidemia.
Plan:
Acute hypoxic respiratory failure likely multifactorial with CHF/pulmonary edema and right lower lobe pneumonia.
Acute pulmonary edema
Respiratory status is improving we will try to wean off supplemental oxygen on 06/13
Reported preserved LV function by outside echo on 06/07
Echocardiogram 06/10: Normal LV size and function with LVEF 55 to 60%. Regional wall motion abnormalities./LVH PAP 38 mmHg.
Recent cath with evidence of volume overload
RHC with severely elevated filling pressures (PCWP 25 mmHg).
Transition to oral diuretic regimen with Bumex.
Right pleural effusion.
Status post thoracentesis 06/24 1200 mL transudate
Low-grade fever
COVID-[address] scan, follow-up chest x-ray with multifocal infiltrate.
? If nosocomial versus community-acquired pneumonia
Hypoxic, although with minimal cough and expectoration.
Completed total 5-day course of Zosyn 06/13
Initiated on prednisone, discontinued after 24 hours on 06/12
Lower extremity Doppler negative for DVT
VQ scan low probability
Follow-up chest x-ray postthoracentesis with no focal infiltrate.
Okay to stop antibiotics
Non-STEMI
Status post cath with multivessel CAD.
Transferred for CABG evaluation. Currently on hold given fever, pneumonia, LELAND. OP CABG eval
Continue aspirin
Transition off heparin drip to Plavix.
Coreg/Imdur/statin
Hypertensive urgency
Untreated hypertension
Hyperaldosteronism
Current antihypertensive regimen including Norvasc, Coreg, hydralazine, Imdur, spironolactone
Acute kidney injury. Suspect contrast-induced nephropathy
Acute metabolic acidosis.
CKD stage IIIb
Nephrotic range proteinuria
Renal sonogram with no abnormalities.
Hold nephrotoxic agents including ARB, metformin, SGLT2
Poorly controlled diabetes.
Hemoglobin A1c 11.5.
Off metformin and SGLT2 given LELAND with metabolic acidosis.
Continue insulin basal bolus with serial Accu-Cheks. Currently on moderate dose
Initiated on Lantus/NovoLog AC/basal bolus protocol. Adjust dosing with expected steroid-induced hyperglycemia. increase lantus to 33 units, aspart 20 units AC
Dyslipidemia
Most current LDL 05/1900 and 7012
Continue escalated dose of rosuvastatin 40 mg daily.
Persistent headache. Improved with better blood pressure control.
Describes right-sided headache mostly shortly after taking blood pressure medications in the morning resolving with Tylenol
No focal findings on neurologic exam
CT scan of the head with no acute abnormalities
Recent carotid ultrasound with no hemodynamically significant stenosis
Anticipated Discharge: 24 - 48 hours
Subjective/Interval History
-
Date of Service: June 27, 2024
Objective Data
-
Labs:
Laboratory Results
06/27/24
04:04
Sodium 138
Potassium 4.1
Chloride 94 L
Carbon Dioxide 31 H
BUN 83 H
Creatinine 3.5 H
Glucose 254 H
Calcium 9.7
Vital Signs:
Vital Signs
Temp Pulse Resp BP Pulse Ox
98.5 F 70 18 118/66 94
06/27/24 11:22 06/27/24 11:21 06/27/24 11:22 06/27/24 11:21 06/27/24 11:22
I&O
06/26/24 06/27/24 06/28/24
06:59 06:59 06:59
Intake Total 640 / 640 480 / 480
Output Total 1500 / 1500
Balance -860 / -860 480 / 480
Physical Exam
-
General: Well Developed and No Apparent Distress
HEENT: Normocephalic, Atraumatic and Moist Mucous Membranes
Respiratory: Clear to Auscultation
Cardiac: Regular Rhythm and S1/S2; Negative Murmur, Rub or Gallop
GI: Soft, Nontender, Nondistended and Normal Bowel Sounds; Negative Organomegaly
Rectal: Deferred by Provider
Musculoskeletal: No Clubbing, No Cyanosis and No Edema
Skin: Negative Rash
Neuro: Nonfocal/Grossly Intact
[2024-06-27 13:53] LABS: Glucose - Point of Care 298 mg/dl (70-99)
[2024-06-27] MEDS: NOVOLOG FLEXPEN-MODERATE RESISTANCE 5 UNITS SC (13:53)
--- NOTE | 2024-06-27 13:56 | PTCARENOTE ---
Pt repeatedly reminded by staff to call to get his fingerstick glucose checked prior to eating. Pt's family bringing food in from outside & pt found to be eating lunch without calling this RN. Accucheck was 298. Administered Novolog SQ as ordered.
This RN reiterated need for pt to call for glucose checks before he eats.
[2024-06-27 16:46] VITALS: BP 167/79
[2024-06-27 16:52] LABS: Glucose - Point of Care 79 mg/dl (70-99)
[2024-06-27] MEDS: CRESTOR 40 MG PO (17:39)
[2024-06-27] MEDS: NOVOLOG FLEXPEN-MODERATE RESISTANCE SC (17:40)
[2024-06-27 20:09] VITALS: BP 149/70
--- NOTE | 2024-06-27 21:30 | PTCARENOTE ---
Cont'd care of pt from dayshift; Pt AAOx3 w/no c/o CP or SOB. Pt reported to this RN that he has not urinated much today. Pt is not using urinal despite it being explained that we need to monitor his I&O's. Pt asking for Lasix & this RN explained
that his Bumex is on hold due to his elevated creatinine. Pt verbalized understanding using police or patrol park officer. This RN bladder scanned pt for 212 mLs. Pt not in any discomfort & abd soft. Explained to pt & spouse that we would continue to monitor his
bladder & again asked for pt to use urinal. Plan of care ongoing.
[2024-06-27 23:00] VITALS: BP 141/67
[2024-06-27] MEDS: IMDUR (EXTENDED RELEASE) 30 MG PO (23:00)
[2024-06-27] MEDS: LANTUS 0.37 UNITS SC (23:00)
[2024-06-27] MEDS: MELATONIN 5 MG PO (23:00)
[2024-06-27 23:04] LABS: Glucose - Point of Care 231 mg/dl (70-99)
--- NOTE | 2024-06-28 03:00 | PTCARENOTE ---
Report received from RN, assumed care of patient at 2300. Nursing assessment completed and as documented. Patient primarily [place] speaking with at bedside, burglar alarm assembler used for assessment. Patient able to make needs known with google translate
on his phone along with assistance from . Independent in care. Ambulating to bathroom PRN. Bladder scanned for 175. L F/A PIV intact and patent. Call capone within reach, VSS, care ongoing.
[2024-06-28 03:52] VITALS: BP 138/70
[2024-06-28 03:55] VITALS: BMI 28.2
[2024-06-28 04:51] LABS: Blood Urea Nitrogen 88 mg/dl (9-20); Calcium 8.9 mg/dl (8.4-10.2); Carbon Dioxide 25 mmol/L (22-30); Chloride 99 mmol/L (98-107); Estimated Creatinine Clearance 24 ml/min; Glucose 191 mg/dl (70-99); Potassium 4.3 mmol/L (3.5-5.1); Sodium 138 mmol/L (135-145); eGFR 22.44
[2024-06-28 06:00] VITALS: BMI 28.2
[2024-06-28 06:56] VITALS: BP 142/75
--- NOTE | 2024-06-28 08:11 | PN.DE.MGMTRT ---
Insulin Management
- -
06/28/2024: Diabetes Management F/U:
Patient admitted 06/08 from [facility] with c/o MORENO, elevated BP, NSTEMI.
PMH: HTN, HLD, T2DM, CKD 3b. Prior to admission was taking Januvia 100 mg daily, Jardiance 10 mg daily and metformin 1000 BID A1C on admission 11.5%, cr 2.4, eGFR 30.51. Patient has been seen daily since 06/10 for diabetes education for insulin
instruction and has done well with self injection with nursing supervision.
Pt awake, A/O x3, sitting up in chair, at bedside, able to discuss diabetes management.
Oral meds being held due to elevated cr, 3.5-->3.1 eGFR 22.44 today.
Noted for persistent Hyperglycemia due to outside food consumption brought in by family. There is a table to the side of the room full of fruits and all kinds of food from home. Advised family again to please limit home foods as this is contributing
to hyperglycemia making it difficult to get glucose under control.
Glucose range 79 to 298, requiring additional corrective insulin with meals.
Will make no change to current regimen: AC NovoLog 30 units, HS Lantus 37 units and moderate corrective insulin with meals.
Will follow and adjust insulin if needed.
Diabetes History
- -
Type of Diabetes: 2 requiring insulin
Pre-Admission Diabetes Regimen
06/28/24
04:01
Creatinine 3.1 H
Lab Results
Hemoglobin A1c 11.5 % (4.0-5.6) H 06/09/24 02:51
Insulin Pump Settings
IP Diabetes Regimen
06/27/24 06/27/24 06/27/24
13:52 16:51 23:02
Glucose
POC Glucose 298 H 79 231 H
06/28/24
04:01
Glucose 191 H
POC Glucose
Meal type: Breakfast
Amount consumed: 100%
Patient Education
[2024-06-28 08:32] LABS: Glucose - Point of Care 166 mg/dl (70-99)
[2024-06-28] MEDS: NOVOLOG FLEXPEN-MODERATE RESISTANCE 1 UNITS SC (08:33)
[2024-06-28] MEDS: LOW STRENGTH ASPIRIN 81 MG PO (08:34)
[2024-06-28] MEDS: PLAVIX 75 MG PO (08:34)
[2024-06-28] MEDS: IMDUR (EXTENDED RELEASE) 60 MG PO (08:34)
[2024-06-28] MEDS: APRESOLINE 100 MG PO (08:34)
[2024-06-28] MEDS: COREG 25 MG PO (08:36)
[2024-06-28] MEDS: ALDACTONE 12.5 MG PO (08:37)
[2024-06-28] MEDS: NORVASC 10 MG PO (08:37)
[2024-06-28] MEDS: NOVOLOG FLEXPEN 30 UNITS SC ×2 (08:38→12:13)
--- NOTE | 2024-06-28 09:33 | W.PN.CD ---
Today's Communication / Plan
-
GDMT with coreg, imdur 120 daily and hydral 100 tid, tolerating spironolactone, and ARNI/ARB on hold give Cr
Differ diuretics to nephrology
He will f/u with Dr Delano Cole, I called office and they will reach out to him
OK to d/c from cardiology perspective, we will sign off pls call with questions
Impression / Plan
-
Impression/Plan: 58 yo male with PMH HTN, DM, CKD3b (Cr 1.5, December 2023) admitted to [facility] with hypertensive emergency and NSTEMI, subsequently transferred for CABG evaluation after cath revealed severe multivessel disease. The patient has also
developed respiratory insufficiency likely a combination of HFpEF, possible PNA (given low grade fever, leukocytosis), less likely vasculitis in the setting of nephrotic range proteinuria.
HFpEF, dry weight not determined, home diuretic regimen not determined
- Acute, severe, with cardiorenal syndrome
- Invasive and radiology studies most c/w heart failure:
- At cath Raji Askew 'Moderate to severely increased LVEDP'.
- Right heart cath here 06/13/2024: RA 12, PA 63/27, PCWP 25 at 80 kg
- Hard to know goal weight, I am guessing ~82-84 kg at current nutritional status
Abnormal CXR
- Likely heart failure and possible pneumonia.
- Diuresis as above.
- Antibiotics as per primary team.
- Right thoracentesis 06/24/2024 => now looks like just small bilateral effusions
LELAND on CKD 3B worsening
- lowest was 1.8 on 06/20/2024.
- 06/27 3.5 nephro following, 06/28 3.1
Abnormal light chains => per nephrology
Elevated Ethan:Renin Ratio
- Per nephrology
NSTEMI/Multivessel CAD
- Acute on chronic.
- LHC: The culprit RPDA appears small. There are tandem ostial/proximal LCx lesions as well as proximal Ramus lesions that are approachable, but there is concern about outflow (particularly in the LCx). The LAD is free from proximal disease.
There is some distal LAD disease.
- No role for percutaneous intervention.
- The patient is scheduled for outpatient CABG evaluation. In the mean time, we will manage this disease medically.
- Continue carvedilol, aspirin, clopidogrel and rosuvastatin
- CT Surgery eval as outpatient
HTN
- Currently on carvedilol 25 mg BID, hydralazine 100mg tid, and doxazosin, Imdur
-increased Imdur (now 120 mg daily) and doxazosin (now 2mg qHS) on 06/22
- Elevated Ethan to renin ratio => nephrology started Aldactone
DM, Probably type II, insulin requiring
-Chronic, uncontrolled.
-HbA1c = 11.3%.
-SGLT2 on hold in the setting of LELAND.
Mixed hyperlipidemia, Chronic
- Lipid panel 06/06/2024: TC 266, HDL 41, LDL 172, TG 267.
- atorvastatin 40 mg => rosuvastatin 40 mg daily.
Subjective/Interval History:
Feeling well has no new complaints would like to go home
Data:
Right Heart Catheterization, 06/13/2024:
1. Severely elevated filling pressures (PCWP = 25 mmHg at 79.8 kg).
2. Moderate postcapillary pulmonary hypertension (mean PA = 39 mmHg, PCWP = 25 mmHg, PVR = 2.73 Connolly units), WHO group 2.
3. Preserved cardiac function (cardiac index = 2.68 L/min/m�).
VQ Scan, 06/12/2024: Normal perfusion and ventilation. Very low probability for pulmonary embolism.
LE Duplex, 06/12/2024: No evidence of deep venous thrombosis of the lower extremities bilaterally
Renal US, 06/11/2024: No evidence of renal collecting system dilatation bilaterally.
TTE, 06/10/2024:
Normal LV size and function with no regional wall motion abnormalities.
LVEF is 55-60% by visual estimation.
Moderate concentric LVH.
Normal right ventricular size and function.
No significant valvular disease.
Estimated pulmonary artery pressure of 38 mmHg. Assuming a right atrial
pressure of 3 mmHg.
No prior study available for comparison.
Coronary angiography, 06/07/2024:
Moderate mid and severe distal LAD lesions.
D1 with severe proximal disease.
Severe ostial, proximal, proximal and mid junction and distal circumflex lesions.
Severe ostial and proximal OM 4 lesion.
Severe mid ramus lesions.
RPDA is occluded with collaterals.
RPL 3 with moderate to severe lesion.
Mild to moderate disease in all other areas.
Moderate to severely increased LVEDP.
TTE, 06/07/2024:
LVEF 55 to 60%. Grade II DD.
There is lipomatous hypertrophy of the interatrial septum.
Trace tricuspid regurgitation.
Physical Exam
Vital Signs/Labs
Vital Signs
Temp Pulse Resp BP Pulse Ox
98.5 F 62 20 142/75 90
06/28/24 06:56 06/28/24 08:00 06/28/24 06:56 06/28/24 06:56 06/28/24 06:56
06/27/24 06/28/24 06/29/24
06:59 06:59 06:59
Actual Weight 177 lb 7.554 oz 179 lb 14.355 oz
06/25/24 04:05
06/28/24 04:01
PT 13.6 Sec (11.4-14.6) 06/09/24 02:51
INR 1.06 06/09/24 02:51
APTT 91.8 Sec (23.4-35.0) H 06/11/24 04:22
Magnesium 2.3 mg/dl (1.6-2.3) 06/24/24 04:33
TSH 1.47 uIU/ml (0.47-4.68) 06/22/24 03:33
06/08/24 06/21/24
11:46 11:47
Mwu-X-Kfnswclzoyo Pept 1300 1130
Physical Exam
Constitutional: No acute distress and Comfortable
EENT: Anicteric
Cardiovascular: Rhythm & rate is regular and Pedal edema is absent
Respiratory: Respiratory effort normal and Lungs clear to auscul.
GI: Soft
Neuro/Psych: AO x 3
Data Reviewed
-
Date of Service: June 28, 2024
EKG: Tracing Personally Visualized and interpreted (sr)
Echo: Report Reviewed by me
Labs: Labs Reviewed by me
[2024-06-28] MEDS: HEPARIN 5000 UNITS SC (10:01)
[2024-06-28] MEDS: MIRALAX PO (10:11)
--- NOTE | 2024-06-28 11:45 | CM ---
Chart reviewed. Patient is independent of ADLS, lives with his , son and daugter in a apartment, [address], 0 DME. Plan is for the patient to return home. CM to follow
[2024-06-28 11:53] LABS: Glucose - Point of Care 248 mg/dl (70-99)
[2024-06-28] MEDS: NOVOLOG FLEXPEN-MODERATE RESISTANCE 3 UNITS SC (12:04)
[2024-06-28 12:05] VITALS: BP 138/72
--- NOTE | 2024-06-28 13:44 | W.DS.TRANS ---
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
-
Discharge Instructions:
Discharge Diagnosis/Procedures CAD.
CHF
LELAND on CKD
IDDM
Diet Diabetic, Carb Controlled,2 Gram Sodium
Blood Work BMP on 07/03
Instructions:
Stand-Alone Forms:
Changes to Home Medications: Yes
Discharge Medications:
DC Medications w/original date entered in SendRR
aspirin 81 mg tablet 81 mg PO DAILY Blood Clot Prevention/Tx 06/08/24
amlodipine 10 mg tablet 10 mg PO DAILY #30 tabs 06/28/24
bumetanide 2 mg tablet 2 mg PO BID AT 0800,1600 #60 tabs 06/28/24
carvedilol 25 mg tablet 25 mg PO BID #60 tabs 06/28/24
clopidogrel 75 mg tablet 75 mg PO DAILY #30 tabs 06/28/24
hydralazine 50 mg tablet 100 mg (2 x 50 mg) PO TID #120 tabs 06/28/24
insulin aspart U-100 100 unit/mL (3 mL) subcutaneous pen (Novolog FlexPen U-100 Insulin aspart) 30 unit (0.3 mL) SC AC Diabetes #5 ea 06/28/24
insulin glargine 100 unit/mL (3 mL) subcutaneous pen (Lantus Solostar U-100 Insulin) 37 unit (0.37 mL) SC HS Diabetes #5 ea 06/28/24
isosorbide mononitrate 30 mg tablet,extended release 24 hr 120 mg (4 x 30 mg) PO DAILY #120 tabs 06/28/24
pantoprazole 40 mg granules delayed-release for susp in packet (Protonix) 40 mg PO DAILY #30 ea 06/28/24
pen needle, diabetic 32 gauge x ' (BD Ultra-Fine Criselda Pen Needle) #200 ea 06/28/24
rosuvastatin 40 mg tablet 40 mg PO QPM #30 tabs 06/28/24
spironolactone 25 mg tablet 12.5 mg (1/2 x 25 mg) PO BID AT 0800,1600 #60 tabs 06/28/24
Home Medication Changes
All of above
Pending Results: No
--- NOTE | 2024-06-28 14:38 | PTCARENOTE ---
Pt received this am with no c/o of any chest pain or sob. OOB ad mone in the room and showered this am. Pt discharged to home with his and daughter. Discharge instructions given and reviewed with pt and his daughter using the IPAD city planner.
Pt's daughter and pt instructed on insulin administration. All questions answered regarding meds and follow up appointments.
--- NOTE | 2024-06-28 16:42 | W.PN.NEPH.PH ---
Today's Communication / Plan
-
f/u OP
Assessment/Plan
-
Assessment
CKD 3B (December 2023)
LELAND
Diabetes mellitus type 2
Hypertension
Hyperaldosteronism
Hyperlipidemia
Diffuse CAD
DCHF
nephrotic proteinuria 6.4gm/gm of cr
Plan
for dc
back on po diuretics
continue spironolactone
BMP in 1-2 weeks
OP f/u re: CABG
will schedule OP visit with our office
d/w pt and family
-
-
Date of Service: June 28, 2024
CC / HPI / ROS
-
Chief Complaint:
LELAND/CKD
History of Present Illness:
LELAND/Cr down to 3.1
K stable 4.3
BP stable
Review of Systems:
no fevers
no CP
no n/v
no sob
Labs
-
Labs:
WBC 15.1 10^3/uL (4.8-10.8) H 06/25/24 04:05
RBC 3.47 10^6/uL (4.70-6.10) L 06/25/24 04:05
Hgb 9.6 g/dL (13.0-18.0) L 06/25/24 04:05
Hct 28.2 % (39.0-52.0) L 06/25/24 04:05
Plt Count 414 10^3/uL (130-400) H 06/25/24 04:05
Sodium 138 mmol/L (135-145) 06/28/24 04:01
Potassium 4.3 mmol/L (3.5-5.1) 06/28/24 04:01
Chloride 99 mmol/L (98-107) 06/28/24 04:01
Carbon Dioxide 25 mmol/L (22-30) 06/28/24 04:01
BUN 88 mg/dl (9-20) H 06/28/24 04:01
Creatinine 3.1 mg/dL (0.7-1.3) H 06/28/24 04:01
eGFR 22.44 06/28/24 04:01
Glucose 191 mg/dl (70-99) H 06/28/24 04:01
Calcium 8.9 mg/dl (8.4-10.2) 06/28/24 04:01
Ymu-Q-Awbcgsbzdwh Pept 1130 pg/ml 06/21/24 11:47
Albumin 3.0 g/dl (3.5-5.0) L 06/25/24 04:05
Physical Exam
-
Vital Signs:
Vital Signs
Temp Pulse Resp BP Pulse Ox
98.7 F 72 16 138/72 98
06/28/24 12:05 06/28/24 12:05 06/28/24 12:05 06/28/24 12:05 06/28/24 08:00
Cardiovascular:: Regular rate and rhythm
Respiratory:: Bilateral: CTA
Lung Excursion:: Normal
Abdomen:: Nontender and Soft
Bowel Sounds:: Normal
Extremity Edema:: None: Bilateral:
== END 2024-06-28 15:04 | disposition home health service (06) | DRG 280 ==
LOC: IVU 09:42
PROVIDERS: Internal Medicine; Internal Medicine Cardiovascular Disease; Internal Medicine Critical Care Medicine; Physician Assistant Medical; Radiology Vascular & Interventional Radiology; Specialist; ADMITTING PHYSICIAN Thoracic Surgery (Cardiothoracic Vascular Surgery); ATTENDING PHYSICIAN Internal Medicine; CONSULT PHYSICIAN Internal Medicine; CONSULT PHYSICIAN Internal Medicine Critical Care Medicine; CONSULT PHYSICIAN Specialist
PROC: 4A023N6 Measurement of Cardiac Sampling and Pressure, Right Heart, Percutaneous Approach (ICD-10-PCS; 2024-06-13)
PROC: 0W993ZX Drainage of Right Pleural Cavity, Percutaneous Approach, Diagnostic (ICD-10-PCS; 2024-06-24)
DX: I21.4 Non-ST elevation (NSTEMI) myocardial infarction (principal); I50.31 Acute diastolic (congestive) heart failure; J18.9 Pneumonia, unspecified organism; J96.01 Acute respiratory failure with hypoxia; I13.0 Hypertensive heart and chronic kidney disease with heart failure and stage 1 through stage 4 chronic kidney disease, or unspecified chronic kidney disease; I16.1 Hypertensive emergency; J91.8 Pleural effusion in other conditions classified elsewhere; N17.9 Acute kidney failure, unspecified; E87.20 Acidosis, unspecified; J98.11 Atelectasis; I27.29 Other secondary pulmonary hypertension; E11.65 Type 2 diabetes mellitus with hyperglycemia; N18.32 Chronic kidney disease, stage 3b; E11.22 Type 2 diabetes mellitus with diabetic chronic kidney disease; I25.5 Ischemic cardiomyopathy; I25.10 Atherosclerotic heart disease of native coronary artery without angina pectoris; E78.00 Pure hypercholesterolemia, unspecified; T38.0X5A Adverse effect of glucocorticoids and synthetic analogues, initial encounter; Z79.82 Long term (current) use of aspirin; Z79.84 Long term (current) use of oral hypoglycemic drugs; Z79.899 Other long term (current) drug therapy; Z11.52 Encounter for screening for COVID-19
CPT/HCPCS: 88305; 32555; 36600; 70450; 71045; 71046; 71250; 76604; 76775; 78582; 80048; 80053; 81003; 81015; 82088; 82248; 82384; 82570; 82805; 82945; 82947; 82962; 83036; 83521; 83605; 83615; 83735; 83835; 83880; 83986; 84145; 84155; 84156; 84157; 84165; 84244; 84443; 85025; 85027; 85610; 85730; 86038; 86160; 86335; 86850; 86900; 86901; 87015; 87040; 87070; 87205; 87449; 87811; 87899; 88112; 89051; 93005; 93306; 93451; 93880; 93970; A9540; A9567; C1894

== ENCOUNTER 2024-07-22 04:54 | Inpatient (IN) | payer OTHER, SELFPAY ==
[2024-07-17 10:10] LABS: % Basophils 0.4 % (0-2); % Eosinophils 1.9 % (0-6); % Immature Granulocytes 0.4 % (0-0.5); % Monocytes 10.7 % (1.7-9.3); % Neutrophils 66.6 % (42.2-75.2); Absolute Basophils 0.1 10^3/uL (0-0.2); Absolute Eosinophils 0.3 10^3/uL (0-0.7); Absolute Immature Granulocytes 0.1 10^3/uL (0-0.05); Absolute Lymphocytes 2.7 10^3/uL (1.2-3.4); Absolute Monocytes 1.5 10^3/uL (0.1-0.6); Absolute Neutrophils 9.1 10^3/uL (1.4-6.5); Hematocrit 30.5 % (39.0-52.0); Hemoglobin 10.3 g/dL (13.0-18.0); Mean Corp Hgb Conc. 33.8 g/dL (33.0-37.0); Mean Corpuscular Hgb 27.5 pg (27.0-31.0); Mean Corpuscular Volume 81.3 fL (80.0-94.0); Mean Platelet Volume 10.2 fL (7.4-10.4); Nucleated Red Blood Cells % 0 % (-); Platelet Count 313 10^3/uL (130-400); Red Blood Cell Count 3.75 10^6/uL (4.70-6.10); Red Cell Dist. Width 13.4 % (11.5-14.5); White Blood Cell Count 13.6 10^3/uL (4.8-10.8)
--- NOTE | 2024-07-17 10:13 | CM ---
Chart reviewed. Met with the patient and his in a PAT. Patient is Slovak speaking, independent of ADLS, lives with his and son in a apartment [address], 0 DME. Reviewed preoperative and postoperative instructions and restrictions, along
with showering guidelines. Gave patient 2 soaps. Patient is agreeable to a home visit by CT Transitional RN. Plan is for the patient to return home with CT Transitional RN.
[2024-07-17 10:15] LABS: Urine Albumin 3+ (Neg - Trace); Urine Bilirubin Negative (Negative); Urine Character Clear (Clear); Urine Color Yellow; Urine Glucose Trace (Negative); Urine Ketone Negative (Negative); Urine Leukocyte Negative (Negative); Urine Nitrite Negative (Negative); Urine Occult Blood Negative (Negative); Urine Urobilinogen Negative (Neg - 1+); Urine pH 6.5 (5.0-9.0)
[2024-07-17 10:19] LABS: INR 1.04; PT 13.6 Sec (11.4-14.6)
[2024-07-17 10:20] LABS: APTT 33.6 Sec (23.4-35.0)
[2024-07-17 10:33] LABS: ALT (SGPT) 18 U/L (0-50); AST (SGOT) 17 U/L (17-59); Albumin 4.1 g/dl (3.5-5.0); Alkaline Phosphatase 78 U/L (38-126); Blood Urea Nitrogen 65 mg/dl (9-20); Calcium 9.5 mg/dl (8.4-10.2); Carbon Dioxide 23 mmol/L (22-30); Chloride 103 mmol/L (98-107); Direct Bilirubin 0.2 mg/dl (0.0-0.4); Glucose 179 mg/dl (70-99); Potassium 4.9 mmol/L (3.5-5.1); Sodium 145 mmol/L (135-145); Total Bilirubin 0.4 mg/dl (0.2-1.3); Total Protein 7.7 g/dl (6.3-8.2)
[2024-07-17 10:37] VITALS: BMI 27.9
[2024-07-17 10:37] LABS: Urine Amorphous Seen
[2024-07-17 10:38] LABS: Urine Granular Cast 0-2 /LPF (0)
[2024-07-17 10:39] LABS: Urine Urothelial Cell 0-2 /LPF (FEW)
[2024-07-17 10:40] LABS: Urine Red Blood Cell 0-2 /HPF (0-2); Urine White Cell 0-2 /HPF (0-5)
[2024-07-17 11:26] LABS: Glycohemoglobin (HgbA1c) 9.2 % (4.0-5.6)
[2024-07-22] VITALS (13 sets, daily range): BP systolic 98–168; BP diastolic 46–83; BMI 29.2
[2024-07-22] MEDS: LOPRESSOR 25 MG PO (05:42)
[2024-07-22] MEDS: PROTONIX 40 MG PO (05:42)
[2024-07-22] MEDS: MAGNESIUM OXIDE 500 MG PO (05:43)
[2024-07-22] MEDS: BACTROBAN 2% OINTMENT 1 APPLIC NASAL ×2 (05:43→21:01)
--- NOTE | 2024-07-22 06:10 | PTCARENOTE ---
admitted pt to CVICU. family at bedside. pt clipped and prepped. type and screen obtained, CHG bath given, admission completed. pt speaks minimal Tajik. pt confirmed NPO since midnight and 2 CHG showers.
[2024-07-22 07:51] LABS: Urine Albumin 3+ (Neg - Trace); Urine Bilirubin Negative (Negative); Urine Character Clear (Clear); Urine Color Yellow; Urine Glucose Trace (Negative); Urine Ketone Negative (Negative); Urine Leukocyte Negative (Negative); Urine Nitrite Negative (Negative); Urine Occult Blood Negative (Negative); Urine Urobilinogen Negative (Neg - 1+)
[2024-07-22 08:05] LABS: Urine Amorphous Seen; Urine Granular Cast 0-2 /LPF (0); Urine Hyaline Cast 0-2 /LPF (0-2); Urine Squamous Cell 0-2 /LPF (Few)
[2024-07-22 08:07] LABS: ACT+ - POC 90 Seconds (82-134)
[2024-07-22 08:07] LABS: Urine Red Blood Cell 0-2 /HPF (0-2); Urine White Cell 0-2 /HPF (0-5)
[2024-07-22 10:42] LABS: B.E. - POC 0.9 mmol/L; Glucose - POC 199 mg/dl (70-99); HCO3 - POC 25 mmol/L (21-28); Hematocrit - POC 26 % PCV (42-52); Hemodilution- POC No; Hemoglobin Calculated - POC 8.9; Ionized Calcium - POC 1.14 mmol/L (1.15-1.33); O2 Saturation %Calculated-POC 99.8 % (94-98); PCO2 - POC 38 mmHg (35-48); PO2 - POC 229 mmHg (83-108); POC Comment PRE; Potassium - POC 4.3 mmol/L (3.5-5.1); Sodium - POC 139 mmol/L (136-145); pH - POC 7.43 (7.35-7.45)
[2024-07-22 11:10] LABS: B.E. - POC 3.3 mmol/L; Glucose - POC 137 mg/dl (70-99); HCO3 - POC 28 mmol/L (21-28); Hematocrit - POC 23 % PCV (42-52); Hemodilution- POC Yes; Hemoglobin Calculated - POC 7.8; Ionized Calcium - POC 1.05 mmol/L (1.15-1.33); O2 Saturation %Calculated-POC 99.9 % (94-98); PCO2 - POC 45 mmHg (35-48); PO2 - POC 277 mmHg (83-108); POC Comment CPB; Potassium - POC 4.7 mmol/L (3.5-5.1); Sodium - POC 137 mmol/L (136-145); pH - POC 7.41 (7.35-7.45)
--- NOTE | 2024-07-22 11:24 | CM ---
Chart reviewed. Patient is in the OR today. Patient is independent of ADLS, lives with his and son in a apartment, [address], 0 DME. Plan is for the patient to return home with CT Transitional RN. CM to follow
[2024-07-22 11:28] LABS: ACT+ - POC 783 Seconds (82-134)
[2024-07-22 11:39] LABS: B.E. - POC 1.7 mmol/L; Glucose - POC 141 mg/dl (70-99); HCO3 - POC 27 mmol/L (21-28); Hematocrit - POC 28 % PCV (42-52); Hemodilution- POC Yes; Hemoglobin Calculated - POC 9.6; Ionized Calcium - POC 1.09 mmol/L (1.15-1.33); O2 Saturation %Calculated-POC 99.9 % (94-98); PCO2 - POC 46 mmHg (35-48); PO2 - POC 335 mmHg (83-108); POC Comment CPB; Potassium - POC 5.3 mmol/L (3.5-5.1); Sodium - POC 138 mmol/L (136-145); pH - POC 7.38 (7.35-7.45)
[2024-07-22 12:04] LABS: ACT+ - POC 609 Seconds (82-134)
[2024-07-22 12:24] LABS: B.E. - POC 1.3 mmol/L; Glucose - POC 189 mg/dl (70-99); HCO3 - POC 26 mmol/L (21-28); Hematocrit - POC 26 % PCV (42-52); Hemodilution- POC Yes; Hemoglobin Calculated - POC 8.8; Ionized Calcium - POC 1.07 mmol/L (1.15-1.33); O2 Saturation %Calculated-POC 99.9 % (94-98); PCO2 - POC 43 mmHg (35-48); PO2 - POC 279 mmHg (83-108); POC Comment CPB; Potassium - POC 5.6 mmol/L (3.5-5.1); Sodium - POC 137 mmol/L (136-145); pH - POC 7.39 (7.35-7.45)
[2024-07-22 12:35] LABS: ACT+ - POC 539 Seconds (82-134)
[2024-07-22 12:52] LABS: B.E. - POC 0.8 mmol/L; Glucose - POC 224 mg/dl (70-99); HCO3 - POC 26 mmol/L (21-28); Hematocrit - POC 27 % PCV (42-52); Hemodilution- POC Yes; Hemoglobin Calculated - POC 9.3; Ionized Calcium - POC 1.09 mmol/L (1.15-1.33); O2 Saturation %Calculated-POC 99.6 % (94-98); PCO2 - POC 45 mmHg (35-48); PO2 - POC 179 mmHg (83-108); POC Comment REWARM; Potassium - POC 5.8 mmol/L (3.5-5.1); Sodium - POC 137 mmol/L (136-145); pH - POC 7.37 (7.35-7.45)
[2024-07-22] MEDS: ANCEF 10 IV ×2 (12:52→15:32)
[2024-07-22 12:58] LABS: ACT+ - POC 96 Seconds (82-134)
[2024-07-22 13:01] LABS: B.E. - POC -1.3 mmol/L; Glucose - POC 147 mg/dl (70-99); HCO3 - POC 24 mmol/L (21-28); Hematocrit - POC 26 % PCV (42-52); Hemodilution- POC Yes; Hemoglobin Calculated - POC 8.8; O2 Saturation %Calculated-POC 99.9 % (94-98); PCO2 - POC 41 mmHg (35-48); PO2 - POC 345 mmHg (83-108); POC Comment POST; Potassium - POC 4.5 mmol/L (3.5-5.1); Sodium - POC 140 mmol/L (136-145); pH - POC 7.37 (7.35-7.45)
--- NOTE | 2024-07-22 13:32 | W.CVOR.SURPR ---
CVOR Surgeon Immed Pre Op
-
I have examined this patient prior to performance of the scheduled procedure.
The patient's condition is unchanged from the time of the dictated/written History and
Physical and the patient is able to undergo the scheduled procedure.
--- NOTE | 2024-07-22 13:33 | W.IMMPOSTOP ---
Addendum entered and electronically signed by Renny Rasheed MD 07/22/24 14:50:
[id number]
Original Note:
Surgical Immed Post Op Note
-
CARDIAC SURGERY OPERATIVE NOTE:
Preoperative Dx:
MVCAD
Poorly-controlled DM II (Hgb A1c 11.3%)
Poorly-controlled HTN w/ recent HTN emergency
CKD IIIb w/ recent LELAND to peak creat 3.5
Recent community acquired PNA & acute HFpEF
Recent acute hypoxic respiratory failure
HLD
Postoperative Dx:
Same
Procedures:
1) Median sternotomy
2) Takedown of HUEY (narrow pedicle)
3) Endoscopic harvest/prep of RLE GSV
4) CABG x 3 (HUEY to LAD, GSV to RI, GSV to OM)
Surgeon:
Renny Rasheed M.D.
Assistants:
Carolyn Rivera P.A.-C.; assistant tennis coach throughout; endoscopic harvest/prep of RLE GSV
Suzie Ashley P.A.-C.; closure of RLE GSV incisions, oelgpi-wfsorru-drqg sternal closure
Anesthesia:
Chavo Berman M.D. and Jackson PakN.Riki
Perfusion:
Justin Barron, C.C.P.; XC: 90min, CPB: 122min
Findings:
HUEY was healthy conduit w/ very brisk blood flow; ELD 2.00mm
GSV was healthy conduit w/ ELD 3.0-3.5mm
LAD was visible on the epicardial surface. This vessel was profoundly calcified throughout its course w/ no uninvolved segments. A segment w/ slightly less, but still significant calcifications identified at distal aspect of LAD. Ventura were
calcified and thickened with reasonable ELD of 1.5-2.00mm; 1mm vessel probe passed in both directions w/o significant resistance.
RI was initially visible on the epicardial surface and then transitioned to an intramyocardial course under ~ 2mm of myocardium. This vessel was also profoundly calcified. Anastomoses performed at intramyocardial segment. ELD 2.25mm.
OM was visible on the epicardial. This was the least calcified of the coronaries inspected. It had scattered calcifications, but a spot w/ relatively normal ventura was identified for anastomosis. ELD at this location 2.25mm.
PDA was visible on the epicardial surface, profound calcifications throughout the length of the vessel. ELD based on surface profile after inspection w/ round blade was ~1mm - anastomosis NOT performed to this target
Post-POOJA: Normal biventricular function w/o RWMA; mild MR, mild TR - unchanged from preop
Last K+ 4.5; UO: 255 intraoperatively; 10mg Lasix given
Transfusions:
1U PRBC
Complications:
None
Implants:
CT x 4 (B/L pleural; inferior mediastinal; superior mediastinal)
Sternal wires x 7
Sternal 'X' plate w/ 8 - 14mm screws
Sternal 'Square' plate w/ 4 - 12mm screws
Condition:
65 isoelectric sinus (0.1/0.2); 114/67. 44/28. CVP 22. 100%
GTTS: levophed 3, insulin 1, precedex 0.5
Stable/guarded to CVICU
--- NOTE | 2024-07-22 14:00 | PTCARENOTE ---
received patient from cvor sedated and placed on vent by SOCIAL MEDIA CONTENT SPECIALIST. out with usual lines, no wires and 4 Cts. placed to -20 wall suction. no air leaks/crepitus. draining red. Out on levo @2mcg precedex and insulin per glycemic protocol. NSR on monitor. HR
70s. pulses palpable. no edema. 100% pulse ox 40% fio2. bowel sounds hypoactive. rodriguez draining clear yellow urine. MSI intact. R leg with mynor wrap intact. 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 L radial nancy and r IJ cordis/swan floated to 50cm. opening CI 2.06.
Family updated. will continue to monitor.
--- NOTE | 2024-07-22 14:11 | CON.INTV ---
Consultation
Consultation Request
Date/Time Consultation Requested: 07/22/2024
Date/Time Consultation Performed: 07/22/2020
Requesting Provider: Dr. Rasheed
Performing Provider: Dr. Edgar Rivera
Reason for Consultation: Status postcoronary artery bypass-postoperative care
Medical History
-
History of Present Illness:
58-year-old man Uz[place]-speaking only with history of hypertension, hyperlipidemia, diabetes, hypertension recently found to have multivessel coronary artery disease. In May admitted to the hospital with heart failure.
Now readmitted electively for coronary artery bypass. Surgery underwent without complications on 07/22/[address] Rasheed.
Currently intubated, mechanical ventilation.
Chest tube in place with no significant air leak.
Chart reviewed.
Patient appears comfortable at this point. Not requiring significant vasopressors.
Past Medical History
Past Medical History: Other (See assessment and plan section)
Social History
Tobacco: Non-smoker
Alcohol: None
Drug: None
Personal:
Living: With Family
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
Family History
Family History: Unable to Obtain
Allergies / Home Medications
Allergies
Allergy/AdvReac Type Severity Reaction Status Date / Time
No Known Drug Allergies Allergy Unknown Verified 07/15/24 11:17
Home Medications
�Medication �Instructions �Recorded �Confirmed �Last Taken �Type
amlodipine 10 mg tablet 10 mg PO DAILY #30 tabs 06/28/24 07/22/24 07/21/24 08:00 Rx
bumetanide 2 mg tablet 2 mg PO BID AT 0800,1600 #60 tabs 06/28/24 07/22/24 07/21/24 08:00 Rx
carvedilol 25 mg tablet 25 mg PO BID #60 tabs 06/28/24 07/22/24 07/21/24 08:00 Rx
clopidogrel 75 mg tablet 75 mg PO DAILY #30 tabs 06/28/24 07/22/24 07/16/24 08:00 Rx
hydralazine 50 mg tablet 100 mg (2 x 50 mg) PO TID #120 tabs 06/28/24 07/22/24 07/21/24 08:00 Rx
insulin glargine 100 unit/mL (3 37 unit (0.37 mL) SC HS Diabetes 06/28/24 07/22/24 07/21/24 09:00 Rx
mL) subcutaneous pen (Lantus #5 ea
Solostar U-100 Insulin)
pantoprazole 40 mg granules 40 mg PO DAILY #30 ea 06/28/24 07/22/24 07/21/24 08:00 Rx
delayed-release for susp in packet
(Protonix)
rosuvastatin 40 mg tablet 40 mg PO QPM #30 tabs 06/28/24 07/22/24 07/21/24 08:00 Rx
spironolactone 25 mg tablet 12.5 mg (1/2 x 25 mg) PO BID AT 06/28/24 07/22/24 07/21/24 08:00 Rx
0800,1600 #60 tabs
aspirin 81 mg tablet,delayed 81 mg PO DAILY 07/15/24 07/22/24 07/21/24 08:00 History
release
insulin aspart U-100 100 unit/mL 24 - 25 unit SC AC Diabetes 07/15/24 07/22/24 07/21/24 09:00 History
(3 mL) subcutaneous pen (Novolog
FlexPen U-100 Insulin aspart)
isosorbide mononitrate 30 mg 30 mg PO BID 07/15/24 07/22/24 07/21/24 08:00 History
tablet,extended release 24 hr
isosorbide mononitrate 60 mg 60 mg PO HS 07/15/24 07/22/24 07/21/24 08:00 History
tablet,extended release 24 hr
Review of Systems
-
Unable to Obtain full review of systems at this time due to: Patient Intubation
Vitals / Labs / Diagnostic Testing
Vital Signs
Temp Pulse Resp BP Pulse Ox
98.4 F 74 18 168/78 94
07/22/24 05:05 07/22/24 05:42 07/22/24 05:05 07/22/24 05:42 07/22/24 05:05
Diagnostic Testing:
Physical Exam
-
HEENT: Normocephalic and Other (ET tube in place)
Cardiovascular: S1/S2
Respiratory: Clear and Non-Labored Respirations
GI: Soft and Non Distended
Neurology: Other (Sedated, mechanical ventilation.)
Skin: Warm
General: Comfortable
Assessment
-
s/p coronary artery bypass
Postoperative mechanical ventilation
Postoperative anemia
Conditions present prior to admission:
CAD/NSTEMI-multivessel CAD
Hypertension.
Hyperlipidemia.
Diabetes.
Chronic renal failure-diabetic nephropathy
Assessment and plan:
He is doing well postop-currently on mechanical ventilation and appears comfortable.
ABG reviewed:
Continue SIMV mode with no change
Spontaneous breathing trial per protocol once sedation wears off.
Anemia noted-no evidence of acute bleeding
Status post 1 unit of packed red blood cell
Follow H&H serially
Hemodynamics -not requiring vasopressor
Follow renal function and urinary output
Benedict in place
Hemodynamic support.
High risk of worsening renal failure
Chest tube with no excessive drainage-no air leak.
Chest x-ray reviewed: With no pneumothorax or fluid collections.
Remain nothing by mouth
Head of the bed elevation
Glycemic control per protocol
DVT prophylaxis when safe from the surgical perspective.
Critical care statement: A total of 31 minutes of critical care time was provided for this patient today. This includes management of unstable vital signs, evaluation of the patient at bedside, reviewing the patient's pertinent medical records
including ventilator settings, arterial blood gases, radiographs, microbiology, laboratory evaluations and discussion with primary team, critical care nursing, and respiratory therapy.
[2024-07-22 14:24] LABS: Glucose - Point of Care 96 mg/dl (70-99)
[2024-07-22 14:25] LABS: B.E. -0.4 mmol/L; HCO3 24.9 mmol/L (21-28); Ionized Calcium 1.29 mMOL/L (1.15-1.33); O2 Saturation % 97.7 % (94-98); PCO2 43 mmHg (35-48); PO2 123 mmHg (83-108); Potassium 4.8 mMOL/L (3.5-5.1); Sodium 136 mMOL/L (136-145); pH 7.37 (7.35-7.45)
[2024-07-22 14:30] LABS: Mixed Venous O2 Saturation 63.8 %
[2024-07-22 14:31] LABS: Hemoglobin 8.7 g/dL (13.0-18.0); Platelet Count 169 10^3/uL (130-400)
[2024-07-22 14:37] LABS: INR 1.34; PT 16.4 Sec (11.4-14.6)
[2024-07-22 14:38] LABS: APTT 33.2 Sec (23.4-35.0)
[2024-07-22 14:48] LABS: Blood Urea Nitrogen 72 mg/dl (9-20); Estimated Creatinine Clearance 22 ml/min; Glucose 96 mg/dl (70-99); Magnesium 3.2 mg/dl (1.6-2.3)
[2024-07-22 15:27] LABS: Glucose - Point of Care 137 mg/dl (70-99)
[2024-07-22] MEDS: DILAUDID 0.5 MG IV ×2 (15:31→19:18)
[2024-07-22] MEDS: NSS 500 IV (15:32)
[2024-07-22] MEDS: TYLENOL PO ×2 (15:32→20:55)
[2024-07-22] MEDS: NOVOLOG FLEXPEN SC ×2 (15:32→16:02)
[2024-07-22] MEDS: PACERONE PO (15:33)
[2024-07-22] MEDS: NEURONTIN PO ×2 (15:33→20:55)
[2024-07-22] MEDS: DILAUDID 0.25 MG IV (15:57)
[2024-07-22 16:33] LABS: Glucose - Point of Care 140 mg/dl (70-99)
[2024-07-22 16:38] LABS: B.E. -2.5 mmol/L; HCO3 23.2 mmol/L (21-28); Ionized Calcium 1.23 mMOL/L (1.15-1.33); O2 Saturation % 97.8 % (94-98); PCO2 43 mmHg (35-48); PO2 168 mmHg (83-108); Potassium 4.5 mMOL/L (3.5-5.1); pH 7.34 (7.35-7.45)
[2024-07-22 16:39] LABS: Hematocrit 25.3 % (39.0-52.0); Hemoglobin 8.7 g/dL (13.0-18.0); Platelet Count 195 10^3/uL (130-400)
--- NOTE | 2024-07-22 17:10 | PTCARENOTE ---
ext 1650 to 6L nc. tolerated well.
[2024-07-22] MEDS: ZOFRAN 4 MG IV (17:39)
[2024-07-22] MEDS: ANCEF 5 IV (17:40)
[2024-07-22 17:45] LABS: Glucose - Point of Care 147 mg/dl (70-99)
[2024-07-22 19:03] LABS: Glucose - Point of Care 130 mg/dl (70-99)
[2024-07-22] MEDS: CRESTOR 40 MG PO (19:07)
[2024-07-22] MEDS: LOW STRENGTH ASPIRIN 81 MG PO (19:07)
[2024-07-22] MEDS: REGLAN 10 MG IV (19:33)
--- NOTE | 2024-07-22 19:43 | PTCARENOTE ---
Received pt from [facility]. Pt is [place] speaking, family is in the room to help translate. Pt is Oriented X4. No neuro deficits noted. NSR on monitor. HR: 76, B/P: 117/96. Sternal incision dressed with Aquacel, C/D/I. Pulses palpable, no edema
noted. [place] @ 50. IJ cordis intact, no redness or edema noted. L Rad A-Line zeroed and calibrated. Cardiac Index obtained. Lungs are clear, diminished in bases. 2 Meds, 2 Pleural C/T. Draining red fluid WNL. C/T dressing C/D/I. Benedict draining clear,
yellow fluid, WNL. Hypoactive BS. R Leg incisions approx. surgical glue present. Discussed plan of care with pt and family. Pt and family understands plan.
[2024-07-22] MEDS: SENOKOT-S PO (20:54)
[2024-07-22 21:07] LABS: Glucose - Point of Care 112 mg/dl (70-99)
[2024-07-22 21:23] LABS: Hematocrit 25.1 % (39.0-52.0); Hemoglobin 8.8 g/dL (13.0-18.0); Mean Corp Hgb Conc. 35.1 g/dL (33.0-37.0); Mean Corpuscular Hgb 28.8 pg (27.0-31.0); Mean Platelet Volume 10.3 fL (7.4-10.4); Platelet Count 208 10^3/uL (130-400); Red Blood Cell Count 3.06 10^6/uL (4.70-6.10); Red Cell Dist. Width 13.6 % (11.5-14.5); White Blood Cell Count 28.8 10^3/uL (4.8-10.8)
[2024-07-22 21:39] LABS: Blood Urea Nitrogen 71 mg/dl (9-20); Calcium 9.3 mg/dl (8.4-10.2); Carbon Dioxide 24 mmol/L (22-30); Chloride 104 mmol/L (98-107); Estimated Creatinine Clearance 22 ml/min; Glucose 105 mg/dl (70-99); Potassium 4.8 mmol/L (3.5-5.1); Sodium 142 mmol/L (135-145); eGFR 20.82
--- NOTE | 2024-07-22 22:24 | PTCARENOTE ---
VSS, NSR on monitor. HR:83, B/P: 140/63. Cardene gtt restarted. (See worklist) Labs ordered and obtained per CTPA. No follow-up required. Pt denies pain, N/V. PM care provided. Pt family in room. Pt resting in bed.
[2024-07-22 23:15] LABS: Glucose - Point of Care 129 mg/dl (70-99)
--- NOTE | 2024-07-22 23:21 | PTCARENOTE ---
VSS. Amiodarone and Magnesium on hold per CTPA.
[2024-07-23] VITALS (33 sets, daily range): BP systolic 85–138; BP diastolic 64–79; PULSE 80; O2SAT 96–97; BMI 29.4
[2024-07-23 00:18] LABS: Glucose - Point of Care 121 mg/dl (70-99)
[2024-07-23] MEDS: DILAUDID 0.25 MG IV ×4 (00:28→20:05)
--- NOTE | 2024-07-23 00:49 | W.PN.CT ---
Today's Communication / Plan
-
Plan:
-No major issues overnight. Hemodynamically and neurologically intact
-Successfully extubated on 07/22/24 @ 1650
-Off all drips but insulin gtt protocol
-Last CI 2.95, U/O since OR 1375
-Monitor chest tube drainage: 2meds 90/190, R/L pleurals 120/180
-EKG this AM consistent with acute pericarditis, noted to have a rub on auscultation. Will discuss Colchicine
-Cont. current meds (ASA, Plavix, Crestor, Amiodarone, Lopressor)
-D/C'd swan and a-line this AM @ 0415
-Will maintain rodriguez catheter another day given CKD3b
-Tele phase once of insulin gtt tomorrow
-Maintain cordis
-Encourage use of IS
-Wean off of O2 as tolerated
-OOB into chair/Ambulate
Assessment / Plan
-
Assessment:
-S/P Median sternotomy/ CABG x 3 (HUEY to LAD, GSV to RI, GSV to OM)/ Endoscopic harvest/prep of RLE GSV, by Dr. Rasheed, 07/22/24, pod#1
-Multivessel CAD
-NSTEMI
-Poorly-controlled diabetes mellitus 2 (Hgb A1c 9.2)
-Poorly-controlled hypertension with recent hypertensive emergency
-Chronic kidney disease 3b with recent acute kidney injury to peak creatinine 3.5
-Recent community acquired pneumonia
-Diastolic CHF (LVEF 60% per intraop POOJA)
-Recent acute hypoxic respiratory failure
-Hyperlipidemia
-Class 1 obesity (BMI 30)
-Right pleural effusion S/p R thoracentesis (1200 cc of clear yellow fluid), 06/24/24
-Acute postop blood loss/Anemia (transfused 1u PRBC)
-Acute postop atelectasis
-Acute postop hypovolemia with subsequent hypervolemia
-Acute postop pericarditis (+rub)
Discussed patient care with: Cardiology, Nursing, Respiratory Therapy, Pharmacy and Care Team
Subjective
Procedure
S/P Median sternotomy/ CABG x 3 (HUEY to LAD, GSV to RI, GSV to OM)/ Endoscopic harvest/prep of RLE GSV, by Dr. Rasheed, 07/22/24
-
Date of Service: July 23, 2024
Pt c/o incisional pain, otherwise feels well
Objective Data
-
PT 16.4 Sec (11.4-14.6) H 07/22/24 14:10
INR 1.34 07/22/24 14:10
APTT 33.2 Sec (23.4-35.0) 07/22/24 14:10
Vital Signs
Vital Signs
Temp Pulse Resp BP Pulse Ox
98.2 F 85 15 117/75 98
07/23/24 00:10 07/23/24 00:00 07/23/24 00:10 07/22/24 23:00 07/23/24 00:10
CT Intake/Output/Weight
07/22/24 07/22/24 07/23/24
06:59 18:59 06:59
Intake Total 183.1 / 459.8 276.7 / 459.8
Output Total 610 / 1335 725 / 1335
Balance -426.9 / -875.2 -448.3 / -875.2
SaO2: 98 (2L)
Physical Exam
-
General: Awake, Oriented and AOx3
Cardiovascular: Regular rate & rhythm, No Murmurs, Rub (likely d/t acute pericarditis ) and No Gallop
Respiratory: Decreased Breath Sounds (at bases, otherwise clear)
Sternum: Stable
Incision: Clean, Dry, Intact and Dressing Intact
Extremities: Other (+trace edema)
Data Reviewed
-
Lab Results: Results Reviewed
Medications: Active Meds Reviewed
Chest X-Ray: Report Reviewed and Image Reviewed
ECG: Report Reviewed and Image Reviewed
[2024-07-23 01:58] LABS: Glucose - Point of Care 100 mg/dl (70-99)
[2024-07-23 03:03] LABS: Glucose - Point of Care 93 mg/dl (70-99)
[2024-07-23 03:17] LABS: Hematocrit 23.6 % (39.0-52.0); Hemoglobin 8.2 g/dL (13.0-18.0); Mean Corp Hgb Conc. 34.7 g/dL (33.0-37.0); Mean Corpuscular Hgb 28.5 pg (27.0-31.0); Mean Corpuscular Volume 81.9 fL (80.0-94.0); Mean Platelet Volume 10.7 fL (7.4-10.4); Platelet Count 200 10^3/uL (130-400); Red Blood Cell Count 2.88 10^6/uL (4.70-6.10); Red Cell Dist. Width 13.7 % (11.5-14.5); White Blood Cell Count 23.7 10^3/uL (4.8-10.8)
[2024-07-23] MEDS: TYLENOL 650 MG PO (03:17)
[2024-07-23 03:24] LABS: Mixed Venous O2 Saturation 51.3 %
[2024-07-23] MEDS: ANCEF 5 IV ×2 (03:31→10:21)
[2024-07-23 03:44] LABS: Blood Urea Nitrogen 71 mg/dl (9-20); Calcium 9.3 mg/dl (8.4-10.2); Carbon Dioxide 23 mmol/L (22-30); Chloride 107 mmol/L (98-107); Estimated Creatinine Clearance 23 ml/min; Glucose 98 mg/dl (70-99); Magnesium 3.1 mg/dl (1.6-2.3); Potassium 4.6 mmol/L (3.5-5.1); Sodium 143 mmol/L (135-145)
[2024-07-23 04:27] LABS: Glucose - Point of Care 119 mg/dl (70-99)
--- NOTE | 2024-07-23 04:45 | SUR.OPER ---
VSS. NSR on monitor. HR:85, B/P:104/66. CI:2.95, Resp:17, POX 96% on 2L. Morning labs obtained and reviewed. Per C/T PA pt delined. Pt tolerated delining. Morning ECG completed. C/T dressing changed. Pt resting in bed. Pt family in room.
[2024-07-23] MEDS: TYLENOL PO (05:21)
[2024-07-23 06:33] LABS: Glucose - Point of Care 113 mg/dl (70-99)
--- NOTE | 2024-07-23 07:09 | W.PN.ANS.POP ---
Anesthesia Post Operative
- Anesthesia Post Op Note
Vital Signs Stable-See Nursing Note: Yes
Airway Patent: Yes
Adequate Pain Control: Yes
Change in Mental Status: No
Current Postoperative Nausea & Vomiting: No
Anesthesia Complications: No
General Anesthetic Recall: No
Unplanned Admission: No
Post Op Hydration Adequate: Yes
- -
Pt doing well as per RN (pt Montenegrin speaking), VSS- OOB to chair resting comfortably.
[2024-07-23 07:35] LABS: ACT+ - POC > 1003 Seconds (82-134)
[2024-07-23 07:35] LABS: ACT+ - POC > 1003 Seconds (82-134)
--- NOTE | 2024-07-23 07:46 | PN.DE.MGMTRT ---
Insulin Management
- -
07/23/2024 Diabetes Management Consult
Patient admitted 07/22 for CABG. Patient known to diabetes team from previous admission from 06/08 to 06/28/24. PMH HTN, HLD, diabetes, nstemi, CKD 3B, hypoxia, chf, PNA, r pleural effusion. Prior to admission was taking novolog 24 units AC with
lantus 37 units @ HS. A1C 9.2, cr 3.2, eGFR 21.60.
POD 1 s/p CABG x 3, doing well, awake alert and able to discuss diabetes management through family, and daughter at bedside. (patient is [place] speaking)
Currently on glycemic protocol, receiving .5 to 2.3 units of insulin per hour. Will continue insulin infusion per glycemic protocol today and assess for readiness to transition tomorrow.
Discussed with patients nurse.
Diabetes History
- -
Type of Diabetes: 2 requiring insulin
Pre-Admission Diabetes Regimen
07/22/24 07/22/24 07/23/24
14:10 21:04 03:02
Creatinine 3.3 H 3.3 H 3.2 H
Lab Results
Hemoglobin A1c 9.2 % (4.0-5.6) H 07/17/24 08:58
Insulin Pump Settings
IP Diabetes Regimen
07/22/24 07/22/24 07/22/24
14:10 14:13 15:26
Glucose 96
POC Glucose 96 137 H
07/22/24 07/22/24 07/22/24
16:32 17:44 19:03
Glucose
POC Glucose 140 H 147 H 130 H
07/22/24 07/22/24 07/22/24
21:04 21:06 23:13
Glucose 105 H
POC Glucose 112 H 129 H
07/23/24 07/23/24 07/23/24
00:18 01:56 03:01
Glucose
POC Glucose 121 H 100 H 93
07/23/24 07/23/24 07/23/24
03:02 04:26 06:32
Glucose 98
POC Glucose 119 H 113 H
Meal type: Dinner
Meal type: Breakfast
Patient Education
--- NOTE | 2024-07-23 08:14 | W.PN.CD ---
Today's Communication / Plan
-
Cont post-op care
Consider Colchicine for pericariditis
Impression / Plan
-
Impression/Plan: 58 yo male with PMH HTN, DM, CKD3b (Cr 1.5, December 2023) admitted to [facility] with hypertensive emergency and NSTEMI, subsequently transferred for CABG evaluation after cath revealed severe multivessel disease. He was recently admitted
for acute HFpEF, treated for PNA, and now is back for planned CABG.
CABG x 3 (HUEY to LAD, GSV to RI, GSV to OM)/ Endoscopic harvest/prep of RLE GSV, by Dr. Rasheed, 07/22/24
- cont aspirin and statin
- ECG and exam with rub concerning for pericaritis, consider colchicine
HTN
- holding anti-HTN for now, BP ok
Dyslipidemia
- cont statin
CKD 3b
- Cr 3.2 today monitor
HFpEF
- monitor daily standing weights
- appears euvolemic now
DM2
Postop anemia
Physical Exam
Vital Signs/Labs
Vital Signs
Temp Pulse Resp BP Pulse Ox
99.2 F 84 18 120/73 97
07/23/24 07:00 07/23/24 07:00 07/23/24 07:00 07/23/24 07:00 07/23/24 07:00
07/22/24 07/23/24 07/24/24
06:59 06:59 06:59
Actual Weight 180 lb 8.937 oz 182 lb 5.156 oz
07/23/24 03:02
07/23/24 03:02
PT 16.4 Sec (11.4-14.6) H 07/22/24 14:10
INR 1.34 07/22/24 14:10
APTT 33.2 Sec (23.4-35.0) 07/22/24 14:10
Magnesium 3.1 mg/dl (1.6-2.3) H 07/23/24 03:02
Physical Exam
Constitutional: No acute distress
EENT: Anicteric
Cardiovascular: Rhythm & rate is regular, Pedal edema is absent and Rub present
Respiratory: Other (decreased inspiratory effort clear appearing lungs )
GI: Soft
Neuro/Psych: Alert and Oriented
Data Reviewed
-
Date of Service: July 23, 2024
Medical Decision Making: Reviewed Test Results
EKG: Tracing Personally Visualized and interpreted (sr)
Echo: Report Reviewed by me
Labs: Labs Reviewed by me
[2024-07-23 08:20] LABS: Glucose - Point of Care 107 mg/dl (70-99)
--- NOTE | 2024-07-23 08:45 | PTCARENOTE ---
Patient received from assistant shift supervisor RN; AAOx3, responds spontaneously to RN and follows commands; Anxious and drowsy; VSS; NSR on monitor; Faint friction rub present; Radial and DP pulses present; Lungs diminished at bases; SpO2 96-99% on 2L NC; IS
500 ml; CTx3 - no crepitus, tidaling, or air leak noted; Hypoactive BS; Nausea and vomiting present; Benedict catheter draining clear, yellow urine; Surgical sites intact; RIJ Cordis with KVO infusing; PIV x1 #18 right forearm; Insulin infusing - see
nursing flowsheets for further details; See nursing documentation for further information.
[2024-07-23] MEDS: ZOFRAN 4 MG IV (09:03)
[2024-07-23] MEDS: LIDOCAINE 4% PATCH 1 PATCH TOPICAL (09:07)
[2024-07-23] MEDS: BACTROBAN 2% OINTMENT 1 APPLIC NASAL ×2 (09:08→19:52)
[2024-07-23] MEDS: NOVOLOG FLEXPEN SC ×3 (09:23→15:53)
[2024-07-23 10:18] LABS: Glucose - Point of Care 96 mg/dl (70-99)
[2024-07-23] MEDS: REGLAN 5 MG IV (10:20)
[2024-07-23] MEDS: MYLICON PO (10:20)
--- NOTE | 2024-07-23 10:41 | W.PN.INTV ---
Today's Communication / Plan
Recommendations
Continue postoperative care
Follow chest tube output
Arterial line and PA catheter discontinued
Follow hemoglobin and renal function
Sign off
Assessment
-
s/p coronary artery bypass
Postoperative mechanical ventilation
Postoperative anemia
Conditions present prior to admission:
CAD/NSTEMI-multivessel CAD
Hypertension.
Hyperlipidemia.
Diabetes.
Chronic renal failure-diabetic nephropathy
Assessment and plan:
Doing well postoperative day 1
Continue analgesia-his pain is controlled
Encourage incentive spirometry
Increase activity per protocol.
Anemia noted-no evidence of acute bleeding
Status post 1 unit of packed red blood cell
Hemoglobin stable
Leukocytosis, improving likely reactive
Follow H&H serially
Hemodynamics -stable. Not requiring vasopressors.
Renal function is stable from yesterday.
Continue to follow closely. High risk for acute kidney injury
Chest tube with no excessive drainage-no air leak.
Chest x-ray reviewed 07/23/2024: With no pneumothorax or fluid collections. Widened mediastinum postoperatively.
Advance diet as tolerated
Head of the bed elevation
Glycemic control per protocol
DVT prophylaxis when safe from the surgical perspective.
No additional recommendation from the critical care perspective
Sign off
Subjective Dataa
Subjective Data
Date of Service:
Date of Service: July 23, 2024
Chief Complaint: Joint Yarner Follow Up (Status post coronary artery bypass)
Subjective:
No overnight events
complaining of incisional/chest tube entry site
Ambulated in the room earlier today
Review of Systems
General: Fever (n)
Cardiopulmonary: Dyspnea (none at rest)
GI: Abdominal Pain (n) and Nausea (n)
Objective Data
Data Reviewed
Vital Signs / I&O / Oxygen:
Vital Signs
Temp Pulse Resp BP Pulse Ox
99.4 F 83 20 126/72 91
07/23/24 10:00 07/23/24 10:00 07/23/24 10:00 07/23/24 10:00 07/23/24 10:00
Intake and Output
07/22/24 07/23/24 07/24/24
06:59 06:59 06:59
Intake Total 570.9 / 583.5 409.2 / 409.2
Output Total 1865 / 1965 295 / 295
Balance -1294.1 / -1381.5 114.2 / 114.2
SaO2 [CPAP] 98
SaO2 91
Nasal Cannula flow liters per 2
minute
Physical Exam
General: Comfortable
HEENT: Normocephalic
Cardiovascular: S1-S2
Respiratory: Non-Labored Respirations and Chest Tube (No excessive drainage. No early)
GI: Soft and Non Distended
Neurology: Awake, Alert and No Motor Deficits
Skin: Warm
Labs/Micro/Reports
Lab Data
07/23/24 03:02
07/23/24 03:02
Laboratory Results
07/22/24 07/22/24
14:10 16:29
PT 16.4 H
INR 1.34
APTT 33.2
pH 7.37 7.34 L
pCO2 43 43
pO2 123 H 168 H
HCO3 24.9 23.2
O2 Delivery Level
[2024-07-23] MEDS: PLAVIX 75 MG PO (10:45)
[2024-07-23] MEDS: VITAMIN C 500 MG PO (10:45)
[2024-07-23] MEDS: NEURONTIN 100 MG PO ×3 (10:45→22:15)
[2024-07-23] MEDS: LOW STRENGTH ASPIRIN 81 MG PO (10:45)
[2024-07-23] MEDS: PACERONE 200 MG PO ×3 (10:45→22:15)
[2024-07-23] MEDS: SENOKOT-S 1 TABLET PO ×2 (10:45→19:52)
[2024-07-23] MEDS: FEOSOL 325 MG PO (10:46)
[2024-07-23] MEDS: PROTONIX 40 MG PO (10:46)
[2024-07-23] MEDS: LOPRESSOR 12.5 MG PO ×2 (10:46→19:51)
[2024-07-23] MEDS: MYLICON 80 MG PO (10:49)
--- NOTE | 2024-07-23 10:56 | CM ---
Chart reviewed. at bedside. Patient is [place] speaking. Patient is independent of ADLS, lives with his and son in a 2 [address], 2 ARASH, 0 DME. Plan is for the patient to return home with CT Transitional RN. CM to follow
--- NOTE | 2024-07-23 12:00 | PTCARENOTE ---
Patient with ongoing nausea unrelieved by PRN IV Zofran; PRN IV Reglan/PO Simethicone ordered and given to patient with success; Patient encouraged to ambulate and drink/eat in small amounts - able to ambulate in room with RN; PRN IV Dilaudid 0.25
mg given for pain management - patient resting comfortably in bed
[2024-07-23 12:06] LABS: Glucose - Point of Care 101 mg/dl (70-99)
[2024-07-23] MEDS: TYLENOL 1000 MG PO ×2 (13:12→22:15)
[2024-07-23] MEDS: NSS IV (13:16)
[2024-07-23 14:30] LABS: Glucose - Point of Care 104 mg/dl (70-99)
[2024-07-23] MEDS: NOVOLIN R INSULIN INFUSION 100 IV (15:55)
[2024-07-23 16:03] LABS: Glucose - Point of Care 112 mg/dl (70-99)
--- NOTE | 2024-07-23 16:26 | PTCARENOTE ---
Patient dizzy and lightheaded during ambulation in hallway - sat down on chair and taken back to bed; BP orthostatic; Patient laying in bed comfortably now.
[2024-07-23] MEDS: CRESTOR 40 MG PO (17:21)
[2024-07-23 18:04] LABS: Glucose - Point of Care 118 mg/dl (70-99)
[2024-07-23] MEDS: NOVOLOG FLEXPEN 4 UNITS SC (18:24)
[2024-07-23 20:05] LABS: Glucose - Point of Care 122 mg/dl (70-99)
--- NOTE | 2024-07-23 20:31 | PTCARENOTE ---
Resumed care of pt laying in bed sleeping with family at bedside. Pt arousable to voice, able to nod appropriately, answer questions with assistance from family, pt [place] speaking. Pt reports pain 7/10 in sternum, PRN pain medication administered
as ordered, see NOV. HR Reg, NSR on the monitor. Sternal Aqucell dressing intact. Lungs dec @ bases. CTx4 in place, right/left pleural, 2 Mediastinal, assessed and WNL. Dressings intact. Round obese abd. Poor appetite, denies nausea at this time.
Benedict cath in place draining clear yellow urine. Right groin puncture site open to air and approximated. Right medial knee with surg glue and open to air, Right ankle with surg glue and open to air. Palpable peripheral pulses present. Right IJ
cordis in place with NSS @10ml/hr KVO. Right forearm INT infusing Insulin gtt per glycemic protocol. Pt refusing Knee high seq, education provided, pt continues to refuse. Slight discoloration to B/L LE. Family at bedside attempting to do everything
for pt, Pt encouraged to move and do for himself. No issues to report at this time. Will continue to monitor.
[2024-07-23 22:11] LABS: Glucose - Point of Care 104 mg/dl (70-99)
--- NOTE | 2024-07-23 22:29 | PTCARENOTE ---
Pt with core temp 100.7, Tylenol administered as ordered. Pt reports sternal pain /, pt not due for more pain medication at this time, will give when its due. Pt repositioned in bed. Family remains at bedside. Will continue to monitor.
[2024-07-24] VITALS (25 sets, daily range): BP systolic 96–153; BP diastolic 62–78; BMI 29.6
[2024-07-24 00:06] LABS: Glucose - Point of Care 123 mg/dl (70-99)
[2024-07-24 02:05] LABS: Glucose - Point of Care 79 mg/dl (70-99)
[2024-07-24] MEDS: ROXICODONE 5 MG PO (02:11)
--- NOTE | 2024-07-24 02:27 | PTCARENOTE ---
PT awake requesting to sit on side of bed. Pt assisted to stand, obtain wt on standing scale. Pt became lightheaded and dizzy, closing eyes shut tight. Pt assisted back to bed. SBP in the 90's. HR in the 80's in NSR. POX 95% on 1 LO2 NC. Pt
complaining of sternal pain 03/27. PRN pain medication administered as ordered. Family remains at bedside. Will continue to monitor.
[2024-07-24 03:11] LABS: Glucose - Point of Care 130 mg/dl (70-99)
[2024-07-24 04:02] LABS: Glucose - Point of Care 160 mg/dl (70-99)
[2024-07-24 04:26] LABS: Hematocrit 20.6 % (39.0-52.0); Mean Corpuscular Hgb 29.4 pg (27.0-31.0); Mean Corpuscular Volume 86.6 fL (80.0-94.0); Platelet Count 180 10^3/uL (130-400); Red Blood Cell Count 2.38 10^6/uL (4.70-6.10); Red Cell Dist. Width 14.3 % (11.5-14.5); White Blood Cell Count 22.4 10^3/uL (4.8-10.8)
[2024-07-24 04:44] LABS: Blood Urea Nitrogen 74 mg/dl (9-20); Carbon Dioxide 24 mmol/L (22-30); Chloride 103 mmol/L (98-107); Estimated Creatinine Clearance 23 ml/min; Glucose 141 mg/dl (70-99); Magnesium 3.1 mg/dl (1.6-2.3); Potassium 4.5 mmol/L (3.5-5.1); Sodium 139 mmol/L (135-145)
[2024-07-24 05:05] LABS: Glucose - Point of Care 125 mg/dl (70-99)
[2024-07-24] MEDS: TYLENOL 1000 MG PO ×3 (05:06→22:33)
--- NOTE | 2024-07-24 05:21 | W.PN.CT ---
Today's Communication / Plan
-
-pod #2
-orthostatic overnight with lightheadedness and SBP drop from 120s to 90s
-h/h 7.0/20.6 today (hg 8.2 on 07/23) - consider 1 pRBC
-Tm 100.7, IS only 500- start Mucinex, acapella, encourage IS
-Cr trending up - 3.5 today (3.2 on 07/23, 3.3 on 07/22, 3.2 preop)
-maintain Benedict
-CT output: 2 meds 30/55, 2 pleur 70/180 in 1224 hrs
-current meds (ASA, Plavix, Lopressor 12.5 bid, Amio, Protonix, Crestor, Feosol)
Assessment / Plan
-
Assessment:
-S/P Median sternotomy/ CABG x 3 (HUEY to LAD, GSV to RI, GSV to OM)/ Endoscopic harvest/prep of RLE GSV, by Dr. Rasheed, 07/22/24, pod#2
-Multivessel CAD
-NSTEMI
-Poorly-controlled diabetes mellitus 2 (Hgb A1c 9.2)
-Poorly-controlled hypertension with recent hypertensive emergency
-Chronic kidney disease 3b with recent acute kidney injury to peak creatinine 3.5
-Recent community acquired pneumonia
-Diastolic CHF (LVEF 60% per intraop POOJA)
-Recent acute hypoxic respiratory failure
-Hyperlipidemia
-Class 1 obesity (BMI 30)
-Right pleural effusion S/p R thoracentesis (1200 cc of clear yellow fluid), 06/24/24
-Acute postop blood loss/Anemia (transfused 1u PRBC)
-Acute postop atelectasis
-Acute postop hypovolemia with subsequent hypervolemia
-Acute postop pericarditis (+rub)
-Acute postop orthostasis
Discussed patient care with: Nursing and Care Team
Subjective
Procedure
S/P Median sternotomy/ CABG x 3 (HUEY to LAD, GSV to RI, GSV to OM)/ Endoscopic harvest/prep of RLE GSV, by Dr. Rasheed, 07/22/24
-
Date of Service: July 24, 2024
Objective Data
-
Lab Results
07/24/24 04:03
07/24/24 04:03
PT 16.4 Sec (11.4-14.6) H 07/22/24 14:10
INR 1.34 07/22/24 14:10
APTT 33.2 Sec (23.4-35.0) 07/22/24 14:10
Vital Signs
Vital Signs
Temp Pulse Resp BP Pulse Ox
100.3 F 80 20 125/64 94
07/24/24 03:12 07/24/24 03:00 07/23/24 19:51 07/24/24 03:00 07/24/24 02:30
CT Intake/Output/Weight
07/23/24 07/23/24 07/24/24
06:59 18:59 06:59
Intake Total 387.8 / 583.5 621.7 / 739.2 117.5 / 739.2
Output Total 1255 / 1965 730 / 1230 500 / 1230
Balance -867.2 / -1381.5 -108.3 / -490.8 -382.5 / -490.8
SaO2: 94
Physical Exam
-
General: Awake, Oriented and AOx3
Cardiovascular: Regular rate & rhythm, No Murmurs, Rub (likely d/t acute pericarditis ) and No Gallop
Respiratory: Decreased Breath Sounds (at bases, otherwise clear)
Sternum: Stable
Incision: Clean, Dry, Intact and Dressing Intact
Extremities: Other (+trace edema)
Data Reviewed
-
Lab Results: Results Reviewed
Medications: Active Meds Reviewed
Chest X-Ray: Report Reviewed and Image Reviewed
ECG: Report Reviewed and Image Reviewed
--- NOTE | 2024-07-24 05:41 | PTCARENOTE ---
Pt orthostatic, hgb drop to 7 this am. Did not get pt OOB to chair. Pt sat on side of bed, drop in BP. Pt assisted back to bed. Cardiac PA updated on pt status, and at bedside to assess pt. Advised to keep pt in bed at this time. G bath provided.
Pt encouraged to use I/S, pt used a few times, not taking deep breaths. Pt needs lots of reinforcement on deep breathing with I/S, and use of heart pillow for sternal precautions. Pt positioned per comfort. Family remains at bedside. Will continue
to monitor.
[2024-07-24 06:19] LABS: Glucose - Point of Care 143 mg/dl (70-99)
--- NOTE | 2024-07-24 06:51 | PTCARENOTE ---
Blood transfusion now infusing as ordered.
--- NOTE | 2024-07-24 07:33 | W.PN.CD ---
Today's Communication / Plan
-
Hemodynamically stable remains in sinus rhythm.
Hemoglobin 7.0. Would suggest PRBCs. Management being directed by CT surgery.
Impression / Plan
-
Impression/Plan: 58 yo male with PMH HTN, DM, CKD3b (Cr 1.5, December 2023) admitted to [facility] with hypertensive emergency and NSTEMI, subsequently transferred for CABG evaluation after cath revealed severe multivessel disease. He was recently admitted
for acute HFpEF, treated for PNA, and now is back for planned CABG.
CABG x 3 (HUEY to LAD, GSV to RI, GSV to OM)/ Endoscopic harvest/prep of RLE GSV, by Dr. Rasheed, 07/22/24
- cont aspirin and statin
- ECG and exam with rub concerning for pericaritis, by report 07/23/2024. No rub noted on 07/24/2024.
-Check follow-up ECG
.
Postop anemia. Hemoglobin down to 7.0. Management including decisions regarding PRBCs being directed by CT surgery
HTN-Dx preop. Monitor postop
Dyslipidemia
- cont statin
CKD 3b
- Cr 3.5 today monitor closely.
HFpEF
- monitor daily standing weights
- appears euvolemic now. IntraOp POOJA with EF of 60%.
DM2
Physical Exam
Vital Signs/Labs
Vital Signs
Temp Pulse Resp BP Pulse Ox
100.3 F 80 20 131/68 93
07/24/24 03:12 07/24/24 06:00 07/23/24 19:51 07/24/24 06:00 07/24/24 06:00
07/23/24 07/24/24 07/25/24
06:59 06:59 06:59
Actual Weight 82.7 kg 83.1 kg
07/24/24 10:00
07/24/24 04:03
PT 16.4 Sec (11.4-14.6) H 07/22/24 14:10
INR 1.34 07/22/24 14:10
APTT 33.2 Sec (23.4-35.0) 07/22/24 14:10
Magnesium 3.1 mg/dl (1.6-2.3) H 07/24/24 04:03
Physical Exam
Constitutional: No acute distress
Cardiovascular: Rhythm & rate is regular and Other (No rub auscultated)
Respiratory: Lungs clear to auscul. and Crackles Absent
GI: Soft and Non tender
Neuro/Psych: Alert and AO x 3
Data Reviewed
-
Date of Service: July 24, 2024
Medical Decision Making: Reviewed Test Results
X-Ray/CT/US/MRI/NUC/PET: Report Reviewed by me
Medical Tests (PFT, Pathology etc): Report Reviewed by me
Labs: Labs Reviewed by me
--- NOTE | 2024-07-24 08:00 | PTCARENOTE ---
resumed care of patient from previous RN. resting in bed at time of assessment. NSR HR 80s. 97% 1L nc. will wean as tolerated. CTx4. no air leaks or crepitus. Draining serosang. Benedict draining clear yellow urine. R IJ Cordis with kvo infusing.
Pulses weak but palpable. All surgical sites intact. Insulin gtt per protocol. will continue to monitor.
[2024-07-24 08:44] LABS: Glucose - Point of Care 191 mg/dl (70-99)
[2024-07-24] MEDS: BACTROBAN 2% OINTMENT 1 APPLIC NASAL ×2 (08:45→20:27)
[2024-07-24] MEDS: NOVOLOG FLEXPEN 2 UNITS SC (08:45)
[2024-07-24] MEDS: LIDOCAINE 4% PATCH 1 PATCH TOPICAL (08:57)
[2024-07-24] MEDS: MUCINEX 600 MG PO ×2 (08:58→20:28)
[2024-07-24] MEDS: LOPRESSOR 12.5 MG PO ×2 (08:58→20:28)
[2024-07-24] MEDS: SENOKOT-S 1 TABLET PO ×2 (08:58→20:28)
[2024-07-24] MEDS: PACERONE 200 MG PO ×3 (08:59→22:33)
[2024-07-24] MEDS: PROTONIX 40 MG PO (08:59)
[2024-07-24] MEDS: LOW STRENGTH ASPIRIN 81 MG PO (08:59)
[2024-07-24] MEDS: PLAVIX 75 MG PO (08:59)
[2024-07-24] MEDS: NEURONTIN 100 MG PO ×3 (08:59→22:32)
[2024-07-24] MEDS: VITAMIN C 500 MG PO (08:59)
[2024-07-24] MEDS: FEOSOL 325 MG PO (09:00)
[2024-07-24 10:31] LABS: Glucose - Point of Care 199 mg/dl (70-99)
--- NOTE | 2024-07-24 11:33 | CM ---
Chart reviewed. Patient's at bedside. Patient OOB sitting in the chair. Patient is independent of ADLS, lives with his and son in a apartment, 7 [address], 0 DME. Plan is for the patient to return home with CT Transitional RN. CM to
follow
--- NOTE | 2024-07-24 12:14 | PN.DE.MGMTRT ---
Insulin Management
- -
07/24/2024 Diabetes Management Consult Follow up
Patient admitted 07/22 for CABG. Patient known to diabetes team from previous admission from 06/08 to 06/28/24. PMH HTN, HLD, diabetes, nstemi, CKD 3B, hypoxia, chf, PNA, r pleural effusion. Prior to admission was taking novolog 24 units AC with
lantus 37 units @ HS. A1C 9.2, cr 3.2, eGFR 21.60.
POD 2 s/p CABG x 3, doing well, awake alert and able to discuss diabetes management through family, and daughter at bedside. (patient is Cypriot speaking)
Currently on glycemic protocol, receiving .5 to 6 units of insulin per hour. Will continue insulin infusion per glycemic protocol until HS lantus, 37 units (home dose) administered. Drip can be stopped 2 hours after lantus administered. Will
resume AC novolog 20 units in AM (reduced dose as patient appetite not 100%) 07/25 with low corrective insulin.
Discussed with patients nurse.
Diabetes History
- -
Type of Diabetes: 2 requiring insulin
Pre-Admission Diabetes Regimen
07/24/24
04:03
Creatinine 3.5 H
Lab Results
Hemoglobin A1c 9.2 % (4.0-5.6) H 07/17/24 08:58
Insulin Pump Settings
IP Diabetes Regimen
07/23/24 07/23/24 07/23/24
14:28 16:02 18:02
Glucose
POC Glucose 104 H 112 H 118 H
07/23/24 07/23/24 07/24/24
19:59 22:10 00:05
Glucose
POC Glucose 122 H 104 H 123 H
07/24/24 07/24/24 07/24/24
02:04 03:09 04:00
Glucose
POC Glucose 79 130 H 160 H
07/24/24 07/24/24 07/24/24
04:03 05:02 06:18
Glucose 141 H
POC Glucose 125 H 143 H
07/24/24 07/24/24
08:42 10:30
Glucose
POC Glucose 191 H 199 H
Meal type: Dinner
Meal type: Lunch
Amount consumed: Patient refused
Amount consumed: Patient refused
Patient Education
[2024-07-24 12:28] LABS: Glucose - Point of Care 208 mg/dl (70-99)
[2024-07-24 14:16] LABS: Glucose - Point of Care 140 mg/dl (70-99)
[2024-07-24] MEDS: NOVOLOG FLEXPEN 4 UNITS SC (14:21)
[2024-07-24 15:55] LABS: Glucose - Point of Care 149 mg/dl (70-99)
--- NOTE | 2024-07-24 16:00 | PTCARENOTE ---
VSS no change in prev assessment
[2024-07-24] MEDS: NSS 500 IV (16:09)
[2024-07-24 17:29] LABS: Glucose - Point of Care 177 mg/dl (70-99)
[2024-07-24] MEDS: CRESTOR 40 MG PO (18:12)
--- NOTE | 2024-07-24 18:30 | PTCARENOTE ---
CT d/c'd wothout issue
[2024-07-24 19:47] LABS: Glucose - Point of Care 89 mg/dl (70-99)
[2024-07-24] MEDS: NOVOLIN R INSULIN INFUSION 100 IV (20:19)
--- NOTE | 2024-07-24 21:10 | PTCARENOTE ---
Report received from NATHALIE Stafford. Walking rounds done. Pt awake, alert, oriented x 4. + language barrier. Pt speaks Swazi. MILLY Slaughter in to translate. also at bedside. Pt alert, awake, oriented x 4. Speech clear. Pt on 0.5 L/NC/O2. Sats
91-94%. BBS present. Decreased to B bases. CDB, IS, and acapella valve done with pt. IS peak 750 mls. Pt in SR. Audible heart tones. Normo-hypertensive. See VS. +1 pitting R ankle edema present. MILLY Goel made aware. No pain or redness to lower R
leg. Chest tubes were d/c'ed per Day shift RN at shift change. For wound and pulse assessments, see flowsheets. Belly soft, nontender. Normoactive bs x 4. Poor appetite. Passing flatus. Indwelling urinary catheter present. Urine clear, yellow.
Pt helped to recliner chair per request. Given CHG bath. Gown and linens changed. Pt to BR to attempt BM without success. Did pass flatus. Pt then helped back to bed. Glycemic protocol maintained.
[2024-07-24 21:27] LABS: Glucose - Point of Care 110 mg/dl (70-99)
--- NOTE | 2024-07-24 22:30 | PTCARENOTE ---
Blood glucose 93. Pt refused Lantus evening dose. States he is concerned his appetite is poor and his sugar is too low at present time. Explained to pt the 2 types of insulin he is receiving (lantus and regular human insulin gtt-Gtt to be stopped 2
hours after Lantus given). Still refuses his evening lantus dose. PA made aware. Will recheck glucose at MI.
[2024-07-24 22:31] LABS: Glucose - Point of Care 93 mg/dl (70-99)
[2024-07-25] VITALS (23 sets, daily range): BP systolic 105–152; BP diastolic 58–87; PULSE 66; O2SAT 95–96; BMI 29.9
[2024-07-25 00:11] LABS: Glucose - Point of Care 79 mg/dl (70-99)
[2024-07-25] MEDS: LANTUS SC (00:15)
[2024-07-25] MEDS: ROXICODONE 5 MG PO (00:35)
--- NOTE | 2024-07-25 00:39 | PTCARENOTE ---
Pt assisted up to recliner chair with 2-person assist. C/O moderate right middle leg pain. Roxicodone 5 mg o given for pain.
Blood glucose 79. Insulin gtt decreased to 0.1 unit/hr per glycemic protocol, then d/c'ed per order of Amando ATKINS. Pt continues to refuse his lantus evening dose, stating he has less appetite. Pt made aware.
[2024-07-25 01:14] LABS: Glucose - Point of Care 118 mg/dl (70-99)
--- NOTE | 2024-07-25 01:29 | PTCARENOTE ---
Repeat blood glucose 118 with insulin gtt stopped ~ 1 hr.
--- NOTE | 2024-07-25 04:35 | PTCARENOTE ---
Pt called out to RN. Helped up to chair with 2 RN assist. Labs drawn and sent. Pt attempting to go to sleep in chair.
[2024-07-25 05:00] LABS: Hematocrit 23.1 % (39.0-52.0); Hemoglobin 7.9 g/dL (13.0-18.0); Mean Corp Hgb Conc. 34.2 g/dL (33.0-37.0); Mean Corpuscular Hgb 29.4 pg (27.0-31.0); Mean Corpuscular Volume 85.9 fL (80.0-94.0); Mean Platelet Volume 10.9 fL (7.4-10.4); Platelet Count 184 10^3/uL (130-400); Red Blood Cell Count 2.69 10^6/uL (4.70-6.10); Red Cell Dist. Width 14.5 % (11.5-14.5); White Blood Cell Count 20.5 10^3/uL (4.8-10.8)
[2024-07-25 05:28] LABS: Blood Urea Nitrogen 80 mg/dl (9-20); Calcium 8.7 mg/dl (8.4-10.2); Carbon Dioxide 22 mmol/L (22-30); Chloride 101 mmol/L (98-107); Estimated Creatinine Clearance 23 ml/min; Glucose 129 mg/dl (70-99); Magnesium 3.4 mg/dl (1.6-2.3); Sodium 138 mmol/L (135-145)
[2024-07-25] MEDS: TYLENOL 1000 MG PO ×3 (06:15→22:45)
--- NOTE | 2024-07-25 06:18 | W.PN.CT ---
Today's Communication / Plan
-
-pod #3
-no issues overnight, c/o trouble sleeping
-no further lightheadedness- improved after 1 pRBC on 07/24
-h/h 7.9/23.1 today
-Cr stable @ 3.5 (3.2 preop)
-maintain Benedict today
-diurese
-encourage IS, acapella, OOB, ambulate
Assessment / Plan
-
Assessment:
-S/P Median sternotomy/ CABG x 3 (HUEY to LAD, GSV to RI, GSV to OM)/ Endoscopic harvest/prep of RLE GSV, by Dr. Rasheed, 07/22/24, pod#3
-Multivessel CAD
-NSTEMI
-Poorly-controlled diabetes mellitus 2 (Hgb A1c 9.2)
-Poorly-controlled hypertension with recent hypertensive emergency
-Chronic kidney disease 3b with recent acute kidney injury to peak creatinine 3.5
-Recent community acquired pneumonia
-Diastolic CHF (LVEF 60% per intraop POOJA)
-Recent acute hypoxic respiratory failure
-Hyperlipidemia
-Class 1 obesity (BMI 30)
-Right pleural effusion S/p R thoracentesis (1200 cc of clear yellow fluid), 06/24/24
-Acute postop blood loss/Anemia (transfused 1u PRBC)
-Acute postop atelectasis
-Acute postop hypovolemia with subsequent hypervolemia
-Acute postop pericarditis (+rub)
-Acute postop orthostasis
Discussed patient care with: Nursing and Care Team
Subjective
Procedure
S/P Median sternotomy/ CABG x 3 (HUEY to LAD, GSV to RI, GSV to OM)/ Endoscopic harvest/prep of RLE GSV, by Dr. Rasheed, 07/22/24
-
Date of Service: July 25, 2024
Objective Data
-
Lab Results
07/25/24 04:33
07/25/24 04:33
PT 16.4 Sec (11.4-14.6) H 07/22/24 14:10
INR 1.34 07/22/24 14:10
APTT 33.2 Sec (23.4-35.0) 07/22/24 14:10
Vital Signs
Vital Signs
Temp Pulse Resp BP Pulse Ox
98.6 F 65 15 121/73 96
07/25/24 04:00 07/25/24 03:00 07/25/24 04:00 07/25/24 03:00 07/25/24 04:00
CT Intake/Output/Weight
07/24/24 07/24/24 07/25/24
06:59 18:59 06:59
Intake Total 129.0 / 750.7 140.5 / 255.6 115.1 / 255.6
Output Total 600 / 1330 690 / 1205 515 / 1205
Balance -471.0 / -579.3 -549.5 / -949.4 -399.9 / -949.4
SaO2: 96
Physical Exam
-
General: Awake and AOx3
Cardiovascular: Regular rate & rhythm, No Murmurs and No Rub
Respiratory: Decreased Breath Sounds
Sternum: Stable
Incision: Clean, Dry and Intact
Extremities: Other (trace edema on RLE (EVH side))
Data Reviewed
-
Lab Results: Results Reviewed
Medications: Active Meds Reviewed
Chest X-Ray: Report Reviewed and Image Reviewed
ECG: Report Reviewed and Image Reviewed
--- NOTE | 2024-07-25 06:41 | PTCARENOTE ---
Pt remains in chair. Scheduled Tylenol given. Dr. Rasheed and MILLY Goel at bedside to see pt this am. Encouraged to remain up in chair this am and perform IS and Flutter valve exercises. remains at bedside.
--- NOTE | 2024-07-25 07:00 | PTCARENOTE ---
Bedside walking rounds report received. Patient is oob in chair on 1l nasal canula transitioned to room air. NSR with PAC'. See flowrecord for remaining assessments. Patient is in room: patient is mostly Marshallese speaking: can translate
need, but patient does speak some fluent Wolof and understand some. Video languge line available in room if necessary. Patient repeatedly told of the importance of staying oob, ambulating at least 4 times in hallway.
--- NOTE | 2024-07-25 08:21 | PN.DE.MGMTRT ---
Insulin Management
- -
07/25/2024 Diabetes Management Consult Follow up
Patient admitted 07/22 for CABG. Patient known to diabetes team from previous admission from 06/08 to 06/28/24. PMH HTN, HLD, diabetes, nstemi, CKD 3B, hypoxia, chf, PNA, r pleural effusion. Prior to admission was taking novolog 24 units AC with
lantus 37 units @ HS. A1C 9.2, cr 3.2, eGFR 21.60.
07/24 POD 2 s/p CABG x 3, doing well, awake alert and able to discuss diabetes management through family, and daughter at bedside. (patient is Tuvaluan speaking)
Currently on glycemic protocol, receiving .5 to 6 units of insulin per hour. Will continue insulin infusion per glycemic protocol until HS lantus, 37 units (home dose) administered. Drip can be stopped 2 hours after lantus administered. Will
resume AC novolog 20 units in AM (reduced dose as patient appetite not 100%) with low corrective insulin.
07/25 POD 3 Patient refused HS lantus 07/24 insulin infusion continued until MN then stopped. Fasting glucose this AM 166. Using the language iPad medical interpreter #[id number] I discussed with patient, and daughter the importance of glucose control to
avoid infection. Explained the slow release of lantus at bedtime which he did not get. Will give 12 units lantus now then hs lantus tonight. Also explained that meal time novolog has been reduced from 25 units to 20 units and as appetite
improves will increase to home dose of 25 units.
Discussed with patients nurse.
Diabetes History
- -
Type of Diabetes: 2 requiring insulin
Pre-Admission Diabetes Regimen
07/25/24
04:33
Creatinine 3.5 H
Lab Results
Hemoglobin A1c 9.2 % (4.0-5.6) H 07/17/24 08:58
Insulin Pump Settings
IP Diabetes Regimen
07/24/24 07/24/24 07/24/24
08:42 10:30 12:27
Glucose
POC Glucose 191 H 199 H 208 H
07/24/24 07/24/24 07/24/24
14:15 15:54 17:28
Glucose
POC Glucose 140 H 149 H 177 H
07/24/24 07/24/24 07/24/24
19:46 21:26 22:30
Glucose
POC Glucose 89 110 H 93
07/25/24 07/25/24 07/25/24
00:09 01:13 04:33
Glucose 129 H
POC Glucose 79 118 H
Meal type: Breakfast
Amount consumed: 25%
Patient Education
[2024-07-25] MEDS: NOVOLOG FLEXPEN 20 UNITS SC ×3 (08:26→17:29)
[2024-07-25] MEDS: NOVOLOG FLEXPEN-LOW RESISTANCE 1 UNITS SC ×2 (08:27→13:29)
[2024-07-25 08:29] LABS: Glucose - Point of Care 166 mg/dl (70-99)
[2024-07-25] MEDS: LIDOCAINE 4% PATCH 1 PATCH TOPICAL (08:29)
[2024-07-25] MEDS: FEOSOL 325 MG PO (08:29)
[2024-07-25] MEDS: NEURONTIN 100 MG PO ×3 (08:29→22:45)
[2024-07-25] MEDS: LOPRESSOR 12.5 MG PO (08:29)
[2024-07-25] MEDS: VITAMIN C 500 MG PO (08:30)
[2024-07-25] MEDS: MUCINEX 600 MG PO ×2 (08:30→19:58)
[2024-07-25] MEDS: PACERONE 200 MG PO ×3 (08:30→22:45)
[2024-07-25] MEDS: PROTONIX 40 MG PO (08:30)
[2024-07-25] MEDS: PLAVIX 75 MG PO (08:30)
[2024-07-25] MEDS: LOW STRENGTH ASPIRIN 81 MG PO (08:30)
[2024-07-25] MEDS: SENOKOT-S 1 TABLET PO ×2 (08:30→19:59)
[2024-07-25] MEDS: BACTROBAN 2% OINTMENT 1 APPLIC NASAL ×2 (08:31→19:57)
--- NOTE | 2024-07-25 08:31 | W.PN.CD ---
Today's Communication / Plan
-
Postop anemia. Hemoglobin down to 7.9 after one unit PRBC.
- monitor
- Management including decisions regarding PRBCs being directed by CT surgery
Monitor BP. Multidrug HTN. Reinitiate meds post op ( BB and amlodpiine) as BP requires
Impression / Plan
-
Impression/Plan: 58 yo male with PMH HTN, DM, CKD3b (Cr 1.5, December 2023) admitted to [facility] with hypertensive emergency and NSTEMI, subsequently transferred for CABG evaluation after cath revealed severe multivessel disease. He was recently admitted
for acute HFpEF, treated for PNA, and now is back for planned CABG.
CABG x 3 (HUEY to LAD, GSV to RI, GSV to OM)/ Endoscopic harvest/prep of RLE GSV, by Dr. Rasheed, 07/22/24
- cont aspirin and statin
- ECG and exam with rub concerning for pericaritis, by report 07/23/2024. No rub noted on 07/24/2024.
-follow ECG
.
Postop anemia. Hemoglobin down to 7.9 after one unit PRBC.
- monitor
- Management including decisions regarding PRBCs being directed by CT surgery
HTN-Dx preop. Monitor postop
Dyslipidemia
- cont statin
CKD 3b
- Cr 3.5 today monitor closely.
HFpEF
- monitor daily standing weights
- appears euvolemic now. IntraOp POOJA with EF of 60%.
DM2
Physical Exam
Vital Signs/Labs
Vital Signs
Temp Pulse Resp BP Pulse Ox
98.2 F 69 16 146/77 93
07/25/24 08:19 07/25/24 08:19 07/25/24 08:19 07/25/24 08:19 07/25/24 08:19
07/24/24 07/25/24 07/26/24
06:59 06:59 06:59
Actual Weight 83.1 kg 83.9 kg
07/25/24 04:33
07/25/24 04:33
PT 16.4 Sec (11.4-14.6) H 07/22/24 14:10
INR 1.34 07/22/24 14:10
APTT 33.2 Sec (23.4-35.0) 07/22/24 14:10
Magnesium 3.4 mg/dl (1.6-2.3) H 07/25/24 04:33
Physical Exam
Constitutional: No acute distress
Cardiovascular: Rhythm & rate is regular
Respiratory: Wheeze Absent and Rhonchi Absent
GI: Soft
Neuro/Psych: Alert
Data Reviewed
-
Date of Service: July 25, 2024
Medical Decision Making: Reviewed Test Results
X-Ray/CT/US/MRI/NUC/PET: Report Reviewed by me
Medical Tests (PFT, Pathology etc): Report Reviewed by me
Labs: Labs Reviewed by me
--- NOTE | 2024-07-25 10:32 | PN.CDI ---
CDI
- -
CDI:
Physician Documentation Request
Admit Date: 07/22/24 04:54
Dear Cardiology,
Patient admitted for CABG.
07/25 Cardiology PN: 'He was recently admitted for acute HFpEF...HFpEF - monitor daily standing weights - appears euvolemic now. IntraOp POOJA with EF of 60%.'
Clarify which of the following accurately represents the acuity of the HFpEF. Possible options might include:
____ Chronic
Acute on Chronic
____ Other
Use of terms such as suspected, likely, concern for, or probable (associated with a specific diagnosis that is being evaluated, monitored, or treated as if it exists) are acceptable and can be coded in the inpatient setting, when documented at the
time of discharge.
Thank you,
Mulu He RN, BSN
CDI Specialist
Available via [employer] text
Please use your independent medical judgment in providing your response.
[2024-07-25] MEDS: LANTUS 0.12 UNITS SC (11:08)
--- NOTE | 2024-07-25 11:50 | CM ---
Chart reviewed. Patient is independent of ADLS, lives with his and son in a apartment, 7 [address], 0 DME. Plan is for the patient to return home with CT Transitional RN. CM to follow
[2024-07-25] MEDS: NSS IV (13:25)
[2024-07-25] MEDS: LASIX 20 MG IV (13:25)
[2024-07-25 13:32] LABS: Glucose - Point of Care 183 mg/dl (70-99)
--- NOTE | 2024-07-25 14:00 | PTCARENOTE ---
Benedict catheter dc. Patient remains oob in chair on room air. NSR. Patient is asking to go for walks, which is very encouraging for patient and family. NSR.
--- NOTE | 2024-07-25 16:00 | PTCARENOTE ---
Patient did ambulate hallway x 4. Approximately 225feet each time. Tolerated .
[2024-07-25 17:29] LABS: Glucose - Point of Care 142 mg/dl (70-99)
[2024-07-25] MEDS: NOVOLOG FLEXPEN-LOW RESISTANCE SC (17:30)
[2024-07-25] MEDS: CRESTOR 40 MG PO (17:31)
--- NOTE | 2024-07-25 18:30 | PTCARENOTE ---
Patient is in bathroom on toilet: voided clear yellow urine and attempted to have a BM with 0 results: patient noted to be sinus tach/vs atrial tach with rates to the 130's. Patient could not feel his heart going fast: ambulated back to chair: BP
130's to 140's: MAURIZIO Martinez aware of same; new orders and stat ekg confirmed same.
[2024-07-25] MEDS: LOPRESSOR 37.5 MG PO (19:58)
--- NOTE | 2024-07-25 21:00 | PTCARENOTE ---
Report received from NATHALIE Antonio. Walking rounds done. Pt awake, alert, oriented x 4. Speech clear. Moves all extremities equally. Speaks Surinamese. MILLY Goel in to help translate. Pt states he did not urinate earlier at 1800. Bladder scanned for 458
mls. PA aware. Pt states he would like to wait one hour to try to void again. Pt on room air in chair. Sats 95%. BBS present. Decreased to B bases. CDB, IS, and flutter valve encouraged. Peak IS [address] vs AT, rate 120-130 bpm. Metoprolol
37.5 mg given as ordered. Audible heart tones. For pulse and wound assessments, see flowsheet. Pt does have +1 ankle and pedal edema to R leg/foot. PA at bedside assessing pt and aware. Belly soft, round. Slightly hypoactive bowel sounds x 4.
Nontender. Reports passing flatus. No BM yet. Pt helped to BR to attempt to have BM and void without success. Ongoing plan of care.
[2024-07-25] MEDS: FLOMAX 0.4 MG PO (22:45)
[2024-07-25] MEDS: MIRALAX 17 GRAMS PO (22:46)
[2024-07-25 22:55] LABS: Glucose - Point of Care 120 mg/dl (70-99)
[2024-07-25] MEDS: LANTUS 0.37 UNITS SC (22:55)
--- NOTE | 2024-07-25 23:20 | PTCARENOTE ---
Pt voided 200 mls clear, yellow urine at 2200. Flomax given per order of PA. Will rescan bladder at ~MN per order of PA.
Evening blood glucose 120. Pt willingly agreed to take Lantus 37 units SC tonight.
1L/NC/O2 applied while pt in bed. Room air sat in bed 91%. Sats on 1L/NC/O2 are 95-96%.
Miralax ordered prn and given per request of pt.
Remains in ST, rate 119-120's. Normotensive. Scheduled meds given.
Pt refused bedtime CHG bath and mouth care. staying overnight. Ongoing plan of care.
[2024-07-26] VITALS (18 sets, daily range): BP systolic 100–152; BP diastolic 59–80; PULSE 70; O2SAT 94–96; BMI 30.6
--- NOTE | 2024-07-26 00:50 | PTCARENOTE ---
Pt with multiple attempts to void and unable. Bladder scanned for 458 mls. PA at bedside. Order given to place Benedict in pt. Done at 0045 per protocol. 500 mls drained immediately. Of note RLE with edema to R foot/ankle. PA aware. RLE elevated on
pillow overnight. VS done. Scheduled meds given. Pt going to sleep for evening. at bedside.
[2024-07-26] MEDS: CORDARONE 103 MG IV (01:27)
--- NOTE | 2024-07-26 01:43 | PTCARENOTE ---
Pt voided 225 mls clear, yellow urine. Bladder scan after void was 262 mls urine. MILLY Goel made aware.
Amiodarone 150 mg IV bolus given at ~ 0130. See flowsheet for VS. Pt currently up in recliner chair, sleeping. on room air. Sat 95-98% on room air. HR 120s, ST vs AT, vs A flutter. EKG ordered for AM.
[2024-07-26] MEDS: DULCOLAX 10 MG RECTAL (04:10)
--- NOTE | 2024-07-26 04:42 | PTCARENOTE ---
Pt requested assistance wth having a BM.Pt helped back to bed. Dulcolax suppository given. Pt noted to back in SR. Converted to SR at 0413. Rate 65 bpm. BP 118/70. 1L/NC/O2 applied while pt in bed. Labs drawn and sent.
[2024-07-26 05:25] LABS: Hematocrit 23.3 % (39.0-52.0); Hemoglobin 7.9 g/dL (13.0-18.0); Mean Corp Hgb Conc. 33.9 g/dL (33.0-37.0); Mean Corpuscular Hgb 29.4 pg (27.0-31.0); Mean Corpuscular Volume 86.6 fL (80.0-94.0); Mean Platelet Volume 10.6 fL (7.4-10.4); Platelet Count 238 10^3/uL (130-400); Red Blood Cell Count 2.69 10^6/uL (4.70-6.10); Red Cell Dist. Width 14.6 % (11.5-14.5); White Blood Cell Count 15.8 10^3/uL (4.8-10.8)
[2024-07-26 05:34] LABS: Blood Urea Nitrogen 87 mg/dl (9-20); Calcium 8.5 mg/dl (8.4-10.2); Carbon Dioxide 23 mmol/L (22-30); Chloride 100 mmol/L (98-107); Estimated Creatinine Clearance 24 ml/min; Glucose 121 mg/dl (70-99); Magnesium 3.4 mg/dl (1.6-2.3); Potassium 4.7 mmol/L (3.5-5.1); Sodium 137 mmol/L (135-145); eGFR 20.09
[2024-07-26] MEDS: FLEET PHOSPHATE ENEMA-ADULT 135 ML RECTAL (06:07)
[2024-07-26] MEDS: TYLENOL 1000 MG PO ×3 (06:08→23:49)
--- NOTE | 2024-07-26 06:46 | W.PN.CT ---
Today's Communication / Plan
-
-pod #4
-tachycardia - 120s-130s- ? afib/flutter vs atach- no response to Amio bolus, converted spontaneously to nsr at 4:13am. Lopressor increased to 37.5 mg bid
-c/o constipation/+flatus- gave Miralax, Dulcolax suppository and enema (no MOM d/t elevated Cr)
-some urinary retention - started Flomax, was able to void 200cc at a time. Continue bladder scans
-Cr 3.4 today (3.5 on 07/25 and 07/24, 3.2 preop)
-diuresed with 20 iv Lasix on 07/25 (UO 425/875)-continue
-encourage IS, acapella, OOB, ambulate
Assessment / Plan
-
Assessment:
-S/P Median sternotomy/ CABG x 3 (HUYE to LAD, GSV to RI, GSV to OM)/ Endoscopic harvest/prep of RLE GSV, by Dr. Rasheed, 07/22/24, pod#4
-Multivessel CAD
-NSTEMI
-Poorly-controlled diabetes mellitus 2 (Hgb A1c 9.2)
-Poorly-controlled hypertension with recent hypertensive emergency
-Chronic kidney disease 3b with recent acute kidney injury to peak creatinine 3.5
-Recent community acquired pneumonia
-Diastolic CHF (LVEF 60% per intraop POOJA)
-Recent acute hypoxic respiratory failure
-Hyperlipidemia
-Class 1 obesity (BMI 30)
-Right pleural effusion S/p R thoracentesis (1200 cc of clear yellow fluid), 06/24/24
-Acute postop blood loss/Anemia (transfused 1u PRBC)
-Acute postop atelectasis
-Acute postop hypovolemia with subsequent hypervolemia
-Acute postop pericarditis (+rub)
-Acute postop orthostasis
-LE[place] with CKD
-Acute postop urinary retention- started Flomax
-Atrial tach 120s-130s on 07/25 for about 10 hrs- converted spontaneously at 4am on 07/26
Discussed patient care with: Nursing and Care Team
Subjective
Procedure
S/P Median sternotomy/ CABG x 3 (HUEY to LAD, GSV to RI, GSV to OM)/ Endoscopic harvest/prep of RLE GSV, by Dr. Rasheed, 07/22/24
-
Date of Service: July 26, 2024
Objective Data
-
PT 16.4 Sec (11.4-14.6) H 07/22/24 14:10
INR 1.34 07/22/24 14:10
APTT 33.2 Sec (23.4-35.0) 07/22/24 14:10
Vital Signs
Vital Signs
Temp Pulse Resp BP Pulse Ox
99.4 F 120 15 101/72 94
07/26/24 01:50 07/26/24 01:47 07/26/24 01:50 07/26/24 01:47 07/26/24 01:47
CT Intake/Output/Weight
07/25/24 07/25/24 07/26/24
06:59 18:59 06:59
Intake Total 115.1 / 265.6 1065 / 1365 300 / 1365
Output Total 515 / 1255 450 / 875 425 / 875
Balance -399.9 / -989.4 615 / 490 -125 / 490
SaO2: 94
Physical Exam
-
General: Awake and AOx3
Cardiovascular: Regular rate & rhythm, No Murmurs and No Rub
Respiratory: Decreased Breath Sounds
Sternum: Stable
Incision: Clean and Dry
Extremities: Edema +1 (R>L )
Abdomen: soft, mildly distended, nontender, + flatus, no nausea
Data Reviewed
-
Lab Results: Results Reviewed
Medications: Active Meds Reviewed
Chest X-Ray: Report Reviewed and Image Reviewed
ECG: Report Reviewed and Image Reviewed
--- NOTE | 2024-07-26 07:15 | PTCARENOTE ---
Fleets enema given this am. Pt with moderate loose BM. Pt washed with CHG wipes this am. Remains in SR. Report to Sesar ZELAYA this am. remains at bedside. Dr. Rasheed in to see pt.
--- NOTE | 2024-07-26 07:29 | PN.DE.MGMTRT ---
Insulin Management
- -
07/26/2024 Diabetes Management F/U:
Patient admitted 07/22 for CABG. Patient known to diabetes team from previous admission from 06/08 to 06/28/24. PMH HTN, HLD, diabetes, NSTEMI, CKD 3B, hypoxia, CHF, PNA, r pleural effusion. Prior to admission was taking NovoLog 24 units AC with
Lantus 37 units @ HS. A1C 9.2, cr 3.2, eGFR 21.60.
Pt is POD #4 s/p CABG x 3, doing well, sitting up in chair, Pt is Sudanese speaking, able to discuss diabetes mgt through family, and daughter at bedside.
07/24 Was transitioned off glycemic protocol, to Lantus 37 units and AC NovoLog 20 units at reduced dose due to poor appetite with low corrective insulin.
07/25, glucose stable and in range, premeal 142 to 183, fasting 121 this AM.
Will make no changes to current regimen, cont Lantus 37 units, NovoLog 20 units AC and low corrective
Will follow and make further insulin adjustments if glucose trends up as appetite improves
Diabetes History
- -
Type of Diabetes: 2 requiring insulin
Pre-Admission Diabetes Regimen
07/26/24
04:29
Creatinine 3.4 H
Lab Results
Hemoglobin A1c 9.2 % (4.0-5.6) H 07/17/24 08:58
Insulin Pump Settings
IP Diabetes Regimen
07/25/24 07/25/24 07/25/24
13:27 17:28
Glucose
POC Glucose 166 H 183 H 142 H
07/25/24 07/26/24
22:54 04:29
Glucose 121 H
POC Glucose 120 H
Meal type: Breakfast
Amount consumed: 80%
Patient Education
[2024-07-26 08:29] LABS: Glucose - Point of Care 166 mg/dl (70-99)
--- NOTE | 2024-07-26 08:50 | PTCARENOTE ---
Patient received from overnight stocker RN; AAOx3, responds spontaneously to RN and follows commands; VSS; NSR on monitor; Radial and DP pulses present; Lungs diminished at bases; SpO2 94-96% on RA; Patient retaining urine and post void residual bladder
scans ordered; Surgical sites intact; RIJ Cordis and PIV x1 #18 right forearm present; IV Lasix 40 mg ordered and given; 2 view CXR completed; See nursing documentation for further information.
[2024-07-26] MEDS: LOPRESSOR 37.5 MG PO ×2 (09:05→20:48)
[2024-07-26] MEDS: LASIX 40 MG IV (09:05)
[2024-07-26] MEDS: BACTROBAN 2% OINTMENT 1 APPLIC NASAL (09:05)
[2024-07-26] MEDS: PLAVIX 75 MG PO (09:06)
[2024-07-26] MEDS: NEURONTIN 100 MG PO ×3 (09:06→23:49)
[2024-07-26] MEDS: LOW STRENGTH ASPIRIN 81 MG PO (09:06)
[2024-07-26] MEDS: SENOKOT-S 1 TABLET PO ×2 (09:06→20:48)
[2024-07-26] MEDS: PACERONE 200 MG PO ×3 (09:06→23:49)
[2024-07-26] MEDS: FEOSOL 325 MG PO (09:06)
[2024-07-26] MEDS: PROTONIX 40 MG PO (09:06)
[2024-07-26] MEDS: VITAMIN C 500 MG PO (09:06)
[2024-07-26] MEDS: MUCINEX 600 MG PO ×2 (09:06→20:48)
[2024-07-26] MEDS: NOVOLOG FLEXPEN-LOW RESISTANCE 1 UNITS SC (09:07)
[2024-07-26] MEDS: LIDOCAINE 4% PATCH TOPICAL ×2 (09:07→09:22)
[2024-07-26] MEDS: NOVOLOG FLEXPEN SC ×2 (09:21→13:22)
[2024-07-26] MEDS: REGLAN 5 MG IV (09:46)
--- NOTE | 2024-07-26 10:33 | CM ---
Chart reviewed. Patient OOB in the chair. Patient is independent of ADLS, lives with his and son in a apartment, 7 [address], 0 DME. Plan is for the patient to return home with CT Transitional RN. CM to follow
--- NOTE | 2024-07-26 10:35 | W.PN.CD ---
Addendum entered and electronically signed by Rubén Gomez MD 07/26/24 19:10:
CDI query:
The patient had Acute HFpEF.
Original Note:
Today's Communication / Plan
-
- Had a transient run of brief paroxysmal atrial fibrillation that then degenerated to SVT; if recurrence of AFIB, systemic anticoagulation is recommended.
- Continue routine post-surgical care as directed by CT Surgery.
Impression / Plan
-
Impression/Plan: 58 yo male with PMH HTN, DM, CKD3b (Cr 1.5, December 2023) admitted to [facility] with hypertensive emergency and NSTEMI, subsequently transferred for CABG evaluation after cath revealed severe multivessel disease. He was recently admitted
for acute HFpEF, treated for PNA, and now is back for planned CABG.
CABG x 3 (HUEY to LAD, GSV to RI, GSV to OM)/ Endoscopic harvest/prep of RLE GSV, by Dr. Rasheed, 07/22/24
- Doing well; stable.
- Had a transient run of brief paroxysmal atrial fibrillation that then degenerated to SVT; if recurrence of AFIB, systemic anticoagulation is recommended.
- Continue aspirin and statin
- ECG and exam with rub concerning for pericaritis, by report 07/23/2024; resolved.
- Continue routine post-surgical care as directed by CT Surgery.
.
Postop anemia. Hemoglobin down to 7.9 after one unit PRBC.
- monitor Hgb
- Management including decisions regarding PRBCs being directed by CT surgery
HTN-Dx preop. Monitor postop
Dyslipidemia
- cont statin
CKD 3b
- Cr 3.5 today monitor closely.
HFpEF
- monitor daily standing weights
- appears euvolemic now. IntraOp POOJA with EF of 60%.
DM2
-Management as per primary team
Physical Exam
Vital Signs/Labs
Vital Signs
Temp Pulse Resp BP Pulse Ox
97.8 F 65 15 118/70 97
07/26/24 08:25 07/26/24 07:30 07/26/24 08:25 07/26/24 04:18 07/26/24 08:25
07/25/24 07/26/24 07/27/24
06:59 06:59 06:59
Actual Weight 83.9 kg 86 kg
07/26/24 04:29
07/26/24 04:29
PT 16.4 Sec (11.4-14.6) H 07/22/24 14:10
INR 1.34 07/22/24 14:10
APTT 33.2 Sec (23.4-35.0) 07/22/24 14:10
Magnesium 3.4 mg/dl (1.6-2.3) H 07/26/24 04:29
Physical Exam
Constitutional: No acute distress and Comfortable
EENT: Anicteric
Cardiovascular: Rhythm & rate is regular, Systolic murmur absent, Pedal edema present (trace to 1+ right leg) and S1S2 is normal
Respiratory: Respiratory effort normal and Lungs clear to auscul.
Neuro/Psych: AO x 3
Other: Skin (Warm, dry, intact)
Data Reviewed
-
Date of Service: July 26, 2024
EKG: Tracing Personally Visualized and interpreted (PAF-->SVT)
Labs: Labs Reviewed by me
Critical Care Time (in minutes): 38
--- NOTE | 2024-07-26 12:00 | PTCARENOTE ---
Patient nauseated this AM and refusing breakfast - vomited a small amount of bile emesis and given PRN IV Reglan with good effect; Refusing breakfast and lunch afterwards; Patient unable to void several times - CVNP Michelle Cassidy notified and aware; More
time given to void before attempting straight cath.
[2024-07-26] MEDS: NSS IV (13:22)
[2024-07-26] MEDS: NOVOLOG FLEXPEN-LOW RESISTANCE 2 UNITS SC ×2 (13:46→16:16)
[2024-07-26 13:47] LABS: Glucose - Point of Care 208 mg/dl (70-99)
--- NOTE | 2024-07-26 14:01 | PTCARENOTE ---
Patient nauseated this AM and refusing breakfast - vomited a small amount of bile emesis and given PRN IV Reglan with good effect; Patient unable to void several times - CVNP Michelle Cassidy notified and aware; More time given to void before attempting
straight cath.
[2024-07-26 16:11] LABS: Glucose - Point of Care 211 mg/dl (70-99)
[2024-07-26] MEDS: NOVOLOG FLEXPEN 20 UNITS SC (16:16)
--- NOTE | 2024-07-26 16:28 | PTCARENOTE ---
Patient retaining urine throughout shift - straight cathed for 975 ml of clear, yellow urine at 1330; Ambulation encouraged; VSS; Patient agreeable to eat dinner and states nausea is resolved.
[2024-07-26] MEDS: DULCOLAX 10 MG PO (17:03)
[2024-07-26] MEDS: CRESTOR 40 MG PO (17:03)
--- NOTE | 2024-07-26 21:00 | PTCARENOTE ---
Report received from NATHALIE Kaba. Walking rounds done. Pt awake, alert, oriented x 4. Equal strength to extremities. On room air. Sats 95%. BBS present. Decreased to B bases. audible heart tones. Pt in SR. Normotensive. See VS. For pulse and wound
assessments, see flowsheets. Belly soft, round. Hypoactive bs x 4. Passing flatus. Unable to void since straight cath at 1330. Bladder scanned for 330 mls. PA made aware. To give FLomax as prescribed and reassess at [place]. in rom Pt and
walked loop of CVICU x 1. Ongoing plan of care.
[2024-07-26 23:45] LABS: Glucose - Point of Care 246 mg/dl (70-99)
[2024-07-26] MEDS: FLOMAX 0.4 MG PO (23:49)
[2024-07-27] VITALS (9 sets, daily range): BP systolic 116–164; BP diastolic 63–75; PULSE 66; O2SAT 95; BMI 30.5
[2024-07-27] MEDS: LANTUS 0.37 UNITS SC ×2 (00:22→21:43)
--- NOTE | 2024-07-27 04:59 | PTCARENOTE ---
Pt assisted up to standing scale, weighed, then helped to recliner chair. VS done. To draw labs and send.
--- NOTE | 2024-07-27 05:26 | W.PN.CT ---
Addendum entered and electronically signed by Renny Rasheed MD 07/27/24 09:16:
I saw and examined the patient.
The PA's note was reviewed and I agree with the note.
Comment:
Continue urinary retention, rodriguez replaced overnight; removed this AM - follow for void - if high PVR will replace rodriguez, consult urology w/ likely outpatient voiding trial
Diuresis today; creat stable at 3.5
Follow hgb - no transfusion today - will reassess tomorrow
Ambulating very well around CVICU/ IS
D/C planning for 1-2 days
Original Note:
Today's Communication / Plan
-
-No major issues overnight. Hemodynamically and neurologically intact
-No further postop atrial tachycardia/A-fib since the 10 hrs on postop # 3, Cardiology is recommending DOAC if further A-fib/A-tach
-Tolerating increased Lopressor to 37.5 mg BID
-Cont. bowel regimen/Ambulate
-Acute postop urinary retention has been receiving straight caths, required rodriguez insertion @ midnight with removal this AM @ 0600 to allow to rest/sleep overnight
-Monitor u/o, bladder scan PRN
-C/O RLE edema, pain. Not concerning for compartment syndrome, likely edema from saphenous vein harvest- elevate leg, will consider u/s to R/O DVT if continues to complain
-Monitor h/h for possible transfusion, 7.1/20.9, was 7.9/23.3 yesterday. Consider diuresis, wt up 8 lbs from preop
-Monitor hyponatremia, 134, should improve with diuresis.
-OOB into chair/Ambulate
-Home likely tomorrow
Assessment / Plan
-
Assessment:
-S/P Median sternotomy/ CABG x 3 (HUEY to LAD, GSV to RI, GSV to OM)/ Endoscopic harvest/prep of RLE GSV, by Dr. Rasheed, 11/4/24, pod#5
-Multivessel CAD
-NSTEMI
-Poorly-controlled diabetes mellitus 2 (Hgb A1c 9.2)
-Poorly-controlled hypertension with recent hypertensive emergency
-Chronic kidney disease 3b with recent acute kidney injury to peak creatinine 3.5
-Recent community acquired pneumonia
-Diastolic CHF (LVEF 60% per intraop POOJA)
-Recent acute hypoxic respiratory failure
-Hyperlipidemia
-Class 1 obesity (BMI 30)
-Right pleural effusion S/p R thoracentesis (1200 cc of clear yellow fluid), 06/24/24
-Acute postop blood loss/Anemia (transfused 1u PRBC)
-Acute postop atelectasis
-Acute postop hypovolemia with subsequent hypervolemia
-Acute postop pericarditis (+rub)
-Acute postop orthostasis
-LELAND with CKD
-Acute postop urinary retention- started Flomax
-Atrial tach 120s-130s on 07/25 for about 10 hrs- converted spontaneously at 4am on 07/26
-Acute postop hyponatremia, 134
Discussed patient care with: Cardiology, Nursing, Respiratory Therapy, Pharmacy and Care Team
Subjective
Procedure
S/P Median sternotomy/ CABG x 3 (HUEY to LAD, GSV to RI, GSV to OM)/ Endoscopic harvest/prep of RLE GSV, by Dr. Rasheed, 07/22/24
-
Date of Service: July 27, 2024
Pt c/o RLE edema and constipation. Nurse report small BM the AM of 07/26
Objective Data
-
PT 16.4 Sec (11.4-14.6) H 07/22/24 14:10
INR 1.34 07/22/24 14:10
APTT 33.2 Sec (23.4-35.0) 07/22/24 14:10
Vital Signs
Vital Signs
Temp Pulse Resp BP Pulse Ox
98.3 F 68 15 142/73 94
07/27/24 04:40 07/27/24 04:40 07/27/24 04:40 07/27/24 04:40 07/27/24 04:40
CT Intake/Output/Weight
07/26/24 07/26/24 07/27/24
06:59 18:59 06:59
Intake Total 300 / 1365 745 / 995 250 / 995
Output Total 425 / 875 975 / 1775 800 / 1775
Balance -125 / 490 -230 / -780 -550 / -780
SaO2: 94 (RA)
Physical Exam
-
General: Awake, Oriented and AOx3
Cardiovascular: Regular rate & rhythm, No Murmurs and No Rub
Respiratory: Decreased Breath Sounds
Sternum: Stable
Incision: Clean, Dry and Intact
Extremities: Edema +1 (RLE)
Data Reviewed
-
Lab Results: Results Reviewed
Medications: Active Meds Reviewed
Chest X-Ray: Report Reviewed and Image Reviewed
ECG: Report Reviewed and Image Reviewed
[2024-07-27] MEDS: TYLENOL 1000 MG PO (05:42)
[2024-07-27 05:56] LABS: Hematocrit 20.9 % (39.0-52.0); Hemoglobin 7.1 g/dL (13.0-18.0); Mean Corpuscular Volume 85.3 fL (80.0-94.0); Mean Platelet Volume 9.9 fL (7.4-10.4); Platelet Count 271 10^3/uL (130-400); Red Blood Cell Count 2.45 10^6/uL (4.70-6.10); Red Cell Dist. Width 14.5 % (11.5-14.5); White Blood Cell Count 12.1 10^3/uL (4.8-10.8)
[2024-07-27 06:13] LABS: ALT (SGPT) 14 U/L (0-50); AST (SGOT) 21 U/L (17-59); Alkaline Phosphatase 60 U/L (38-126); Blood Urea Nitrogen 90 mg/dl (9-20); Calcium 8.6 mg/dl (8.4-10.2); Carbon Dioxide 25 mmol/L (22-30); Chloride 100 mmol/L (98-107); Estimated Creatinine Clearance 24 ml/min; Glucose 152 mg/dl (70-99); Magnesium 3.6 mg/dl (1.6-2.3); Potassium 4.4 mmol/L (3.5-5.1); Sodium 134 mmol/L (135-145); Total Bilirubin 0.3 mg/dl (0.2-1.3)
--- NOTE | 2024-07-27 06:21 | PTCARENOTE ---
Benedict catheter d/c'ed at 0615 per order. HCT with critical value this am. H&H results reported to Ed, PA this am. Pt remains in recliner chair, SR, Sleeping. No complaints.
[2024-07-27 09:11] LABS: Glucose - Point of Care 163 mg/dl (70-99)
[2024-07-27] MEDS: NEURONTIN 100 MG PO ×3 (09:11→21:42)
[2024-07-27] MEDS: LOPRESSOR 37.5 MG PO ×2 (09:11→20:04)
[2024-07-27] MEDS: MUCINEX 600 MG PO ×2 (09:11→20:04)
[2024-07-27] MEDS: FEOSOL 325 MG PO (09:11)
[2024-07-27] MEDS: LIDOCAINE 4% PATCH TOPICAL (09:12)
[2024-07-27] MEDS: PACERONE 200 MG PO ×3 (09:12→21:42)
[2024-07-27] MEDS: SENOKOT-S 1 TABLET PO ×2 (09:12→20:04)
[2024-07-27] MEDS: PROTONIX 40 MG PO (09:12)
[2024-07-27] MEDS: PLAVIX 75 MG PO (09:12)
[2024-07-27] MEDS: LOW STRENGTH ASPIRIN 81 MG PO (09:12)
[2024-07-27] MEDS: VITAMIN C 500 MG PO (09:12)
[2024-07-27] MEDS: NOVOLOG FLEXPEN-LOW RESISTANCE 1 UNITS SC ×2 (09:16→13:38)
[2024-07-27] MEDS: NOVOLOG FLEXPEN 20 UNITS SC ×3 (09:16→15:54)
--- NOTE | 2024-07-27 09:27 | PTCARENOTE ---
assumed care of pt from previous shift RN, sinus rhythm on tele, VSS, + peripheral pulses, +2 edema to bilateral lower extremities. Lungs diminished, pox 99% on RA. +bs, abd distended, soft, non tender. Pt is due to void. Sternal dressing intact, CT
dressing removed, sutures intact. PIV flushed easily. Plan of care reviewed w the pt and his family, questions encouraged.
[2024-07-27] MEDS: LASIX 40 MG IV (10:35)
[2024-07-27] MEDS: NSS IV (11:32)
[2024-07-27 12:31] LABS: Glucose - Point of Care 158 mg/dl (70-99)
[2024-07-27] MEDS: TYLENOL PO ×2 (15:05→21:40)
--- NOTE | 2024-07-27 15:08 | PTCARENOTE ---
pt DTV post rodriguez removal. Bladder scanned for 295ml. Pt denies the urge to void. CT SANDRA made aware. Will monitor.
[2024-07-27 15:55] LABS: Glucose - Point of Care 84 mg/dl (70-99)
[2024-07-27] MEDS: NOVOLOG FLEXPEN-LOW RESISTANCE SC (15:55)
[2024-07-27] MEDS: CRESTOR 40 MG PO (18:11)
--- NOTE | 2024-07-27 18:19 | PTCARENOTE ---
pt unable to void. Bladder scanned for 580cc. Benedict placed as ordered. 700ml yellow urine in return. Pt tolerated placement.
[2024-07-27 21:41] LABS: Glucose - Point of Care 116 mg/dl (70-99)
[2024-07-27] MEDS: FLOMAX 0.4 MG PO (21:42)
[2024-07-28 01:03] VITALS: BP 150/69
[2024-07-28 04:33] VITALS: BP 139/70
--- NOTE | 2024-07-28 04:36 | W.PN.CT ---
Addendum entered and electronically signed by Renny Rasheed MD 07/28/24 10:14:
I had an additional conversation with Mr. Johnson and his family. He related that he was having some pain in his right lower extremity. While this is likely just surgically related, I will obtain a ultrasound of his right lower extremity to ensure
no DVT present. The patient was also requesting reduction of his p.o. medications. I spent a great deal of time explaining the importance of his medication therapy and the importance of compliance both in the operating room as well as following
discharge. Given his poor preoperative diabetic and blood pressure control, I have concerns surrounding his compliance. Will hold on discharge today and reassess tomorrow.
Addendum entered and electronically signed by Renny Rasheed MD 07/28/24 09:32:
I saw and examined the patient.
The PA's note was reviewed.
Comment:
No major events. Continued urinary retention - rodriguez replaced; IT HAS BEEN REMOVED (DOCUMENTATION BELOW INCORRECT).
- Urology consulted
- Creat 3.3 (down from 3.5) @ baseline
- ASA/plavix, BB, amio, crestor, flomax
- Ambulating well
- Potential D/C with outpatient voiding trial based on urology assessment
Original Note:
Today's Communication / Plan
-
-No major issues overnight
-No further postop atrial tachycardia/A-fib since the 10 hrs on postop # 3, Cardiology is recommending DOAC if further A-fib/A-tach
-Tolerating increased Lopressor to 37.5 mg BID
-Cont. bowel regimen/Ambulate
-Acute postop urinary retention has been receiving straight caths, required rodriguez insertion @ midnight with removal this AM @ 0600 to allow to rest/sleep overnight
-Monitor u/o, bladder scan PRN
-Current meds: amio, asa, plavix, crestor, feosol, short/long acting insulin, metoprolol 12.5, Flomax 0.4
-OOB into chair/Ambulate
-Discharge planning
Assessment / Plan
-
Assessment:
-S/P Median sternotomy/ CABG x 3 (HUEY to LAD, GSV to RI, GSV to OM)/ Endoscopic harvest/prep of RLE GSV, by Dr. Rasheed, 07/22/24, pod#6
-Multivessel CAD
-NSTEMI
-Poorly-controlled diabetes mellitus 2 (Hgb A1c 9.2)
-Poorly-controlled hypertension with recent hypertensive emergency
-Chronic kidney disease 3b with recent acute kidney injury to peak creatinine 3.5
-Recent community acquired pneumonia
-Diastolic CHF (LVEF 60% per intraop POOJA)
-Recent acute hypoxic respiratory failure
-Hyperlipidemia
-Class 1 obesity (BMI 30)
-Right pleural effusion S/p R thoracentesis (1200 cc of clear yellow fluid), 06/24/24
-Acute postop blood loss/Anemia (transfused 1u PRBC)
-Acute postop atelectasis
-Acute postop hypovolemia with subsequent hypervolemia
-Acute postop pericarditis (+rub)
-Acute postop orthostasis
-LELAND with CKD
-Acute postop urinary retention- started Flomax
-Atrial tach 120s-130s on 07/25 for about 10 hrs- converted spontaneously at 4am on 07/26
-Acute postop hyponatremia, 134
Subjective
Procedure
S/P Median sternotomy/ CABG x 3 (HUEY to LAD, GSV to RI, GSV to OM)/ Endoscopic harvest/prep of RLE GSV, by Dr. Rasheed, 07/22/24
-
Date of Service: July 28, 2024
Objective Data
-
PT 16.4 Sec (11.4-14.6) H 07/22/24 14:10
INR 1.34 07/22/24 14:10
APTT 33.2 Sec (23.4-35.0) 07/22/24 14:10
Vital Signs
Vital Signs
Temp Pulse Resp BP Pulse Ox
97.8 F 77 18 150/69 98
07/27/24 23:02 07/28/24 01:03 07/27/24 23:02 07/28/24 01:03 07/28/24 01:03
CT Intake/Output/Weight
07/27/24 07/27/24 07/28/24
06:59 18:59 06:59
Intake Total 250 / 995 100 / 100
Output Total 925 / 1900 700 / 1700 1000 / 1700
Balance -675 / -905 -600 / -1600 -1000 / -1600
SaO2: 98
Physical Exam
-
General: Awake, Oriented and AOx3
Cardiovascular: Regular rate & rhythm, No Murmurs and No Rub
Respiratory: Clear and Equal
Sternum: Stable
Incision: Clean and Dry
Extremities: Edema +1 and No Erythema
Data Reviewed
-
Lab Results: Results Reviewed
Medications: Active Meds Reviewed
Chest X-Ray: Report Reviewed
ECG: Report Reviewed
[2024-07-28 05:15] LABS: Hematocrit 23.6 % (39.0-52.0); Hemoglobin 8.2 g/dL (13.0-18.0); Mean Corp Hgb Conc. 34.7 g/dL (33.0-37.0); Mean Corpuscular Hgb 29.3 pg (27.0-31.0); Mean Corpuscular Volume 84.3 fL (80.0-94.0); Mean Platelet Volume 9.7 fL (7.4-10.4); Platelet Count 314 10^3/uL (130-400); Red Cell Dist. Width 14.4 % (11.5-14.5); White Blood Cell Count 13.6 10^3/uL (4.8-10.8)
[2024-07-28 05:37] LABS: Blood Urea Nitrogen 77 mg/dl (9-20); Calcium 8.6 mg/dl (8.4-10.2); Carbon Dioxide 23 mmol/L (22-30); Chloride 100 mmol/L (98-107); Estimated Creatinine Clearance 25 ml/min; Glucose 111 mg/dl (70-99); Magnesium 3.5 mg/dl (1.6-2.3); Potassium 4.1 mmol/L (3.5-5.1); Sodium 135 mmol/L (135-145); eGFR 20.82
[2024-07-28 06:00] VITALS: BMI 30.6
[2024-07-28] MEDS: TYLENOL PO ×3 (06:10→21:21)
--- NOTE | 2024-07-28 06:19 | PTCARENOTE ---
Pt slept well overnight. No issues to report. Vital signs stable. HR in the 60's in NSR on the monitor. POX 98% on RA. Lungs dec @ bases. + bowel, round obese abd. Benedict cath in place draining clear yellow urine for acute retention. Pt ambulatory to
BR overnight and moved bowels. Sternal dressing C/D/I. CT sites sutures intact and open to air. +1 B/L LE edema noted. Palpable peripheral pulses present. Right wrist int capped. Pt OOB to chair this am without difficulty. Pt denies any complaints
of pain, refusing scheduled Tylenol. remains at bedside overnight. Call capone in reach. Will monitor.
[2024-07-28 07:59] VITALS: BP 146/71
[2024-07-28] MEDS: FEOSOL 325 MG PO (08:11)
[2024-07-28] MEDS: LIDOCAINE 4% PATCH 1 PATCH TOPICAL (08:11)
[2024-07-28] MEDS: SENOKOT-S 1 TABLET PO ×2 (08:11→21:20)
[2024-07-28] MEDS: LOPRESSOR 37.5 MG PO ×2 (08:11→21:19)
[2024-07-28] MEDS: LOW STRENGTH ASPIRIN 81 MG PO (08:11)
[2024-07-28] MEDS: VITAMIN C 500 MG PO (08:12)
[2024-07-28] MEDS: PROTONIX 40 MG PO (08:12)
[2024-07-28] MEDS: NEURONTIN 100 MG PO ×3 (08:12→21:20)
[2024-07-28] MEDS: NSS IV (08:12)
[2024-07-28] MEDS: PLAVIX 75 MG PO (08:12)
[2024-07-28] MEDS: MUCINEX 600 MG PO ×2 (08:12→21:19)
[2024-07-28] MEDS: PACERONE 200 MG PO ×3 (08:12→21:20)
[2024-07-28 08:50] LABS: Glucose - Point of Care 128 mg/dl (70-99)
[2024-07-28] MEDS: NOVOLOG FLEXPEN 20 UNITS SC ×3 (08:50→18:05)
[2024-07-28] MEDS: NOVOLOG FLEXPEN-LOW RESISTANCE SC ×3 (08:50→18:05)
--- NOTE | 2024-07-28 09:34 | PTCARENOTE ---
assumed care of pt from previous shift RN, sinus rhythm on tele, VSS, + peripheral pulses, +1 edema to bilateral lower extremities. Lungs diminished, coughing and deep breathing encouraged. +bs, tolerating PO intake, rodriguez catheter draining yellow.
MSI w dressing intact, sutures without drainage from CT sites, right left surgical sites BANG. PIV flushes easily. Plan of care reviewed w the pt and his via director television. Questions encouraged.
--- NOTE | 2024-07-28 11:11 | PTCARENOTE ---
pt sent to ultrasound
[2024-07-28 12:06] LABS: Glucose - Point of Care 95 mg/dl (70-99)
--- NOTE | 2024-07-28 12:37 | CONS.URO ---
Consultation
-
Performing Provider: Peffer
Reason for Consultation: Urinary retention
Medical History
History of Present Illness
58M without prior urologic history
Admitted s/p CABG
Urinary retention with rodriguez replaced 3 times
Volumes 500-1000cc
No voiding difficulty or chronic symptoms preop
Past Medical History
Past Medical History: CAD, HTN, Hypercholesterolemia and NIDDM
Past Surgical History: Cardiac
Social History
Tobacco: Non-smoker
Personal:
Living: With Family
Family History
Family History: Reviewed & Not Pertinent
Allergies/Home Medications
Allergies
Allergy/AdvReac Type Severity Reaction Status Date / Time
No Known Drug Allergies Allergy Unknown Verified 07/15/24 11:17
Home Medications
�Medication �Instructions �Recorded �Confirmed �Type
insulin glargine 100 unit/mL (3 37 unit (0.37 mL) SC HS Diabetes 06/28/24 07/22/24 Rx
mL) subcutaneous pen (Lantus #5 ea
Solostar U-100 Insulin)
pantoprazole 40 mg granules 40 mg PO DAILY #30 ea 06/28/24 07/22/24 Rx
delayed-release for susp in packet
(Protonix)
rosuvastatin 40 mg tablet 40 mg PO QPM #30 tabs 06/28/24 07/22/24 Rx
aspirin 81 mg tablet,delayed 81 mg PO DAILY Blood Clot 07/15/24 07/22/24 History
release Prevention/Tx
insulin aspart U-100 100 unit/mL 24 - 25 unit SC AC Diabetes 07/15/24 07/22/24 History
(3 mL) subcutaneous pen (Novolog
FlexPen U-100 Insulin aspart)
isosorbide mononitrate 30 mg 30 mg PO BID Heart 07/15/24 07/22/24 History
tablet,extended release 24 hr Disease/Condition
isosorbide mononitrate 60 mg 60 mg PO HS Heart Disease/Condition 07/15/24 07/22/24 History
tablet,extended release 24 hr
amlodipine 10 mg tablet 10 mg PO DAILY Blood Pressure 07/23/24 07/22/24 History
bumetanide 2 mg tablet 2 mg PO BID AT 0800,1600 Fluid 07/23/24 07/22/24 History
Retention/Swelling
carvedilol 25 mg tablet 25 mg PO BID Blood Pressure 07/23/24 07/22/24 History
clopidogrel 75 mg tablet 75 mg PO DAILY Blood Clot 07/23/24 07/22/24 History
Prevention/Tx
hydralazine 50 mg tablet 100 mg PO TID Blood Pressure 07/23/24 07/22/24 History
spironolactone 25 mg tablet 12.5 mg PO BID AT 0800,1600 Blood 07/23/24 07/22/24 History
Pressure
Physical Exam
Vital Signs
Vital Signs
Temp Pulse Resp BP Pulse Ox
98.2 F 68 16 146/71 97
07/28/24 07:59 07/28/24 08:00 07/28/24 07:59 07/28/24 07:59 07/28/24 09:41
Lab / Testing Results
Laboratory Results
07/28/24 04:49
07/28/24 04:49
Physical Exam
General: Well Developed, Well Nourished and No Apparent Distress
Respiratory: Clear and Non Labored Respirations
GI: Soft and Non Tender
Genito-urinary: Clear Urine and Rodriguez Catheter
Neuro: AO x 3
Psych: Calm and Intact Judgement
Assessment / Plan
-
58M with post op urinary retention s/p CABG
- Continue tamsulosin 0.4mg at discharge
- Outpatient follow up in 1 week for trial of void
--- NOTE | 2024-07-28 16:22 | PTCARENOTE ---
post op dressings removed. pt tolerated shower
[2024-07-28 17:00] VITALS: BP 169/75
[2024-07-28 17:01] VITALS: BP 165/73
[2024-07-28] MEDS: CRESTOR 40 MG PO (17:01)
[2024-07-28 17:51] LABS: Glucose - Point of Care 137 mg/dl (70-99)
[2024-07-28] MEDS: FLOMAX 0.4 MG PO (21:20)
[2024-07-28] MEDS: LANTUS 0.37 UNITS SC (21:20)
[2024-07-28 21:24] LABS: Glucose - Point of Care 168 mg/dl (70-99)
[2024-07-28 21:30] VITALS: BP 161/74
[2024-07-29] VITALS: BP 133/71
--- NOTE | 2024-07-29 00:32 | W.PN.CT ---
Today's Communication / Plan
-
-No major issues overnight
-RLE doppler obtained yesterday 2/2 pain, no DVT
-No further postop atrial tachycardia/A-fib since the 10 hrs on postop # 3, Cardiology is recommending DOAC if further A-fib/A-tach
-Tolerating increased metoprolol to 37.5 mg BID
-Cr at baseline
-Acute postop urinary retention, failing voiding trials. Planning dc with rodriguez in and urology follow up on DC
-Current meds: amio, asa, plavix, crestor, feosol, protonix, short/long acting insulin, metoprolol, Flomax
-OOB into chair/Ambulate
-Discharge planning
Assessment / Plan
-
Assessment:
-S/P Median sternotomy/ CABG x 3 (HUEY to LAD, GSV to RI, GSV to OM)/ Endoscopic harvest/prep of RLE GSV, by Dr. Rasheed, 07/22/24, pod#7
-Multivessel CAD
-NSTEMI
-Poorly-controlled diabetes mellitus 2 (Hgb A1c 9.2)
-Poorly-controlled hypertension with recent hypertensive emergency
-Chronic kidney disease 3b with recent acute kidney injury to peak creatinine 3.5
-Recent community acquired pneumonia
-Diastolic CHF (LVEF 60% per intraop POOJA)
-Recent acute hypoxic respiratory failure
-Hyperlipidemia
-Class 1 obesity (BMI 30)
-Right pleural effusion S/p R thoracentesis (1200 cc of clear yellow fluid), 06/24/24
-Acute postop blood loss/Anemia (transfused 1u PRBC)
-Acute postop atelectasis
-Acute postop hypovolemia with subsequent hypervolemia
-Acute postop pericarditis (+rub)
-Acute postop orthostasis
-LELAND with CKD
-Acute postop urinary retention- started Flomax
-Atrial tach 120s-130s on 07/25 for about 10 hrs- converted spontaneously at 4am on 07/26
-Acute postop hyponatremia, 134
Subjective
Procedure
S/P Median sternotomy/ CABG x 3 (HUEY to LAD, GSV to RI, GSV to OM)/ Endoscopic harvest/prep of RLE GSV, by Dr. Rasheed, 07/22/24
-
Date of Service: July 29, 2024
Objective Data
-
Lab Results
07/28/24 04:49
07/28/24 04:49
PT 16.4 Sec (11.4-14.6) H 07/22/24 14:10
INR 1.34 07/22/24 14:10
APTT 33.2 Sec (23.4-35.0) 07/22/24 14:10
Vital Signs
Vital Signs
Temp Pulse Resp BP Pulse Ox
98.2 F 75 18 161/74 97
07/28/24 20:00 07/28/24 23:00 07/28/24 20:00 07/28/24 21:30 07/28/24 17:00
CT Intake/Output/Weight
07/28/24 07/28/24 07/29/24
06:59 18:59 06:59
Intake Total 200 / 200
Output Total 1450 / 2150 800 / 800
Balance -1450 / -2050 -600 / -600
SaO2: 97
Physical Exam
-
General: Awake, Oriented and AOx3
Cardiovascular: Regular rate & rhythm, No Murmurs and No Rub
Respiratory: Clear and Equal
Sternum: Stable
Incision: Clean, Dry and Intact
Extremities: Edema +1 and No Erythema
Data Reviewed
-
Lab Results: Results Reviewed
Medications: Active Meds Reviewed
Chest X-Ray: Report Reviewed
ECG: Report Reviewed
[2024-07-29 04:09] VITALS: BP 131/70
[2024-07-29] MEDS: TYLENOL PO (06:11)
[2024-07-29] MEDS: TYLENOL 1000 MG PO (06:35)
[2024-07-29 08:28] VITALS: BP 154/74
--- NOTE | 2024-07-29 08:28 | W.PN.CD ---
Today's Communication / Plan
-
ok for home
Impression / Plan
-
Impression/Plan: 58 yo male with PMH HTN, DM, CKD3b (Cr 1.5, December 2023) admitted to [facility] with hypertensive emergency and NSTEMI, subsequently transferred for CABG evaluation after cath revealed severe multivessel disease. He was recently admitted
for acute HFpEF, treated for PNA, and now is back for planned CABG.
CABG x 3 (HUEY to LAD, GSV to RI, GSV to OM)/ Endoscopic harvest/prep of RLE GSV, by Dr. Rasheed, 07/22/24
- Doing well; stable.
- In NSR
- Continue aspirin and statin
Postop anemia. Hemoglobin stable at 8.2
HTN-Dx preop. Monitor postop
Dyslipidemia
- cont statin
CKD 3b
- Cr 3.3 today monitor closely.
HFpEF
- monitor daily standing weights
- appears euvolemic now. IntraOp POOJA with EF of 60%.
DM2
-Management as per primary team
agree with d/c home
Physical Exam
Vital Signs/Labs
Vital Signs
Temp Pulse Resp BP Pulse Ox
98.3 F 70 18 131/70 97
07/29/24 00:00 07/29/24 04:09 07/29/24 00:00 07/29/24 04:09 07/29/24 00:33
07/28/24 07/29/24 07/30/24
06:59 06:59 06:59
Actual Weight 189 lb 6.033 oz
07/28/24 04:49
07/28/24 04:49
PT 16.4 Sec (11.4-14.6) H 07/22/24 14:10
INR 1.34 07/22/24 14:10
APTT 33.2 Sec (23.4-35.0) 07/22/24 14:10
Magnesium 3.5 mg/dl (1.6-2.3) H 07/28/24 04:49
Physical Exam
Constitutional: No acute distress and Comfortable
EENT: Anicteric
Cardiovascular: Rhythm & rate is regular and S1S2 is normal
Respiratory: Respiratory effort normal and Lungs clear to auscul.
GI: Soft and Non tender
Neuro/Psych: AO x 3 and Motor deficits absent
Data Reviewed
-
Date of Service: July 29, 2024
[2024-07-29 08:31] VITALS: BP 154/74
[2024-07-29] MEDS: PROTONIX 40 MG PO (08:33)
[2024-07-29] MEDS: PLAVIX 75 MG PO (08:34)
[2024-07-29] MEDS: MUCINEX 600 MG PO (08:34)
[2024-07-29] MEDS: SENOKOT-S 1 TABLET PO (08:35)
[2024-07-29] MEDS: VITAMIN C 500 MG PO (08:35)
[2024-07-29] MEDS: LOPRESSOR 37.5 MG PO (08:35)
[2024-07-29] MEDS: LIDOCAINE 4% PATCH TOPICAL (08:35)
[2024-07-29] MEDS: PACERONE 200 MG PO (08:35)
[2024-07-29] MEDS: LOW STRENGTH ASPIRIN 81 MG PO (08:35)
[2024-07-29] MEDS: NEURONTIN 100 MG PO (08:35)
[2024-07-29] MEDS: FEOSOL 325 MG PO (08:35)
[2024-07-29] MEDS: NOVOLOG FLEXPEN SC (08:41)
[2024-07-29] MEDS: NOVOLOG FLEXPEN-LOW RESISTANCE 1 UNITS SC (08:42)
[2024-07-29 08:45] LABS: Glucose - Point of Care 180 mg/dl (70-99)
--- NOTE | 2024-07-29 09:27 | PTCARENOTE ---
Bedside walking rounds report received. Patient seen on rounds resting in bed: assisted oob to chair with assist of 1 to sit up(his demonstrated understanding of how to assist). Denies pain. Room air. NSR. See flow record for remaining
assessments. Patient is ready for dc to home per ct surgery.
--- NOTE | 2024-07-29 09:45 | W.DCSUMMARY ---
Discharge Summary
Discharge Data
Date of Admission: 07/22/24
Date of Discharge: 07/29/24
-
Pending Results: No
Hospital Course
Primary care physician: Dr. Alison Rodriguez
Outpatient dipping machine operator: Dr. Hernandez
Inpatient consultants: [facility] cardiology, Urology- Dr. Chisholm, Diabetes management- BEN Sexton
Procedures:
1. 07/22/24 coronary artery bypass grafting x3 (MARIANO-LAD, SVG-RI, SVG-OM) by Dr. Renny Rasheed
Primary Diagnosis:
1. recent NSTEMI
2. multivessel coronary artery disease
Secondary Diagnoses:
1. Poorly-controlled diabetes mellitus 2 (Hgb A1c 9.2)
2. Poorly-controlled hypertension with recent hypertensive emergency
3. Chronic kidney disease 3b
4. Recent community acquired pneumonia
5. chronic Diastolic CHF
6. Recent acute hypoxic respiratory failure
7. Hyperlipidemia
8. Class 1 obesity (BMI 30)
9. hx Right pleural effusion S/p R thoracentesis (1200 cc of clear yellow fluid), 06/24/24
10. Acute postop blood loss/Anemia (transfused 1u PRBC), stable
11. Acute postop orthostasis, resolved
12. Acute postop urinary retention- started Flomax, discharged with rodriguez
13. postop afib/Atrial tach 120s-130s on 07/25 for about 10 hrs- converted spontaneously at 4am on 07/26
HPI: Patient is a 58-year-old male with recent hospitalization for acute heart failure, pneumonia and hypertensive emergency who at that time was noted to have multivessel coronary artery disease. After he had recovered from his acute issues he was
referred to CT surgery as an outpatient for evaluation for CABG. After all preoperative workup was completed he was deemed a suitable candidate to undergo the procedure.
Hospital course: He was brought in electively on 07/22/2024 where he underwent a CABG x 3 with MARIANO to LAD saphenous vein graft to ramus intermedius and saphenous vein graft OM by Dr. Renny Rasheed without any perioperative complications. He was
transferred to CVICU per protocol on a Levophed drip. He remained hemodynamically stable and was extubated at 6 PM that day. On postop day 1 he continued beta-kayode, and was started on Plavix for his vein grafts. He was noted to have
pericarditis on EKG. Rodriguez and insulin drip were maintained another day. On postop day 2 he was mildly hypotensive and his hemoglobin drifted down to 7.0 and he was transfused 1 unit packed red blood cells. His blood pressures improved. On postop
day 3 his Rodriguez was discontinued and he was given gentle diuresis with good continued urine output. Beta-kayode was titrated for atrial fib/A tach which lasted approximately 10 hours. He continues to make progress with ambulation. On postop day
4 Cordis was discontinued Rodriguez was removed overnight and he was straight cathed for acute urinary retention. On postop day 5 he is feeling better, Rodriguez was replaced for urinary retention. He was started on Flomax. On postop day 6 urology was
consulted for his urinary retention, they will set up a trial of void as an outpatient in approximately 1 week. Patient complaining of right lower extremity swelling and pain, duplex was negative. Recommended lidocaine patch to right lower leg.
On postop day 7 he continues to ambulate and improve, he is discharged to home with close follow-up with the transitional care nurse from [facility].
Home medication changes: New Rx amiodarone BID x2 weeks, then once daily for postop atach, new flomax for acute urinary retention; coreg decreased from 25mg BID to 12.5mg BID for relative hypotension, pt instructed to stop amlodipine & hydralazine
at this time due to relative hypotension, stop isosorbide 2/2 revascularization. Pt instructed to take tylenol +/- use lidocaine patch for post surgical pain. He was instructed to resume all other home meds.
Discharge Plan
-
Patient Disposition: Home (Routine Discharge)
Discharge Diagnosis/Procedures: coronary artery disease, s/p coronary artery bypass grafting x3
Condition: Good
Diet: Low Fat, Low Cholesterol and Diabetic, Carb Controlled
Activity: No strenuous activity
Driving Restrictions: Not until seen by your Dr
Bathing Restrictions: OK to Shower
Other Services: Cardiac Rehab
Specialty Instructions: Weigh Daily- Call MD for wt gain/loss 3 lbs overnight/5 lbs in 1 week
Activity Restrictions/Additional Instructions:
ACTIVITY:
-No strenuous activity: no heavy lifting, pushing, pulling anything over 15 pounds for one month
-continue to use stairs as tolerated
DRIVING RESTRICTIONS:
-No driving for one month or until approved by your surgeon
WOUND CARE:
-Shower daily. Use soap & water.
-No lotions, creams or powders on incision area.
DIET:
-continue a low fat/low cholesterol diet.
-IF you are diabetic, continue carb controlled diet.
CARDIAC REHAB:
-Please make appointment to start in 5-6 weeks with your local hospital program. (See Cardiac Rehabilitation Discharge Booklet).
SPECIALTY INSTRUCTIONS:
-Weigh yourself daily. Call your physician for any weight gain/loss of 3 lbs overnight or 5 lbs in one week.
-REPORT any clicking noise or uneven appearance of your sternum to your surgeon immediately.
-If you smoke, you are instructed to quit. The [place] smoking hotline phone number is [phone]
Please call [facility] to get scheduled for [facility]. Phone #: [phone]. Brochure in Discharge Packet.
The urology office will call to schedule catheter removal appointment
[facility]: [phone]
Continue taking tamsulosin until catheter is removed and you are urinating without difficulty
Referrals:
CT Transitional Care Nurse [Outside] (The Cardiothoracic Transitional Care Nurse will call you to set up a visit in 1-2 days.)
Alison Rai NP [Family Provider] -
Delano Cole MD [Active] - 09/05/24 12:20 pm
Enzo Chisholm MD [Active] - (the urology office will call you to schedule your voiding trial)
Renny Rasheed MD [Active] - 08/27/24 2:30 pm
Prescriptions:
New
amiodarone 200 mg Tablet
200 mg PO BID Qty: 90 0RF
Rx Instructions:
take twice daily for 2 weeks (until 08/12), then once daily until otherwise instructed
tamsulosin 0.4 mg Capsule
0.4 mg PO HS Qty: 14 0RF
acetaminophen 325 mg Tablet
650 mg PO Q6HPRN PRN (Reason: mild pain,headache,temp >101F ) Qty: 0 0RF
sennosides-docusate sodium 8.6-50 mg Tablet
1 tab PO Q12 PRN (Reason: Constipation) Qty: 0 0RF
lidocaine 4 % Adhesive Patch,Medicated
1 patch topical DAILY Qty: 0 0RF
carvedilol [Coreg] 12.5 mg tablet
12.5 mg PO BID Qty: 60 1RF
Continued
bumetanide 2 mg tablet
2 mg PO BID AT 0800,1600 Qty: 60 1RF
clopidogrel 75 mg tablet
75 mg PO DAILY Qty: 30 1RF
aspirin 81 mg Tablet,Delayed Release (Dr/Ec)
81 mg PO DAILY Qty: 30 1RF
spironolactone 25 mg tablet
12.5 mg PO BID AT 0800,1600 Qty: 30 0RF
rosuvastatin 40 mg Tablet
40 mg PO QPM Qty: 30 1RF
insulin glargine [Lantus Solostar U-100 Insulin] 100 unit/mL (3 mL) insulin pen
37 unit SC HS Qty: 0.37 0RF
Rx Instructions:
take 37units at bedtime
pantoprazole [Protonix] [address] for susp in packet
40 mg PO DAILY Qty: 30 0RF
Changed
insulin aspart U-100 [Novolog FlexPen U-100 Insulin] 100 unit/mL (3 mL) insulin pen
20 unit SC AC Qty: 15 1RF
Rx Instructions:
BEFORE MEALS
Discontinued
isosorbide mononitrate 60 mg Tablet Extended Release 24 Hr
60 mg PO HS
isosorbide mononitrate 30 mg tablet extended release 24 hr
30 mg PO BID
carvedilol 25 mg tablet
25 mg PO BID
amlodipine 10 mg tablet
10 mg PO DAILY
hydralazine 50 mg tablet
100 mg PO TID
Discharge Orders:
Discharge Patient (As Directed); Ordered 07/29/24
Ordered By: Suzie Ashley
Care Plan Goals
Care Plan Goals:
Problem: Readiness for enhanced knowledge related to diagnosis and treatment plan
Goal: Understand your diagnosis and treatment plan needs, including medications if applicable.
Instructions: Know your diagnosis, underlying causes and treatment plan options, including medications if applicable. Consult with your health care team to learn about your diagnosis and treatment plan, including medications if applicable.
Discharge Date and Time
Discharge Date/Time: 07/29/24 11:57
Print Language: Maldivian
[2024-07-29 10:08] VITALS: BP 122/62
[2024-07-29 10:11] VITALS: BMI 30.7
--- NOTE | 2024-07-29 10:13 | PN.DE.MGMTRT ---
Insulin Management
- -
07/29/2024: Diabetes Management F/U:
Patient admitted 07/22 for CABG. Patient known to diabetes team from previous admission from 06/08 to 06/28/24. PMH HTN, HLD, diabetes, NSTEMI, CKD 3B, hypoxia, CHF, PNA, r pleural effusion. Prior to admission was taking NovoLog 24 units AC with
Lantus 37 units @ HS. A1C 9.2, cr 3.2, eGFR 21.60.
Pt is POD #7 s/p CABG x 3, doing well, sitting up in chair, Pt is [place] speaking, able to discuss diabetes mgt through family, and daughter at bedside.
07/24 Was transitioned off glycemic protocol, to Lantus 37 units and AC NovoLog 20 units at reduced dose due to poor appetite with low corrective insulin.
07/28 Received Lantus 37 units @ HS, Fasting glucose 180 this AM. Pt refused breakfast this AM, NovoLog dose held.
Will make no changes to current regimen, cont Lantus 37 units, NovoLog 20 units AC and low corrective
Will follow and make further insulin adjustments if glucose trends up as appetite improves
Diabetes History
- -
Type of Diabetes: 2 requiring insulin
Pre-Admission Diabetes Regimen
Lab Results
Hemoglobin A1c 9.2 % (4.0-5.6) H 07/17/24 08:58
Insulin Pump Settings
IP Diabetes Regimen
07/28/24 07/28/24 07/28/24
12:05 17:50 21:23
POC Glucose 95 137 H 168 H
07/29/24
08:40
POC Glucose 180 H
Meal type: Breakfast
Meal type: Dinner
Amount consumed: 10%
Amount consumed: 100%
Patient Education
[2024-07-29 10:25] VITALS: BP 122/62; BP 154/74; PULSE 65; O2SAT 99
--- NOTE | 2024-07-29 11:00 | PTCARENOTE ---
Rodriguez bag disconnected from rodriguez catheter using sterile technique and new sterile leg bag applied: new stat lock placed left leg and secured. Family ( and daughter present) and patient and family instructed on leg bag care and emptying/closing.
New graduate container provided. Reinforced the importance of keeping rodriguez apparatus clean and has an appointment on Tuesday 07/[address] Fofana (urology) for rodriguez removal and voiding trial. All instructions translated with person investigator and
video when necessary to enhance understanding of the instructions.
== END 2024-07-29 11:57 | disposition home or self-care (01) | DRG 235 ==
LOC: CVICU 04:54
PROVIDERS: Anesthesiology; Clinical Nurse Specialist Acute Care; ADMITTING PHYSICIAN Thoracic Surgery (Cardiothoracic Vascular Surgery); CONSULT PHYSICIAN Internal Medicine Critical Care Medicine; CONSULT PHYSICIAN Urology; FAMILY PHYSICIAN Nurse Practitioner Adult Health
PROC: 06BP4ZZ Excision of Right Saphenous Vein, Percutaneous Endoscopic Approach (ICD-10-PCS; 2024-07-22)
PROC: 02100ZC Bypass Coronary Artery, One Artery from Thoracic Artery, Open Approach (ICD-10-PCS; 2024-07-22)
PROC: B24BZZ4 Ultrasonography of Heart with Aorta, Transesophageal (ICD-10-PCS; 2024-07-22)
PROC: 021109W Bypass Coronary Artery, Two Arteries from Aorta with Autologous Venous Tissue, Open Approach (ICD-10-PCS; 2024-07-22)
PROC: 5A1221Z Performance of Cardiac Output, Continuous (ICD-10-PCS; 2024-07-22)
PROC: 30233N1 Transfusion of Nonautologous Red Blood Cells into Peripheral Vein, Percutaneous Approach (ICD-10-PCS; 2024-07-22)
DX: I21.4 Non-ST elevation (NSTEMI) myocardial infarction (principal); I50.33 Acute on chronic diastolic (congestive) heart failure; I13.0 Hypertensive heart and chronic kidney disease with heart failure and stage 1 through stage 4 chronic kidney disease, or unspecified chronic kidney disease; D62 Acute posthemorrhagic anemia; I30.9 Acute pericarditis, unspecified; J98.11 Atelectasis; E87.1 Hypo-osmolality and hyponatremia; N17.9 Acute kidney failure, unspecified; I25.10 Atherosclerotic heart disease of native coronary artery without angina pectoris; E78.00 Pure hypercholesterolemia, unspecified; E11.22 Type 2 diabetes mellitus with diabetic chronic kidney disease; E11.65 Type 2 diabetes mellitus with hyperglycemia; N99.89 Other postprocedural complications and disorders of genitourinary system; Y83.2 Surgical operation with anastomosis, bypass or graft as the cause of abnormal reaction of the patient, or of later complication, without mention of misadventure at the time of the procedure; N18.32 Chronic kidney disease, stage 3b; I95.1 Orthostatic hypotension; I48.91 Unspecified atrial fibrillation; E66.811 Obesity, class 1; E86.1 Hypovolemia; I48.0 Paroxysmal atrial fibrillation; E87.70 Fluid overload, unspecified; I25.2 Old myocardial infarction; Z68.30 Body mass index [BMI] 30.0-30.9, adult; Z87.01 Personal history of pneumonia (recurrent); Z79.4 Long term (current) use of insulin; Z79.82 Long term (current) use of aspirin; Z79.899 Other long term (current) drug therapy
CPT/HCPCS: 36415; 71045; 71046; 80048; 80053; 80076; 81003; 81015; 82248; 82330; 82565; 82805; 82810; 82947; 82962; 83036; 83735; 84132; 84302; 84520; 85014; 85018; 85025; 85027; 85049; 85610; 85730; 86850; 86900; 86901; 86920; 87070; 93005; 93312; 93320; 93325; 93923; 93931; 93971; 94002; P9016; P9045

== ENCOUNTER 2024-08-02 16:53 | Inpatient (IN) | payer OTHER, SELFPAY ==
[2024-08-02] VITALS (21 sets, daily range): BP systolic 135–188; BP diastolic 64–82; BMI 32.1; BMI 29.2
[2024-08-02 13:25] LABS: INR 1.15; PT 15.1 Sec (11.4-14.6)
[2024-08-02 13:26] LABS: APTT 40.4 Sec (23.4-35.0)
--- NOTE | 2024-08-02 13:27 | EDRN ---
global security architect #[id number] used.
[2024-08-02 13:28] LABS: % Basophils 0.2 % (0-2); % Eosinophils 3.7 % (0-6); % Immature Granulocytes 0.7 % (0-0.5); % Lymphocytes 18.2 % (20.5-51.1); % Monocytes 9.4 % (1.7-9.3); % Neutrophils 67.8 % (42.2-75.2); Absolute Eosinophils 0.5 10^3/uL (0-0.7); Absolute Immature Granulocytes 0.1 10^3/uL (0-0.05); Absolute Lymphocytes 2.4 10^3/uL (1.2-3.4); Absolute Monocytes 1.3 10^3/uL (0.1-0.6); Absolute Neutrophils 9.1 10^3/uL (1.4-6.5); Hematocrit 20.7 % (39.0-52.0); Hemoglobin 6.9 g/dL (13.0-18.0); Mean Corp Hgb Conc. 33.3 g/dL (33.0-37.0); Mean Corpuscular Hgb 29.1 pg (27.0-31.0); Mean Corpuscular Volume 87.3 fL (80.0-94.0); Mean Platelet Volume 9.1 fL (7.4-10.4); Nucleated Red Blood Cells % 0 % (-); Platelet Count 405 10^3/uL (130-400); Red Blood Cell Count 2.37 10^6/uL (4.70-6.10); Red Cell Dist. Width 14.7 % (11.5-14.5); White Blood Cell Count 13.3 10^3/uL (4.8-10.8)
--- NOTE | 2024-08-02 13:30 | EDRN ---
Dr. Oliver in room w/ pt.
--- NOTE | 2024-08-02 13:30 | EDRN ---
Pain and fever brings pt here. Pt started w/ pain and fever 3 days ago. Pt had CABG w/ vein removed from R leg on 07/22. Pt discharged home and a day later developed the pain. Pain 10/10 in R calf and pt unable to walk due to pain. Pt also having SOB
r/t pain.
[2024-08-02 13:32] LABS: ALT (SGPT) 29 U/L (0-50); AST (SGOT) 23 U/L (17-59); Albumin 3.1 g/dl (3.5-5.0); Alkaline Phosphatase 74 U/L (38-126); Blood Urea Nitrogen 67 mg/dl (9-20); Calcium 8.9 mg/dl (8.4-10.2); Carbon Dioxide 23 mmol/L (22-30); Chloride 105 mmol/L (98-107); Estimated Creatinine Clearance 26 ml/min; Glucose 86 mg/dl (70-99); Potassium 4.2 mmol/L (3.5-5.1); Sodium 139 mmol/L (135-145); Total Bilirubin 0.3 mg/dl (0.2-1.3); Total Protein 6.2 g/dl (6.3-8.2); eGFR 20.09
[2024-08-02 13:41] LABS: NT-proBNP 8190 pg/ml
--- NOTE | 2024-08-02 13:59 | ED.GENMED ---
History of Present Illness
General
Chief Complaint: DVT/Possible Blood Clot
Source: patient, records and family
Exam Limitations: none
Time Seen by Provider: 08/02/24 12:38
Nursing documentation reviewed up to this point in time: agreed with
History of Present Illness
History of Present Illness:
58-year-old male with a past medical history of hypertension, hyperlipidemia, CAD, CHF, CKD, diabetes who presents to the emergency room with his family for evaluation of right lower leg pain and swelling, shortness of breath and lightheadedness.
Patient is notably status post CABG with Dr. Rasheed on 07/22/2024. He was discharged 07/29/2024 and he says that when he left the hospital he was able to ambulate and felt generally well. He says that about 24 hours after returning home he began to
have pain in his right lower leg and pain has been increasing since then. He has had increased swelling in the leg. He had a visiting nurse comes today who examined him and referred to the emergency room to be evaluated. He says that in addition
to pain and swelling of the leg he has also noticed that he is mildly lightheaded particularly with positional changes. He says he feels mildly short of breath/fatigue. He has not had any chest pain. He says that he had a low-grade fever when
visiting nurse chest today but denies subjective fever or chills. He denies any other issues. He has been on aspirin Plavix and surgery with last dose this morning.
Review of Systems
Review of Systems
All Other Systems: ROS reviewed and negative except as documented in HPI and ROS
Constitutional: Reports fever and fatigue; Denies chills
Respiratory: Reports trouble breathing
Cardiac: Denies chest pain, diaphoresis or palpitations
ABD/GI: Denies abdominal pain, nausea or vomiting
: Denies flank pain
Musculoskeletal: Reports muscle pain and edema; Denies neck pain or back pain
Neurological: Reports dizzy; Denies headache
Phy Exam
Physical Exam
Physical Exam:
General: Awake, alert, oriented x3; no acute distress
Head: Normocephalic, atraumatic
Eyes: Conjunctiva normal
Throat: Airway intact, handling secretions
Neck: Trachea midline, supple without meningismus
Lungs: Clear to auscultation bilaterally, no wheezing, rales, rhonchi
Heart: Regular rate and rhythm, no murmurs, gallops, or rubs appreciated
Abd: Soft, non distended, nontender
Neuro: Cranial nerves grossly intact, speech fluid
Skin: Slightly pale, clean sternotomy incision, clean appearing incision medial right lower leg with no drainage
Extremities: Patient has marked edema right lower leg extending from proximal thigh all the way down to the foot; he has some bruising of the medial right lower leg and significant tenderness of the right calf; palpable pulses proximal and distal
right lower extremity; compartments right lower leg are soft
Scores
Heart Failure Risk
Heart Failure Risk Score: Not Applicable
Heart Score for Chest Pain Patients
STEMI patient?: Not applicable
Withdrawal Assessment of Alcohol
Withdrawal Assessment Completed?: Not applicable
Course
Orders/Labs/Results
Orders:
Orders
08/02/24 11:36
Periph Venous Lwr Ext Rt US [US Periph Venous LOWER Ext RT] Urgent
Comment: post - op surgery on 07/22/24
Reason For Exam: swelling and lower leg pain
08/02/24 13:04
Complete Blood Count/With Diff Urgent
Comprehensive Metabolic Panel Urgent
NT-proBNP Urgent
PTT Urgent
Prothrombin Time Urgent
08/02/24 13:49
* Blood Bank Products Urgent
Blood Bank Products: *Packed RBC Leuko(PRBC's)
Quantity: 1
Transfuse Today: Yes
Reason: Anemia
Type+Screen Urgent
Jay Wrap Right-Treatment ONCE
HYDROmorphone [Dilaudid] 1 mg IV NOW STA
08/02/24 13:59
Cardiothoracic Surgery Consult Urgent
Consulting Provider: Renny Rasheed
Was physician already notified: Yes
Abnormal Lab Results
08/02/24
13:04
WBC 13.3 H 10^3/uL
(4.8-10.8)
RBC 2.37 L 10^6/uL
(4.70-6.10)
Hgb 6.9 L* g/dL
(13.0-18.0)
Hct 20.7 L* %
(39.0-52.0)
RDW 14.7 H %
(11.5-14.5)
Plt Count 405 H D 10^3/uL
(130-400)
Abs Immat Gran (auto) 0.1 H 10^3/uL
(0-0.05)
Absolute Neuts (auto) 9.1 H 10^3/uL
(1.4-6.5)
Absolute Monos (auto) 1.3 H 10^3/uL
(0.1-0.6)
Immature Gran % 0.7 H %
(0-0.5)
Lymphocytes % 18.2 L %
(20.5-51.1)
Monocytes % 9.4 H %
(1.7-9.3)
PT 15.1 H Sec
(11.4-14.6)
APTT 40.4 H Sec
(23.4-35.0)
BUN 67 H mg/dl
(9-20)
Creatinine 3.4 H mg/dL
(0.7-1.3)
Total Protein 6.2 L g/dl
(6.3-8.2)
Albumin 3.1 L g/dl
(3.5-5.0)
08/02/24 13:04
08/02/24 13:04
Vital Signs
Initial and Last Documented VS:
Initial Vital Signs
Pulse Resp BP Pulse Ox
61 18 153/66 96
08/02/24 11:33 08/02/24 11:33 08/02/24 11:33 08/02/24 11:33
Last Documented Vital Signs
Temp Pulse Resp BP Pulse Ox
36.7 C 61 18 153/66 97
08/02/24 11:38 08/02/24 11:33 08/02/24 11:33 08/02/24 11:33 08/02/24 11:54
MDM/Problems Addressed
Differential Diagnosis Includes:
DVT/PE, hematoma, CHF
MDM/Problems Addressed:
58-year-old male who was 11 days status post CABG with graft harvest from right lower leg presents to the emergency room for evaluation of right lower leg pain and swelling as well as lightheadedness and shortness of breath. Hypertensive but
otherwise normal vitals. Physical exam as above. Send off labs including a CBC and a CMP, coags, proBNP. Check right lower extremity ultrasound. Treat pain. Reassess after the above.
Labs reviewed: CBC shows leukocytosis to 13.3, anemia to 6.9 down from prior value of 8.2. CMP shows stable CKD with creatinine 3.4. Right lower extremity ultrasound was negative for DVT but does show large fluid collection in the right lower
leg�suspect that this represents postoperative hematoma given bruising of the lower leg, acute blood loss anemia and post-op DAP therapy. No signs of compartment syndrome at present, compartments are soft. Will place Jay wrap for compression.
Transfuse PRBCs to maintain hemoglobin greater than 7. Will admit for serial exams/compartment checks, trending of hemoglobin. Case discussed with CT surgery, agrees with this plan. Case discussed with hospitalist for admission.
*Radiology
Radiology exam reviewed: radiology read reviewed
*Pulse Oximetry
Patient hypoxic: no
*Critical Care Note
Total Time (30-74mins, 75-104mins- exclusive of procedures): Not Applicable
Data Reviewed
Review of Other/Old Records Reveals: Labs, Records, Operative Reports and Discharge Summary
Source: patient, records, spouse and family
Patient Management
Discussion with other providers: Hospitalist (Discussed with hospitalist) and Surface Water Manager (Discussed with CT surgery)
Escalation/DeEscalation of care consider admission/obs:
Admission indicated
ED Attending Note
-
Portions of this chart may have been created with voice recognition software.� Occasional wrong word or��sound alike� substitutions may have occurred due to the inherent limitations of voice recognition software.
Discharge Plan
Departure
Patient Disposition: Admit
Date of Disposition: 08/02/24
Time of Disposition: 13:58
Admit to doctor: Wilma
Presentation/result/management discussed w/ accepting MD/DO: Hospitalist
Discharge Problem:
Hematoma of right lower leg, Acute blood loss anemia
Prescriptions:
No Action
amiodarone 200 mg Tablet
200 mg PO BID Qty: 90 0RF
Rx Instructions:
take twice daily for 2 weeks (until 08/12), then once daily until otherwise instructed
tamsulosin 0.4 mg Capsule
0.4 mg PO HS Qty: 14 0RF
acetaminophen 325 mg Tablet
650 mg PO Q6HPRN PRN (Reason: mild pain,headache,temp >101F ) Qty: 0 0RF
sennosides-docusate sodium 8.6-50 mg Tablet
1 tab PO Q12 PRN (Reason: Constipation) Qty: 0 0RF
lidocaine 4 % Adhesive Patch,Medicated
1 patch topical DAILY Qty: 0 0RF
carvedilol [Coreg] 12.5 mg tablet
12.5 mg PO BID Qty: 60 1RF
bumetanide 2 mg tablet
2 mg PO BID AT 0800,1600 Qty: 60 1RF
clopidogrel 75 mg tablet
75 mg PO DAILY Qty: 30 1RF
aspirin 81 mg Tablet,Delayed Release (Dr/Ec)
81 mg PO DAILY Qty: 30 1RF
spironolactone 25 mg tablet
12.5 mg PO BID AT 0800,1600 Qty: 30 0RF
insulin aspart U-100 [Novolog FlexPen U-100 Insulin] 100 unit/mL (3 mL) insulin pen
20 unit SC AC Qty: 15 1RF
Rx Instructions:
BEFORE MEALS
rosuvastatin 40 mg Tablet
40 mg PO QPM Qty: 30 1RF
insulin glargine [Lantus Solostar U-100 Insulin] 100 unit/mL (3 mL) insulin pen
37 unit SC HS Qty: 0.37 0RF
Rx Instructions:
take 37units at bedtime
pantoprazole [Protonix] [address] for susp in packet
40 mg PO DAILY Qty: 30 0RF
Referrals:
Alison Rai NP [Family Provider] -
Interventions
Interventions:
*Risk Screen - Suicide Last Done: 08/02/24 11:33
*General Assessment Last Done: 08/02/24 11:36
*Neglect/Abuse Screening Last Done: 08/02/24 11:54
ED- Fall Risk Assessment Last Done: 08/02/24 11:54
*ED COVID-19 Vaccine History Last Done: 08/02/24 11:54
ED- Cardiac Assessment Last Done: 08/02/24 11:54
ED- Pulmonary Assessment Last Done: 08/02/24 11:54
ED-Skin Assessment Last Done: 08/02/24 11:54
Discharge Date and Time
Print Language: Swiss
--- NOTE | 2024-08-02 14:25 | CONSULT.CT ---
Consultation
-
Date/Time Consultation Requested: 08/02/24
Date/Time Consultation Performed: 08/02/24
Requesting Provider: ED
Performing Provider: Suzie Ashley PA-C for Dr. Renny Rasheed
Reason for Consultation: RLE pain, anemia
Patient History
Physicians
Family Physician: Dr. Rodriguez
Outpatient Site Lead: Dr. Hernandez
History of Present Illness
Patient is a 58-year-old male well-known to our service, underwent CABG x 3 on 07/22/[address] Renny Rasheed without any periprocedural complications. During his postop course he did have EKG changes consistent with pericarditis that was
relatively asymptomatic, he had a short period of postop A-fib/A. tach without recurrence, and postoperative urinary retention for which she was discharged with a Rodriguez and leg bag. Prior to discharge patient was complaining of some right lower
extremity pain in the lower leg near the site of saphenous vein harvest. Duplex ultrasound the right lower extremity was completed last weekend which was negative for DVT. He was discharged to home on 07/29/2024.
Patient now presents emergency department with complaints of inability to walk secondary to right lower extremity pain and increased swelling of his foot. He also complains of some lightheadedness and vision going dark when he walks. Upon
assessment in the ED, hemoglobin dropped to 6.9 from 8.2 on day of discharge (and 7.1 one day prior).
Past Medical History
Past Medical History: Other
recent NSTEMI with MVCAD s/p CABG 07/22/24
Poorly-controlled diabetes mellitus 2 (Hgb A1c 9.2)
Poorly-controlled hypertension with recent hypertensive emergency
Chronic kidney disease 3b
Recent community acquired pneumonia
chronic Diastolic CHF
Recent acute hypoxic respiratory failure
Hyperlipidemia
Class 1 obesity (BMI 30)
hx Right pleural effusion S/p R thoracentesis (1200 cc of clear yellow fluid), 06/24/24
Acute postop blood loss/Anemia (transfused 1u PRBC), stable
Acute postop orthostasis, resolved
Acute postop urinary retention- started Flomax, discharged with rodriguez
postop afib/Atrial tach 120s-130s on 07/25 for about 10 hrs- converted spontaneously at 4am on 07/26
Past Surgical History
Past Surgical History: Other
07/22/24 coronary artery bypass grafting x3 (MARIANO-LAD, SVG-RI, SVG-OM) by Dr. Renny Rasheed
Family History
Mother: N/A
Father: N/A
Social History
Alcohol: None
Drug: None
Tobacco: Non-Smoker
Personal:
Allergies
Allergy/AdvReac Type Severity Reaction Status Date / Time
No Known Drug Allergies Allergy Unknown Verified 08/02/24 11:35
Home Medications
�Medication �Instructions �Recorded �Confirmed �Type
acetaminophen 325 mg tablet 650 mg (2 x 325 mg) PO Q6HPRN PRN 07/29/24 08/02/24 Rx
mild pain,headache,temp >101F #0
tabs
amiodarone 200 mg tablet 200 mg PO BID #90 tabs 07/29/24 08/02/24 Rx
aspirin 81 mg tablet,delayed 81 mg PO DAILY Blood Clot 07/29/24 08/02/24 Rx
release Prevention/Tx #30 tabs
bumetanide 2 mg tablet 2 mg PO BID AT 0800,1600 Fluid 07/29/24 08/02/24 Rx
Retention/Swelling #60 tabs
carvedilol 12.5 mg tablet (Coreg) 12.5 mg PO BID #60 tabs 07/29/24 08/02/24 Rx
clopidogrel 75 mg tablet 75 mg PO DAILY Blood Clot 07/29/24 08/02/24 Rx
Prevention/Tx #30 tabs
insulin aspart U-100 100 unit/mL 20 unit (0.2 mL) SC AC Diabetes 07/29/24 08/02/24 Rx
(3 mL) subcutaneous pen (Novolog #15 mL
FlexPen U-100 Insulin aspart)
insulin glargine 100 unit/mL (3 37 unit (0.37 mL) SC HS #0.37 mL 07/29/24 08/02/24 Rx
mL) subcutaneous pen (Lantus
Solostar U-100 Insulin)
lidocaine 4 % topical patch 1 patch topical DAILY #0 ea 07/29/24 08/02/24 Rx
rosuvastatin 40 mg tablet 40 mg PO QPM #30 tabs 07/29/24 08/02/24 Rx
spironolactone 25 mg tablet 12.5 mg (1/2 x 25 mg) PO BID AT 07/29/24 08/02/24 Rx
0800,1600 Blood Pressure #30 tabs
tamsulosin 0.4 mg capsule 0.4 mg PO HS #14 caps 07/29/24 08/02/24 Rx
cyclobenzaprine 5 mg tablet 5 mg PO TIDPRN PRN spasms 08/02/24 08/02/24 History
gabapentin 100 mg capsule 100 mg PO TIDPRN PRN mild pain 08/02/24 08/02/24 History
pantoprazole 40 mg tablet,delayed 40 mg PO DAILY 08/02/24 08/02/24 History
release (Protonix)
sennosides 8.6 mg-docusate sodium 1 tab PO O75OOLA PRN Constipation 08/02/24 08/02/24 History
50 mg tablet
Review of Systems
-
History Source: Patient and Family
General: Denies Fever or Fatigue
HEENT: Reports No Symptoms
Respiratory: Reports No Symptoms
Cardiac: Reports No Symptoms
Abdomen/GI: Reports No Symptoms
Neurological: Reports Other (lightheadedness)
Physical Exam
Vital Signs
Temp 98.0 F 08/02/24 11:38
Temp route: Oral 08/02/24 11:38
Pulse 61 08/02/24 13:30
Resp Rate 20 08/02/24 13:30
Blood pressure 150/64 08/02/24 13:04
MAP (cuff-Julio Monitor) 88 08/02/24 13:04
SaO2 94 08/02/24 13:30
Oxygen Mode of Delivery Room air 08/02/24 11:54
Can the patient verbally communicate their pain? Yes 08/02/24 11:33
Actual Weight 95.1 kg 08/02/24 13:25
Body Mass Index (BMI) 32.1 08/02/24 13:25
Labs
08/02/24 13:04
08/02/24 13:04
PT 15.1 Sec (11.4-14.6) H 08/02/24 13:04
APTT 40.4 Sec (23.4-35.0) H 08/02/24 13:04
Gjg-E-Vicazbmbhrt Pept 8190 pg/ml 08/02/24 13:04
Exam
General: Well Developed, Well Nourished and No Apparent Distress
Extremities: Lower Level Edema (2-3+ RLE edema with mild warmth)
Psych: Calm
Assessment / Plan
-
RLE swelling without DVT related to SVG harvest site
acute postop blood loss anemia, now down to hgb 6.9
-agree with ED plans for transfusion 1 unit PRBC, not concerned about acute bleeding at this time--continue to follow H/H
-compression wrap of RLE with elevation for edema
-would start prophylactic antibiotics, IV ancef while in house--convert to PO course at discharge
-admit to hospitalist service, we will follow along
Data Reviewed
-
Ultrasound: Report Reviewed by me
[2024-08-02] MEDS: ANCEF 10 IV (14:37)
[2024-08-02] MEDS: DILAUDID 1 MG IV (14:37)
--- NOTE | 2024-08-02 14:45 | EDRN ---
POX post administration of dilaudid decreased to a steady 89% so oxygen via NC placed at 2lpm via NC.
--- NOTE | 2024-08-02 16:06 | EDRN ---
Addendum entered by Paris Arthur RN 08/02/24 16:44:
hospitalist was DR. Durand.
Original Note:
Hospitalist in room w/ pt at this time.
--- NOTE | 2024-08-02 16:35 | HPS.HSE ---
Family Physician
-
Family Physician: Alison Rai NP
Chief Complaint
-
RLE pain swelling
History of Present Illness
58M Micronesian speaking (interviewed with Micronesian Service Bar Cashier) HTN HLD DM CKD III-IV CHF Urinary retention with Benedict CAD recent CABG 07/22/24 presents for evaluation Right lower extremity swelling since discharge 07/29/24 associate intermittent
dizziness lightheadedness. Denies Fever chills constipation diarrhea. Endorses dyspnea on exertion. Patient has not been able to walk since discharge due to RLE pain swelling. VSS at rest, afebrile, Labs noted mild leukocytosis and severe anemia
6.9. Cr 3.4 baseline when compared to Cr levels from previous hospitalization
Medical History
Past Medical History
Past Medical History: Reports Other (as above)
Past Surgical History: Reports Other (as above)
Social History
Tobacco: Non-smoker
Alcohol: None
Drug: None
Personal:
Living: With Family
Family History
Family History: Not pertinent (reviewed)
Allergies / Home Medications
Allergies reflects when Allergies were last updated in [employer].
Home Medications with original date entered in [employer]
Allergy/Medication List:
Allergies
Allergy/AdvReac Type Severity Reaction Status Date / Time
No Known Drug Allergies Allergy Unknown Verified 08/02/24 11:35
Home Medications
acetaminophen 325 mg tablet 650 mg (2 x 325 mg) PO Q6HPRN PRN mild pain,headache,temp >101F #0 tabs 07/29/24
amiodarone 200 mg tablet 200 mg PO BID #90 tabs 07/29/24
aspirin 81 mg tablet,delayed release 81 mg PO DAILY Blood Clot Prevention/Tx #30 tabs 07/29/24
bumetanide 2 mg tablet 2 mg PO BID AT 0800,1600 Fluid Retention/Swelling #60 tabs 07/29/24
carvedilol 12.5 mg tablet (Coreg) 12.5 mg PO BID #60 tabs 07/29/24
clopidogrel 75 mg tablet 75 mg PO DAILY Blood Clot Prevention/Tx #30 tabs 07/29/24
insulin aspart U-100 100 unit/mL (3 mL) subcutaneous pen (Novolog FlexPen U-100 Insulin aspart) 20 unit (0.2 mL) SC AC Diabetes #15 mL 07/29/24
insulin glargine 100 unit/mL (3 mL) subcutaneous pen (Lantus Solostar U-100 Insulin) 37 unit (0.37 mL) SC HS #0.37 mL 07/29/24
lidocaine 4 % topical patch 1 patch topical DAILY #0 ea 07/29/24
rosuvastatin 40 mg tablet 40 mg PO QPM #30 tabs 07/29/24
spironolactone 25 mg tablet 12.5 mg (1/2 x 25 mg) PO BID AT 0800,1600 Blood Pressure #30 tabs 07/29/24
tamsulosin 0.4 mg capsule 0.4 mg PO HS #14 caps 07/29/24
cyclobenzaprine 5 mg tablet 5 mg PO TIDPRN PRN spasms 08/02/24
gabapentin 100 mg capsule 100 mg PO TIDPRN PRN mild pain 08/02/24
pantoprazole 40 mg tablet,delayed release (Protonix) 40 mg PO DAILY 08/02/24
sennosides 8.6 mg-docusate sodium 50 mg tablet 1 tab PO [id number] PRN Constipation 08/02/24
Review of Systems
-
A 12 point ROS was completed and negative except as noted: Yes
Constitutional: Reports Other (as below)
Physical Exam
Vital Signs
Vital Signs
Temp Pulse Resp BP Pulse Ox
98.0 F 58 15 146/73 96
08/02/24 11:38 08/02/24 16:00 08/02/24 16:00 08/02/24 16:00 08/02/24 16:00
Physical Exam
General: Other (as below)
Laboratory Results
-
08/02/24 13:04
08/02/24 13:04
Laboratory Results
PT 15.1 Sec (11.4-14.6) H 08/02/24 13:04
INR 1.15 08/02/24 13:04
APTT 40.4 Sec (23.4-35.0) H 08/02/24 13:04
Total Bilirubin 0.3 mg/dl (0.2-1.3) 08/02/24 13:04
AST 23 U/L (17-59) 08/02/24 13:04
ALT 29 U/L (0-50) 08/02/24 13:04
Alkaline Phosphatase 74 U/L (38-126) 08/02/24 13:04
Impression/Plan
-
ROS
General: Denies fever chills night sweats unexpected weight loss
Neuro: Denies seizure shaking reports dizziness near syncope
Psych: denies depression hallucinations confusion manic episodes
Endocrine: Denies polyuria polydipsia polyphagia heat/cold intolerance
HEENT: Denies epistaxis sore throat reports
Pulmonary: denies coughing hemoptysis sneezing reports dyspnea on exertion
Cardiovascular: denies chest pain palpitations
Hematology: denies easy bruising/bleeding
Gastrointestinal: denies nausea vomiting diarrhea constipation hematemesis hematochezia melena
Genito-Urinary: Endorses Retention Benedict in place with leg bag
Musculoskeletal: Reports right lower ext pain swelling denies weakness
Physical Exam
General: No pallor, cyanosis, or jaundice. Obese Appears acutely ill
HEENT: Throat clear. PERRLA Normocephalic atraumatic
NECK: Supple. No JVD Carotid Bruits
RESPIRATORY: Lungs clear to auscultation. No crackles wheezes stridor
CVS: S1, S2 normal. RRR. No murmur, rub or gallop.
ABDOMEN: Soft, non-tender. No distension. BS+/normal.
EXTREMITIES: RLE ELIDA wrap clean dry intact, right foot swollen sensation intact
STOREROOM SUPERVISOR: Awake Alert Conversant Coherent
IMPRESSION:
58M Micronesian speaking (interviewed with Micronesian Service Bar Cashier) HTN HLD DM CKD III-IV CHF Urinary retention with Benedict post-op atach/afib CAD recent CABG 07/22/24 presents for evaluation Right lower extremity swelling since discharge 07/29/24 associate
intermittent dizziness lightheadedness. Denies Fever chills constipation diarrhea. Endorses dyspnea on exertion. Reports normal bowel movements, no diarrhea/constipation/bloody bowel movements. Patient has not been able to walk since discharge
due to RLE pain swelling. VSS at rest, afebrile, Labs noted mild leukocytosis and severe anemia 6.9. Cr 3.4 baseline when compared to Cr levels from previous hospitalization. Acute post-op blood loss anemia symptomatic with RLE hematoma
associated with SVG harvest site for CABG. Patient admitted for further evaluation treatment
PLAN:
RLE swelling hematoma related to SVG harvest site
Acute post-op blood loss anemia
Severe symptomatic anemia
-IMU admit
-RLE compressive ELIDA wraps elevation prn Ice packs
-agree transfusion 1PRBC as per ED, follow up post-op CBC w/ AM labs
-RLE venous ext appreciated no DVT, possible hematoma noted, less likely abscess given overall clinical presentation (afebrile mild leukocytosis but trending down from prior CABG procedure)
-
-infection prophylaxis Cefazolin as per CTS
-CTS eval appreciated
-pain control prn Dilaudid
-monitor H&H and transfuse for goal Hgb >=8 given cardiac hx
-Eventual PT/OT eval when more stable
-fall precautions
HTN
cont home Coreg Bumex Aldactone w/ holding parameters
HLD
cont statin
DM
recent A1c 9.2
sugars appear to be well controlled at this time possibly due to poor intake appetite loss from acute illness
Noted patient normally has high insulin requirement at home
Insulin coverage resumed at reduced dose for now to avoid hypoglycemia, titrate up as necessary
Low Dose Sliding scale
Lantus 15U HS
CAD s/p CABG
HFpEF
cont home Coreg Bumex Aldactone w/ holding parameters
cont ASA plavix
LELAND vs Chronic Kidney Disease Stage IV
Cr remains elevated but baseline approx 3.5 as per values from recent CABG hospitalization
monitor while on diuresis
Urinary Retention Benedict present on Admission
can consider trial of void when ambulatory status improves
cont home flomax
post-op atach/afib
cont home amiodarone taper as recommended prior hospitalization
DVT ppx SCD
Full Code
I spent a total of 80 minutes with the patient or on the floor. More than 50% of this time involved counseling and coordination of care.
[2024-08-02 18:33] LABS: Iron 29 ug/dl (49-181)
[2024-08-02 18:42] LABS: Percent Saturation 10 % (20-50); Total Iron Binding Capacity 277 ug/dl (261-462)
[2024-08-02 19:41] LABS: Folate 14.9 ng/ml (2.76-20); Vitamin B12 275 pg/ml (239-931)
[2024-08-02] MEDS: NOVOLOG FLEXPEN-LOW RESISTANCE SC (20:26)
[2024-08-02 20:34] LABS: Glucose - Point of Care 144 mg/dl (70-99)
[2024-08-02] MEDS: CRESTOR 40 MG PO (21:15)
[2024-08-02] MEDS: COREG 12.5 MG PO (21:15)
[2024-08-02] MEDS: PACERONE 200 MG PO (21:16)
[2024-08-02] MEDS: LANTUS 0.15 UNITS SC (21:16)
[2024-08-02] MEDS: FLOMAX 0.4 MG PO (21:16)
--- NOTE | 2024-08-02 23:00 | PTCARENOTE ---
Pt arrived to floor via stretcher from the ED. Pt unable to ambulate due to pain in RLE. Pt able to transfer from stretcher to bed with assistance. Pt Martiniquais speaking, can speak broken Swedish, language line at bedside. PT AAOx3. HR in the 60's in
NSR on the monitor. POX 90-93% on RA. Lungs shallow, dec @ bases. + bowel, round obese abd. Chronic rodriguez on admit due to urinary retention post CABG 07/22. RLE with Jay wrap in place per MD order. Weak right pedal pulse, +2 edema noted. Heels
elevated per MD order. Sternal site and CT site x4 scabbed and intact. Pt report RLE leg pain /10, Pain medication administered as ordered. BP elevated. BENEFIT SPECIALIST notifed, will monitor. Right AC int capped. at bedside. Will continue to monitor.
[2024-08-02] MEDS: DILAUDID 0.5 MG IV (23:52)
[2024-08-03] VITALS (15 sets, daily range): BP systolic 151–182; BP diastolic 65–85; PULSE 56; O2SAT 93; BMI 29.2; BMI 29.1
[2024-08-03] MEDS: APRESOLINE 5 MG IV ×2 (01:12→18:07)
[2024-08-03] MEDS: ANCEF 5 IV ×2 (01:13→13:25)
[2024-08-03 05:16] LABS: Hematocrit 25.5 % (39.0-52.0); Hemoglobin 8.6 g/dL (13.0-18.0); Mean Corp Hgb Conc. 33.7 g/dL (33.0-37.0); Mean Corpuscular Hgb 29.5 pg (27.0-31.0); Mean Corpuscular Volume 87.3 fL (80.0-94.0); Mean Platelet Volume 9.1 fL (7.4-10.4); Platelet Count 422 10^3/uL (130-400); Red Blood Cell Count 2.92 10^6/uL (4.70-6.10); Red Cell Dist. Width 14.6 % (11.5-14.5); White Blood Cell Count 14.5 10^3/uL (4.8-10.8)
[2024-08-03 05:24] LABS: Blood Urea Nitrogen 64 mg/dl (9-20); Calcium 9.3 mg/dl (8.4-10.2); Carbon Dioxide 22 mmol/L (22-30); Chloride 104 mmol/L (98-107); Estimated Creatinine Clearance 25 ml/min; Glucose 118 mg/dl (70-99); Potassium 4.8 mmol/L (3.5-5.1); Sodium 141 mmol/L (135-145)
[2024-08-03] MEDS: DILAUDID 0.5 MG IV (07:33)
--- NOTE | 2024-08-03 07:37 | W.PN.HOSP.TC ---
Today's Communication/Plan
-
Trial of void
pain control, percocet prn moderate pain
PT/OT
monitor H&H transfusion goal >=8
Assessment / Plan
Assessment / Plan
Physical Exam
General: No pallor, cyanosis, or jaundice. Obese
HEENT: Throat clear. PERRLA Normocephalic atraumatic
NECK: Supple. No JVD Carotid Bruits
RESPIRATORY: Lungs clear to auscultation. No crackles wheezes stridor
CVS: S1, S2 normal. RRR. No murmur, rub or gallop.
ABDOMEN: Soft, non-tender. No distension. BS+/normal.
EXTREMITIES: RLE ELIDA wrap clean dry intact, right foot swollen sensation intact
RN CORRECTIONS: Awake Alert Conversant Coherent
IMPRESSION:
58M French speaking (interviewed with French Cranberry [employer] Supervisor) HTN HLD DM CKD III-IV CHF Urinary retention with Benedict post-op atach/afib CAD recent CABG 07/22/24 presents for evaluation Right lower extremity swelling since discharge 07/29/24 associate
intermittent dizziness lightheadedness. Denies Fever chills constipation diarrhea. Endorses dyspnea on exertion. Reports normal bowel movements, no diarrhea/constipation/bloody bowel movements. Patient has not been able to walk since discharge
due to RLE pain swelling. VSS at rest, afebrile, Labs noted mild leukocytosis and severe anemia 6.9. Cr 3.4 baseline when compared to Cr levels from previous hospitalization. Acute post-op blood loss anemia symptomatic with RLE hematoma
associated with SVG harvest site for CABG. Patient admitted for further evaluation treatment
PLAN:
RLE swelling hematoma related to SVG harvest site
Acute post-op blood loss anemia
Severe symptomatic anemia
-IMU admit
-RLE compressive ELIDA wraps elevation prn Ice packs
-post-transfusion Hgb notes good response to 1PRBC given in ED, re-check Hgb evening
-RLE venous ext appreciated no DVT, possible hematoma noted, less likely abscess given overall clinical presentation (afebrile mild leukocytosis but trending down from prior CABG procedure)
-infection prophylaxis Cefazolin as per CTS
-CTS eval appreciated
-pain control prn Dilaudid severe pain, Percocet started prn for moderate pain
-monitor H&H and transfuse for goal Hgb >=8 given cardiac hx
-PT/OT
-fall precautions
HTN
cont home Coreg Bumex Aldactone w/ holding parameters
HLD
cont statin
DM
recent A1c 9.2
sugars appear to be well controlled at this time most likely due to poor intake appetite loss from acute illness
Noted patient normally has high insulin requirement at home
Insulin coverage resumed at reduced dose for now to avoid hypoglycemia, titrate up as necessary
Low Dose Sliding scale
Lantus 15U HS
CAD s/p CABG
HFpEF
HTN
cont home Coreg Bumex Aldactone w/ holding parameters
cont ASA plavix
Hydralazine prn
LELAND vs Chronic Kidney Disease Stage IV
Cr remains elevated but baseline approx 3.5 as per values from recent CABG hospitalization
monitor while on diuresis
improving/stable
Urinary Retention Benedict present on Admission
cont home flomax
Trial of void
post-op atach/afib
cont home amiodarone taper as recommended prior hospitalization
DVT ppx SCD
Full Code
Discussed with patient via language line French Cranberry [employer] Supervisor
I spent a total of 50 minutes with the patient or on the floor. More than 50% of this time involved counseling and coordination of care.
Anticipated Discharge: 24 - 48 hours
Subjective/Interval History
-
Date of Service: August 03, 2024
Seen and examined at bedside in no acute distress resting comfortably in bed. Dizziness/lightheadedness resolved. RLE pain persists, recently received pain medication. Notes poor appetite
Objective Data
-
Labs:
Laboratory Results
08/03/24
04:37
WBC 14.5 H
Hgb 8.6 L D
Hct 25.5 L
Plt Count 422 H
Sodium 141
Potassium 4.8
Chloride 104
Carbon Dioxide 22
BUN 64 H
Creatinine 3.2 H
Glucose 118 H
Calcium 9.3
Vital Signs:
Vital Signs
Temp Pulse Resp BP Pulse Ox
99.1 F 63 23 164/85 91
08/03/24 03:08 08/03/24 04:15 08/03/24 04:15 08/03/24 04:00 08/03/24 04:15
I&O
08/02/24 08/03/24 08/04/24
06:59 06:59 06:59
Intake Total 730 / 730
Output Total 450 / 450
Balance 280 / 280
[2024-08-03 07:52] LABS: Glucose - Point of Care 134 mg/dl (70-99)
[2024-08-03] MEDS: NOVOLOG FLEXPEN-LOW RESISTANCE SC ×2 (08:43→13:04)
[2024-08-03] MEDS: BUMEX 2 MG PO ×2 (08:48→16:40)
[2024-08-03] MEDS: COREG 12.5 MG PO ×2 (08:48→20:26)
[2024-08-03] MEDS: PACERONE 200 MG PO ×2 (08:48→20:27)
[2024-08-03] MEDS: PROTONIX 40 MG PO (08:48)
[2024-08-03] MEDS: PLAVIX 75 MG PO (08:48)
[2024-08-03] MEDS: ALDACTONE 12.5 MG PO ×2 (08:48→16:39)
[2024-08-03] MEDS: ASPIR LOW (ENTERIC COATED) 81 MG PO (08:49)
[2024-08-03] MEDS: PERCOCET 5/325 1 TABLET PO ×2 (10:11→20:29)
[2024-08-03 11:52] LABS: Glucose - Point of Care 143 mg/dl (70-99)
--- NOTE | 2024-08-03 15:48 | W.PN.UPDATE ---
Update Note
Progress Note Update
Patient seen this morning with Dr. Rasheed. He was encouraged to increase ambulation and to take pain medication to aid in mobility. He expressed understanding, PT/OT will be consulted. Benedict will also be discontinued for a trial void.
[2024-08-03 16:50] LABS: Glucose - Point of Care 159 mg/dl (70-99)
[2024-08-03] MEDS: NOVOLOG FLEXPEN-LOW RESISTANCE 300 UNITS SC (16:57)
[2024-08-03] MEDS: CRESTOR 40 MG PO (16:59)
--- NOTE | 2024-08-03 17:10 | PTCARENOTE ---
Assumed care of patient at beginning of this shift from previous RN; staying at bedside. Patient OOB to chair this morning, but only wanted his legs elevated in bed, not the chair. Medicated with percocet as per order from Dr Durand. Patient
speaks Luxembourger; school speech language pathologist line used when needed for instruction. See worklist for full assessment and vital signs; see MAR for med administration.
--- NOTE | 2024-08-03 18:00 | PTCARENOTE ---
Patient unable to void since removal of rodriguez catheter. Patient stated he wants to wait another hour to see if he can go. [place] text sent to Dr Durand who stated to place rodriguez catheter if patient unable to void; he will enter order.
[2024-08-03 18:04] LABS: Hemoglobin 8.6 g/dL (13.0-18.0)
--- NOTE | 2024-08-03 19:40 | PTCARENOTE ---
Benedict placed, 14F. Pt unable to void, 781cc bladder scan.
[2024-08-03] MEDS: FLOMAX 0.4 MG PO (20:27)
[2024-08-03 21:45] LABS: Glucose - Point of Care 165 mg/dl (70-99)
[2024-08-03] MEDS: LANTUS 0.15 UNITS SC (22:19)
[2024-08-04] VITALS (20 sets, daily range): BP systolic 110–187; BP diastolic 67–97; PULSE 58–63; BMI 28.9
--- NOTE | 2024-08-04 00:30 | PTCARENOTE ---
Caring for a patient overnight. aaox3, at bedside. ichthyologist used at bedside to communicate with patient and . Malian speaking. BP running high, routine bp meds given & effective. Will continue to monitor & provide hydralazine as
needed. Other VSS. RLE doppler pulses, +1 pedal edema, elevated on pillow.
Pt was asking the nurse for paperwork that he can provide for immigration to show that he is in the hospital. Updated them that CM will be consulted so they can speak to them about this.
Pt asleep, call [place]one in reach. Will monitor.
[2024-08-04] MEDS: ANCEF 5 IV ×2 (01:41→13:34)
[2024-08-04] MEDS: APRESOLINE 5 MG IV ×2 (02:15→20:12)
[2024-08-04] MEDS: DILAUDID 0.5 MG IV (05:20)
[2024-08-04 05:30] LABS: Hematocrit 24.6 % (39.0-52.0); Hemoglobin 8.2 g/dL (13.0-18.0); Mean Corp Hgb Conc. 33.3 g/dL (33.0-37.0); Mean Corpuscular Volume 86.9 fL (80.0-94.0); Mean Platelet Volume 8.8 fL (7.4-10.4); Platelet Count 407 10^3/uL (130-400); Red Blood Cell Count 2.83 10^6/uL (4.70-6.10); Red Cell Dist. Width 14.6 % (11.5-14.5); White Blood Cell Count 14.5 10^3/uL (4.8-10.8)
--- NOTE | 2024-08-04 05:50 | W.PN.UPDATE ---
Addendum entered and electronically signed by Renny Rasheed MD 08/04/24 09:52:
I saw and examined the patient.
The PA's note was reviewed and I agree with the note.
Comment:
CT of leg obtained, no obvious large abscess/collection on my interpretation - will await radiology read
WBC w/ stable leukocytosis, no fevers, continue prophylactic ABX for cellulitis
Still unable to void - rodriguez replaced - creat 2.9 today
Pain contol, OOB, ambulate as tolerated
Original Note:
Update Note
Progress Note Update
Brief CTS Note
Patient seen and evaluated, Togolese sign language interpreter utilized
Continues with significant pain of his right lower extremity. Unable to bear weight to get out of bed this morning.
Jay wrap removed. Extremity is warm to touch and pain with palpation is noted. There is still significant edema of the foot and calf. No DVT was noted on admission.
Recommend leaving Jay off for now as the patient is complaining of discomfort with it. May need additional imaging of the extremity to further delineate whether there is an abscess present. The attending surgeon will evaluate today. Continue ancef.
Unfortunately unable to void and Rodriguez has been replaced. Management per primary team/urology.
Remainder of medical management per primary team. Will follow.
[2024-08-04 05:56] LABS: Blood Urea Nitrogen 67 mg/dl (9-20); Calcium 8.7 mg/dl (8.4-10.2); Carbon Dioxide 22 mmol/L (22-30); Chloride 103 mmol/L (98-107); Estimated Creatinine Clearance 28 ml/min; Glucose 70 mg/dl (70-99); Magnesium 2.2 mg/dl (1.6-2.3); Phosphorus 5.3 mg/dl (2.5-4.5); Potassium 4.3 mmol/L (3.5-5.1); Sodium 140 mmol/L (135-145); eGFR 24.31
--- NOTE | 2024-08-04 07:03 | W.PN.HOSP.TC ---
Today's Communication/Plan
-
RLE wound care prophylactic abx as per CTS
glycemic control
blood pressure control, low dose amlodipine 2.5 mg BID restarted with holding parameters
bowel regimen
B12 Iron supplementation
PT/OT
Pain Control
Assessment / Plan
Assessment / Plan
Physical Exam
General: No pallor, cyanosis, or jaundice. Obese
HEENT: Throat clear. PERRLA Normocephalic atraumatic
NECK: Supple. No JVD Carotid Bruits
RESPIRATORY: Lungs clear to auscultation. No crackles wheezes stridor
CVS: S1, S2 normal. RRR. No murmur, rub or gallop.
ABDOMEN: Soft, non-tender. No distension. BS+/normal.
EXTREMITIES: RLE ELIDA wrap clean dry intact, right foot swollen sensation intact
SUPERVISOR INTERNATIONAL RESERVATIONS: Awake Alert Conversant Coherent
IMPRESSION:
58M Turkmen speaking (Interviewed with Turkmen Supervisor Sleeping Bag Department) HTN HLD DM CKD III-IV CHF Urinary retention with Benedict post-op atach/afib CAD recent CABG 07/22/24 presents for evaluation Right lower extremity swelling since discharge 07/29/24 associate
intermittent dizziness lightheadedness. Denies Fever chills constipation diarrhea. Endorses dyspnea on exertion. Reports normal bowel movements, no diarrhea/constipation/bloody bowel movements. Patient has not been able to walk since discharge
due to RLE pain swelling. VSS at rest, afebrile, Labs noted mild leukocytosis and severe anemia 6.9. Cr 3.4 baseline when compared to Cr levels from previous hospitalization. Acute post-op blood loss anemia symptomatic with RLE hematoma
associated with SVG harvest site for CABG. Patient admitted for further evaluation treatment
PLAN:
RLE swelling hematoma related to SVG harvest site
-IMU admit
-RLE compressive ELIDA wraps discontinued as per CTS d/t discomfort, cont as tolerated elevation prn Ice packs
-RLE venous ext appreciated no DVT, possible hematoma noted, less likely abscess given overall clinical presentation (afebrile mild leukocytosis but trending down from prior CABG procedure)
-infection prophylaxis Cefazolin as per CTS
-CTS eval appreciated
-pain control prn Dilaudid severe pain, Percocet prn moderate pain renally dosed
-PT/OT appreciated SNF rehab
-fall precautions
-CT RLE appreciated postoperative changes and hematoma correlating with US finding as above, mild diffuse lower ext edema
Anemia Multifactorial
Acute post-op blood loss anemia
Severe symptomatic anemia
Iron Deficiency Anemia
Anemia of Chronic Disease
Anemia 2/2 B12 Deficiency
-post-transfusion Hgb notes good response to 1PRBC given in ED
-monitor H&H and transfuse goal Hgb 8 w/ cardiac hx
-IV iron supplementation
-B12 supplementation
DM
recent A1c 9.2
sugars appear to be well controlled at this time most likely due to poor intake/appetite (constipation likely contributing)
Noted patient normally has high insulin requirement at home
Insulin coverage resumed at reduced dose for now to avoid hypoglycemia, titrate up as necessary
Low Dose Sliding scale
Lantus 15U HS
CAD s/p CABG
HFpEF
HTN
HLD
cont ASA plavix statin
cont home Coreg Bumex Aldactone w/ holding parameters
Amlodipine restarted low dose 2.5 mg BID d/t uncontrolled HTN (per report was discontinued last hospitalization d/t hypotension)
Hydralazine prn
[place] vs Chronic Kidney Disease Stage IV
Cr remains elevated but baseline approx 3.5 as per values from recent CABG hospitalization
monitor while on diuresis
Cr since improved to 2.9
Urinary Retention Benedict present on Admission
cont home flomax
Failed trial of void
Benedict resumed, maintain
post-op atach/afib
cont home amiodarone taper as recommended prior hospitalization (twice a day for two weeks)
08/11/24 last day for twice a day dosing, reduce to daily afterwards.
Constipation
Bowel regimen miralax colace senna
consider suppository vs enema if constipation persists
DVT ppx SCD
Full Code
Discussed with patient and patient's via language line Turkmen Supervisor Sleeping Bag Department
I spent a total of 50 minutes with the patient or on the floor. More than 50% of this time involved counseling and coordination of care.
Anticipated Discharge: 24 - 48 hours
Subjective/Interval History
-
Date of Service: August 04, 2024
No acute distress resting comfortably in bed. Reports improvement in RLE pain and lightheadedness. Endorses Constipation. Interviewed with International Language line Turkmen vascular ultrasound technologist.
Objective Data
-
Labs:
Laboratory Results
08/04/24
05:11
WBC 14.5 H
Hgb 8.2 L
Hct 24.6 L
Plt Count 407 H
Sodium 140
Potassium 4.3
Chloride 103
Carbon Dioxide 22
BUN 67 H
Creatinine 2.9 H
Glucose 70
Calcium 8.7
Vital Signs:
Vital Signs
Temp Pulse Resp BP Pulse Ox
97.7 F 58 16 155/77 90
08/04/24 03:00 08/04/24 06:00 08/04/24 06:00 08/04/24 06:00 08/04/24 06:00
I&O
08/03/24 08/04/24 08/05/24
06:59 06:59 06:59
Intake Total 730 / 730 600 / 600
Output Total 450 / 450 1450 / 1450
Balance 280 / 280 -850 / -850
[2024-08-04 07:36] LABS: Glucose - Point of Care 76 mg/dl (70-99)
--- NOTE | 2024-08-04 09:19 | CM ---
Moldovan speaking patient. Lower extremity CT today. Receiving IV cefazolin, IV Fe Na Gluconate. Benedict replaced. PT recommends skilled rehab. OT Phill pending.
Spoke with patient's daughter Juan and son Nida;
the patient resides with his daughter Juan and a younger son in a 2nd floor apartment with 9-10 outside stairs.
He has been assisted with ADLs by his daughter and has only been able to ambulate a short distance to the bathroom.
He has otherwise been mostly staying in bed.
The patient has no DME.
Current with [facility]
No prior SNF.
PCP - Alison Rai
Pharmacy - [address], [place]
CM continuing to follow for d/c needs.
Plan discuss short term SNF for rehab with patient/family.
[2024-08-04] MEDS: NOVOLOG FLEXPEN-LOW RESISTANCE SC ×2 (09:56→11:45)
[2024-08-04] MEDS: COREG 12.5 MG PO ×2 (10:01→20:12)
[2024-08-04] MEDS: BUMEX 2 MG PO ×2 (10:01→16:26)
[2024-08-04] MEDS: PROTONIX 40 MG PO (10:02)
[2024-08-04] MEDS: ASPIR LOW (ENTERIC COATED) 81 MG PO (10:02)
[2024-08-04] MEDS: ALDACTONE 12.5 MG PO ×2 (10:02→16:26)
[2024-08-04] MEDS: PACERONE 200 MG PO ×2 (10:02→20:12)
[2024-08-04] MEDS: PLAVIX 75 MG PO (10:02)
[2024-08-04] MEDS: VITAMIN B-12 1000 MCG PO (10:02)
[2024-08-04] MEDS: THERAGRAN 1 TABLET PO (10:02)
[2024-08-04] MEDS: PERCOCET 5/325 1 TABLET PO (10:40)
[2024-08-04 11:40] LABS: Glucose - Point of Care 146 mg/dl (70-99)
[2024-08-04] MEDS: FERRLECIT 110 MG IV (13:35)
[2024-08-04 17:10] LABS: Glucose - Point of Care 196 mg/dl (70-99)
[2024-08-04] MEDS: CRESTOR 40 MG PO (17:33)
[2024-08-04] MEDS: NOVOLOG FLEXPEN-LOW RESISTANCE 1 UNITS SC (17:35)
--- NOTE | 2024-08-04 17:55 | PTCARENOTE ---
Accu check 190; patient stated he will not be eating dinner. Confirmed with founder ceo & president. Patient due for 1unit novolog per coverage and will be getting 15 units lantus at 22:00. Reviewed with Dr Durand who instructed to give insulin as per Ss
coverage order.
[2024-08-04] MEDS: SENOKOT-S 1 TABLET PO (20:12)
[2024-08-04] MEDS: FLOMAX 0.4 MG PO (21:25)
[2024-08-04] MEDS: NORVASC 2.5 MG PO (21:25)
[2024-08-04] MEDS: LANTUS 0.15 UNITS SC (21:26)
[2024-08-04] MEDS: MIRALAX 17 GRAMS PO (21:26)
[2024-08-04 21:39] LABS: Glucose - Point of Care 236 mg/dl (70-99)
--- NOTE | 2024-08-04 23:34 | PTCARENOTE ---
Assumed care of patient from previous RN. German speaking, supervisor modern languages used at bedside to communicate with patient and . BP running high, routine meds and PRN hydralazine given, will continue to monitor. Patient requested laxative,
Miralax given. Patient has rodriguez in place draining yellow urine. NSR on monitor. Room air, sating at 93%. Patient resting in bed with call capone in reach.
[2024-08-05] VITALS (17 sets, daily range): BP systolic 135–178; BP diastolic 65–81; PULSE 55; O2SAT 94
[2024-08-05] MEDS: ANCEF 5 IV ×2 (02:05→14:33)
[2024-08-05 05:05] LABS: Hematocrit 24.4 % (39.0-52.0); Hemoglobin 8.4 g/dL (13.0-18.0); Mean Corp Hgb Conc. 34.4 g/dL (33.0-37.0); Mean Corpuscular Hgb 29.5 pg (27.0-31.0); Mean Corpuscular Volume 85.6 fL (80.0-94.0); Platelet Count 432 10^3/uL (130-400); Red Blood Cell Count 2.85 10^6/uL (4.70-6.10); Red Cell Dist. Width 14.5 % (11.5-14.5); White Blood Cell Count 12.8 10^3/uL (4.8-10.8)
[2024-08-05 05:31] LABS: Blood Urea Nitrogen 64 mg/dl (9-20); Calcium 8.8 mg/dl (8.4-10.2); Carbon Dioxide 22 mmol/L (22-30); Chloride 101 mmol/L (98-107); Estimated Creatinine Clearance 27 ml/min; Glucose 147 mg/dl (70-99); Magnesium 2.2 mg/dl (1.6-2.3); Phosphorus 5.7 mg/dl (2.5-4.5); Potassium 4.4 mmol/L (3.5-5.1); Sodium 138 mmol/L (135-145); eGFR 23.34
[2024-08-05 08:41] LABS: Glucose - Point of Care 146 mg/dl (70-99)
[2024-08-05] MEDS: NOVOLOG FLEXPEN-LOW RESISTANCE SC (08:44)
[2024-08-05] MEDS: ALDACTONE 12.5 MG PO ×2 (08:47→15:55)
[2024-08-05] MEDS: ASPIR LOW (ENTERIC COATED) 81 MG PO (08:48)
[2024-08-05] MEDS: PACERONE 200 MG PO ×2 (08:48→20:05)
[2024-08-05] MEDS: SENOKOT-S 1 TABLET PO ×2 (08:48→20:05)
[2024-08-05] MEDS: NORVASC 2.5 MG PO ×2 (08:48→20:05)
[2024-08-05] MEDS: VITAMIN B-12 1000 MCG PO (08:48)
[2024-08-05] MEDS: THERAGRAN 1 TABLET PO (08:48)
[2024-08-05] MEDS: PLAVIX 75 MG PO (08:48)
[2024-08-05] MEDS: BUMEX 2 MG PO ×2 (08:48→15:54)
[2024-08-05] MEDS: MIRALAX 17 GRAMS PO (08:48)
[2024-08-05] MEDS: COREG 12.5 MG PO ×2 (08:49→20:05)
[2024-08-05] MEDS: PROTONIX 40 MG PO (08:49)
[2024-08-05] MEDS: PERCOCET 5/325 1 TABLET PO ×2 (08:53→20:05)
[2024-08-05 11:48] LABS: Glucose - Point of Care 208 mg/dl (70-99)
--- NOTE | 2024-08-05 11:53 | W.PN.UPDATE ---
Update Note
Progress Note Update
Pt seen and examined. at bedside, RN functioned as canvas shop laborer for most of our interaction.
Pt reports RLE feeling better, but he has not been walking due to intense pain with weightbearing . PT/OT following. Offered lidocaine patch for lower extremity discomfort, but patient declined.
On exam his R foot is still quite edematous 2-3+, lower leg with trace edema and diffuse area of purpura/petechia over anterior lower leg. Still quite sensitive to even light touch over lower leg. Patient initially reluctant to mynor wrap, but
agreeable to allowing me wrap his leg again & elevate it more. OK to remove if intolerable, but recommend wrapping foot to knee at all times, especially while in bed. continue pain medications as needed to allow for more activity.
[2024-08-05] MEDS: APRESOLINE 5 MG IV ×3 (12:10→22:32)
[2024-08-05] MEDS: NOVOLOG FLEXPEN-LOW RESISTANCE 1 UNITS SC (13:05)
[2024-08-05 13:08] LABS: Glucose - Point of Care 156 mg/dl (70-99)
--- NOTE | 2024-08-05 13:19 | W.PN.HOSP.TC ---
Today's Communication/Plan
-
Monitor vital signs see plan
Continue to monitor hemoglobin
PT/OT, will require rehab
Continue with diuresis
Continue Amio
Assessment / Plan
Assessment / Plan
Physical Exam
General: No pallor, cyanosis, or jaundice. Obese
HEENT: Throat clear. PERRLA Normocephalic atraumatic
NECK: Supple. No JVD Carotid Bruits
RESPIRATORY: Lungs clear to auscultation. No crackles wheezes stridor
CVS: S1, S2 normal. RRR. No murmur, rub or gallop.
ABDOMEN: Soft, non-tender. No distension. BS+/normal.
EXTREMITIES: RLE ELIDA wrap clean dry intact, right foot swollen sensation intact
RECENTERER: Awake Alert Conversant Coherent
IMPRESSION:
58M Burundian speaking (Interviewed with Burundian Human Resources Leader) HTN HLD DM CKD III-IV CHF Urinary retention with Benedict post-op atach/afib CAD recent CABG 07/22/24 presents for evaluation Right lower extremity swelling since discharge 07/29/24 associate
intermittent dizziness lightheadedness. Denies Fever chills constipation diarrhea. Endorses dyspnea on exertion. Reports normal bowel movements, no diarrhea/constipation/bloody bowel movements. Patient has not been able to walk since discharge
due to RLE pain swelling. VSS at rest, afebrile, Labs noted mild leukocytosis and severe anemia 6.9. Cr 3.4 baseline when compared to Cr levels from previous hospitalization. Acute post-op blood loss anemia symptomatic with RLE hematoma
associated with SVG harvest site for CABG. Patient admitted for further evaluation treatment
PLAN:
RLE swelling hematoma related to SVG harvest site
-RLE compressive ELIDA wraps discontinued as per CTS d/t discomfort, cont as tolerated elevation prn Ice packs. now elida wrap restarted since patient agreeable.
-RLE venous ext appreciated no DVT, possible hematoma noted, less likely abscess given overall clinical presentation (afebrile mild leukocytosis but trending down from prior CABG procedure)
-infection prophylaxis Cefazolin as per CTS
-CTS eval appreciated
-pain control prn Dilaudid severe pain, Percocet prn moderate pain renally dosed
-PT/OT appreciated SNF rehab
-fall precautions
-CT RLE appreciated postoperative changes and hematoma correlating with US finding as above, mild diffuse lower ext edema
Anemia Multifactorial
Acute post-op blood loss anemia
Severe symptomatic anemia
Iron Deficiency Anemia
Anemia of Chronic Disease
Anemia 2/2 B12 Deficiency
-post-transfusion Hgb notes good response to 1PRBC given in ED
-monitor H&H and transfuse goal Hgb 8 w/ cardiac hx
-IV iron supplementation
-B12 supplementation
DM
recent A1c 9.2
sugars appear to be well controlled at this time most likely due to poor intake/appetite (constipation likely contributing)
Noted patient normally has high insulin requirement at home
Insulin coverage resumed at reduced dose for now to avoid hypoglycemia, titrate up as necessary
Low Dose Sliding scale
Lantus 15U HS
CAD s/p CABG
HFpEF
HTN
HLD
cont ASA plavix statin
cont home Coreg Bumex Aldactone w/ holding parameters
Amlodipine restarted low dose 2.5 mg BID d/t uncontrolled HTN (per report was discontinued last hospitalization d/t hypotension)
Hydralazine prn
[place] vs Chronic Kidney Disease Stage IV
Cr remains elevated but baseline approx 3- 3.5 as per values from recent CABG hospitalization
monitor while on diuresis
Monitor creatinine
Urinary Retention Benedict present on Admission
cont home flomax
Failed trial of void
Benedict resumed, maintain
Once more ambulatory than can do voiding trial again. Likely will benefit from urology evaluation outpatient
post-op atach/afib
cont home amiodarone taper as recommended prior hospitalization (twice a day for two weeks)
08/11/24 last day for twice a day dosing, reduce to daily afterwards.
Constipation
Bowel regimen miralax colace senna
consider suppository vs enema if constipation persists
DVT ppx SCD
Full Code
Discussed with patient and patient's via translation
I spent a total of 51 minutes with the patient or on the floor. More than 50% of this time involved counseling and coordination of care.
Anticipated Discharge: 24 - 48 hours
Subjective/Interval History
-
Date of Service: August 05, 2024
denies pain
Objective Data
-
Labs:
Laboratory Results
08/05/24
04:54
WBC 12.8 H
Hgb 8.4 L
Hct 24.4 L
Plt Count 432 H
Sodium 138
Potassium 4.4
Chloride 101
Carbon Dioxide 22
BUN 64 H
Creatinine 3.0 H
Glucose 147 H
Calcium 8.8
Vital Signs:
Vital Signs
Temp Pulse Resp BP Pulse Ox
98.4 F 54 18 164/75 93
08/05/24 07:31 08/05/24 12:10 08/05/24 12:00 08/05/24 12:10 08/05/24 12:00
I&O
08/04/24 08/05/24 08/06/24
06:59 06:59 06:59
Intake Total 600 / 600 110 / 110 225 / 225
Output Total 1450 / 1450 2300 / 2300 450 / 450
Balance -850 / -850 -2190 / -2190 -225 / -225
[2024-08-05] MEDS: FERRLECIT 110 MG IV (14:33)
--- NOTE | 2024-08-05 15:50 | CM ---
Bermudian speaking patient. Room air. Receiving IV cefazolin, IV Fe Na Gluconate. PT & OT recommend skilled rehab.
Met with patient and and spoke via interpretor;
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
CM spoke with Sofia Vaz, Teaching Pastor for [employer] ([employer] (ph [phone], fax [phone]);
she requested a letter from the hospital signed by the MD stating dates of hospitalization, reason for admission, and that patient still needs treatment here in hospital, as patient has an immigration hearing coming up. Letter drafted, reviewed and
signed by Dr Zhou. Sofia confirms receipt of fax. Copy of Letter provided to patient/.
Met with patient and again, spoke via [email or web address] language line; patient & agree to short term SNF for rehab. Provided SNF list and informed patient/ that some staff at [facility] speak Bermudian - they agree to a referral.
SNF referral placed.
Plan follow up with [facility].
[2024-08-05] MEDS: NOVOLOG FLEXPEN-LOW RESISTANCE 2 UNITS SC (16:29)
[2024-08-05 16:39] LABS: Glucose - Point of Care 220 mg/dl (70-99)
[2024-08-05] MEDS: CRESTOR 40 MG PO (17:09)
[2024-08-05] MEDS: FLOMAX 0.4 MG PO (20:05)
[2024-08-05 21:08] LABS: Glucose - Point of Care 224 mg/dl (70-99)
[2024-08-05] MEDS: LANTUS 0.15 UNITS SC (21:22)
[2024-08-06] VITALS (17 sets, daily range): BP systolic 135–182; BP diastolic 61–85; BMI 28.4
[2024-08-06] MEDS: ANCEF 5 IV ×2 (02:49→14:03)
--- NOTE | 2024-08-06 03:00 | PTCARENOTE ---
Caring for pt overnight. aaox3, solomon islander speaking, translation used. C/o pain, PRN meds given. NSR. BPs running high, 8pm meds did not help, prn hydralazine given. Pt oob in chair and used assistance from to get back in bed. RLE elevated on
pillow & mynor wrap on. Will continue to monitor.
[2024-08-06 05:06] LABS: Hematocrit 26.4 % (39.0-52.0); Hemoglobin 8.7 g/dL (13.0-18.0); Mean Corpuscular Hgb 29.4 pg (27.0-31.0); Mean Corpuscular Volume 89.2 fL (80.0-94.0); Platelet Count 465 10^3/uL (130-400); Red Blood Cell Count 2.96 10^6/uL (4.70-6.10); Red Cell Dist. Width 14.6 % (11.5-14.5); White Blood Cell Count 12.8 10^3/uL (4.8-10.8)
[2024-08-06] MEDS: APRESOLINE 5 MG IV ×2 (05:08→18:10)
[2024-08-06 05:29] LABS: Blood Urea Nitrogen 61 mg/dl (9-20); Carbon Dioxide 24 mmol/L (22-30); Chloride 101 mmol/L (98-107); Estimated Creatinine Clearance 27 ml/min; Glucose 145 mg/dl (70-99); Magnesium 2.2 mg/dl (1.6-2.3); Phosphorus 5.3 mg/dl (2.5-4.5); Potassium 4.3 mmol/L (3.5-5.1); Sodium 137 mmol/L (135-145); eGFR 23.34
[2024-08-06] MEDS: ASPIR LOW (ENTERIC COATED) 81 MG PO (07:32)
[2024-08-06] MEDS: PLAVIX 75 MG PO (07:33)
[2024-08-06] MEDS: MIRALAX 17 GRAMS PO (07:33)
[2024-08-06] MEDS: SENOKOT-S 1 TABLET PO ×2 (07:33→22:28)
[2024-08-06] MEDS: PACERONE 200 MG PO ×2 (07:33→22:32)
[2024-08-06] MEDS: BUMEX 2 MG PO ×2 (07:34→16:06)
[2024-08-06] MEDS: NORVASC 2.5 MG PO ×2 (07:34→09:21)
[2024-08-06] MEDS: ALDACTONE 12.5 MG PO ×2 (07:34→16:06)
[2024-08-06] MEDS: COREG 12.5 MG PO ×2 (07:35→22:30)
[2024-08-06] MEDS: THERAGRAN PO (07:38)
[2024-08-06] MEDS: VITAMIN B-12 PO (07:38)
[2024-08-06] MEDS: PROTONIX PO (07:38)
[2024-08-06 08:04] LABS: Glucose - Point of Care 148 mg/dl (70-99)
[2024-08-06] MEDS: NOVOLOG FLEXPEN-LOW RESISTANCE SC (08:05)
--- NOTE | 2024-08-06 09:52 | W.PN.UPDATE ---
Update Note
Progress Note Update
Pt seen and examined. reports some improving pain in the leg, still only ambulating minimally with PT/OT. RLE looks slightly improved to me today, less edema in the foot and petechia/purpuric area is resolving. continue to encourage ambulation &
movement activities with PT/OT. I changed neurontin from prn to scheduled TID to see if this helps some of his leg pain as well. otherwise he seems to be improving from a medical standpoint, hgb remains stable, creatinine likely at baseline. Will
continue to follow--likely eventual dispo to SNF per medical team.
[2024-08-06 11:55] LABS: Glucose - Point of Care 158 mg/dl (70-99)
[2024-08-06] MEDS: LIDOCAINE 4% PATCH 1 PATCH TOPICAL (12:00)
[2024-08-06] MEDS: NOVOLOG FLEXPEN-LOW RESISTANCE 1 UNITS SC ×2 (12:00→17:07)
--- NOTE | 2024-08-06 13:07 | W.PN.HOSP.TC ---
Today's Communication/Plan
-
Monitor vital signs see plan
Continue monitor hemoglobin
Voiding trial, if fails again then will maintain Rodriguez
Continue Flomax
Continue with amiodarone
Continue with Bumex
Increase amlodipine
Discharge planning, needs SNF
Discussed with spouse at bedside
Assessment / Plan
Assessment / Plan
Physical Exam
General: No pallor, cyanosis, or jaundice. Obese
HEENT: Throat clear. PERRLA Normocephalic atraumatic
NECK: Supple. No JVD Carotid Bruits
RESPIRATORY: Lungs clear to auscultation. No crackles wheezes stridor
CVS: S1, S2 normal. RRR. No murmur, rub or gallop.
ABDOMEN: Soft, non-tender. No distension. BS+/normal.
EXTREMITIES: RLE ELIDA wrap clean dry intact, right foot swollen sensation intact
MEDICAL CLAIMS SPECIALIST: Awake Alert Conversant Coherent
IMPRESSION:
58M Gambian speaking (Interviewed with Gambian Commissioning Specialist) HTN HLD DM CKD III-IV CHF Urinary retention with Rodriguez post-op atach/afib CAD recent CABG 07/22/24 presents for evaluation Right lower extremity swelling since discharge 07/29/24 associate
intermittent dizziness lightheadedness. Denies Fever chills constipation diarrhea. Endorses dyspnea on exertion. Reports normal bowel movements, no diarrhea/constipation/bloody bowel movements. Patient has not been able to walk since discharge
due to RLE pain swelling. VSS at rest, afebrile, Labs noted mild leukocytosis and severe anemia 6.9. Cr 3.4 baseline when compared to Cr levels from previous hospitalization. Acute post-op blood loss anemia symptomatic with RLE hematoma
associated with SVG harvest site for CABG. Patient admitted for further evaluation treatment
PLAN:
RLE swelling hematoma related to SVG harvest site
-RLE compressive ELIDA wraps discontinued as per CTS d/t discomfort, cont as tolerated elevation prn Ice packs. now elida wrap restarted since patient agreeable.
-RLE venous ext appreciated no DVT, possible hematoma noted, less likely abscess given overall clinical presentation (afebrile mild leukocytosis but trending down from prior CABG procedure)
-infection prophylaxis Cefazolin as per CTS
-CTS eval appreciated
-pain control prn Dilaudid severe pain, Percocet prn moderate pain renally dosed
-PT/OT appreciated SNF rehab
-fall precautions
-CT RLE appreciated postoperative changes and hematoma correlating with US finding as above, mild diffuse lower ext edema
Anemia Multifactorial
Acute post-op blood loss anemia
Severe symptomatic anemia
Iron Deficiency Anemia
Anemia of Chronic Disease
Anemia 2/2 B12 Deficiency
-post-transfusion Hgb notes good response to 1PRBC given in ED
-monitor H&H and transfuse goal Hgb 8 w/ cardiac hx
-IV iron supplementation
-B12 supplementation
hgb now 8.7
DM
recent A1c 9.2
sugars appear to be well controlled at this time most likely due to poor intake/appetite (constipation likely contributing)
Noted patient normally has high insulin requirement at home
Insulin coverage resumed at reduced dose for now to avoid hypoglycemia, titrate up as necessary
Low Dose Sliding scale
Lantus 15U HS
CAD s/p CABG
HFpEF
HTN
HLD
cont ASA plavix statin
cont home Coreg Bumex Aldactone w/ holding parameters
Amlodipine restarted low dose 2.5 mg BID; increased to 5 twice daily (per report was discontinued last hospitalization d/t hypotension)
Hydralazine prn
[place] vs Chronic Kidney Disease Stage IV
Cr remains elevated but baseline approx 3- 3.5 as per values from recent CABG hospitalization
monitor while on diuresis
Monitor creatinine
Urinary Retention Rodriguez present on Admission
cont home flomax
rodriguez removed 08/06; voiding trial; if does not pass then will maintain rodriguez until he is more ambulatory
Rodriguez resumed, maintain
will benefit from urology evaluation outpatient
post-op atach/afib
cont home amiodarone taper as recommended prior hospitalization (twice a day for two weeks)
08/11/24 last day for twice a day dosing, reduce to daily afterwards.
Constipation
Bowel regimen miralax colace senna
consider suppository vs enema if constipation persists
DVT ppx SCD
Full Code
Discussed with patient and patient's via translation
I spent a total of 52 minutes with the patient or on the floor. More than 50% of this time involved counseling and coordination of care.
Anticipated Discharge: Within 24 hours
Subjective/Interval History
-
Date of Service: August 06, 2024
has some pain
Objective Data
-
Labs:
Laboratory Results
08/06/24
04:24
WBC 12.8 H
Hgb 8.7 L
Hct 26.4 L
Plt Count 465 H
Sodium 137
Potassium 4.3
Chloride 101
Carbon Dioxide 24
BUN 61 H
Creatinine 3.0 H
Glucose 145 H
Calcium 9.0
Vital Signs:
Vital Signs
Temp Pulse Resp BP Pulse Ox
97.9 F 55 15 161/72 95
08/06/24 11:45 08/06/24 10:00 08/06/24 10:00 08/06/24 10:00 08/06/24 10:34
I&O
08/05/24 08/06/24 08/07/24
06:59 06:59 06:59
Intake Total 110 / 110 890 / 890
Output Total 2300 / 2300 2400 / 2400
Balance -2190 / -2190 -1510 / -1510
[2024-08-06] MEDS: FERRLECIT 110 MG IV (13:56)
--- NOTE | 2024-08-06 15:21 | PTCARENOTE ---
pt noted to be in afib rhythm for a brief period of time converting back to SB. Md Zhou made aware with instructions to continue to monitor, no further orders. pt sleeping during this time. remains on cardiac tech. care plan continues to be
followed.
[2024-08-06] MEDS: NEURONTIN 100 MG PO ×2 (16:05→22:29)
[2024-08-06 17:02] LABS: Glucose - Point of Care 191 mg/dl (70-99)
[2024-08-06] MEDS: CRESTOR 40 MG PO (17:07)
[2024-08-06 21:51] LABS: Glucose - Point of Care 137 mg/dl (70-99)
[2024-08-06] MEDS: FLOMAX 0.4 MG PO (22:29)
[2024-08-06] MEDS: LANTUS 0.15 UNITS SC (22:32)
[2024-08-06] MEDS: NORVASC 5 MG PO (22:32)
[2024-08-07] VITALS (17 sets, daily range): BP systolic 129–181; BP diastolic 60–78; PULSE 58–59; O2SAT 93; BMI 28.2
[2024-08-07] MEDS: APRESOLINE 5 MG IV (00:39)
[2024-08-07] MEDS: ANCEF 5 IV ×2 (03:06→13:41)
[2024-08-07 06:24] LABS: Hematocrit 26.6 % (39.0-52.0); Hemoglobin 8.6 g/dL (13.0-18.0); Mean Corp Hgb Conc. 32.3 g/dL (33.0-37.0); Mean Corpuscular Hgb 28.8 pg (27.0-31.0); Mean Platelet Volume 8.7 fL (7.4-10.4); Platelet Count 438 10^3/uL (130-400); Red Blood Cell Count 2.99 10^6/uL (4.70-6.10); Red Cell Dist. Width 14.6 % (11.5-14.5); White Blood Cell Count 11.4 10^3/uL (4.8-10.8)
[2024-08-07 06:45] LABS: Blood Urea Nitrogen 62 mg/dl (9-20); Calcium 8.9 mg/dl (8.4-10.2); Carbon Dioxide 24 mmol/L (22-30); Chloride 103 mmol/L (98-107); Estimated Creatinine Clearance 26 ml/min; Glucose 136 mg/dl (70-99); Magnesium 2.2 mg/dl (1.6-2.3); Phosphorus 4.9 mg/dl (2.5-4.5); Potassium 4.1 mmol/L (3.5-5.1); Sodium 139 mmol/L (135-145); eGFR 22.44
--- NOTE | 2024-08-07 06:45 | PTCARENOTE ---
Pt AAOx3, speaks Zambian, able to communicate through steno typist. Pt normal sinus on tele with prolonged QT. EKG obtained as ordered. BPs high tonight, administered PRN hydralazine see MAR. Remains on RA. Removed ELIDA wraps HS. RLE elevated on a
pillow. Spouse at bedside. Pt had a BM. Ambulated with assist of 1 w/ rolling walker. Pt resting comfortably in bed, call capone is within reach.
[2024-08-07 08:21] LABS: Glucose - Point of Care 239 mg/dl (70-99)
[2024-08-07] MEDS: SENOKOT-S PO (09:24)
[2024-08-07] MEDS: PROTONIX 40 MG PO (09:25)
[2024-08-07] MEDS: MIRALAX 17 GRAMS PO (09:25)
[2024-08-07] MEDS: ASPIR LOW (ENTERIC COATED) 81 MG PO (09:25)
[2024-08-07] MEDS: VITAMIN B-12 1000 MCG PO (09:26)
[2024-08-07] MEDS: PLAVIX 75 MG PO (09:26)
[2024-08-07] MEDS: PACERONE 200 MG PO ×2 (09:27→21:12)
[2024-08-07] MEDS: ALDACTONE 12.5 MG PO ×2 (09:27→17:38)
[2024-08-07] MEDS: NORVASC 5 MG PO ×2 (09:27→21:11)
[2024-08-07] MEDS: BUMEX 2 MG PO ×2 (09:27→17:37)
[2024-08-07] MEDS: COREG 12.5 MG PO ×2 (09:27→21:12)
[2024-08-07] MEDS: NEURONTIN 100 MG PO ×3 (09:28→21:11)
[2024-08-07] MEDS: THERAGRAN PO (09:28)
[2024-08-07] MEDS: LIDOCAINE 4% PATCH 1 PATCH TOPICAL (09:28)
[2024-08-07] MEDS: NOVOLOG FLEXPEN-LOW RESISTANCE 2 UNITS SC (09:29)
[2024-08-07 12:14] LABS: Glucose - Point of Care 197 mg/dl (70-99)
[2024-08-07] MEDS: NOVOLOG FLEXPEN-LOW RESISTANCE 1 UNITS SC ×2 (12:51→18:36)
--- NOTE | 2024-08-07 13:14 | W.PN.HOSP.TC ---
Today's Communication/Plan
-
Monitor vital signs see plan
Monitor hemoglobin
PT/OT
Pain control
Monitor renal function
Hopeful DC tomorrow
Needs SNF
Assessment / Plan
Assessment / Plan
Physical Exam
General: No pallor, cyanosis, or jaundice. Obese
HEENT: Throat clear. PERRLA Normocephalic atraumatic
NECK: Supple. No JVD Carotid Bruits
RESPIRATORY: Lungs clear to auscultation. No crackles wheezes stridor
CVS: S1, S2 normal. RRR. No murmur, rub or gallop.
ABDOMEN: Soft, non-tender. No distension. BS+/normal.
EXTREMITIES: RLE ELIDA wrap clean dry intact, right foot swollen sensation intact
DIETITIAN TEACHER: Awake Alert Conversant Coherent
IMPRESSION:
58M New Zealander speaking (Interviewed with New Zealander Catcher Filter Tip) HTN HLD DM CKD III-IV CHF Urinary retention with Rodriguez post-op atach/afib CAD recent CABG 07/22/24 presents for evaluation Right lower extremity swelling since discharge 07/29/24 associate
intermittent dizziness lightheadedness. Denies Fever chills constipation diarrhea. Endorses dyspnea on exertion. Reports normal bowel movements, no diarrhea/constipation/bloody bowel movements. Patient has not been able to walk since discharge
due to RLE pain swelling. VSS at rest, afebrile, Labs noted mild leukocytosis and severe anemia 6.9. Cr 3.4 baseline when compared to Cr levels from previous hospitalization. Acute post-op blood loss anemia symptomatic with RLE hematoma
associated with SVG harvest site for CABG. Patient admitted for further evaluation treatment
PLAN:
RLE swelling hematoma related to SVG harvest site
-RLE compressive ELIDA wraps discontinued as per CTS d/t discomfort, cont as tolerated elevation prn Ice packs. now elida wrap restarted since patient agreeable.
-RLE venous ext appreciated no DVT, possible hematoma noted, less likely abscess given overall clinical presentation (afebrile mild leukocytosis but trending down from prior CABG procedure)
-infection prophylaxis Cefazolin as per CTS
-CTS eval appreciated
-pain control prn Dilaudid severe pain, Percocet prn moderate pain renally dosed
-PT/OT appreciated SNF rehab
-fall precautions
-CT RLE appreciated postoperative changes and hematoma correlating with US finding as above, mild diffuse lower ext edema
Anemia Multifactorial
Acute post-op blood loss anemia
Severe symptomatic anemia
Iron Deficiency Anemia
Anemia of Chronic Disease
Anemia 2/2 B12 Deficiency
-post-transfusion Hgb notes good response to 1PRBC given in ED
-monitor H&H and transfuse goal Hgb 8 w/ cardiac hx
-IV iron supplementation
-B12 supplementation
hgb now 8.7
DM
recent A1c 9.2
sugars appear to be well controlled at this time most likely due to poor intake/appetite (constipation likely contributing)
Noted patient normally has high insulin requirement at home
Insulin coverage resumed at reduced dose for now to avoid hypoglycemia, titrate up as necessary
Low Dose Sliding scale
Lantus 15U HS
CAD s/p CABG
HFpEF
HTN
HLD
cont ASA plavix statin
cont home Coreg Bumex Aldactone w/ holding parameters
Amlodipine restarted low dose 2.5 mg BID; increased to 5 twice daily (per report was discontinued last hospitalization d/t hypotension)
Hydralazine prn
LELAND vs Chronic Kidney Disease Stage IV
Cr remains elevated but baseline approx 3- 3.5 as per values from recent CABG hospitalization
monitor while on diuresis
Monitor creatinine
Urinary Retention Rodriguez present on Admission
cont home flomax
rodriguez removed 08/06; voiding trial; if does not pass then will maintain rodriguez until he is more ambulatory
Rodriguez resumed, maintain
will benefit from urology evaluation outpatient
post-op atach/afib
brief episode atach/afib 08/06; self resolved
cont home amiodarone taper as recommended prior hospitalization (twice a day for two weeks)
08/11/24 last day for twice a day dosing, reduce to daily afterwards.
Constipation
Bowel regimen miralax colace senna
consider suppository vs enema if constipation persists
DVT ppx SCD
Full Code
Discussed with patient and patient's via translation
Anticipated Discharge: Within 24 hours
Subjective/Interval History
-
Date of Service: August 07, 2024
denies pain
Objective Data
-
Labs:
Laboratory Results
08/07/24
06:12
WBC 11.4 H
Hgb 8.6 L
Hct 26.6 L
Plt Count 438 H
Sodium 139
Potassium 4.1
Chloride 103
Carbon Dioxide 24
BUN 62 H
Creatinine 3.1 H
Glucose 136 H
Calcium 8.9
Vital Signs:
Vital Signs
Temp Pulse Resp BP Pulse Ox
97.6 F 58 17 146/66 95
08/07/24 07:45 08/07/24 12:00 08/07/24 08:00 08/07/24 12:00 08/07/24 09:59
I&O
08/06/24 08/07/24 08/08/24
06:59 06:59 06:59
Intake Total 890 / 890 1035 / 1035
Output Total 2400 / 2400 1900 / 1900
Balance -1510 / -1510 -865 / -865
[2024-08-07] MEDS: FERRLECIT 110 MG IV (13:41)
[2024-08-07] MEDS: VISBIOME 1 CAP PO (13:42)
--- NOTE | 2024-08-07 14:33 | CM ---
Addendum entered by Lashawn Cedeno RN 08/07/24 15:18:
Met with patient and Juan and spoke using Language Line; informed them insurance approved 5 days at [facility] beginning tomorrow, and they agreed to probable d/c tomorrow to [facility].
Original Note:
Guamanian speaking patient. Room air. Receiving IV cefazolin, IV Fe Na Gluconate. PT & OT recommend skilled rehab.
Message from Dr Zhou; patient will likely be ready for d/c tomorrow.
Spoke with Suz[facility]; requested [facility] for tomorrow. SNF is approved for 5 days, auth # [id number] from 08/08 to 08/12. NR 08/12 to [phone].
Spoke with [facility]; auth info provided. They are able to accept the patient tomorrow.
Plan [facility] tomorrow if medically ready.
[2024-08-07] MEDS: CRESTOR 40 MG PO (17:36)
[2024-08-07 17:47] LABS: Glucose - Point of Care 182 mg/dl (70-99)
--- NOTE | 2024-08-07 18:41 | PTCARENOTE ---
Patient AOx3. Patient is Stateless speaking. Progressive Care Nurse provided by hospital utilized for communication with patient and patients . Patient on RA with SpO2 greater than 92%. NSR with sinus corine on monitor. Q4 hr neurovascular assessment to R
lower extremity completed per order. Jay bandage to R leg per order. Benedict is draining yellow urine. Assist x1 when ambulating. Call capone within reach, bed in lowest position, and wheels locked.
[2024-08-07] MEDS: SENOKOT-S 1 TABLET PO (21:12)
[2024-08-07] MEDS: FLOMAX 0.4 MG PO (21:12)
[2024-08-07] MEDS: LANTUS 0.15 UNITS SC (21:13)
[2024-08-07 21:44] LABS: Glucose - Point of Care 310 mg/dl (70-99)
[2024-08-08] VITALS (10 sets, daily range): BP systolic 132–180; BP diastolic 57–77; BMI 28.4
[2024-08-08] MEDS: APRESOLINE 5 MG IV (01:03)
[2024-08-08] MEDS: ANCEF 5 IV (01:04)
--- NOTE | 2024-08-08 02:00 | PTCARENOTE ---
Patient AAOx3. Pt is Slovak speaking, leave manager iPad used to communicate. Pt normal sinus with sinus corine on tele. Remains on room air O2 Sat 96%. Pt had a high BP, corrected with PRN hydralazine. IV abx administered see NOV. Q4 hour
neurovascular checks to RL leg per order. R pedal pulse with a Doppler. Removed ELIDA wraps HS. Right leg floated on a pillow to elevate. Swelling appears to be improving. Skin is still red and warm. Benedict draining clear yellow urine. Assist x1 w/
rolling walker to the bathroom. Pt appears to be resting comfortably in bed. at the bedside. Call capone is within reach.
[2024-08-08 05:06] LABS: Hemoglobin 8.5 g/dL (13.0-18.0); Mean Corp Hgb Conc. 32.7 g/dL (33.0-37.0); Mean Corpuscular Hgb 29.1 pg (27.0-31.0); Mean Platelet Volume 8.9 fL (7.4-10.4); Platelet Count 425 10^3/uL (130-400); Red Blood Cell Count 2.92 10^6/uL (4.70-6.10); Red Cell Dist. Width 14.7 % (11.5-14.5); White Blood Cell Count 11.8 10^3/uL (4.8-10.8)
[2024-08-08 07:08] LABS: Blood Urea Nitrogen 59 mg/dl (9-20); Calcium 8.8 mg/dl (8.4-10.2); Carbon Dioxide 25 mmol/L (22-30); Chloride 102 mmol/L (98-107); Estimated Creatinine Clearance 26 ml/min; Glucose 130 mg/dl (70-99); Magnesium 2.1 mg/dl (1.6-2.3); Phosphorus 4.7 mg/dl (2.5-4.5); Potassium 4.4 mmol/L (3.5-5.1); Sodium 139 mmol/L (135-145); eGFR 22.44
[2024-08-08 08:07] LABS: Glucose - Point of Care 224 mg/dl (70-99)
[2024-08-08] MEDS: ASPIR LOW (ENTERIC COATED) 81 MG PO (08:28)
[2024-08-08] MEDS: BUMEX 2 MG PO (08:30)
[2024-08-08] MEDS: COREG 12.5 MG PO (08:30)
[2024-08-08] MEDS: THERAGRAN PO (08:30)
[2024-08-08] MEDS: VISBIOME 1 CAP PO (08:30)
[2024-08-08] MEDS: MIRALAX 17 GRAMS PO (08:30)
[2024-08-08] MEDS: PACERONE 200 MG PO (08:31)
[2024-08-08] MEDS: VITAMIN B-12 1000 MCG PO (08:31)
[2024-08-08] MEDS: SENOKOT-S 1 TABLET PO (08:31)
[2024-08-08] MEDS: NEURONTIN 100 MG PO (08:31)
[2024-08-08] MEDS: PROTONIX 40 MG PO (08:31)
[2024-08-08] MEDS: ALDACTONE 12.5 MG PO (08:31)
[2024-08-08] MEDS: PLAVIX 75 MG PO (08:31)
[2024-08-08] MEDS: NORVASC PO (08:32)
[2024-08-08] MEDS: LIDOCAINE 4% PATCH 1 PATCH TOPICAL (08:32)
--- NOTE | 2024-08-08 09:18 | W.PN.UPDATE ---
Update Note
Progress Note Update
Patient seen and examined today. Afebrile, blood pressure stable. Patient still reports pain in calf, ultrasound negative. Foot warm, distal pulses intact bilaterally. Right lower extremity looks better today with less redness and petechiae.
Edema slightly improved with elevation of lower leg. Encouraged patient to continue with physical therapy and continue pain meds as needed.
Hemoglobin stable, creatinine at baseline. No further interventions needed per CT surgery. Encourage patient to ambulate as tolerated, elevate leg and pain meds as needed.
Slowly improving can transfer to SNF as per medical team.
Will continue to follow patient as outpatient post SNF discharge.
[2024-08-08] MEDS: NOVOLOG FLEXPEN-LOW RESISTANCE 2 UNITS SC (09:47)
--- NOTE | 2024-08-08 10:41 | W.PN.HOSP.TC ---
Addendum entered and electronically signed by Tyrone Zhou MD 08/08/24 14:10:
Suspected LELAND on CKD stage 4; unclear if this will be his new baseline given recent CABG
Addendum entered and electronically signed by Tyrone Zhou MD 08/08/24 12:11:
Discussed with spouse at bedside. Discharge today
time of discharge 39 minutes
Original Note:
Today's Communication/Plan
-
monitor vitals
see plan
can dc today if has placement
monitor hgb
pain control
maintain rodriguez
cw flomax
dc further abx
encourage ambulation
Assessment / Plan
Assessment / Plan
Physical Exam
General: No pallor, cyanosis, or jaundice. Obese
HEENT: Throat clear. PERRLA Normocephalic atraumatic
NECK: Supple. No JVD Carotid Bruits
RESPIRATORY: Lungs clear to auscultation. No crackles wheezes stridor
CVS: S1, S2 normal. RRR. No murmur, rub or gallop.
ABDOMEN: Soft, non-tender. No distension. BS+/normal.
: rodriguez
EXTREMITIES: RLE MYNOR wrap clean dry intact, right foot swollen sensation intact
COREMAKER EXPERIMENTAL: Awake Alert Conversant Coherent
IMPRESSION:
58M Belizean speaking (Interviewed with Belizean Target Network Analyst) HTN HLD DM CKD III-IV CHF Urinary retention with Rodriguez post-op atach/afib CAD recent CABG 07/22/24 presents for evaluation Right lower extremity swelling since discharge 07/29/24 associate
intermittent dizziness lightheadedness. Denies Fever chills constipation diarrhea. Endorses dyspnea on exertion. Reports normal bowel movements, no diarrhea/constipation/bloody bowel movements. Patient has not been able to walk since discharge
due to RLE pain swelling. VSS at rest, afebrile, Labs noted mild leukocytosis and severe anemia 6.9. Cr 3.4 baseline when compared to Cr levels from previous hospitalization. Acute post-op blood loss anemia symptomatic with RLE hematoma
associated with SVG harvest site for CABG. Patient admitted for further evaluation treatment
PLAN:
RLE swelling hematoma related to SVG harvest site
-RLE compressive MYNOR wraps discontinued as per CTS d/t discomfort, cont as tolerated elevation prn Ice packs. now mynor wrap restarted since patient agreeable.
-RLE venous ext appreciated no DVT, possible hematoma noted, less likely abscess given overall clinical presentation (afebrile mild leukocytosis but trending down from prior CABG procedure)
-infection prophylaxis Cefazolin as per CTS; dc on discharge
-CTS eval appreciated
-pain control prn Dilaudid severe pain, Percocet prn moderate pain renally dosed
-PT/OT appreciated SNF rehab
-fall precautions
-CT RLE appreciated postoperative changes and hematoma correlating with US finding as above, mild diffuse lower ext edema
Anemia Multifactorial
Acute post-op blood loss anemia
Severe symptomatic anemia
Iron Deficiency Anemia
Anemia of Chronic Disease
Anemia 2/2 B12 Deficiency
-post-transfusion Hgb notes good response to 1PRBC given in ED
-monitor H&H and transfuse goal Hgb 8 w/ cardiac hx
-finished IV iron supplementation
-B12 supplementation
hgb now 8.5
DM
recent A1c 9.2
sugars appear to be well controlled at this time most likely due to poor intake/appetite (constipation likely contributing)
Noted patient normally has high insulin requirement at home
Insulin coverage resumed at reduced dose for now to avoid hypoglycemia, titrate up as necessary
Low Dose Sliding scale
Lantus 15U HS
CAD s/p CABG
HFpEF
HTN
HLD
cont ASA plavix statin
cont home Coreg Bumex Aldactone w/ holding parameters
Amlodipine restarted low dose 2.5 mg BID; increased to 5 twice daily (per report was discontinued last hospitalization d/t hypotension)
Hydralazine prn
LELAND vs Chronic Kidney Disease Stage IV
Cr remains elevated but baseline approx 3- 3.5 as per values from recent CABG hospitalization
monitor while on diuresis
Monitor creatinine
Urinary Retention Rodriguez present on Admission
cont home flomax
Failed voiding trial, continue with Rodriguez.
Rodriguez resumed, maintain
will benefit from urology evaluation outpatient
post-op atach/afib
brief episode atach/afib 08/06; self resolved
cont home amiodarone taper as recommended prior hospitalization (twice a day for two weeks)
08/11/24 last day for twice a day dosing, reduce to daily afterwards.
Constipation
Bowel regimen miralax colace senna
consider suppository vs enema if constipation persists
DVT ppx SCD
Full Code
Discussed with patient and patient's via translation
PT/OT SNF
Anticipated Discharge: Today
Subjective/Interval History
-
Date of Service: August 08, 2024
denies nausea
Objective Data
-
Labs:
Laboratory Results
08/08/24 08/08/24
04:39 06:16
WBC 11.8 H
Hgb 8.5 L
Hct 26.0 L
Plt Count 425 H
Sodium Cancelled 139
Potassium Cancelled 4.4
Chloride Cancelled 102
Carbon Dioxide Cancelled 25
BUN Cancelled 59 H
Creatinine Cancelled 3.1 H
Glucose Cancelled 130 H
Calcium Cancelled 8.8
Vital Signs:
Vital Signs
Temp Pulse Resp BP Pulse Ox
98.5 F 62 16 132/57 96
08/08/24 08:04 08/08/24 08:31 08/07/24 18:00 08/08/24 08:32 08/08/24 08:00
I&O
08/07/24 08/08/24 08/09/24
06:59 06:59 06:59
Intake Total 1035 / 1035 1920 / 1920
Output Total 1900 / 1900 2750 / 2750
Balance -865 / -865 -830 / -830
--- NOTE | 2024-08-08 11:51 | CM ---
Addendum entered by Johana Keith 08/08/24 12:38:
ambulance shrimp picker scheduled for 1430 today
Addendum entered by Johana Keith 08/08/24 12:19:
Auth for Ambulance approved
Auth # [id number]
Original Note:
Plan: Discharge to [facility] today via ambulance today
--- NOTE | 2024-08-08 12:11 | W.DCSUMMARY ---
Discharge Summary
Discharge Data
Date of Admission: 08/02/24
Date of Discharge: 08/08/24
-
Pending Results: No
Hospital Course
58-year-old male with past medical history of hypertension, hyperlipidemia, diabetes mellitus, CKD stage IV, CHF, urinary retention with Benedict catheter, atrial tachycardia/A-fib, CAD status post CABG came to the hospital for evaluation of right
lower extremity swelling. CT scan was consistent with postoperative changes and hematoma. It appeared patient had hematoma related to SVG harvest site. Patient was seen by cardiothoracic surgery throughout hospitalization. He also required blood
transfusion while he was here. His hemoglobin continue to improve and he did not appear to have any further bleeding. He also had urinary retention where his outpatient catheter was removed however he failed voiding trial so Benedict catheter was
reinserted. He was instructed to follow-up with urology outpatient. He was also evaluated by physical therapy who recommended SNF. Once his symptoms continue to improve, he was then discharged to rehab with instructions to follow-up with all his
physicians outpatient.
Discharge Plan
-
Patient Disposition: Usp/SNF
Discharge Diagnosis/Procedures: RLE swelling hematoma related to SVG harvest site
Acute blood loss anemia
Renal insufficiency
Acute urinary retention
Diet: Diabetic, Carb Controlled
Activity: With assistance and As tolerated
Driving Restrictions: Not until seen by your Dr
Blood Work: cbc and bmp next week with PCP
Referrals:
Alison Rai FOLDER MACHINE OPERATOR [Family Provider] - in less than 1 week
Delano Cole MD [Active] - 09/05/24 12:20 pm
Enzo Chisholm MD [Active] - in less than 1 week
Renny Rasheed MD [Active] -
Prescriptions:
New
polyethylene glycol 3350 17 gram Powder In Packet
17 g PO DAILY Qty: 0 0RF
cyanocobalamin (vitamin B-12) 1,000 mcg Tablet
1,000 mcg PO DAILY Qty: 0 0RF
amlodipine 5 mg Tablet
5 mg PO BID Qty: 0 0RF
Lactobac/Bifidobac [Visbiome]
1 cap PO DAILY Qty: 0 0RF
oxycodone-acetaminophen 5-325 mg Tablet
1 tab PO Q8HPRN PRN (Reason: moderate to severe pain) Qty: 10 0RF
Continued
amiodarone 200 mg Tablet
200 mg PO BID Qty: 90 0RF
Rx Instructions:
take twice daily for 2 weeks (until 08/12), then once daily until otherwise instructed
tamsulosin 0.4 mg Capsule
0.4 mg PO HS Qty: 14 0RF
acetaminophen 325 mg Tablet
650 mg PO Q6HPRN PRN (Reason: mild pain,headache,temp >101F ) Qty: 0 0RF
lidocaine 4 % Adhesive Patch,Medicated
1 patch topical DAILY Qty: 0 0RF
carvedilol [Coreg] 12.5 mg tablet
12.5 mg PO BID Qty: 60 1RF
bumetanide 2 mg tablet
2 mg PO BID AT 0800,1600 Qty: 60 1RF
clopidogrel 75 mg tablet
75 mg PO DAILY Qty: 30 1RF
aspirin 81 mg Tablet,Delayed Release (Dr/Ec)
81 mg PO DAILY Qty: 30 1RF
spironolactone 25 mg tablet
12.5 mg PO BID AT 0800,1600 Qty: 30 0RF
rosuvastatin 40 mg Tablet
40 mg PO QPM Qty: 30 1RF
pantoprazole [Protonix] 40 mg Tablet,Delayed Release (Dr/Ec)
40 mg PO DAILY
sennosides-docusate sodium 8.6-50 mg tablet
1 tab PO [id number] PRN (Reason: Constipation)
cyclobenzaprine 5 mg Tablet
5 mg PO TIDPRN PRN (Reason: spasms)
Changed
gabapentin 100 mg Capsule
100 mg PO TID Qty: 0 0RF
insulin aspart U-100 [Novolog FlexPen U-100 Insulin] 100 unit/mL (3 mL) insulin pen
5 unit SC AC Qty: 15 1RF
insulin glargine [Lantus Solostar U-100 Insulin] 100 unit/mL (3 mL) insulin pen
18 unit SC HS Qty: 0.37 0RF
Discharge Orders:
Discharge Patient (As Directed); Ordered 08/08/24
Ordered By: Tyrone Zhou
Discharge Date and Time
Discharge Date/Time: 08/08/24 15:32
Print Language: Bolivian
[2024-08-08 12:24] LABS: Glucose - Point of Care 188 mg/dl (70-99)
[2024-08-08] MEDS: NOVOLOG FLEXPEN-LOW RESISTANCE 1 UNITS SC (13:19)
[2024-08-08] MEDS: FERRLECIT 110 MG IV (13:20)
--- NOTE | 2024-08-08 13:57 | PTCARENOTE ---
Patient AOx3. Patient is Anguillan speaking. Primary School Teacher Librarian provided by hospital utilized for communication with patient and patients . Patient on RA with SpO2 greater than 92%. NSR with sinus corine on monitor. Q4 hr neurovascular assessment to R
lower extremity completed per order. Jay bandage to R leg per order. Benedict is draining yellow urine. Assist x1 when ambulating. Call capone within reach, bed in lowest position, and wheels locked.
--- NOTE | 2024-08-08 13:59 | PN.CDI ---
CDI
- -
CDI:
Physician Documentation Request
Admit Date: 08/02/24 16:53
Dear Doctor Abelardo,
Patient admitted for hematoma.
08/08 Hospitalist PN: 'LELAND vs Chronic Kidney Disease Stage IV, Cr remains elevated but baseline approx 3- 3.5 as per values from recent CABG hospitalization'
The purpose of this query is not to question medical judgement, but to ensure the accuracy of the conditions reported for your patient.
There is either a lack of clinical support for this condition in the current medical record, or there is a lack of recognized standard criteria to support the condition.
Laboratory Tests
08/02/24 08/04/24 08/08/24
13:04 05:11 06:16
Creatinine 3.4 H 2.9 H 3.1 H
Criteria for LELAND*
1 Increase in serum creatinine by > or = to 0.3 mg/dL (> or = to 26.5 micromol/L) within 48 hours, OR
2 Increase in serum creatinine to > or = to 1.5 times baseline, which is known or presumed to have occurred within 7 days, OR
3 Urine volume < 0.5 nL/kg/hour for six hours
The request is for one of the following:
- Additional documentation to support the condition. Indicate if this is in lieu of what may be considered standard criteria, and/or support why the standard criteria may not be present for this patient.
- A more appropriate diagnosis, reflecting the patient's condition
- LELAND remains a known or suspected condition for this patient and is further supported by (include additional documentation in the medical record)
- LELAND has been ruled out and a more appropriate diagnosis for this patient's condition is .
- Other (please specify)
- Unable to determine
Use of terms such as suspected, likely, concern for, or probable (associated with a specific diagnosis that is being evaluated, monitored, or treated as if it exists) are acceptable and can be coded in the inpatient setting, when documented at the
time of discharge.
Thank you,
Mulu He RN, BSN
CDI Specialist
Available via [place] text
Please use your independent medical judgment in providing your response.
== END 2024-08-08 15:32 | DRG 920 ==
LOC: IMU 16:53
PROVIDERS: ADMITTING PHYSICIAN Internal Medicine; ATTENDING PHYSICIAN Internal Medicine; CONSULT PHYSICIAN Thoracic Surgery (Cardiothoracic Vascular Surgery); EMERGENCY PHYSICIAN Emergency Medicine; FAMILY PHYSICIAN Nurse Practitioner Adult Health
PROC: 30233N1 Transfusion of Nonautologous Red Blood Cells into Peripheral Vein, Percutaneous Approach (ICD-10-PCS; 2024-08-02)
DX: L76.32 Postprocedural hematoma of skin and subcutaneous tissue following other procedure (principal); D62 Acute posthemorrhagic anemia; I50.32 Chronic diastolic (congestive) heart failure; I13.0 Hypertensive heart and chronic kidney disease with heart failure and stage 1 through stage 4 chronic kidney disease, or unspecified chronic kidney disease; N18.4 Chronic kidney disease, stage 4 (severe); N17.9 Acute kidney failure, unspecified; S80.11XA Contusion of right lower leg, initial encounter; X58.XXXA Exposure to other specified factors, initial encounter; I25.10 Atherosclerotic heart disease of native coronary artery without angina pectoris; E11.22 Type 2 diabetes mellitus with diabetic chronic kidney disease; E78.5 Hyperlipidemia, unspecified; M79.89 Other specified soft tissue disorders; E66.811 Obesity, class 1; D72.829 Elevated white blood cell count, unspecified; D50.9 Iron deficiency anemia, unspecified; D63.8 Anemia in other chronic diseases classified elsewhere; D51.9 Vitamin B12 deficiency anemia, unspecified; R33.9 Retention of urine, unspecified; I48.91 Unspecified atrial fibrillation; E11.65 Type 2 diabetes mellitus with hyperglycemia; K59.00 Constipation, unspecified; Y83.2 Surgical operation with anastomosis, bypass or graft as the cause of abnormal reaction of the patient, or of later complication, without mention of misadventure at the time of the procedure; Y92.9 Unspecified place or not applicable; Z60.3 Acculturation difficulty; Z95.1 Presence of aortocoronary bypass graft; Z79.82 Long term (current) use of aspirin; Z79.02 Long term (current) use of antithrombotics/antiplatelets; Z79.4 Long term (current) use of insulin; Z68.30 Body mass index [BMI] 30.0-30.9, adult; Z87.01 Personal history of pneumonia (recurrent)
CPT/HCPCS: 36430; 73700; 74018; 80048; 80053; 82607; 82728; 82746; 82962; 83540; 83550; 83735; 83880; 84100; 85014; 85018; 85025; 85027; 85610; 85730; 86850; 86900; 86901; 86920; 93005; 93971; 96374; 96375; 97110; 97116; 97163; 97167; 97530; 97535; 99285; J2916; P9016

== ENCOUNTER 2024-08-13 11:13 | Emergency (ER) | payer OTHER, SELFPAY ==
[2024-08-13 11:32] VITALS: BP 158/68
[2024-08-13 11:58] LABS: % Basophils 0.2 % (0-2); % Eosinophils 1.3 % (0-6); % Immature Granulocytes 0.5 % (0-0.5); % Lymphocytes 9.8 % (20.5-51.1); % Monocytes 7.4 % (1.7-9.3); % Neutrophils 80.8 % (42.2-75.2); Absolute Eosinophils 0.2 10^3/uL (0-0.7); Absolute Immature Granulocytes 0.1 10^3/uL (0-0.05); Absolute Lymphocytes 1.6 10^3/uL (1.2-3.4); Absolute Monocytes 1.2 10^3/uL (0.1-0.6); Absolute Neutrophils 13.4 10^3/uL (1.4-6.5); Hematocrit 27.8 % (39.0-52.0); Hemoglobin 9.1 g/dL (13.0-18.0); Mean Corp Hgb Conc. 32.7 g/dL (33.0-37.0); Mean Corpuscular Hgb 29.5 pg (27.0-31.0); Mean Corpuscular Volume 90.3 fL (80.0-94.0); Mean Platelet Volume 9.3 fL (7.4-10.4); Nucleated Red Blood Cells % 0 % (-); Platelet Count 317 10^3/uL (130-400); Red Blood Cell Count 3.08 10^6/uL (4.70-6.10); Red Cell Dist. Width 15.5 % (11.5-14.5); White Blood Cell Count 16.6 10^3/uL (4.8-10.8)
[2024-08-13 12:20] LABS: ALT (SGPT) 18 U/L (0-50); AST (SGOT) 19 U/L (17-59); Albumin 3.6 g/dl (3.5-5.0); Alkaline Phosphatase 92 U/L (38-126); Blood Urea Nitrogen 54 mg/dl (9-20); Carbon Dioxide 22 mmol/L (22-30); Chloride 102 mmol/L (98-107); Glucose 212 mg/dl (70-99); Potassium 4.7 mmol/L (3.5-5.1); Sodium 138 mmol/L (135-145); Total Bilirubin 0.5 mg/dl (0.2-1.3); Total Protein 7.1 g/dl (6.3-8.2)
--- NOTE | 2024-08-13 13:44 | ED.GENMED ---
History of Present Illness
General
Chief Complaint: Fever
Time Seen by Provider: 08/13/24 13:08
History of Present Illness
History of Present Illness:
58-year-old male presents to the emergency department for evaluation of fever mild exertional shortness of breath, right lower extremity pain, and elevated blood pressures for the past 2 to 3 days. 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
Postoperative course was complicated by a hematoma of the right lower extremity GSV harvesting site for which she was admitted secondary to acute blood loss anemia 2 weeks ago. His leg swelling has been unchanged with the pain has worsened. He
notes fevers of 101 Fahrenheit over the past 24 hours. Does report a mild dry cough as well as exertional shortness of breath. Denies any chest pain, nausea, or vomiting. Also noted to have urinary retention during last hospitalization has an
indwelling Benedict catheter
Review of Systems
Review of Systems
Allergies reviewed?: Yes
All Other Systems: ROS reviewed and negative except as documented in HPI and ROS
Phy Exam
Physical Exam
Physical Exam:
GEN: Well appearing, NAD, WDWN
Eyes: PERRLA, EOMs intact, no scleral icterus
HENT: NCAT, oral mucosa moist, no JVD, no cervical adenopathy.
Lungs: Mildly tachypneic, no accessory muscle use, diminished bibasilar breath sounds
Cardiac: RRR, no M/R/G, no peripheral edema. Radial pulses 2+ bilat
Abdomen: S, NT, ND, NABS, no masses or hepatosplenomegaly
Neuro: AO x 3
MSK: No gross deformity or ecchymosis. Significant swelling of the right lower extremity GSV harvesting site, no erythema or warmth
Skin: No rashes, petechiae. Normal color, no pallor or jaundice.
Psych: Calm, cooperative, proper hygiene
Course
Orders/Labs/Results
Orders:
Orders
08/13/24 11:46
Complete Blood Count/With Diff Urgent
Comprehensive Metabolic Panel Urgent
08/13/24 13:44
CR Chest - 2 Views Urgent
Comment:
Reason For Exam: SOB
08/13/24 13:51
COVID-19 Antigen Urgent
Source: Nasal Swab
Influenza A+B Rapid Molecular Urgent
FINA Source: Nasal Swab
Specimen Description:
08/13/24 15:46
CefTRIAXone [Rocephin] 1,000 mg IV NOW STA
Doxycycline [Vibramycin] 100 mg PO NOW STA
Abnormal Lab Results
08/13/24
11:46
WBC 16.6 H 10^3/uL
(4.8-10.8)
RBC 3.08 L 10^6/uL
(4.70-6.10)
Hgb 9.1 L g/dL
(13.0-18.0)
Hct 27.8 L %
(39.0-52.0)
MCHC 32.7 L g/dL
(33.0-37.0)
RDW 15.5 H %
(11.5-14.5)
Abs Immat Gran (auto) 0.1 H 10^3/uL
(0-0.05)
Absolute Neuts (auto) 13.4 H 10^3/uL
(1.4-6.5)
Absolute Monos (auto) 1.2 H 10^3/uL
(0.1-0.6)
Neutrophils % 80.8 H %
(42.2-75.2)
Lymphocytes % 9.8 L %
(20.5-51.1)
BUN 54 H mg/dl
(9-20)
Creatinine 3.2 H mg/dL
(0.7-1.3)
Glucose 212 H mg/dl
(70-99)
08/13/24 11:46
08/13/24 11:46
Vital Signs
Initial and Last Documented VS:
Initial Vital Signs
Temp Pulse Resp BP Pulse Ox
99.8 F 72 18 158/68 94
08/13/24 11:32 08/13/24 11:32 08/13/24 11:32 08/13/24 11:32 08/13/24 11:32
Last Documented Vital Signs
Temp Pulse Resp BP Pulse Ox
99.8 F 71 18 168/73 95
08/13/24 11:32 08/13/24 15:34 08/13/24 15:34 08/13/24 15:34 08/13/24 15:34
MDM/Problems Addressed
MDM/Problems Addressed:
Patient's right lower extremity hematoma does not look actively infected, do not suspect this is the source of his fever. Chest x-ray suspicious for a new right lower lobe effusion with associated pneumonia. Given his dry cough and shortness of
breath we will treat this with dual coverage antibiotics. Will opt for cefpodoxime and doxycycline to avoid QT interaction with his amiodarone of fluoroquinolones or azithromycin. Recommend he contact his soc analyst to discuss his elevated blood
pressures but would anticipate this would improve with treatment of his pneumonia
*Critical Care Note
Total Time (30-74mins, 75-104mins- exclusive of procedures): Not Applicable
ED Attending Note
-
Portions of this chart may have been created with voice recognition software.� Occasional wrong word or��sound alike� substitutions may have occurred due to the inherent limitations of voice recognition software.
Discharge Plan
Departure
Patient Disposition: Home (Routine Discharge)
Date of Disposition: 08/13/24
Time of Disposition: 15:47
Patient with high blood pressure during this ER visit?: No
Discharge Problem:
Right lower lobe pneumonia
Instructions: Pneumonia, Adult (DC)
Prescriptions:
New
cefpodoxime 200 mg tablet
200 mg PO Q12H 4 Days Qty: 8 0RF
doxycycline hyclate 100 mg tablet
100 mg PO BID Qty: 10 0RF
No Action
amiodarone 200 mg Tablet
200 mg PO BID Qty: 90 0RF
Rx Instructions:
take twice daily for 2 weeks (until 08/12), then once daily until otherwise instructed
tamsulosin 0.4 mg Capsule
0.4 mg PO HS Qty: 14 0RF
acetaminophen 325 mg Tablet
650 mg PO Q6HPRN PRN (Reason: mild pain,headache,temp >101F ) Qty: 0 0RF
lidocaine 4 % Adhesive Patch,Medicated
1 patch topical DAILY Qty: 0 0RF
carvedilol [Coreg] 12.5 mg tablet
12.5 mg PO BID Qty: 60 1RF
bumetanide 2 mg tablet
2 mg PO BID AT 0800,1600 Qty: 60 1RF
clopidogrel 75 mg tablet
75 mg PO DAILY Qty: 30 1RF
aspirin 81 mg Tablet,Delayed Release (Dr/Ec)
81 mg PO DAILY Qty: 30 1RF
spironolactone 25 mg tablet
12.5 mg PO BID AT 0800,1600 Qty: 30 0RF
rosuvastatin 40 mg Tablet
40 mg PO QPM Qty: 30 1RF
pantoprazole [Protonix] 40 mg Tablet,Delayed Release (Dr/Ec)
40 mg PO DAILY
sennosides-docusate sodium 8.6-50 mg tablet
1 tab PO [id number] PRN (Reason: Constipation)
cyclobenzaprine 5 mg Tablet
5 mg PO TIDPRN PRN (Reason: spasms)
polyethylene glycol 3350 17 gram Powder In Packet
17 g PO DAILY Qty: 0 0RF
cyanocobalamin (vitamin B-12) 1,000 mcg Tablet
1,000 mcg PO DAILY Qty: 0 0RF
amlodipine 5 mg Tablet
5 mg PO BID Qty: 0 0RF
Lactobac/Bifidobac [Visbiome]
1 cap PO DAILY Qty: 0 0RF
gabapentin 100 mg Capsule
100 mg PO TID Qty: 0 0RF
insulin aspart U-100 [Novolog FlexPen U-100 Insulin] 100 unit/mL (3 mL) insulin pen
5 unit SC AC Qty: 15 1RF
insulin glargine [Lantus Solostar U-100 Insulin] 100 unit/mL (3 mL) insulin pen
18 unit SC HS Qty: 0.37 0RF
oxycodone-acetaminophen 5-325 mg Tablet
1 tab PO Q8HPRN PRN (Reason: moderate to severe pain) Qty: 10 0RF
Referrals:
UNKNOWN - PT DOES,NOT KNOW [Family Provider] -
Activity Restrictions/Additional Instructions:
Call your soc analyst for further instruction regarding her blood pressure medications although this may improve as we treat the pneumonia with antibiotics
Interventions
Interventions:
*Risk Screen - Suicide Last Done: 08/13/24 14:07
*General Assessment Last Done: 08/13/24 14:07
*Neglect/Abuse Screening Last Done: 08/13/24 14:07
ED- Fall Risk Assessment Last Done: 08/13/24 14:07
*ED COVID-19 Vaccine History Last Done: 08/13/24 14:07
*Nursing Disposition Last Done: 08/13/24 16:35
ED- Neurological Assessment Last Done: 08/13/24 14:07
ED-Skin Assessment Last Done: 08/13/24 14:07
Discharge Date and Time
Discharge Date/Time: 08/13/24 16:35
Print Language: Georgian
[2024-08-13 14:07] VITALS: BMI 28.4
--- NOTE | 2024-08-13 14:10 | EDRN ---
Pt had a urology appt that he missed as came here to be seen and needs another appt w/ Dr. Chisholm about his rodriguez for follow up of urinary retention.
--- NOTE | 2024-08-13 14:11 | EDRN ---
Pt states he is not walking much and when he needs to go to [place] his supports hime. Translation was done using extractor operator helper #[id number] for [place].
[2024-08-13 14:16] VITALS: BP 156/73
[2024-08-13 14:30] LABS: COVID-19 Antigen Negative (Negative)
[2024-08-13 15:34] VITALS: BP 168/73
--- NOTE | 2024-08-13 15:55 | EDRN ---
Pt requested to schedule urology appt and due to language barrier this RN assisted and pt has a 15:39 urology appt on 08/26 done through [facility].
[2024-08-13] MEDS: VIBRAMYCIN 100 MG PO (16:17)
[2024-08-13] MEDS: ROCEPHIN 1000 MG IV (16:17)
== END 2024-08-13 16:35 | disposition home or self-care (01) ==
LOC: EMR 11:13
PROVIDERS: Emergency Medicine; Physician Assistant; EMERGENCY PHYSICIAN Student in an Organized Health Care Education/Training Program
DX: J18.9 Pneumonia, unspecified organism (principal); L76.32 Postprocedural hematoma of skin and subcutaneous tissue following other procedure
CPT/HCPCS: 99283; 96374; 71046; 80053; 85025; 87502; 87811

== ENCOUNTER → 2024-08-22 12:02 | Outpatient (REF) | payer OTHER, SELFPAY ==
[2024-08-22 12:41] LABS: % Basophils 0.4 % (0-2); % Eosinophils 1.6 % (0-6); % Lymphocytes 9.7 % (20.5-51.1); % Neutrophils 76.3 % (42.2-75.2); Absolute Basophils 0.1 10^3/uL (0-0.2); Absolute Eosinophils 0.2 10^3/uL (0-0.7); Absolute Immature Granulocytes 0.4 10^3/uL (0-0.05); Absolute Lymphocytes 1.4 10^3/uL (1.2-3.4); Absolute Monocytes 1.3 10^3/uL (0.1-0.6); Absolute Neutrophils 10.8 10^3/uL (1.4-6.5); Hematocrit 25.6 % (39.0-52.0); Hemoglobin 8.5 g/dL (13.0-18.0); Mean Corp Hgb Conc. 33.2 g/dL (33.0-37.0); Mean Corpuscular Hgb 28.1 pg (27.0-31.0); Mean Corpuscular Volume 84.8 fL (80.0-94.0); Mean Platelet Volume 9.4 fL (7.4-10.4); Nucleated Red Blood Cells % 0 % (-); Platelet Count 443 10^3/uL (130-400); Red Blood Cell Count 3.02 10^6/uL (4.70-6.10); Red Cell Dist. Width 16.1 % (11.5-14.5); White Blood Cell Count 14.1 10^3/uL (4.8-10.8)
[2024-08-22 13:15] LABS: ALT (SGPT) 26 U/L (0-50); AST (SGOT) 21 U/L (17-59); Albumin 3.6 g/dl (3.5-5.0); Alkaline Phosphatase 113 U/L (38-126); Blood Urea Nitrogen 54 mg/dl (9-20); Calcium 9.4 mg/dl (8.4-10.2); Carbon Dioxide 18 mmol/L (22-30); Chloride 104 mmol/L (98-107); Glucose 161 mg/dl (70-99); Iron 38 ug/dl (49-181); Phosphorus 4.7 mg/dl (2.5-4.5); Potassium 4.8 mmol/L (3.5-5.1); Sodium 138 mmol/L (135-145); Total Bilirubin 0.3 mg/dl (0.2-1.3); Total Protein 7.1 g/dl (6.3-8.2); eGFR 13.62
[2024-08-22 13:20] LABS: Percent Saturation 16 % (20-50); Total Iron Binding Capacity 234 ug/dl (261-462)
== END ==
LOC: REG 12:02
PROVIDERS: ATTENDING PHYSICIAN Specialist
DX: N18.32 Chronic kidney disease, stage 3b (principal)
CPT/HCPCS: 36415; 80053; 82728; 83540; 83550; 84100; 85025

== ENCOUNTER → 2024-08-27 15:24 | Outpatient (REF) | payer OTHER, SELFPAY ==
[2024-08-27 16:58] LABS: Urine Albumin 1+ (Neg - Trace); Urine Bilirubin Negative (Negative); Urine Character Clear (Clear); Urine Color Yellow; Urine Glucose Negative (Negative); Urine Ketone Negative (Negative); Urine Leukocyte Negative (Negative); Urine Nitrite Negative (Negative); Urine Occult Blood Negative (Negative); Urine Urobilinogen Negative (Neg - 1+)
[2024-08-27 17:42] LABS: Urine Red Blood Cell 0-2 /HPF (0-2)
== END ==
LOC: REG 15:24
PROVIDERS: ATTENDING PHYSICIAN Thoracic Surgery (Cardiothoracic Vascular Surgery)
DX: Z98.890 Other specified postprocedural states (principal); Z87.440 Personal history of urinary (tract) infections
CPT/HCPCS: 81003; 81015

== ENCOUNTER 2025-04-14 20:00 | Emergency (ER) | payer OTHER, SELFPAY ==
[2025-04-14 20:09] VITALS: BP 177/81
[2025-04-14 22:38] VITALS: BP 192/91
[2025-04-14 23:06] LABS: Hematocrit 42.3 % (39.0-52.0); Hemoglobin 14.7 g/dL (13.0-18.0); Mean Corp Hgb Conc. 34.8 g/dL (33.0-37.0); Mean Corpuscular Volume 83.6 fL (80.0-94.0); Nucleated Red Blood Cells % 0 % (-); Platelet Count 241 10^3/uL (130-400); Red Cell Dist. Width 13.0 % (11.5-14.5)
[2025-04-14 23:22] LABS: ALT (SGPT) 30 U/L (0-50); AST (SGOT) 24 U/L (17-59); Albumin 4.1 g/dl (3.5-5.0); Alkaline Phosphatase 121 U/L (38-126); Blood Urea Nitrogen 44 mg/dl (9-20); Calcium 8.6 mg/dl (8.4-10.2); Carbon Dioxide 23 mmol/L (22-30); Chloride 104 mmol/L (98-107); Glucose 358 mg/dl (70-99); Potassium 3.5 mmol/L (3.5-5.1); Sodium 136 mmol/L (135-145); Total Protein 7.3 g/dl (6.3-8.2); eGFR 24.16
[2025-04-14 23:33] LABS: Troponin I 0.030 ng/ml
[2025-04-14 23:49] VITALS: BP 183/94
[2025-04-15 00:01] VITALS: BMI 32.3
--- NOTE | 2025-04-15 00:15 | ED.GENMED ---
History of Present Illness
General
Chief Complaint: Blood Pressure Problem
Time Seen by Provider: 04/14/25 23:37
History of Present Illness
History of Present Illness:
59-year-old male presents the emergency department for evaluation of persistently elevated blood pressure for the past 2 weeks. Family has been seeing readings greater than 200 systolic for the past several days. The patient denies any symptoms,
denies any headache, chest pain, or shortness of breath at this time. He notes that he had nifedipine discontinued in favor of hydrochlorothiazide late last week. Has been compliant with all of his medications.
Review of Systems
Review of Systems
Allergies reviewed?: Yes
All Other Systems: ROS reviewed and negative except as documented in HPI and ROS
Phy Exam
Physical Exam
Physical Exam:
GEN: Well appearing, NAD, WDWN
HEENT: Oral mucosa moist, no scleral icterus
Cardiac: Regular rate and rhythm, no murmur
Lung: No respiratory distress, no tachypnea
MSK: No gross deformity or injuries
Skin: Good color, no pallor or jaundice, no rashes
Neuro: AO x3, moves all extremities freely
Psych: Calm, cooperative
Course
Orders/Labs/Results
Orders:
Orders
04/14/25 22:37
Electrocardiogram (*1) Urgent
Reason for Study: Hypertension, Benign
EKG- Treatment ONCE
04/14/25 22:56
Complete Blood Count/With Diff Urgent
Comprehensive Metabolic Panel Urgent
Troponin I Urgent
04/15/25 00:16
HydrALAZINE [Apresoline] 100 mg PO NOW STA
Abnormal Lab Results
04/14/25
22:56
WBC 11.5 H 10^3/uL
(4.8-10.8)
MPV 10.6 H fL
(7.4-10.4)
Absolute Monos (auto) 1.2 H 10^3/uL
(0.1-0.6)
Absolute Eos (auto) 0.9 H 10^3/uL
(0-0.7)
Monocytes % 10.8 H %
(1.7-9.3)
Eosinophils % 7.4 H %
(0-6)
BUN 44 H mg/dl
(9-20)
Creatinine 2.9 H mg/dL
(0.7-1.3)
Glucose 358 H mg/dl
(70-99)
04/14/25 22:56
04/14/25 22:56
Vital Signs
Initial and Last Documented VS:
Initial Vital Signs
Temp Pulse Resp BP Pulse Ox
98.2 F 71 16 177/81 95
04/14/25 20:09 04/14/25 20:09 04/14/25 20:09 04/14/25 20:09 04/14/25 20:09
Last Documented Vital Signs
Temp Pulse Resp BP Pulse Ox
98.2 F 64 20 183/94 100
04/14/25 20:09 04/14/25 23:51 04/14/25 22:38 04/14/25 23:49 04/15/25 00:15
MDM/Problems Addressed
MDM/Problems Addressed:
Patient is asymptomatic and labs are unremarkable. He has no chest pain. Troponin is mildly detectable which is most likely on the basis of his chronic renal disease, no concern for ACS based on baseline normal EKG and lack of cardiac symptoms.
Will increase his hydralazine to 100 mg 3 times daily and have him follow-up with his primary care physician
*Pulse Oximetry
SaO2: 100
Oxygen Mode of Delivery: Room air
Patient hypoxic: no
*Critical Care Note
Total Time (30-74mins, 75-104mins- exclusive of procedures): Not Applicable
ED Attending Note
-
Portions of this chart may have been created with voice recognition software.� Occasional wrong word or��sound alike� substitutions may have occurred due to the inherent limitations of voice recognition software.
Discharge Plan
Departure
Patient Disposition: Home (Routine Discharge)
Date of Disposition: 04/15/25
Time of Disposition: 00:16
Patient with high blood pressure during this ER visit?: Yes
Discharge Problem:
Hypertension, uncontrolled
Instructions: High Blood Pressure (DC)
Prescriptions:
New
hydralazine 100 mg tablet
100 mg PO TID Qty: 90 0RF
No Action
amiodarone 200 mg Tablet
200 mg PO BID Qty: 90 0RF
Rx Instructions:
take twice daily for 2 weeks (until 08/12), then once daily until otherwise instructed
tamsulosin 0.4 mg Capsule
0.4 mg PO HS Qty: 14 0RF
acetaminophen 325 mg Tablet
650 mg PO Q6HPRN PRN (Reason: mild pain,headache,temp >101F ) Qty: 0 0RF
lidocaine 4 % Adhesive Patch,Medicated
1 patch topical DAILY Qty: 0 0RF
carvedilol [Coreg] 12.5 mg tablet
12.5 mg PO BID Qty: 60 1RF
bumetanide 2 mg tablet
2 mg PO BID AT 0800,1600 Qty: 60 1RF
clopidogrel 75 mg tablet
75 mg PO DAILY Qty: 30 1RF
aspirin 81 mg Tablet,Delayed Release (Dr/Ec)
81 mg PO DAILY Qty: 30 1RF
spironolactone 25 mg tablet
12.5 mg PO BID AT 0800,1600 Qty: 30 0RF
rosuvastatin 40 mg Tablet
40 mg PO QPM Qty: 30 1RF
pantoprazole [Protonix] 40 mg Tablet,Delayed Release (Dr/Ec)
40 mg PO DAILY
sennosides-docusate sodium 8.6-50 mg tablet
1 tab PO [id number] PRN (Reason: Constipation)
cyclobenzaprine 5 mg Tablet
5 mg PO TIDPRN PRN (Reason: spasms)
polyethylene glycol 3350 17 gram Powder In Packet
17 g PO DAILY Qty: 0 0RF
cyanocobalamin (vitamin B-12) 1,000 mcg Tablet
1,000 mcg PO DAILY Qty: 0 0RF
amlodipine 5 mg Tablet
5 mg PO BID Qty: 0 0RF
Lactobac/Bifidobac [Visbiome]
1 cap PO DAILY Qty: 0 0RF
gabapentin 100 mg Capsule
100 mg PO TID Qty: 0 0RF
insulin aspart U-100 [Novolog FlexPen U-100 Insulin] 100 unit/mL (3 mL) insulin pen
5 unit SC AC Qty: 15 1RF
insulin glargine [Lantus Solostar U-100 Insulin] 100 unit/mL (3 mL) insulin pen
18 unit SC HS Qty: 0.37 0RF
oxycodone-acetaminophen 5-325 mg Tablet
1 tab PO Q8HPRN PRN (Reason: moderate to severe pain) Qty: 10 0RF
cefpodoxime 200 mg tablet
200 mg PO Q12H 4 Days Qty: 8 0RF
doxycycline hyclate 100 mg tablet
100 mg PO BID Qty: 10 0RF
Referrals:
Alison Rai NP [Family Provider, Family Practice]
Activity Restrictions/Additional Instructions:
Increase your hydralazine to 100mg three times per day
Interventions
Interventions:
*Risk Screen - Suicide Last Done: 04/14/25 20:09
*General Assessment Last Done: 04/14/25 20:09
*Neglect/Abuse Screening Last Done: 04/14/25 20:09
*ED- Fall Risk Assessment Last Done: 04/14/25 20:09
*ED COVID-19 Vaccine History Last Done: 04/14/25 20:09
Discharge Date and Time
Print Language: Icelandic
[2025-04-15] MEDS: APRESOLINE 100 MG PO (00:27)
== END 2025-04-15 00:44 | disposition home or self-care (01) ==
LOC: EMR 20:00
PROVIDERS: Student in an Organized Health Care Education/Training Program; EMERGENCY PHYSICIAN Emergency Medicine; FAMILY PHYSICIAN Nurse Practitioner Adult Health
DX: I12.9 Hypertensive chronic kidney disease with stage 1 through stage 4 chronic kidney disease, or unspecified chronic kidney disease (principal); N18.9 Chronic kidney disease, unspecified; Z79.899 Other long term (current) drug therapy
CPT/HCPCS: 99284; 80053; 84484; 85025; 93005